=== PATIENT | female | born 1995 | race Caucasian/White ===

== ENCOUNTER 2023-10-26 14:25 | Emergency (ER) | payer BC, SELFPAY ==
[2023-10-26 14:26] VITALS: BP 163/99; PULSE 72; RESP 18; TEMP 36.7; O2SAT 100
--- NOTE | 2023-10-26 15:23 | ED.ANXIETY ---
HPI - Anxiety General Chief Complaint: Anxiety Stated Complaint: anxiety Time Seen by Provider: 10/26/23 14:28 Source: patient Mode of arrival: ambulatory Limitations: no limitations History of Present Illness HPI narrative: Patient is a 28-year-old female with anxiety today. She is having a little bit of wooziness. She is having some headache. This has been going on for 2 months. No panic. No suicide thoughts. MD complaint: anxiety Onset (ago): month(s) (2) Symptoms: other ( She feels like she is having anxiety all the time now) Severity: mild Quality: constant Place: home History of similar episodes: Yes Provoking factors: emotional stress and work/job stress Relieving factors: nothing Exacerbating factors: nothing Associated symptoms: headaches Review of Systems Review of Systems: All systems reviewed & are unremarkable except as noted in HPI and below Constitutional: Constitutional: Reports no additional constitutional complaints Eyes: Eyes: Reports no additional eye complaints ENT: Reports system reviewed and no additional complaints, except as documented Cardiovascular: Cardiovascular: Reports no additional cardiovascular complaints Respiratory: Respiratory: Reports no additional respiratory complaints Gastrointestinal: Gastrointestinal: Reports no additional gastrointestinal complaints Genitourinary: Genitourinary: Reports no additional female genitourinary complaints Musculoskeletal: Musculoskeletal: Reports no additional musculoskeletal complaints Integumentary/Breasts: Skin/Breast: Reports system reviewed and no additional complaints, except as docu Neurologic: Reports system reviewed and no additional complaints, except as documented Psychiatric: Psychiatric: Reports no additional psychiatric complaints Endocrine: Endocrine: Reports no additional endocrine complaints Hematologic/Lymphatic: Hematologic/Lymphatic: Reports no additional hematologic/lymphatic complaints Allergic/Immunologic: Allergic/Immunologic: Reports no additional allergic/immunologic complaints Exam Const: General: healthy appearing Nutritional Appearance: well nourished Orientation/consciousness: patient oriented x3 HENMT: Head: normal to inspection Ears: external ears normal Face/Nose/Sinus: Normal external nose present Eyes: Conjunctivae: conjunctivae normal Pupils: Equal, round and reactive pupils present EOM: EOMs intact bilaterally Neck: Neck: normal visual inspection Chest: Chest palpation & inspection: normal inspection of the chest Resp: Effort & Inspection: normal respiratory effort and not labored Auscultation: clear to auscultation bilaterally Cardio: Rate: regular rate Rhythm: regular rhythm Heart sounds: no murmurs GI: Inspection: non-distended GI Palp: Yes Soft to palpation and No Tenderness to palpation present (GI) Auscultation: normal bowel sounds : General: Yes bladder normal to palpation Back/Spine/Pelvis: Back: no CVA tenderness Skin: General skin exam: normal color Rashes: no rashes Wounds: no wounds Neuro: General: patient oriented x3 Cranial nerves: Yes Nystagmus not present Speech: normal speech Extrem: General: normal to inspection Psych: Mental Status: mental status grossly normal Affect: normal affect Attitude: cooperative Other: no suicide or homicide ideation; no panic attack Course Vital Signs Vital signs: Vital Signs Temperature 36.7 C 10/26/23 14:26 Pulse Rate 72 10/26/23 14:26 Respiratory Rate 18 10/26/23 14:26 Blood Pressure 163/99 H 10/26/23 14:26 Pulse Oximetry 100 10/26/23 14:26 Oxygen Delivery Room Air 10/26/23 14:26 Temperature 36.7 C 10/26/23 14:26 Pulse Rate 72 10/26/23 14:26 Respiratory Rate 18 10/26/23 14:26 Blood Pressure 163/99 H 10/26/23 14:26 Pulse Oximetry 100 10/26/23 14:26 Oxygen Delivery Room Air 10/26/23 14:26 MDM - Anxiety MDM Narrative Medical decision making narrative:
== END 2023-10-26 15:22 | disposition home or self-care (01) ==
LOC: CHSED 15:18
PROVIDERS: Emergency Provider Emergency Medicine; PCP Family Medicine
DX: F41.9 Anxiety disorder, unspecified (principal)
CPT/HCPCS: 99283

== ENCOUNTER 2024-02-16 17:12 | Emergency (ER) | payer BC, SELFPAY ==
[2024-02-16 17:12] VITALS: BP 171/98; PULSE 60; RESP 14; TEMP 36.9; O2SAT 99
[2024-02-16 17:27] LABS: Add Urine Microscopic? YES; Bilirubin Urine Negative (Negative); Blood Urine Trace-intact (Negative); Color Urine Light Yellow (Yellow); Glucose Urine UA Negative (Negative); Ketones Urine Negative (Negative); Leukocyte Esterase Ur Trace LEU/UL (Negative); Nitrate Urine Negative (Negative); Protein Urine Negative (Negative); Specific Grav Ur 1.015 (1.010-1.020); Urobilinogen Urine 0.2 mg/dL (0.2-1.0); pH Urine 6.5 (5.0-8.0)
[2024-02-16 17:31] LABS: Appearance Urine Sl Cloudy (Clear)
[2024-02-16 17:35] LABS: Amorphous Sediment Urine Moderate; Squamous Epithelial Cell Urine Few /hpf (Few)
--- NOTE | 2024-02-16 17:40 | ED.FEMALEGU ---
HPI - Female Genitourinary General Chief complaint: Urogenital-Female Stated complaint: possible UTI Time Seen by Provider: 02/16/24 17:21 Source: patient Mode of arrival: ambulatory Limitations: no limitations History of Present Illness HPI Narrative: this is a 28-year-old female with some dysuria with suprapubic tenderness with some mild flank pain with no fever chills nausea vomiting no diarrhea or constipation no hematuria. MD elicited complaint: dysuria and UTI Onset (ago): day(s) Severity: moderate Related Data Allergies Allergy/AdvReac Type Severity Reaction Status Date / Time No Known Allergies Allergy Verified 02/16/24 17:15 Review of Systems Review of Systems: All systems reviewed & are unremarkable except as noted in HPI and below PMFSH Past Medical History Medical History Depression with anxiety Family History Family History Mother Hypertension Other Diabetes mellitus Social History Social History Smoking status: Never smoker Alcohol intake: current Alcohol use details: OCCASIONALLY Substance use: never Exam Const: General: healthy appearing Nutritional Appearance: well nourished Orientation/consciousness: patient oriented x3 Limitations: no limitations Chest: Chest palpation & inspection: normal inspection of the chest Resp: Effort & Inspection: normal respiratory effort Auscultation: clear to auscultation bilaterally Cardio: Rate: regular rate Rhythm: regular rhythm GI: GI Palp: Yes Tenderness to palpation present (GI) Other: Suprapubic tenderness with palpation Urinary Catheter: Urinary Catheter: patent and draining and urine cloudy Back/Spine/Pelvis: Back: CVA tenderness Skin: General skin exam: normal color Course Course Emergency Course: urinalysis performed shows patient with acute urinary tract infection and will administer a dose of p.o. Macrobid. Vital Signs Vital signs: Vital Signs Temperature 36.9 C 02/16/24 17:12 Pulse Rate 60 02/16/24 17:12 Respiratory Rate 14 02/16/24 17:12 Blood Pressure 171/98 H 02/16/24 17:12 Pulse Oximetry 99 02/16/24 17:12 Oxygen Delivery Room Air 02/16/24 17:12 Temperature 36.9 C 02/16/24 17:12 Pulse Rate 60 02/16/24 17:12 Respiratory Rate 14 02/16/24 17:12 Blood Pressure 171/98 H 02/16/24 17:12 Pulse Oximetry 99 02/16/24 17:12 Oxygen Delivery Room Air 02/16/24 17:12 MDM - Female Genitourinary Lab Data Labs: Lab Results 02/16/24 Range/Units 17:17 Urine Color Light yellow (Yellow) Urine Appearance Sl cloudy A (Clear) Urine pH 6.5 (5.0-8.0) Ur Specific [place] 1.015 (1.010-1.020) Urine Protein Negative (Negative) Urine Glucose (UA) Negative (Negative) Urine Ketones Negative (Negative) Ur Blood (Man) Trace-intact H (Negative) Urine Nitrate Negative (Negative) Urine Bilirubin Negative (Negative) Urine Urobilinogen 0.2 (0.2-1.0) mg/dL Leukocyte Esterase Rfl Trace H (Negative) XENIA/UL Urine RBC 3-5 H (0-2) /hpf Urine WBC 4-6 H (0-3) /hpf Ur Squamous Epith Cells Few (Few) /hpf Amorphous Sediment Moderate H (None) Critical Care Time Critical Care Time Critical Care Time: No Discharge Plan Discharge Clinical Impression: Urinary tract infection Qualifiers: Urinary tract infection type: acute cystitis Hematuria presence: without hematuria Qualified Code(s): N30.00 - Acute cystitis without hematuria Patient Disposition: Home, Self-Care Condition: Stable Instructions: Antibiotic Form, Urinary Tract Infection in Women (ED) Additional Instructions: Advised to take medication as prescribed and follow up with primary if symptoms persist or worsen. Prescriptions: New nitrofurantoin monohyd/m-cryst [Macrobid] 100 mg capsule 100 mg PO Q12H 7 Days Qty: 14 0RF Rx Instructions: must administer with a meal/food Follow-up/Referrals: Felicita Romano NP [Primary Care Provider] - Time of Disposition: 17:43
[2024-02-16] MEDS: NITROFURANTOIN MONOHYD MACROCR 100 MG CAP PO (17:44)
[2024-02-16 17:48] VITALS: BP 148/90
== END 2024-02-16 17:50 | disposition home or self-care (01) ==
PROVIDERS: Emergency Provider Emergency Medicine; PCP Nurse Practitioner Family
DX: N30.00 Acute cystitis without hematuria (principal)
CPT/HCPCS: 81001; 99283; A9270

== ENCOUNTER 2024-03-07 12:25 | Outpatient (CLI) | payer BC, SELFPAY ==
--- NOTE | ~2024-03-07 | XR_ITS ---
Clinical Indication: Cough PA and lateral views of the chest: Comparison: None Findings: The lungs are clear, without evidence of focal consolidation or pleural effusion. Cardiome diastinal silhouette is within normal limits. Bones and soft tissues are unremarkable. Impression: Normal chest. Reviewed, dictated and finalized at [facility]. [employer] Impression: Normal chest.
[2024-03-07 12:40] LABS: Basophils Absolute Auto 0.03 K/mm3 (0.00-0.10); Basophils Percent Auto 0.3 % (0.0-1.0); Eosinophils Absolute Auto 0.01 K/mm3 (0.02-0.50); Eosinophils Percent Auto 0.1 % (1.0-6.0); Hematocrit 42.1 % (35.0-49.0); Immature Granulocyte Absolute 0.03 K/mm3 (0.00-0.00); Immature Granulocyte Percent A 0.3 % (0.0-0.0); Lymphocytes Absolute Auto 1.35 K/mm3 (1.10-4.50); Lymphocytes Percent Auto 13.1 % (18.0-42.0); Mean Corpuscular HGB Conc 33.3 g/dL (32-36); Mean Corpuscular Hemoglobin 27.5 pg (27.0-31.0); Mean Corpuscular Volume 82.5 fL (78.0-102.0); Mean Platelet Volume 9.5 fl (9.2-11.8); Monocytes Absolute Auto 0.97 K/mm3 (0.10-0.90); Monocytes Percent Auto 9.4 % (2.0-11.0); Neutrophils Absolute Auto 7.89 K/mm3 (1.70-7.20); Neutrophils Percent Auto 76.8 % (50.0-70.0); Platelet Count Result 228 K/mm3 (150-420); White Blood Count 10.3 K/mm3 (4.8-10.8)
[2024-03-07 13:26] LABS: Alanine Aminotransferase 36 U/L (14-59); Albumin Level 3.9 g/dL (3.4-5.0); Alkaline Phosphatase 73 U/L (46-116); Anion Gap 12 mmol/L (4-12); Aspartate Amino Transferase 22 U/L (15-37); Bilirubin,Total 0.4 mg/dL (0.00-1.00); Blood Urea Nitrogen 9 mg/dL (7-18); Calcium 9.1 mg/dL (8.5-10.1); Carbon Dioxide 27 mmol/L (21-32); Chloride 99 mmol/L (98-108); Estimated Glomerular Filt Rate > 60; Glucose 110 mg/dL (70-99); Osmolality Calculated 285 mOsm/kg (285-295); Potassium 3.7 mmol/L (3.5-5.1); Sodium 138 mmol/L (136-145); Total Protein 7.3 g/dL (6.4-8.2)
== END 2024-03-07 12:26 | disposition home or self-care (01) ==
PROVIDERS: PCP Nurse Practitioner Family; Visit Provider Nurse Practitioner Family
DX: R06.02 Shortness of breath (principal)
CPT/HCPCS: 36415; 71046; 80053; 85025

== ENCOUNTER 2024-08-23 19:21 | Emergency (ER) | payer BC, SELFPAY ==
[2024-08-23 19:29] VITALS: BP 164/90; PULSE 102; RESP 20; TEMP 36.7; O2SAT 100
--- OUTSIDE RECORDS SUMMARY | 2024-08-23 19:29 | XMS_ITS | Data Portability ---
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 Patient will come back in a year unless there are new symptoms. [email or web address] Not available 08/15/2024 17:04:44 Plan of Treatment Reminders Order Date Submit Date Provider Last Modified By Organization Details Last Modified Time Details Appointments U/S OB FIRST LOOK 2024 10:00A M ULTRASOUND Not available Not available Not available OB NEW 2024 10:30A M Britney Monzon CNM Not available Not available Not available Lab pap, IG + reflex HPV if ASC-U - if positiv e HPV run subtypi ng 16,18/4 5 ADD STD testing RONAL/CHL AMYDIA/ TRICH 2024 025 [facility] (Lab), [address], [place], [address], 08/21/2024 18:51:53 Referral None recorde d. Procedures cathete rizatio n and introdu ction of saline or contras t materia l for saline infusio n sonohys terogra phy (SIS) or hystero salping ography (PROC) 2023 024 [email or web address] [facility], [address], [place], [address], 08/15/2024 17:31:28 Surgeries None recorde d. Imaging US, obstetr ic, 1st trimest er 2024 025 [email or web address] [place], [address], [address], [place], [address], 08/14/2024 22:21:39 US, transva ginal 2023 024 [email or web address] [place], [address], [place], [address], 09/17/2023 16:24:13 US, saline infused uterus 2023 024 [email or web address] [place], [address], [address], [place], [address], 09/25/2023 15:49:41 Medication Orders None recorde d. Patient TargetsNo targets recorded. Patient InstructionsNo instructions recorded. Reason for Referral None Reported. Results Created Date Observation Date Name Description Value Unit Range Abnormal Flag Note LastModifiedBy Organization Detail LastModifiedTime 09/13/19 24 09/13/2023 HEMOG LOBIN A1C hemoglobin A1C 5.5 % 0-5.6 The Ameri can [employer] jorge luis [employer] iatio n recom mends that a prima ry goal of thera py rene d be a HBA1C of < 7% and that physi cians shoul d reeva luate the treat ment regim en in patie nts with HBA1C value s consi stent ly > 8%. <5.7% Jerica l 5.7 - 6.4% Incre ased risk for diabe jorge luis >=6.5 % Diagn ostic of diabe jorge luis <7.0% Goal of thera py >8.0% Actio n sugge sted Not Available [facility] (Lab) [address] [place], [address], 09/21/2023 18:08:46 09/13/19 24 09/13/2023 ANTIM WILLIANLER KALPANA CONNELL NE ([facility]) anti-mulleri an hormone (amh) 6.43 NG/mL Femal e Refer ence Range s 20-24 years : 1.22 - 11.70 ng/mL 25-29 years : 0.89 - 9.85 ng/mL 30-34 years : 0.58 - 8.13 ng/mL 35-39 years : 0.15 - 7.49 ng/mL 40-44 years : 0.03 - 5.47 ng/mL The follo wing resul ts were obtai cristo with the Ele[employer] y[employer] assay . Resul ts from assay s of other manuf actur es canno t be used [facility]. Not Available [facility] (Lab) [address], [place], [address], 09/21/2023 18:08:47 09/13/19 24 09/13/2023 ESTRA DIOL estradiol 45.5 pg/mL This assay was perfo rmed using [employer] ratio n reage nts and test kits. Value s obtai cristo with other assay metho ds or kits canno t be used inter [facility] . Femal e Estra diol Range s: Folli cular phasE 12.4- 233 pg/mL Ovula tion phasE 41.0- 398 pg/mL Lutea l phasE 22.3- 341 pg/mL Postm enopa usal <5-13 8 pg/mL Healt hy Pregn ant Women 1st Trime ster 154-3 243 pg/mL 2nd Trime ster 1561- 15688 pg/mL 3rd Trime ster 8525- >3000 0 pg/mL Not Available [facility] (Lab) [address], [place], [address], 09/21/2023 18:08:47 09/13/19 24 09/13/2023 PROLA CTIN prolactin, total 10.30 NG/mL 4.79-2 3.30 This assay was perfo rmed using [employer] ratio n reage nts and test kits. Value s obtai cristo with other assay metho ds or kits canno t be used inter [facility] . Not Available [facility] (Lab) [address], [place], [address], 09/21/2023 18:08:48 09/13/19 24 09/13/2023 LH (LUTE NIZIN G HORMO NE) LH 11.6 mIU/m L This assay was perfo rmed using [employer] ratio n reage nts and test kits. Value s obtai cristo with other assay metho ds or kits canno t be used inter [facility] . Femal es Mid-F ollic ular: 2.4-1 2.6 mIU/m L Mid-C ycle: 14.0- 95.6 mIU/m L Mid-L uteal : 1.0-1 1.4 mIU/m L Postm enopa use: 7.7-5 8.5 mIU/m L Not Available [facility] (Lab) [address], [place], [address], 09/21/2023 18:08:48 09/13/19 24 09/13/2023 FSH FSH 5.6 mIU/m L This assay was perfo rmed using [employer] ratio n reage nts and test kits. Value s obtai cristo with other assay metho ds or kits canno t be used inter [facility] . Femal es Folli cular : 3.5-1 2.5 mIU/m L Ovula tion: 4.7-2 1.5 mIU/m L Lutea l: 1.7-7 .7 mIU/m L Postm enopa use: 25.8- 134.8 mIU/m L Not Available [facility] (Lab) [address], [place], [address], 09/21/2023 18:08:49 09/13/19 24 09/13/2023 17-OH PROGE STERO NE 17-hydroxypr ogesterone, lc/MS/MS 60 NG/dL Adult Femal e Refer ence Range s for 17-Hy droxy proge stero ne: Pre-M enopa usal Mid Folli cular : 23-10 2 ng/dL Pre-M enopa usal Surge : 67-34 9 ng/dL Pre-M enopa usal Mid Lutea l: 139-4 31 ng/dL Postm enopa usal Phase : < or = 45 ng/dL Pregn kari: First Trime ster: 78-45 7 ng/dL Secon d Trime ster: 90-35 7 ng/dL Third Trime ster: 144-5 78 ng/dL This test was devel oped and its rosanna tical perfo rmanc e berta cteri stics have been deter mined by [employer]. It has not been clear ed or appro hua by FDA. This assay has been valid ated pursu ant to the CLIA regul ation s and is used for clini vanesa purpo ses. Perfo rming Organ izati on Infor [facility] n: Site ID: [id number] Name: [employer]/[facility] [place] , [place]re [place]: [id number] [address] [place] [address] Direc tor: Tabby reynoso MD,Ph D,SAM Not Available [facility] (Lab) [address], [place], [address], 09/21/2023 18:08:49 06/03/19 25 06/02/2024 PROGE STERO NE progesterone 0.24 NG/mL This assay was perfo rmed using [employer] ratio n reage nts and test kits. Value s obtai cristo with other assay metho ds or kits canno t be used inter [facility] . Femal e Proge stero ne Range s: Folli cular phase 0.06- 0.89 ng/mL Ovula tion phase 0.12- 12.00 ng/mL Lutea l phase 1.83- 23.90 ng/mL Postm enopa usal <0.05 -0.13 ng/mL Healt hy Pregn ant Women 1st Trime ster 11.0- 44.30 2nd Trime ster 25.40 -83.3 0 3rd Trime ster 58.70 -214. [address] [facility] (Lab) [address], [place], [address], 06/03/2024 04:58:29 07/16/19 25 07/15/2024 PROGE STERO NE progesterone 9.80 NG/mL This assay was perfo rmed using [employer] ratio n reage nts and test kits. Value s obtai cristo with other assay metho ds or kits canno t be used inter [facility] . Femal e Proge stero ne Range s: Folli cular phase 0.06- 0.89 ng/mL Ovula tion phase 0.12- 12.00 ng/mL Lutea l phase 1.83- 23.90 ng/mL Postm enopa usal <0.05 -0.13 ng/mL Healt hy Pregn ant Women 1st Trime ster 11.0- 44.30 2nd Trime ster 25.40 -83.3 0 3rd Trime ster 58.70 -214. [address] [facility] (Lab) [address], [place], [address], 07/16/2024 03:36:54 08/19/1908/18/2024 IMAGE GUIDE D PAP, REFLE X HPV IF ASCUS ONLY image guided Pap, reflex HPV ASCUS only SEE RESULT S BELOW CASE REPOR T: Cytol ogy Gynec ologi vanesa Repor t Case: [id number] Autho eddie aly Provi vaughn: Britney Puga, GEOVANNY Colle cted: 08/18 0834 Order ing Locat ion: [place] [facility] Recei hua: 08/19 1258 First Scree n: Alis Issa, CT Rescr een: Germán Howell, CT Speci men: Scree nirav Pap - Image d, Cervi x STATE MENT OF ADEQU ACY: Satis facto ry for evalu ation Trans forma tion zone compo nent absen t The absen ce of an endoc ervic al compo nent was confi rmed by an addit ional scree ner. ----- ----- ----- ----- ----- ----- ----- ----- ----- ----- ----- ----- ----- ----- ----- ----- ----- ---- FINAL DIAGN OSIS: Negat vladimir for Intra epith elial Lesio britany or Russ amador (NIL) . Elect zeus khanna d by Germán Howell, LESLIE on 2024 at 1748 CDT ----- ----- ----- ----- ----- ----- ----- ----- ----- ----- ----- ----- ----- ----- ----- ----- ----- ---- COMME NT: This speci men was revie wed by a Cytot echno logis t and/o r Patho logis t (as indic ated in this repor t) after evalu ation using the Thinp rep Imagi ng Syste m. CLINI VANESA INFOR MATIO N: Menst rual Statu s: LMP (if appli cable ): Clini vanesa Histo ry/Pr eviou s Pap: Type of Neopl katerin (if appli cable ): Signi fican t Clini vanesa Findi ngs: Other Histo ry: Hormo heather (if appli cable ): PAP EDUCA NICOLAS L NOTE: The Pap Test is a scree nirav test with an inher ent false negat vladimir rate. Liqui d-bas ed sampl ing may decre ase, but will not elimi magdi, false negat vladimir resul ts. A negat vladimir resul t does not precl ude the prese nce and/o r devel opmen t of disea se, since the prese nce of abnor mal cells in the sampl e depen ds on the locat ion of the lesio n and sampl ing techn ique. Ciaran nued regul ar scree nirav is the best metho d of cance r preve ntion . If repor terra cytol ogic findi ng do not corre late with physi vanesa and/o r histo rical findi ngs, furth er inves tigat ion is recom adri d, as clini archana biggs nted. Not Available [facility] (Lab) [address], [place], [address], 08/21/2024 18:51:53 08/19/19 25 08/18/2024 CT/GC AND TRICH OMONA S VAGIN BHUMI (RRNA ), THINP REP VIAL CT/GC and trichomonas vaginalis (rrna), thinprep SEE RESULT S BELOW negati ve CHLAM YDIA TRACH OMATI S, PCR: Negat vladimir NEISS ERIA GONOR RHOEA E, PCR: Negat vladimir TRICH OMONA S VAGIN BHUMI RIBOS OMAL RNA (RRNA ): Negat vladimir Not Available [facility] (Lab) [address], [place], [address], 08/21/2024 18:51:53 09/13/19 24 09/13/2023 US, trans vagin al No observ ation record ed. [address], [place], [address], 09/13/2023 16:30:50 09/13/19 24 09/13/2023 US, trans vagin al No observ ation record ed. [email or web address] [facility], [place], [address], 09/15/2023 01:16:25 08/15/19 25 08/14/2024 US, obste tric, 1st trime ster No observ ation record ed. [address] [facility], [place], [address], 08/18/2024 14:18:28 08/15/19 25 08/14/2024 US, obste tric, 1st trime ster No observ ation record ed. [facility] [address], [place], [address], 08/14/2024 14:29:08 Result Notes None recorded. Problems Name Problem SNOMED Code Status Onset Date Resolution Date Notes Provider Name and Address Organization Details Recorded Time Pregnanc y detectio n examinat ion Completed 201811/16/2021 Encounte r for pregnanc y test, result positive ;Practic e ID: 0001 [facility] 18:30:21 Uterine size for dates discrepa ncy Completed 201811/16/2021 Uterine size-johann e discrepa ncy, first trimeste r;Practi ce ID: 0001 [facility]a [facility] 2 18:30:21 Gestatio n period, 9 weeks [id number] Completed 201811/16/2021 9 weeks gestatio n of pregnanc y;Practi ce ID: 0001 [facility]a [facility] 2 18:30:21 [place]anc [place] [id number] Completed 201811/16/2021 Encounte r for suprvsn of normal pregnanc y, first trimeste r;Practi ce ID: 0001 [facility]a [facility] 2 18:30:21 Antenata l screenin g Completed 201811/16/2021 Encounte r for other specifie d antenata l screenin g;Practi ce ID: 0001 [facility]hya [facility] 2 18:30:21 Medical examinat ion for suspecte d conditio n Completed 201811/16/2021 Encntr for oth suspecte d maternal and cond ruled out;Prac jaxson ID: 0001 [facility]a [facility] 2 18:30:[address] Concept Completed 201811/16/2021 Maternal care for oth abnormal ity and damage, unsp;Pra ctice ID: 0001 Sandhya Key [facility], [facility] 2 18:30:21 Gestatio n period, 30 weeks [id number] Completed 201811/16/2021 30 weeks gestatio n of pregnanc y;Practi ce ID: 0001 Sandhya Key [facility] 2 18:30:21 Pregnanc y, childbir th and puerperi um finding Completed 201811/16/2021 Encntr for suprvsn of normal first preg, third trimeste r;Practi ce ID: 0001 Sandhya [facility] 2 18:30:21 Malforma tion of central nervous system of fetus [id number] 07 Completed 201811/16/2021 Maternal care for (suspect ed) cnsl malform in fetus, unsp;Pra ctice ID: 0001 Sandhya [facility] 2 18:30:21 Gestatio n period, 34 weeks [id number] Completed 201811/16/2021 34 weeks gestatio n of pregnanc y;Practi ce ID: 0001 Sandhya Key [facility] 2 18:30:21 Secondar y amenorrh ea [id number] Completed 201811/16/2021 Secondar y amenorrh ea;Recor ded Elsewher e: No Locat ion: [place] S ource: [employer] urbano: N Practi ce ID: 0001 Edmond lable Time: 03:30:00 PM Sandhya [facility] 2 18:30:21 Chlamydi al infectio n [id number] Completed 201811/16/2021 Chlamydi al infectio n, unspecif ied;Tip rded Elsewher e: No Locat ion: [place] S ource: [employer] urbano: N Practi ce ID: 0001 Edmond lable Time: 11:52:25 AM Sandhya [facility] 2 18:30:21 Finding of fertilit y Completed 201711/16/2021 Female infertil ity, unspecif ied;Tip rded Elsewher e: No Locat ion: [place] [facility] S ource: [employer] urbano: N Practi ce ID: 0001 Edmond lable Time: 10:00:00 AM Sandhya [facility] 2 18:30:21 Infectio n screenin g Completed 201811/16/2021 Encounte r for screenin g for oth infec/pa rastc diseases ;Recorde d Elsewher e: No Locat ion: [place] [facility] S ource: [employer] ur[place]ano: N Practi ce ID: 0001 Edmond lable Time: 03:30:00 PM Sandhya [facility] 2 18:30:[address] Concept Completed 201811/16/2021 Encntr for roving sizer exam (general ) (routine ) w/o abn findings ;Recorde d Elsewher e: No Locat ion: [facility] S ource: [employer] urbano: N Practi ce ID: 0001 Edmond lable Time: 03:30:00 PM Sandhya [facility] 2 18:30:21 Acute vaginiti s [id number] Completed 201911/16/2021 Vaginiti s;Record ed Elsewher e: No [facility] S ource: [employer] urbano: N Practi ce ID: 0001 Edmond lable Time: 01:00:00 PM Sandhya [facility] 2 18:30:21 Abnormal uterine bleeding [id number] 100 Completed 201711/16/2021 Other specifie d abnormal uterine and vaginal bleeding ;Recorde d Elsewher e: No Locat ion: [place] [facility] S ource: [employer] ur[place]: N Carolynnti ce ID: 0001 Edmond lable Time: 09:45:00 AM Sandhya [facility] 2 18:30:21 Bleeding [id number] Completed 201711/16/2021 Abnormal uterine and vaginal bleeding , unspecif ied;Tip rded Elsewher e: No Locat ion: [facility] S ource: [employer] urbano: N Carolynnti ce ID: 0001 Edmond lable Time: 10:00:00 AM Sandhya [facility] 2 18:30:21 Lochia finding Completed 201911/16/2021 Encounte r for routine postpart um follow-u p;Record ed Elsewher e: No Locat ion: [place] [facility] S ource: [employer] ur[place]: N Susie ce ID: 0001 Edmond lable Time: 08:45:00 AM Sandhya Kye [facility] 2 18:30:21 Syphilis test finding [id number] Completed 201811/16/2021 Encntr screen for infectio ns w sexl mode of transmis s;Record ed Elsewher e: No Locat ion: [place] [facility] S ource: [employer] ur[place]: N Carolynnti ce ID: 0001 Edmond lable Time: 03:30:00 PM Sandhya [facility] 2 18:30:21 Urinary tract infectio us disease [id number] Completed 201811/16/2021 Urinary tract infectio n, site not specifie d;Record ed Elsewher e: No [facility] ource: [employer] ur[place]: N Carolynnti ce ID: 0001 Edmond lable Time: 04:15:00 PM Sandhya [facility] 2 18:30:21 Body mass index 30+ - obesity 137965028 Completed 201811/16/2021 Body mass index (BMI) 37.0-37. 9, adult;Re corded Elsewher e: No Locat ion: [facility] S ource: [employer] ur[place]ano: N Practi ce ID: 0001 Edmond lable Time: 03:30:00 PM Sandhya [facility] 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 2 18:30:[address] Concept Completed 201811/16/2021 Matern care for abnlt fetl hrt rate or rhym, unsp tri, unsp;Pra ctice ID: 0001 Sandhya [facility] 2 18:30:21 Gestatio n period, 36 weeks [id number] Completed 201811/16/2021 36 weeks gestatio n of pregnanc y;Practi ce ID: 0001 Sandhya [facility] 2 18:30:21 Term pregnanc y delivere d [id number] Completed 201811/16/2021 Encounte r for full-ter m uncompli cated delivery ;Practic e ID: 0001 Sandhya [facility] 2 18:30:21 Single live from singleto n pregnanc y [id number] Completed 201811/16/2021 Single live ;Pr actice ID: 0001 Sandhya [facility] 2 18:30:21 Gestatio n period, 37 weeks [id number] Completed 201811/16/2021 37 weeks gestatio n of pregnanc y;Practi ce ID: 0001 Sandhya [facility], [facility] 2 18:30:21 Mixed anxiety and depressi ve disorder [id number] Active 2024 Paz Keller [facility], [facility] 5 17:09:17 Notes:previous son had hypoplastic left heart syndrome Problem Notes None recorded. Procedures Surgical History Date Name Laterality Status Provider Name and Address Organization Details Recorded Time 5 Date of Last Pap Smear completed Paz Keller [facility] 08/15/2024 17:09:24 4 SIS completed NUZHAT STEPHENSON MD [address], [place], [address], [place] [facility] 09/13/2023 14:06:22 Imaging Results Imaging Date Name Status LastModified by Organization Details LastModified Time 09/13/2023 US, transvaginal completed [email or web address] [place] [address], [place], [address], 09/13/2023 16:30:50 09/13/2023 US, transvaginal completed [email or web address], [place], [address], 09/15/2023 01:16:25 08/14/2024 US, obstetric, 1st trimester completed [email or web address] [address], [place], [address], 08/18/2024 14:18:28 08/14/2024 US, obstetric, 1st trimester completed michele Peterson [address], [place], [address], 08/14/2024 14:29:08 Procedure Notes None recorded. Medical Equipment None Reported. Allergies No known drug allergies Medications Name Sig Start Date Stop Date Status Note LastModified by Organization Details LastModified Time medroxypr ogesteron e 10 mg tablet Take 1 tablet PO x 10 days; q30d if no menses begins. Take urine pregnanc y test before each use. 08/27 completed Not Available Not Available Not Available clomiphen e citrate 50 mg tablet take 1 tablet by oral route every day 08/27 completed Prescrib ed Elsewher e: No Locat ion: [facility] By: [email or web address] z Aris ter DateTime : 03/28/20 10:00:00 AM Not Available Not Available Not Available penicilli n V potassium 500 mg tablet TAKE 1 TABLET BY MOUTH EVERY 12 HOURS FOR 10 DAYS 04/30 completed Not Available Not Available Not Available terconazo le 80 mg vaginal supposito ry insert 1 supposit ory by vaginal route every day at bedtime 11/17 completed Prescrib ed Elsewher e: No Locat ion: [facility] By: sepringl perfecto [address] ter DateTime : 02/06/20 08:45:00 AM Not Available Not Available Not Available Zofran 4 mg tablet take 1 tablet as needed for nausea 11/17 completed Prescrib ed Elsewher e: No Locat ion: [facility] By: dian [address] DateTime : 09/17/19 04:11:09 PM Not Available Not Available Not Available Metrogel Vaginal 0.75 % (37.5 mg/5 gram) insert 1 applicat orful by vaginal route every day at bedtime for 5 nights 11/17 completed Prescrib ed Elsewher e: No Locat ion: [facility] By: rahel [address] ter DateTime : 07/07/19 11:56:12 AM Not Available Not Available Not Available oseltamiv ir 75 mg capsule TAKE 1 CAPSULE BY MOUTH EVERY 12 HOURS FOR 5 DAYS 04/30 completed Not Available Not Available Not Available sertralin e 25 mg tablet TAKE 1 TABLET BY MOUTH DAILY 08/15 completed Not Available Not Available Not Available norethind lora acetate 5 mg tablet take1 tablet by oral route every day for 10 consecut vladimir days (of each month). 08/27 completed Prescrib ed Elsewher e: No Locat ion: [facility] By: [email or web address] z Aris ter DateTime : 03/28/20 18 10:00:00 AM Not Available Not Available Not Available letrozole 2.5 mg tablet TAKE 2 TABLETS BY MOUTH EVERY DAY FOR 5 DAYS 08/15 completed Not Available Not Available Not Available Zithromax 500 mg tablet take 2 tablet by oral route once 11/17 completed Prescrib ed Elsewher e: No Locat ion: [facility] By: [email or web address] r Aris jonas DateTime : 09/17/19 04:11:09 PM Not Available Not Available Not Available nitrofura ntoin monohydra te/macroc rystals 100 mg capsule TAKE 1 CAPSULE BY MOUTH EVERY 12 HOURS 08/15 completed Not Available Not Available Not Available Vitals Date Recorded Body height Body mass index (BMI) Body weight Systolic blood pressure Diastolic blood pressure Provider Name and Address Organization Details Last Updated DateTime 04/30/2024 167.64 cm 43.4 kg/m2 348395.3 5 g 149 mm[Hg] 89 mm[Hg] Juana Fenton [facility] 14:42:15 Date Recorded Body height Body mass index (BMI) Body weight Systolic blood pressure Diastolic blood pressure Provider Name and Address Organization Details Last Updated DateTime 08/15/2024 167.64 cm 44.1 kg/m2 630761.7 2 g 149 mm[Hg] 89 mm[Hg] Paz Keller [facility] 17:08:35 Social History Question Answer Notes LastModified by Organizat ion Details LastModified Time Tobacco Smoking Status Never Smoker [facility] 11/17/2021 10:26:20 Do You Have An Advance Directive? No Information n ot available 11/17/2021 If You Are , What Was Your Level Of Alcohol Consumption Prior To ? Occasional [email or web address] Information not available 08/15/2024 How Many Years Have You Consumed Alcohol? 8 Information not available 11/17/2021 Are You Blind Or Do You Have Difficulty Seeing? No Information n ot available 11/17/2021 What Is Your Level Of Caffeine Consumption? Moderate [email or web address] Information not available 08/15/2024 How Much Tobacco Do You Chew? None Information not available 11/17/2021 In The 14 Days Before Symptom Onset, Have You Had Close Contact With A Laboratory-confirm ed COVID-19 While That Case Was Ill? No Information n ot available 11/17/2021 In The 14 Days Before Symptom Onset, Have You Had Close Contact With A Person Who Is Under Investigation For COVID-19 While That Person Was Ill? No Information not available 11/17/2021 Have You Been To An Area Known To Be High Risk For COVID-19? No Information not available 11/17/2021 Are You Deaf Or Do You Have Serious Difficulty Hearing? No Information not available 11/17/2021 What Type Of Diet Are You Following? REGULAR Information n ot available 11/17/2021 What Is The Highest Grade Or Level Of School You Have Completed Or The Highest Degree You Have Received? [id number] Information not available 11/17/2021 Are There Any Guns Present In Your Home? No Information not available 11/17/2021 Do You Use Protection During Sex? No Information not available 11/17/2021 Do You Use Your Seat Belt Or Car Seat Routinely? Yes Information not available 11/17/2021 Do You Have Smoke And Carbon Monoxide Detectors In Your Home? Yes Information not available 11/17/2021 How Much Tobacco Do You Smoke? No Information not available 11/17/2021 Do You Use Sunscreen Routinely? No Information not available 11/17/2021 Have You Used IV Drugs? No Information not available 11/17/2021 Do You Have Difficulty Walking Or Climbing Stairs? No Information not available 11/17/2021 Sex: Unknown Functional Status Question Answer Note LastModified by Organizat ion Details LastModified Time Do you use any illicit or recreational drugs? No Information not available 11/17/2021 What is your level of alcohol consumption? None [email or web address] Information not available 08/15/2024 Are you able to walk? YESWOREST Information not available 11/17/2021 Are you able to care for yourself? 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 No Information not available 11/17/2021 What is your exercise level? Occasional Information not available 11/17/2021 Mental Status Question Answer Note LastModified by Organization D etails LastModified Time Do you feel stressed (tense, restless, nervous, or anxious, or unable to sleep at night)? [id number] Information not available 08/15/2024 Family History Relationship Description Onset Age of this Age Resolved Age Notes LastModified by Organization Details LastModified Time Son Hypoplastic left heart syndrome [email or web address] Not available 06/15 18:39:24 Medical History Condition Response Other Y Blood Transfusion N Dermatologic Disorders N Gestational Diabetes N Anxiety Disorder Y Autoimmune disease N Arthritis N Polyps N Infertility N Acid Reflux (GERD) N Cancer N Varicosities N Stroke N Neurologic/Epilepsy N Fibromyalgia N Headaches N Kidney Disease N Heart Problems N Kidney or Bladder Problems N Eating Disorder N Art (IVF or FET) N Hepatitis/Liver Disease N No Past Medical History N Urinary Tract Infection N Asthma N Trauma/Violence N Thrombophilias N Allergies (Food, seasonal, environmental ) N Breast Cancer N Drug/Latex Allergies/Reactions N Lung Disease N Defects or Inherited Disease N Breast Problem N Hematologic disorders N Anesthesia Complications N History of STI N Deep Vein Thrombosis N Polycystic ovary syndrome N History of abnormal pap N Endometriosis N High Cholesterol N Thyroid Problems N GI Problems N Anemia N Psychiatric Illness N Ovarian Cancer N Diabetes N Pulmonary (TB, Asthma) N Eczema N Abuse/Domestic Violence N Depression/ depression Y Heart Disease N Pre-Eclampsia N Hypertension N Osteoporosis N Gynecological History Statement/Question Response Date of Last Mammogram Flow Moderate Date of LMP 06/26/2024 On BCP's at Conception? N N Was last menstrual period normal Y STIs/STDs HPV Vaccine N Duration of Flow (days) 4 Current Control Method Age at First Child 21 Date of Last Colonoscopy Frequency of Cycle (Q days) 0 Sexually Active? Y Date of DEXA bone scan Age of first menstrual cycle 15 Date of Last Pap Smear 08/15/2024 Sexual Problems? N LMP Approximate N Obstetrics History GPAL:G 2 P 2 0 0 1 Type Value Full Term 2 Living 1 Total 2 Past Encounters Encounter ID Performer Location Encounter Start Date Encounter Closed Date Diagnosis/Indication Diagnosis SNOMED-CT Code Diagnosis ICD10 Code Diagnosis Note [id number] Eliz Wells [facility] [address],[place] [address] 11/17/2021 09:51:36 11/17/2021 16:21:37 Secondary amenorrhea 530531817 N91.1 Today we agreed to an US with updated lab work then f/u to discuss plan of care.Will consider Provera Challenge at next visit as not interested in control.Un john aly verbalized of plan of care currently & will again review possible causes/alexis atments when she f/u in office for results review. Time spent in visit is a total of 30 mins with at least 50% of visit consisting of counseling and review of plan of care. [id number] Dakotah Celeste MD [facility] [address],[place] [address] 11/22/2021 13:59:46 11/22/2021 15:12:36 Secondary amenorrhea [id number] N91.1 [id number] Eliz Wells [facility] [address],[place] [address] 12/06/2021 15:12:31 12/06/2021 15:54:58 Secondary amenorrhea 703529834 N91.1 Reviewed US & LabsWill f/u PCP labsOpts to avoid control at this time and chooses to pursue Provera q30d or q3mos. Counseled on medication R/B's, Most common side effects, & use. All questions were answered to patient satisfacti on. Time spent in visit is a total of 15 mins with at least 50% of visit consisting of counseling and review of plan of care. [id number] NUZHAT STEPHENSON MD [facility] [address],[place] [address] 08/28/2023 13:52:34 08/28/2023 14:50:55 Oligomenorrhea [id number] N91.5 Polycystic ovary syndrome [id number] E28.2 - Differenti al diagnosis of cause of infertilit y includes: anovulatio n- We discussed the potential causes of infertilit y and rationale behind testing. We also discussed her reproducti ve potential in the context of her age as well as the risk of aneuploidy .- We discussed her reproducti ve potential in the context of her BMI which is 45. We reviewed that given her BMI >25 her natural fertility could be improved by even just a 5% wt loss. Info given regarding nutritioni st.- The patient is asked to complete the following diagnostic work up to include:-- CD3: FSH, estradiol- - TSH, A1C, Vitamin D, PRL, LH, 17OHP, AMH, and labs including varicella status-- Transvagin al ultrasound with SIS and bubble study for endometria l cavity assessment , AFC and repeat for dominant follicle- The patient was asked to have her collect a semen analysis,w ill discuss further at lab follow up- Discussed the fertile time of the cycle and options for tracking ovulation, including ovulation predictor kits and basal body temperatur e.-- Discussed timed intercours e every other day starting on Day 6 of period through to the next period.-- Discussed using LH surge kits, usually accurate and would recommend intercours e that day and the next day, then can wait until next cycle.-- Discussed ovulation induction would be considered only after behavioral interventi ons were implemente d and after partner completes semen analysis.- Following the return of these test results she is asked to return to the office for further discussion of reproducti ve planning and treatment options- She will call the office on CD 1 so that her lab work can be scheduled appropriat candelario Obesity [id number] E66.9 [id number] NUZHAT STEPHENSON MD [facility] [address],[place] [address] 09/13/2023 12:02:37 09/13/2023 13:31:02 Female infertility [id number] N91.5 [id number] NUZHAT STEPHENSON MD [facility] [address],[facility] [address] 09/13/2023 12:03:03 09/13/2023 14:10:01 Polycystic ovary syndrome [id number] E28.2 - Differenti al diagnosis of cause of infertilit y includes: anovulatio n, structural - The patient is asked to complete the following diagnostic work up to include:-- CD3: FSH, estradiol- - TSH, A1C, Vitamin D, PRL, LH, 17OHP, AMH, and labs including varicella status- The patient was asked to have her collect a semen analysis,i nfo given today- Labs drawn today- SIS performed, patient tolerated well Female infertility 90656 [id number] N91.5 [id number] NUZHAT STEPHENSON MD [facility] [address],[facility] [address] 04/30/2024 14:31:15 05/01/2024 09:20:59 Anovulation [id number] N97.0 - patient reports no positive ovulation tests- seen for low sperm counts, on low dose clomid; awaiting new semen analysis results- TTC since 07/2022 without success- discussed medication s for ovulation induction including letrozole and clomid; recommend letrozole due to lower rate of multiple gestation (5%) vs clomid (10%)- discussed plan for ovulation induction with letrozole CD3-7, followed by OPKs from CD9 until positive, and progestero ne level CD21.- discussed starting dose of 2.5mg, increasing if no rise in progestero ne to suggest ovulation- once ovulating, recommend 6 months of OI prior to pursuing other treatments - recommend continuing good diet and exercise to attempt weight loss due to many IVF clinic BMI limit of 40 due to anesthesia concerns- if ovulation not induced at 7.5mg dosage of letrozole, recommend referral to [facility]- patient to call on CD1 so meds can be sent and labs can be scheduled [id number] Dakotah Celeste MD [facility] [address],[place] [address] 08/14/2024 13:29:03 08/14/2024 13:59:39 Fundal height high for dates [id number] O26.849 Z3A.01 [id number] Britney Monzon, [facility] [address],[place] [address] 08/15/2024 14:52:25 08/19/2024 09:56:32 Gynecologic examination [id number] Z01.419 Z11.3 Health Concerns Section Related Observation LastModified by Organization Detai ls LastModified Time None Recorded Concern Status LastModified by Organization Details LastModified Time None Recorded Advance Directives Directive N: Payers Encounter Date Sequence Insurance Name Policy Number Policy Mckenna Covered Member ID Mckenna Member ID Guarantor Name 09/13/2023 1 [place] [id number] Alex Louie [facility] [id number] R[address]ict Louie 09/13/2023 2 [place]: [facility] [id number] Rizwana Louie 09/13/2023 1 [place] [id number] Alex Louie [facility] [id number] Rizwanabenedict Louie 09/13/2023 2 [place] [facility] [id number] Rizwana Louie 04/30/2024 1 [place] [id number] Alex Louie [facility] [id number] Rizwana Louie 08/14/2024 1 [place] [id number] Alex Louie [id number] Rizwana Louie 08/15/2024 1 [place] [id number] Alex Louie [id number] Rizwana Louie Notes Date Note Type Note Provider Name and Address Organization Details Recorded Time 09/13/2023 text/html Patient presents for SIS indicated for infertility. NUZHAT STEPHENSON MD [address], [place], [address], [facility] 09/13/2023 14:08:46 04/30/2024 text/html Patient presents for discussion of next steps for infertility treatment. She was seen in 09/2023 and was found to have low sperm counts. He was seen by urology and started on low dose clomid since October. Stopped drinking and smoking as well. Has not had repeat semen analysis yet, ordered. She reports regular periods, however not getting positive ovulation tests. She has been doing them for the past two months. Has still been attempting conception without success since 07/2022. NUZHAT STEPHENSON MD [address], [place], [address], [facility] 04/30/2024 23:06:58 08/15/2024 text/html Annual GYNReport ed bypatient.History: no gynecologic complaints; actively trying to conceive; amenorrhea Menstrual cycle:Normal menses Urinary symptoms:No hematuria; No incontinence Vulva:No genital lesion Vagina:Normal vaginal discharge Sexual complaints:No sexual complaints; No pain during intercourse; Normal libido Menopausal Symptoms:No menopausal symptoms; Normal vaginal lubrication Psychological symptoms:No depression; No anxiety; No PMDD Preventive measures:Encourage self breast examination; Encourage regular exercise; Encourage no tobacco useNotes:+UPT Britney Monzon CNM [address], [place], [address], [facility] 08/19/2024 09:16:22 OBGyn Episode Ob Episode Information Episode Created Date Number of Fetuses Patient Bloodtype Patient rh Status Prepregnancy Weight lbs Domestic Partner Domestic Partner Phone Father Name Sterile Instrument Technician Status 06/16/19 21 1 CLOSED Fetus Data First Name Last Name Admitted to NICU Weight (g) Sex Living Outcome Pediatric Complications Fetus ID Race Codes Race Delivery Type 2863.07 2704 M Full Term 8526 Vaginal Delivery Les Calculation Initial Les Date Initial Exam Date Initial Exam Provider Initial Ultrasound Date Last Menstrual Period Date Ultra Sound Weeks Gestation 0 Eighteen To Twenty Week Les Update Ultra Sound Date Fundal Height At Umbil Quickening Date Ultra Sound Latest Weeks Gestation Final Les Confirmed By Final Les Confirmed Date Final Les Date Ultra Sound Latest Days Gestation 0 0 Menstrual History Last Menstrual Date Menses Monthly On Bcp Conception Prior Menses Frequency Hcg Plus Date Menarche Onset Age Delivery Information Delivery Date Delivery Type Labor Anesthesia Weeks Gestation Incision Type Labor Labor Length Hrs Delivered By Post Complications Tubal Sterilization Discharge Date Comments 8 Baby after dx [facility] Discharge Information Feeding Method Contraceptive Method Maternal HG B and HCT Levels Ob Episode Information Episode Created Date Number of Fetuses Patient Bloodtype Patient rh Status Prepregnancy Weight lbs Domestic Partner Domestic Partner Phone Father Name Sterile Instrument Technician Status 06/16/19 21 1 CLOSED Fetus Data First Name Last Name Admitted to NICU Weight (g) Sex Living Outcome Pediatric Complications Fetus ID Race Codes Race Delivery Type 3316.66 4704 M Full Term 8527 Vaginal Delivery Les Calculation Initial Les Date Initial Exam Date Initial Exam Provider Initial Ultrasound Date Last Menstrual Period Date Ultra Sound Weeks Gestation 0 Eighteen To Twenty Week Les Update Ultra Sound Date Fundal Height At Umbil Quickening Date Ultra Sound Latest Weeks Gestation Final Les Confirmed By Final Les Confirmed Date Final Les Date Ultra Sound Latest Days Gestation 0 0 Menstrual History Last Menstrual Date Menses Monthly On Bcp Conception Prior Menses Frequency Hcg Plus Date Menarche Onset Age Delivery Information Delivery Date Delivery Type Labor Anesthesia Weeks Gestation Incision Type Labor Labor Length Hrs Delivered By Post Complications Tubal Sterilization Discharge Date Comments 9 37.3 preeclam p teo Discharge Information Feeding Method Contraceptive Method Maternal HG B and HCT Levels
[2024-08-23 19:30] VITALS: BP 147/78
[2024-08-23 19:45] VITALS: BP 157/71
[2024-08-23 20:22] VITALS: BP 140/68
[2024-08-23 20:29] LABS: Basophils Absolute Auto 0.04 K/mm3 (0.00-0.10); Basophils Percent Auto 0.3 % (0.0-1.0); Eosinophils Absolute Auto 0.13 K/mm3 (0.02-0.50); Eosinophils Percent Auto 0.8 % (1.0-6.0); Hemoglobin 12.1 g/dL (12.0-15.0); Immature Granulocyte Absolute 0.04 K/mm3 (0.00-0.00); Immature Granulocyte Percent A 0.3 % (0.0-0.0); Immature Platelet Fraction Pct 9.1 % (1.0-7.0); Lymphocytes Absolute Auto 3.98 K/mm3 (1.10-4.50); Lymphocytes Percent Auto 25.8 % (18.0-42.0); Mean Corpuscular HGB Conc 31.8 g/dL (32-36); Mean Corpuscular Hemoglobin 26.8 pg (27.0-31.0); Mean Corpuscular Volume 84.1 fL (78.0-102.0); Monocytes Absolute Auto 0.87 K/mm3 (0.10-0.90); Monocytes Percent Auto 5.6 % (2.0-11.0); Neutrophils Absolute Auto 10.36 K/mm3 (1.70-7.20); Neutrophils Percent Auto 67.2 % (50.0-70.0); Red Blood Count 4.52 M/mm3 (4.20-5.40); Red Cell Distribution Width 13.2 % (11.6-14.4); White Blood Count 15.4 K/mm3 (4.8-10.8)
--- NOTE | 2024-08-23 20:37 | PC.NURSE ---
patient resting on stretcher, anxious and nearly tearful. update provided. patient sig other at bedside.
[2024-08-23 20:51] LABS: Platelet Count Result 176 K/mm3 (150-420)
[2024-08-23 20:55] LABS: Alanine Aminotransferase 22 U/L (6-35); Alkaline Phosphatase 65 U/L (38-126); Anion Gap 7 mmol/L (4-12); Aspartate Amino Transferase 22 U/L (14-36); Bilirubin,Total 0.2 mg/dL (0.2-1.3); Blood Urea Nitrogen 11 mg/dL (7-17); Calcium 9.1 mg/dL (8.4-10.2); Carbon Dioxide 23 mmol/L (22-30); Chloride 106 mmol/L (98-107); Estimated CRCL calculation 139 ml/min; Estimated Glomerular Filt Rate > 60; Glucose 93 mg/dL (65-110); Osmolality Calculated 281 mOsm/kg (285-295); Potassium 3.6 mmol/L (3.4-5.0); Sodium 136 mmol/L (137-145)
[2024-08-23 20:56] LABS: Add Urine Microscopic? YES; Bilirubin Urine Negative (Negative); Blood Urine 3+ (Negative); Color Urine Light Yellow (Yellow); Glucose Urine UA Negative (Negative); Ketones Urine Trace (Negative); Leukocyte Esterase Ur Negative LEU/UL (Negative); Nitrate Urine Negative (Negative); Protein Urine Trace (Negative); Urobilinogen Urine 0.2 mg/dL (0.2-1.0)
[2024-08-23 21:04] LABS: Appearance Urine Cloudy (Clear); RBC Urine >100 /hpf (0-2); Squamous Epithelial Cell Urine Few /hpf (Few)
[2024-08-23 21:12] LABS: Beta HCG Quantitative > 15000.00 mIU/ML
--- NOTE | 2024-08-23 21:36 | ED.FEMALEGU ---
HPI - Female Genitourinary General Chief complaint: Vaginal Bleeding Stated complaint: vaginal bleeding, Time Seen by Provider: 08/23/24 19:30 Source: patient and family Mode of arrival: ambulatory Limitations: no limitations History of Present Illness HPI Narrative: this is a 28-year-old female that follows her OBGYN and recently had ultrasound confirming that she is approximately 8 weeks , and she presents with some vaginal bleeding I had called her exchange with swallow this is normal in early , patient is not having any crampy abdominal pain no flank pain no nausea vomiting no fever chills no dysuria. MD elicited complaint: vaginal bleeding Severity: mild Related Data Home Medications ?Medication ?Instructions ?Recorded ?Confirmed ?Last Taken ?Type No Home Medications 04/14/24 04/14/24 Unknown History Allergies Allergy/AdvReac Type Severity Reaction Status Date / Time No Known Allergies Allergy Verified 04/14/24 15:42 Review of Systems Review of Systems: All systems reviewed & are unremarkable except as noted in HPI and below PMFSH Past Medical History Medical History Depression with anxiety Family History Family History Mother Hypertension Other Diabetes mellitus Social History Social History Smoking status: Never smoker Alcohol intake: current Alcohol use details: OCCASIONALLY Substance use: never Exam Const: General: healthy appearing Nutritional Appearance: well nourished Orientation/consciousness: patient oriented x3 Limitations: no limitations Neck: Neck: normal visual inspection and no lymphadenopathy Chest: Chest palpation & inspection: normal inspection of the chest Resp: Auscultation: clear to auscultation bilaterally Cardio: Rate: regular rate Rhythm: regular rhythm GI: Auscultation: normal bowel sounds : General: Yes bladder normal to palpation Urinary Catheter: Urinary Catheter: patent and draining and urine red Back/Spine/Pelvis: Back: no CVA tenderness Skin: General skin exam: normal color Neuro: General: patient oriented x3 and moves all extremities Course Course Emergency Course: Labs performed showed no acute abnormality beta hCG is greater than 15,000, reassured patient and significant other to follow with her Ob and that this is a normal variant but if symptoms persist would need ultrasound by her OBGYN. Vital Signs Vital signs: Vital Signs Temperature 36.7 C 08/23/24 19:29 Pulse Rate 102 H 08/23/24 19:29 Respiratory Rate 08/23/24 19:29 Blood Pressure 164/90 H 08/23/24 19:29 Pulse Oximetry 100 08/23/24 19:29 Oxygen Delivery Room Air 08/23/24 19:29 Temperature 36.7 C 08/23/24 19:29 Pulse Rate 102 H 08/23/24 19:29 Respiratory Rate 08/23/24 19:29 Blood Pressure 140/68 08/23/24 20:22 Pulse Oximetry 100 08/23/24 19:29 Oxygen Delivery Room Air 08/23/24 19:29 MDM - Female Genitourinary Lab Data 08/23/24 20:21 08/23/24 20:21 Labs: Lab Results 08/23/24 Range/Units 20:21 WBC 15.4 H (4.8-10.8) K/mm3 RBC 4.52 (4.20-5.40) M/mm3 Hgb 12.1 (12.0-15.0) g/dL Hct 38.0 (35.0-49.0) % MCV 84.1 (78.0-102.0) fL MCH 26.8 L (27.0-31.0) pg MCHC 31.8 L (32-36) g/dL RDW 13.2 (11.6-14.4) % Plt Count 176 (150-420) K/mm3 MPV 11.0 (9.2-11.8) fl Immature Gran % (Auto) 0.3 H (0.0-0.0) % Neut % (Auto) 67.2 (50.0-70.0) % Lymph % (Auto) 25.8 (18.0-42.0) % [place] % (Auto) 5.6 (2.0-11.0) % Eos % (Auto) 0.8 L (1.0-6.0) % Baso % (Auto) 0.3 (0.0-1.0) % Lymph # (Auto) 3.98 (1.10-4.50) K/mm3 [place] # (Auto) 0.87 (0.10-0.90) K/mm3 Eos # (Auto) 0.13 (0.02-0.50) K/mm3 Baso # (Auto) 0.04 (0.00-0.10) K/mm3 Abs Immat Gran (auto) 0.04 H (0.00-0.00) K/mm3 Absolute Neuts (auto) 10.36 H (1.70-7.20) K/mm3 Absolute Nucleated RBC 0.00 (0.00-0.00) K/mm3 Nucleated RBC % 0.0 (0-0.0) % % Immature Plt Fraction 9.1 H (1.0-7.0) % Sodium 136 L (137-145) mmol/L Potassium 3.6 (3.4-5.0) mmol/L Chloride 106 (98-107) mmol/L Carbon Dioxide 23 (22-30) mmol/L Anion Gap 7 (4-12) mmol/L BUN 11 (7-17) mg/dL Creatinine 0.71 (0.7-1.0) mg/dL Estim Creat Clear Calc 139 ml/min Estimated GFR > 60 (59 - ) Glucose 93 (65-110) mg/dL Calculated Osmolality 281 L (285-295) mOsm/kg Calcium 9.1 (8.4-10.2) mg/dL Total Bilirubin 0.2 (0.2-1.3) mg/dL AST 22 (14-36) U/L ALT 22 (6-35) U/L Alkaline Phosphatase 65 (38-126) U/L Total Protein 7.0 (6.3-8.2) g/dL Albumin 4.0 (3.5-5.1) g/dL Beta HCG, Quant > 13042.00 mIU/ML Urine Color Light yellow (Yellow) Urine Appearance Cloudy A (Clear) Urine pH 6.0 (5.0-8.0) Ur Specific [place] 1.020 (1.010-1.020) Urine Protein Trace H (Negative) Urine Glucose (UA) Negative (Negative) Urine Ketones Trace H (Negative) Ur Blood (Man) 3+ H (Negative) Urine Nitrate Negative (Negative) Urine Bilirubin Negative (Negative) Urine Urobilinogen 0.2 (0.2-1.0) mg/dL Leukocyte Esterase Rfl Negative (Negative) XENIA/UL Urine RBC >100 H (0-2) /hpf Ur Squamous Epith Cells Few (Few) /hpf Critical Care Time Critical Care Time Critical Care Time: No Discharge Plan Discharge Clinical Impression: Vaginal bleeding, on abdominal palpation in first trimester Patient Disposition: Home Condition: Stable Instructions: Antibiotic Form, (ED) Additional Instructions: advised patient to follow with biofuels product manager within the next 3 to 5 days further evaluation and treatment, go to the nearest emergency department if vaginal bleeding continues. Patient Language: Amharic Prescriptions: No Action No Home Medications Follow-up/Referrals: Jennifer Lawson APRN [Primary Care Provider] - Time of Disposition: 21:40
[2024-08-23 21:57] VITALS: BP 146/80; PULSE 73; RESP 18; TEMP 37.2; O2SAT 100
== END 2024-08-23 21:58 | disposition home or self-care (01) ==
PROVIDERS: Emergency Provider Emergency Medicine; PCP Nurse Practitioner Family
DX: O20.9 Hemorrhage in early pregnancy, unspecified (principal); Z3A.08 8 weeks gestation of pregnancy
CPT/HCPCS: 36415; 80053; 81001; 84702; 85025; 85055; 99283

== ENCOUNTER 2025-03-08 23:16 | Outpatient (CLI) | payer BC, SELFPAY ==
--- OUTSIDE RECORDS SUMMARY | 2025-03-08 23:24 | XMS_ITS | Continuity of Care Document ---
Author Organization [facility] Address [address] [place] [address] [place] [address] Care Team Providers Care Oceanographer Assistant Name Role Phone KARON CHACKO Primary Care Provider Assessment No assessment recorded. Plan of Treatment Reminders Order Date Submit Date Provider Last Modified By Organization Details Last Modified Time Details Appointments U/S OB BPP 2024 10:30A M ULTRASOUND Not available Not available Not available NST 2024 11:00A M NST SCHEDULE Not available Not available Not available OB ROUTINE 2024 01:00P Mague CELESTE MD Not available Not available Not available INDUCTI ON 2024 05:00A M Britney Monzon CNM Not available Not available Not available U/S OB BPP 2024 09:00A M ULTRASOUND Not available Not available Not available NST 2024 09:30A M NST SCHEDULE Not available Not available Not available OB ROUTINE 2024 10:15A M Britney Monzon CNM Not available Not available Not available Lab None recorde d. Referral None recorde d. Procedures None recorde d. Surgeries None recorde d. Imaging non-str ess test 2024 025 [facility] [address], [address], [address], [place], [address], 03/06/2025 13:35:11 Medication Orders None recorde d. Patient TargetsNo targets recorded. Patient InstructionsNo instructions recorded. Reason for Referral None Reported. Results Created Date Observation Date Name Description Value Unit Range Abnormal Flag Note LastModifiedBy Organization Detail LastModifiedTime 09/20/19 25 09/19/2024 CULTU RE: URINE result report SEE RESULT S BELOW Test: Cultu re: Urine Speci men Sourc e: Urine Voide d Speci men Type: Urine Speci men Date: 2024 1616 Resul t Date: 20240 Resul t Statu s: Final resul t Abnor mal: No Resul ting Lab: [facility] [address] [facility] [address] Tel: CULTU RE ----- ----- ----- --- No growt h in 1 day (dete ction level of 10,00 0 colon ies / ml.) Not Available [facility] (Lab) [address], [place], [address], 09/20/2024 22:24:37 09/20/19 25 09/19/2024 drug scree n, urine Amphetamines : negati ve Not Available [facility] [address], [place], [address], 09/19/2024 14:47:54 09/20/19 25 09/19/2024 drug scree n, urine Cannabinoids : negati ve Not Available [facility] [address], [place], [address], 09/19/2024 14:47:54 09/20/19 25 09/19/2024 drug scree n, urine Cocaine: negati ve Not Available [facility] [address], [place], [address], 09/19/2024 14:47:54 09/20/19 25 09/19/2024 drug scree n, urine Opiates: negati ve Not Available [facility] [address], [place], [address], 09/19/2024 14:47:54 09/20/19 25 09/19/2024 drug scree n, urine Phenocyclidi ne: negati ve Not Available [facility] [address], [place], [address], 09/19/2024 14:47:54 09/20/19 25 09/19/2024 drug scree n, urine Barbiturates : negati ve Not Available [facility] [address], [place], [address], 09/19/2024 14:47:54 09/20/19 25 09/19/2024 drug scree n, urine Benzodiazepi heather: negati ve Not Available [facility] [address], [place], [address], 09/19/2024 14:47:54 09/20/19 25 09/19/2024 drug scree n, urine Ethanol: negati ve Not Available [facility] [address], [place], [address], 09/19/2024 14:47:54 09/20/19 25 09/19/2024 drug scree n, urine Hallucinogen s: negati ve Not Available [facility] [address], [place], [address], 09/19/2024 14:47:54 09/20/19 25 09/19/2024 drug scree n, urine Inhalants: negati ve Not Available [facility] [address], [place], [address], 09/19/2024 14:47:54 09/20/19 25 09/19/2024 drug scree n, urine Anabolic Steroids: negati ve Not Available [facility] [address], [place], [address], 09/19/2024 14:47:54 09/20/19 25 09/19/2024 drug scree n, urine Other: negati ve Not Available [facility] [address], [place], [address], 09/19/2024 14:47:54 11/13/1911/12/2024 URIC ACID uric acid 4.3 mg/dL 2.3-6. 6 Not Available [facility] (Lab) [address], [place], [address], 11/13/2024 05:32:43 11/13/19 25 11/12/2024 PROTE IN/CR EATIN INE RATIO , URINE creatinine, urine 35.1 mg/dL R-No refer ence range estab lishe d for this assay Not Available [facility] (Lab) [address], [place], [address], 11/13/2024 05:32:43 11/13/19 25 11/12/2024 PROTE IN/CR EATIN INE RATIO , URINE protein, urine <4 mg/dL R-No refer ence range estab lishe d for this assay Not Available [facility] (Lab) [address], [place], [address], 11/13/2024 05:32:43 11/13/19 25 11/12/2024 PROTE IN/CR EATIN INE RATIO , URINE protein/crea tinine ratio, urine . No Refer ence Range avail able for Rando m Urine s. Unabl e to perfo rm calcu latio n due to low rosanna te nickolas ntrat ion A prote in to creat inine ratio of >=0.1 9 is a good predi ctor of signi fican t prote inuri a. A level of <0.14 can rule out signi fican t prote inuri a. Not Available [facility] (Lab) [address], [place], [address], 11/13/2024 05:32:43 11/13/19 25 11/12/2024 CBC W/DIF F WBC 16.1 10'3/ uL 3.5-10 .5 high Not Available [facility] (Lab) [address], [place], [address], 11/13/2024 05:32:44 11/13/1911/12/2024 CBC W/DIF F RBC 4.47 10'6/ uL (based on docume nted legal sex) 3.80-5 .20 Not Available [facility] (Lab) [address], [place], [address], 11/13/2024 05:32:44 11/13/19 25 11/12/2024 CBC W/DIF F HGB 12.4 g/dL (based on docume nted legal sex) 11.6-1 5.4 Not Available [facility] (Lab) [address], [place], [address], 11/13/2024 05:32:44 11/13/1911/12/2024 CBC W/DIF F HCT 38.6 % (based on docume nted legal sex) 34.0-4 5.0 Not Available [facility] (Lab) [address], [place], [address], 11/13/2024 05:32:44 11/13/1911/12/2024 CBC W/DIF F MCV 86.4 fL 80.0-9 9.0 Not Available [facility] (Lab) [address], [place], [address], 11/13/2024 05:32:44 11/13/1911/12/2024 CBC W/DIF F MCH 27.7 pg 27.0-3 4.0 Not Available [facility] (Lab) [address], [place], [address], 11/13/2024 05:32:44 11/13/1911/12/2024 CBC W/DIF F MCHC 32.1 g/dL 32.0-3 5.5 Not Available [facility] (Lab) [address], [place], [address], 11/13/2024 05:32:44 11/13/19 25 11/12/2024 CBC W/DIF F RDW 13.6 % 11.0-1 5.0 Not Available [facility] (Lab) [address], [place], [address], 11/13/2024 05:32:44 11/13/19 25 11/12/2024 CBC W/DIF F plt 295 10'3/ uL 150-40 0 Not Available [facility] (Lab) [address], [place], [address], 11/13/2024 05:32:44 11/13/1911/12/2024 CBC W/DIF F MPV 10.8 fL 8.8-12 .1 Not Available [facility] (Lab) [address], [place], [address], 11/13/2024 05:32:44 11/13/19 25 11/12/2024 CBC W/DIF F NRBC's 0.0 % 0.0 Not Available [facility] (Lab) [address], [place], [address], 11/13/2024 05:32:44 11/13/19 25 11/12/2024 CBC W/DIF F absolute NRBCs 0.0 10'3/ uL no refere nce range establ ished Not Available [facility] (Lab) [address], [place], [address], 11/13/2024 05:32:44 11/13/19 25 11/12/2024 CBC W/DIF F neutrophils 74.9 % 34.0-7 3.0 high Not Available [facility] (Lab) [address] [place], [address], 11/13/2024 05:32:44 11/13/19 25 11/12/2024 CBC W/DIF F lymphocytes 18.4 % 15.0-5 0.0 Not Available [facility] (Lab) [address], [place], [address], 11/13/2024 05:32:44 11/13/19 25 11/12/2024 CBC W/DIF F monocytes 5.4 % 1.0-15 .0 Not Available [facility] (Lab) [address], [place], [address], 11/13/2024 05:32:44 11/13/19 25 11/12/2024 CBC W/DIF F eosinophils 0.7 % 0.0-8. 0 Not Available [facility] (Lab) [address], [place], [address], 11/13/2024 05:32:44 11/13/19 25 11/12/2024 CBC W/DIF F basophils 0.2 % 0.0-2. 0 Not Available [facility] (Lab) [address], [place], [address], 11/13/2024 05:32:44 11/13/19 25 11/12/2024 CBC W/DIF F immature granulocytes 0.4 % no define d refere nce range Immat ure Granu locyt es (IG) repre sents autom ated enume ratio n of Metam yeloc ytes, Myelo cytes and Promy elocy jorge luis when IG is < 5%. Blast s are not inclu ded in IG and repor terra separ ately if prese nt. Not Available [facility] (Lab) [address], [place], [address], 11/13/2024 05:32:44 11/13/19 25 11/12/2024 CBC W/DIF F absolute neutrophils 12.0 10'3/ uL 1.5-8. 0 high Not Available [facility] (Lab) [address], [place], [address], 11/13/2024 05:32:44 11/13/19 25 11/12/2024 CBC W/DIF F absolute lymphocytes 3.0 10'3/ uL 1.0-4. 0 Not Available [facility] (Lab) [address], [place], [address], 11/13/2024 05:32:44 11/13/1911/12/2024 CBC W/DIF F absolute monocytes 0.9 10'3/ uL 0.2-1. 0 Not Available [facility] (Lab) [address], [place], [address], 11/13/2024 05:32:44 11/13/1911/12/2024 CBC W/DIF F absolute eosinophils 0.1 10'3/ uL 0.0-0. 6 Not Available [facility] (Lab) [address], [place], [address], 11/13/2024 05:32:44 11/13/1911/12/2024 CBC W/DIF F absolute basophils 0.0 10'3/ uL 0.0-0. 3 Not Available [facility] (Lab) [address], [place], [address], 11/13/2024 05:32:44 11/13/1911/12/2024 CBC W/DIF F absolute immature granulocytes 0.1 10'3/ uL 0.00-0 .10 Refer ence range s for nonbi nary/ inter sex or unspe cifie d gende r patie nts have not been estab lishe d. Pleas e refer to the ayado wing table for range s estab lishe d for cisge nder patie nts and evalu ate in the clini sofia clarice xt of the indiv idual patie nt: https ://heather lee book. nm.or g/gen derx Not Available [facility] (Lab) [address], [place], [address], 11/13/2024 05:32:44 11/13/1911/12/2024 CMP(C OMPRE HENSI VE METAB OLIC PANEL ) sodium 137 mmol/ L 133-14 6 Not Available [facility] (Lab) [address], [place], [address], 11/13/2024 05:32:44 11/13/19 25 11/12/2024 CMP(C OMPRE HENSI VE METAB OLIC PANEL ) potassium 4.0 mmol/ L 3.5-5. 1 Not Available [facility] (Lab) [address], [place], [address], 11/13/2024 05:32:44 11/13/19 25 11/12/2024 CMP(C OMPRE HENSI VE METAB OLIC PANEL ) chloride 102 mmol/ L 98-107 Not Available [facility] (Lab) [address], [place], [address], 11/13/2024 05:32:44 11/13/19 25 11/12/2024 CMP(C OMPRE HENSI VE METAB OLIC PANEL ) carbon dioxide 27 mmol/ L 21-31 Not Available [facility] (Lab) [address], [place], [address], 11/13/2024 05:32:44 11/13/19 25 11/12/2024 CMP(C OMPRE HENSI VE METAB OLIC PANEL ) anion gap 8 mmol/ L 4-13 Not Available [facility] (Lab) [address], [place], [address], 11/13/2024 05:32:44 11/13/19 25 11/12/2024 CMP(C OMPRE HENSI VE METAB OLIC PANEL ) blood urea nitrogen 7 mg/dL 7-25 Not Available [facility] (Lab) [address], [place], [address], 11/13/2024 05:32:44 11/13/19 25 11/12/2024 CMP(C OMPRE HENSI VE METAB OLIC PANEL ) creatinine 0.48 mg/dL 0.60-1 .30 low Not Available [facility] (Lab) [address], [place], [address], 11/13/2024 05:32:44 11/13/19 25 11/12/2024 CMP(C OMPRE HENSI VE METAB OLIC PANEL ) egfrcr (CKD-epi 2020) >90 mL/mi n/1.7 3_m2 >=60 Not Available [facility] (Lab) [address], [place], [address], 11/13/2024 05:32:44 11/13/19 25 11/12/2024 CMP(C OMPRE HENSI VE METAB OLIC PANEL ) calcium 9.7 mg/dL 8.3-10 .5 Not Available [facility] (Lab) [address], [place], [address], 11/13/2024 05:32:44 11/13/19 25 11/12/2024 CMP(C OMPRE HENSI VE METAB OLIC PANEL ) glucose 86 mg/dL 70-100 Not Available [facility] (Lab) [address], [place], [address], 11/13/2024 05:32:44 11/13/19 25 11/12/2024 CMP(C OMPRE HENSI VE METAB OLIC PANEL ) protein, total 6.6 g/dL 6.4-8. 3 Not Available [facility] (Lab) [address], [place], [address], 11/13/2024 05:32:44 11/13/19 25 11/12/2024 CMP(C OMPRE HENSI VE METAB OLIC PANEL ) albumin 4.0 g/dL 3.5-5. 0 Not Available [facility] (Lab) [address], [place], [address], 11/13/2024 05:32:44 11/13/1911/12/2024 CMP(C OMPRE HENSI VE METAB OLIC PANEL ) ALT 11 units /L 9-43 Not Available [facility] (Lab) [address], [place], [address], 11/13/2024 05:32:44 11/13/19 25 11/12/2024 CMP(C OMPRE HENSI VE METAB OLIC PANEL ) alkaline phosphatase 54 units /L 34-104 Not Available [facility] (Lab) [address], [place], [address], 11/13/2024 05:32:44 11/13/19 25 11/12/2024 CMP(C OMPRE HENSI VE METAB OLIC PANEL ) AST 10 units /L 13-39 low Not Available [facility] (Lab) [address], [place], [address], 11/13/2024 05:32:44 11/13/19 25 11/12/2024 CMP(C OMPRE HENSI VE METAB OLIC PANEL ) bilirubin, total 0.2 mg/dL 0.2-1. 2 Not Available [facility] (Lab) [address], [place], [address], 11/13/2024 05:32:44 01/15/20 25 01/14/2025 GTT - GESTA NICOLAS L SCREE N, ACOG OB glucose, 1 hour screen 141 mg/dL 70-135 high Not Available [facility] (Lab) [address], [place], [address], 01/15/2025 11:13:15 01/15/20 25 01/14/2025 HIV 1/2 ANTIG EN/AN TIBOD Y, REFLE X CONFI RMATI ON HIV antigen/anti body Nonrea ctive nonrea ctive HIV-1 antig en and HIV-1 /HIV- 2 antib odies were not detec terra. No labor atory evide nce of HIV infec tion. Not Available [facility] (Lab) [address], [place], [address], 01/15/2025 11:13:16 01/15/20 25 01/14/2025 HEMAT OCRIT (HCT) HCT 34.1 % (based on docume nted legal sex) 34.0-4 5.0 Not Available [facility] (Lab) [address], [place], [address], 01/15/2025 11:13:16 01/15/2001/14/2025 HEMOG LOBIN (HGB) HGB 10.6 g/dL (based on docume nted legal sex) 11.6-1 5.4 low Not Available [facility] (Lab) [address], [place], [address], 01/15/2025 11:13:17 01/15/2001/14/2025 RPR SCREE N, REFLE X TITER /CONF IRMAT ION RPR qualitative Nonrea ctive nonrea ctive Not Available [facility] (Lab) [address], [place], [address], 01/15/2025 11:13:17 01/24/20 25 01/23/2025 GTT - GESTA NICOLAS L, 3 HOUR, ACOG glucose, fasting acog 70 mg/dL 70-94 Not Available [facility] (Lab) [address], [place], [address], 01/24/2025 05:24:10 01/24/20 25 01/23/2025 GTT - GESTA NICOLAS L, 3 HOUR, ACOG glucose, 1 hour acog 150 mg/dL 70-179 Not Available [facility] (Lab) [address], [place], [address], 01/24/2025 05:24:10 01/24/20 25 01/23/2025 GTT - GESTA NICOLAS L, 3 HOUR, ACOG glucose, 2 hour acog 143 mg/dL 70-154 Not Available [facility] (Lab) [address] [place], [address], 01/24/2025 05:24:10 01/24/20 25 01/23/2025 GTT - GESTA NICOLAS L, 3 HOUR, ACOG glucose, 3 hour acog 46 mg/dL 70-139 critical low Resul ts verif ied by repea t rosanna sis. Not Available [facility] (Lab) [address], [place], [address], 01/24/2025 05:24:10 10/02/19 25 10/01/2024 US, obste tric, follo w-up No observ ation record ed. [address] [facility] [address] [place] [address], [address], 10/08/2024 09:41:15 11/18/19 25 11/17/2024 US, obste tric, follo w-up No observ ation record ed. [address] [facility] [address], [address], 11/18/2024 12:26:24 11/19/19 25 11/17/2024 US, obste tric, follo w-up No observ ation record ed. [address] [facility] [address], [address], 11/19/2024 11:57:24 11/26/19 25 11/25/2024 US, obste tric, follo w-up No observ ation record ed. [email or web address] [facility] [address] [place] [address], [address], 11/26/2024 17:27:21 11/26/19 25 11/25/2024 US, obste tric, follo w-up No observ ation record ed. [email or web address] [facility] [address] [place] [address], [address], 11/25/2024 17:38:04 12/16/19 25 12/15/2024 US, obste tric, follo w-up No observ ation record ed. [address] [facility] [address] [place] [address], [address], 12/16/2024 06:57:29 01/13/20 25 01/12/2025 US, obste tric No observ ation record ed. [email or web address] [facility] [address], [address], 01/13/2025 11:43:49 01/13/20 25 01/12/2025 US, obste tric, follo w-up No observ ation record ed. [email or web address] [facility] [address], [address], 01/13/2025 16:24:45 02/11/20 25 02/10/2025 non-s tress test No observ ation record ed. [facility] [address], [address], 02/11/2025 15:00:18 02/11/20 25 02/10/2025 US, obste tric, follo w-up No observ ation record ed. [email or web address] [facility] [address], [address], 02/11/2025 11:37:25 02/21/20 25 02/20/2025 US, obste tric, bioph ysica l profi le + non-s tress test No observ ation record ed. [facility] [address], [place], [address], 02/20/2025 16:56:43 02/21/20 25 02/20/2025 US, obste tric, bioph ysica l profi le + non-s tress test No observ ation record ed. juliano Valle [address], [place], [address], 02/23/2025 11:31:02 02/21/20 25 02/20/2025 non-s tress test No observ ation record ed. [address], [place], [address], 02/20/2025 13:47:54 02/21/20 non-s tress test No observ ation record ed. [email or web address] [facility] [address], [place], [address], 02/20/2025 12:35:53 02/26/20 25 02/25/2025 US, obste tric, bioph ysica l profi le + non-s tress test No observ ation record ed. [email or web address] [facility] [address], [place], [address], 02/25/2025 11:49:48 02/26/2002/25/2025 US, obste tric, bioph ysica l profi le + non-s tress test No observ ation record ed. [email or web address] [address] [address], [place], [address], 03/04/2025 11:50:53 02/26/20 25 02/25/2025 non-s tress test No observ ation record ed. [email or web address] [facility] [address], [place], [address], 02/25/2025 17:57:33 02/26/20 non-s tress test No observ ation record ed. [facility] [address], [place], [address], 02/25/2025 17:15:53 03/06/20 25 03/06/2025 non-s tress test No observ ation record ed. [email or web address] [facility] [address], [place], [address], 03/06/2025 13:52:03 03/06/20 non-s tress test No observ ation record ed. [email or web address] [facility] [address], [place], [address], 03/06/2025 12:00:07 03/06/20 25 03/06/2025 US, obste tric, follo w-up No observ ation record ed. [email or web address] [facility] [address], [place], [address], 03/07/2025 23:02:25 03/06/20 25 03/06/2025 US, obste tric, follo w-up No observ ation record ed. [facility] [address], [place], [address], 03/06/2025 13:52:39 03/06/20 25 03/06/2025 US, obste tric, bioph ysica l profi le + non-s tress test No observ ation record ed. [facility] [address], [place], [address], 03/06/2025 13:52:50 Result Notes None recorded. 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 2 18:30:21 Finding of fertilit y Completed 201711/16/2021 Female infertil ity, unspecif ied;Tip rded Elsewher e: No Locat ion: [facility] S ource: EHR Curing Finisher yan: N Susie ce ID: [id number] Edmond lable Time: 10:00:00 AM Sandhya [facility] 2 18:30:21 Abnormal uterine bleeding [id number] Completed 201711/16/2021 Other specifie d abnormal uterine and vaginal bleeding ;Recorde d Elsewher e: No Locat ion: [facility] S ource: EHR Curing Finisher yan: N Practi ce ID: 0001 Edmond lable Time: 09:45:00 AM Sandhya [place] [facility] 2 18:30:21 Bleeding Completed 201711/16/2021 Abnormal uterine and vaginal bleeding , unspecif ied;Tip rded Elsewher e: No Locat ion: [facility] S ource: EHR Curing Finisher yan: N Practi ce ID: [id number] Edmond lable Time: 10:00:00 AM Sandhya [place] [facility] 2 18:30:21 Urinary tract infectio us disease [id number] Completed 201811/16/2021 Urinary tract infectio n, site not specifie d;Record ed Elsewher e: No Locat ion: [facility] S ource: EHR Curing Finisher yan: N Practi ce ID: [id number] Edmond lable Time: 04:15:00 PM Sandhya sneed [facility] 2 18:30:21 Pregnanc y detectio n examinat ion Completed 201811/16/2021 Encounte r for pregnanc y test, result positive ;Practic e ID: 0001 Sandhya sneed, [facility] 2 18:30:21 Uterine size for dates discrepa ncy Completed 201811/16/2021 Uterine size-johann e discrepa ncy, first trimeste r;Practi ce ID: 0001 Sandhya sneed, [facility] 2 18:30:21 Gestatio n period, 9 weeks [id number] Completed 201811/16/2021 9 weeks gestatio n of pregnanc y;Practi ce ID: 0001 Sandhya sneed, [facility] 2 18:30:21 Secondar y amenorrh ea [id number] Completed 201811/16/2021 Secondar y amenorrh ea;Recor ded Elsewher e: No Locat ion: [place] [facility] S ource: EHR Curing Finisher yan: N Carolynnti ce ID: [id number] Edmond lable Time: 03:30:00 PM Sandhya [place] [facility] 2 18:30:21 Infectio n screenin g Completed 201811/16/2021 Encounte r for screenin g for oth infec/pa rastc diseases ;Recorde d Elsewher e: No Locat ion: [place] [facility] S ource: EHR Curing Finisher yan: N Carolynnti ce ID: [id number] Edmond lable Time: 03:30:00 PM Sandhya [place] [facility] 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 2 18:30:21 Syphilis test finding [id number] Completed 201811/16/2021 Encntr screen for infectio ns w sexl mode of transmis s;Record ed Elsewher e: No Locat ion: [facility] perfecto [facility] S ource: EHR Curing Finisher yan: N Carolynnti ce ID: [id number] Edmond lable Time: 03:30:00 PM Sandhya Key [facility] 2 18:30:21 Body mass index 30+ - obesity [id number] Completed 201811/16/2021 Body mass index (BMI) 37.0-37. 9, adult;Re corded Elsewher e: No Locat ion: [place] [facility] S ource: EHR Curing Finisher yan: N Practi ce ID: [id number] Edmond lable Time: 03:30:00 PM Sandhya sneed, [facility] 2 18:30:21 Chlamydi al infectio n [id number] Completed 201811/16/2021 Chlamydi al infectio n, unspecif ied;Tip rded Elsewher e: No Locat ion: [place] [facility] S ource: EHR Curing Finisher yan: N Practi ce ID: [id number] Edmond lable Time: 11:52:25 AM Sandhya sneed, [facility] 2 18:30:21 Normal [place]anc y [place] [id number] Completed 201811/16/2021 Encounte r for suprvsn of normal pregnanc y, first trimeste r;Practi ce ID: 0001 Sandhya sneed, [facility] [facility] 2 18:30:21 Antenata l screenin g Completed 201811/16/2021 Encounte r for other specifie d antenata l screenin g;Practi ce ID: 0001 Sandhya sneed, [facility] 2 18:30:21 Medical examinat ion for suspecte d conditio n Completed 201811/16/2021 Encntr for oth suspecte d maternal and cond ruled out;Prac ajxson ID: 0001 Sandhya sneed, [facility] 2 18:30:[address] Concept Completed 201811/16/2021 Maternal care for oth abnormal ity and damage, unsp;Pra ctice ID: 0001 Sandhya sneed, [facility] 2 18:30:21 Gestatio n period, 30 weeks [id number] Completed 201811/16/2021 30 weeks gestatio n of pregnanc y;Practi ce ID: 0001 Sandhya sneed, [facility] 2 18:30:21 Pregnanc y, childbir th and puerperi um finding Completed 201811/16/2021 Encntr for suprvsn of normal first preg, third trimeste r;Practi ce ID: 0001 Sandhya Key naren, [facility] 2 18:30:21 malforma tion of central nervous system [id number] 107 Completed 201811/16/2021 Maternal care for (suspect ed) cnsl malform in fetus, unsp;Pra ctice ID: 0001 Sandhya Key naren, [facility] 2 18:30:21 Gestatio n period, 34 weeks [id number] Completed 201811/16/2021 34 weeks gestatio n of pregnanc y;Practi ce ID: 0001 Sandhya Key [facility], [facility] 2 18:30:[address] Concept Completed 201811/16/2021 Matern care for abnlt fetl hrt rate or rhym, unsp tri, unsp;Pra ctice ID: 0001 Sandhya Key naren, [facility] 2 18:30:21 Gestatio n period, 36 weeks [id number] Completed 201811/16/2021 36 weeks gestatio n of pregnanc y;Practi ce ID: 0001 Sandhya Key [facility], [facility] 2 18:30:21 Term pregnanc y delivere d [id number] Completed 201811/16/2021 Encounte r for full-ter m uncompli cated delivery ;Practic e ID: 0001 Sandhya Key naren, [facility] 2 18:30:21 Single live from singleto n pregnanc y [id number] Completed 201811/16/2021 Single live ;Pr actice ID: 0001 Sandhya Key [facility], [facility] 2 18:30:21 Gestatio n period, 37 weeks [id number] Completed 201811/16/2021 37 weeks gestatio n of pregnanc y;Practi ce ID: 0001 Sandhya sneed, [facility] 2 18:30:21 Lochia finding Completed 201911/16/2021 Encounte r for routine postpart um follow-u p;Record ed Elsewher e: No Locat ion: [facility] S ource: EHR Curing Finisher ayn: N Practi ce ID: 0001 Edmond lable Time: 08:45:00 AM Sandhya Key [facility] 2 18:30:21 Acute vaginiti s [id number] Completed 201911/16/2021 Vaginiti s;Record ed Elsewher e: No Locat ion: [facility] S ource: EHR Curing Finisher yan: N Practi ce ID: 0001 Edmond lable Time: 01:00:00 PM Sandhya Key [facility], [facility] 2 18:30:21 Mixed anxiety and depressi ve disorder 787733552 Active 2024 Paz Keller [facility] 5 17:09:17 Complete trisomy 18 syndrome 02974769 Active 2024 Paz Keller [facility], [facility] 5 15:07:06 Pregnanc y 12660247 Active 2024 Paz Keller [facility], [facility] 5 15:07:38 chromoso mal abnormal ity affectin g obstetri sofia care 83166836 Active 2024 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, [facility] Schedule d 10/20 us only & 11/17 us only normal echo 12/31- recommen ds postnata l eval of baby Katiana sneed, [facility] 5 15:09:19 History of heart disorder 416320792 Active 2024 first baby couple hours after Britney Monzon CNM [address], [place], [address], [facility] 5 15:26:56 Past pregnanc y history of pre-ecla mpsia 1243304992 61280 Active 2024 plan bASA 162mg Britney Monzon CNM [address], [place], [address], [facility] 5 15:27:21 History of depressi on 361208972 Active 2024 no current treatmen t Britney Monzon CNM [address], [place], [address], [facility] 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 5 11:41:34 Notes:previous son had hypoplastic left heart syndrome Some problems listed in Document: #[id number] could not be added to this patient's chart. Please review this document and add these problems to the patient's chart manually as needed. Problem Notes None recorded. Procedures Surgical History Date Name Laterality Status Provider Name and Address Organization Details Recorded Time 5 Date of Last Pap Smear completed Paz Keller [facility] 08/15/2024 17:09:24 4 SIS completed NUZHAT STEPHENSON MD [address], [place], [address], [facility] 09/13/2023 14:06:22 Imaging Results None recorded. Procedure Notes None recorded. Medical Equipment None Reported. Allergies No known drug allergies Medications Name Sig Start Date Stop Date Status Note LastModified by Organization Details LastModified Time medroxypr ogesteron e 10 mg tablet Take 1 tablet PO x 10 days; q30d if no menses begins. Take urine pregnanc y test before each use. 08/27 completed Not Available Not Available Not Available labetalol 200 mg tablet TAKE 1 TABLET BY MOUTH TWICE A DAY active Not Available Not Available No t Available azithromy ivan 250 mg tablet TAKE 2 TABLETS BY MOUTH TODAY, THEN TAKE 1 TABLET DAILY FOR 4 DAYS DIRECTED 11/12 completed Not Available Not Available Not Available fluconazo le 150 mg tablet TAKE 1 TABLET BY MOUTH EVERY DAY 01/28 completed Not Available Not Available Not Available clomiphen e citrate 50 mg tablet take 1 tablet by oral route every day 08/27 completed Prescrib ed Elsewher e: No Locat ion: [facility] odify By: bill Hurst ter DateTime : 03/28/20 10:00:00 AM Not Available Not Available Not Available penicilli n V potassium 500 mg tablet TAKE 1 TABLET BY MOUTH EVERY 12 HOURS FOR 10 DAYS 04/30 completed Not Available Not Available Not Available metronida zole 500 mg tablet Take 1 tablet every 8 hours by oral route for 7 days. 01/28 completed Not Available Not Available Not Available terconazo le 80 mg vaginal supposito ry insert 1 supposit ory by vaginal route every day at bedtime 11/17 completed Prescrib ed Elsewher e: No [facility]ify By: maged Hurst ter DateTime : 02/06/20 08:45:00 AM Not Available Not Available Not Available Zofran 4 mg tablet take 1 tablet as needed for nausea 11/17 completed Prescrib ed Elsewher e: No Locat ion: [facility] odify By: bnshravan Hurst ter DateTime : 09/17/19 04:11:09 PM Not Available Not Available Not Available Metrogel Vaginal 0.75 % (37.5 mg/5 gram) insert 1 applicat orful by vaginal route every day at bedtime for 5 nights 11/17 completed Prescrib ed Elsewher e: No [facility] By: rahel jonas DateTime : 07/07/19 11:56:12 AM Not Available [...] Prescrib ed Elsewher e: No [facility] By: [email or web address] z Aris jonas DateTime : 03/28/20 10:00:00 AM Not Available Not Available Not Available letrozole 2.5 mg tablet TAKE 2 TABLETS BY MOUTH EVERY DAY FOR 5 DAYS 08/15 completed Not Available Not Available Not Available amoxicill in 875 mg-potass ium clavulana te 125 mg tablet TAKE 1 TABLET BY MOUTH TWICE A DAY FOR 10 DAYS 11/12 completed Not Available Not Available Not Available Zithromax 500 mg tablet take 2 tablet by oral route once 11/17 completed Prescrib ed Elsewher e: No Locat ion: [facility] odify By: dian jonas DateTime : 09/17/19 04:11:09 PM Not Available Not Available Not Available nitrofura ntoin monohydra te/macroc rystals 100 mg capsule TAKE 1 CAPSULE BY MOUTH EVERY 12 HOURS 08/15 completed Not Available Not Available Not Available active Not Available Not Avai lable Not Available Baby Aspirin active Not Available Not Available Not Available Vitals Date Recorded Body weight Body mass index (BMI) Body height Body height Body mass index (BMI) Body weight Systolic And Diastolic Systolic And Diastolic Provider Name and Address Organization Details Last Updated DateTime 5 306842. 52246 g 47.1 kg/m2 167.64 cm 167.64 cm 47.1 kg/m2 743749. 97 g 129/77 mm[Hg] 129/77 mm[Hg] Alicia Peng [facility] 12:30:37 Social History Question Answer Notes LastModified by Organizat ion Details LastModified Time Tobacco Smoking Status Never Smoker Sandhya Key naren, [facility] 11/17/2021 10:26:20 Do You Have An Advance Directive? No Information n ot available 11/17/2021 If You Are , What Was Your Level Of Alcohol Consumption Prior To ? Occasional Information not available 08/15/2024 How Many Years Have You Consumed Alcohol? 8 Information not available 11/17/2021 Are You Blind Or Do You Have Difficulty Seeing? No Information n ot available 11/17/2021 What Is Your Level Of Caffeine Consumption? Moderate [email or web address] Information not available 08/15/2024 How Much Tobacco [...] Or The Highest Degree You Have Received? [id number] Information not available 11/17/2021 Are There Any Guns Present In Your Home? No Information not available 11/17/2021 Do You Use Protection During Sex? No Information not available 11/17/2021 Do You Use Your Seat Belt Or Car Seat Routinely? Yes Information not available 11/17/2021 Are You Sexually Active? Yes [email or web address] Information not available 11/12/2024 Do You Have Smoke And Carbon Monoxide [...] is your level of alcohol consumption? None [email or web address] Information not available 08/15/2024 Are you able to walk independently without assistance or assistive devices? YESWOREST Information not available 11/17/2021 Are you able to care for yourself independently? 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 No Information not available 11/17/2021 What is your exercise level? Occasional Information not available 11/17/2021 Mental Status Question Answer Note LastModified by Organization D etails LastModified Time Do you feel stressed (tense, restless, nervous, or anxious, or unable to sleep at night)? [id number] [email or web address] Information not available 08/15/2024 Family History Relationship Description Onset Age of this Age Resolved Age Notes LastModified by Organization Details LastModified Time Son Hypoplastic left heart syndrome [email or web address] Not available 06/15 18:39:24 Medical History Condition Response Allergies (Food, seasonal, environmental ) N Other Y Breast Cancer N Drug/Latex Allergies/Reactions N Blood Transfusion N Dermatologic Disorders N Lung Disease N Defects or Inherited Disease N Breast Problem N Gestational Diabetes N Hematologic disorders N Anesthesia Complications N History of STI N Deep Vein Thrombosis N Polycystic ovary syndrome Y Anxiety Disorder Y Autoimmune disease N Arthritis N Infertility N Polyps N Acid Reflux (GERD) N History of abnormal pap N Cancer N Stroke N Varicosities N Neurologic/Epilepsy N Endometriosis N High Cholesterol N Headaches N Fibromyalgia N Kidney Disease N Heart Problems N Kidney or Bladder Problems N Thyroid Problems N GI Problems N Eating Disorder N Anemia N Art (IVF or FET) N Psychiatric Illness N Ovarian Cancer N Diabetes N Pulmonary (TB, Asthma) N Hepatitis/Liver Disease N No Past Medical History N Eczema N Urinary Tract Infection N Abuse/Domestic Violence N Asthma N Trauma/Violence N Depression/ depression Y Heart Disease N Pre-Eclampsia N Hypertension N Osteoporosis N Thrombophilias N Gynecological History Statement/Question Response Date of [...] N LMP Approximate N Obstetrics History GPAL:G 3 P 2 0 0 1 Type Value Full Term 2 Living 1 Total 3 Past Encounters Encounter ID Performer Location Encounter Start Date Encounter Closed Date Diagnosis/Indication Diagnosis SNOMED-CT Code Diagnosis ICD10 Code Diagnosis IMO Codes Diagnosis Note [id number] Britney Monzon [facility] [address],[facility] [place] [address] 02/11/2025 11:02:03 02/11/2025 12:28:12 Gestation period, 32 weeks 1759163 Z3A.32 [id number] Dakotah Celeste MD [facility] [address],[facility] [place] [address] 02/20/2025 10:19:25 02/20/2025 11:15:32 Chronic hypertension complicating AND/OR reason for care during 89503477 O10.913 O99.210 O28.0 Z3A.34 [id number] [facility] [address],[place] [address] 02/20/2025 10:20:12 02/20/2025 12:37:20 Abnormal chromosomal and genetic finding on screening of mother O28.5 [id number] Britney Monzon [facility] [address],[place] [address] 02/20/2025 10:20:45 02/20/2025 12:28:20 Gestation period, 34 weeks 83224056 Z3A.34 8933411 [id number] Britney Monzon [facility] [address],[place] [address] 02/25/2025 09:50:49 02/25/2025 17:36:49 Abnormal chromosomal and genetic finding on screening of mother O28.5 [id number] Dakotah Celeste MD [facility] [address],[place] [address] 02/25/2025 09:51:39 02/25/2025 10:55:41 Obesity 782348395 O99.213 O28.5 O10.013 Z3A.34 78033497 [id number] Britney Monzon [facility] [address],[place] [address] 02/25/2025 09:51:54 02/25/2025 11:24:09 Gestation period, 34 weeks 71751380 Z3A.34 [id number] Dakotah Celeste MD [facility] [address],[place] [address] 03/06/2025 10:53:07 03/06/2025 13:36:58 Maternal hypertension 328530322 O16.3 O99.210 Z3A.36 [id number] [facility] [address],[place] [address] 03/06/2025 10:54:53 03/06/2025 13:35:11 Abnormal finding on screening of mother 876870214 O28.5 [id number] Britney Monzon CNM [facility] [address] [address] 03/06/2025 10:55:21 03/06/2025 13:33:29 Gestation period, 36 weeks 48991873 Z3A.36 [id number] Health Concerns Section Related Observation LastModified by Organization Detai ls LastModified Time None Recorded Concern Status LastModified by Organization Details LastModified Time None Recorded Payers Encounter Date Sequence Insurance Name Policy Number Policy Mckenna Covered Member ID Mckenna Member ID Guarantor Name 03/06/2025 1 [facility] [id number] Alex Liban [id number] Rizwana Louie Notes Date Note Type Note Provider Name and Address Organization Details Recorded Time 03/06/2025 text/html Generic HPI TemplateReported by Patient Britney Monzon CNM [address], [place], [address], [facility] 03/06/2025 12:48:38 OBGyn Episode Ob Episode Information Episode Created Date Number of Fetuses Patient Bloodtype Patient rh Status Prepregnancy Weight lbs Domestic Partner Domestic Partner Phone Father Name Desktop Publisher Status 09/20/19 25 1 O Positive [phone] Alex Liban OPEN Fetus Data First Name Last Name Admitted to NICU Weight (g) Sex Living Outcome Pediatric Complications Fetus ID Race Codes Race Delivery Type [id number] Problems Problem Notes Problem Name Start Date End Date Resolution Snomed Code Not e History of depression 09/19/2024 [id number] no current treatment Past history of pre-eclampsia 09/19/2024 800462279609188 plan bASA 1 62mg History of heart disorder 09/19/2024 432294654 first baby pass ed away couple hours after Hypertensive disorder 12/17/2024 92779211 100mg labetalol bid 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 39920571 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, seeing MFM [facility] office Scheduled 10/20 us only & 11/17 us onlynormal echo 12/31- recommends eval of baby Les Calculation Initial Les Date Initial Exam Date Initial Exam Provider Initial Ultrasound Date Last Menstrual Period Date Ultra Sound Weeks Gestation 04/02/2025 08/26/2024 [email or web address] 08/14/2024 06/26/2024 6 Eighteen To Twenty Week Les Update Ultra Sound Date Fundal Height At Umbil Quickening Date Ultra Sound Latest Weeks Gestation Final Les Confirmed By Final Les Confirmed Date Final Les Date Ultra Sound Latest Days Gestation 0 [email or web address] 09/19/2024 04/02/19 26 0 Pre- Flowsheet Flowsheet Date 09/19/2024 Nevarez Score Blood Edema Fundus Height Fundus Units Glucose Ketones Leukocytes Nitrite Labor Signs Protein Cervic Dilation Cervic Effacement Cervic Station neg none none trace Type Weight in lbs Pre/Post Dialysis Refused Weight 274.365605693172 BP Diastolic BP Location Tested BP Systolic BP Type 81 140 Fetus Heart Rate Present Fetus Movement A Yes Comments reviewed [facility] notes with pt, undecided about amnio, is scheduled, will continue to follow as well, start bASA 162mg, hx 2 previous vaginal deliveries, begin care Flowsheet Date 2024 Nevarez Score Blood Edema Fundus Height Fundus Units Glucose Ketones Leukocytes Nitrite Labor Signs Protein Cervic Dilation Cervic Effacement Cervic Station Type Weight in lbs Pre/Post Dialysis Refused 278.022363774388 BP Diastolic BP Location Tested BP Systolic BP Type 85 L arm 141 sitting Fetus Heart Rate Present Fetus Movement A No Comments declined amnio first us good at [facility], has anatomy scheduled. mood good. _-FM yet precautions and educations f/u 4 weeks Flowsheet Date 11/12/2024 Nevarez Score Blood Edema Fundus Height Fundus Units Glucose Ketones Leukocytes Nitrite Labor Signs Protein Cervic Dilation Cervic Effacement Cervic Station Type Weight in lbs Pre/Post Dialysis Refused 278.777574655173 BP Diastolic BP Location Tested BP Systolic BP Type 94 L wrist 146 sitting 102 R wrist 157 sitting Fetus Heart Rate Present Fetus Movement A No Comments last us at [facility] wnl, has f/u next week +FM precautions and education f/u 4 [address] discussed bp with dr. stephenson start labetalol 200mg bid Flowsheet Date 11/19/2024 Nevarez Score Blood Edema Fundus Height Fundus Units Glucose Ketones Leukocytes Nitrite Labor Signs Protein Cervic Dilation Cervic Effacement Cervic Station Type Weight in lbs Pre/Post Dialysis Refused Weight 279.442233514716 BP Diastolic BP Location Tested BP Systolic BP Type 79 L arm 128 sitting Fetus Heart Rate Present A 154 Fetus Movement A Yes Comments +FM doing well, bp's normote nsive on labetalol, cont to monitor, denies any sxs. precautions and education f/u mfm as scheduled Flowsheet Date 12/17/2024 Nevarez Score Blood Edema Fundus Height Fundus Units Glucose Ketones Leukocytes Nitrite Labor Signs Protein Cervic Dilation Cervic Effacement Cervic Station Type Weight in lbs Pre/Post Dialysis Refused Weight 280.108657869681 BP Diastolic BP Location Tested BP Systolic BP Type 82 L arm 129 sitting Fetus Heart Rate Present Fetus Movement A Yes Comments +FM mfm f/u with anatomy and plans echo, precautions and education f/u 4 weeks with glucose Flowsheet Date 01/14/2025 Nevarez Score Blood Edema Fundus Height Fundus Units Glucose Ketones Leukocytes Nitrite Labor Signs Protein Cervic Dilation Cervic Effacement Cervic Station Type Weight in lbs Pre/Post Dialysis Refused Weight 282.628416144953 BP Diastolic BP Location Tested BP Systolic BP Type 83 L arm 126 sitting 66 L wrist 128 sitting Fetus Heart Rate Present Fetus Movement A Yes Comments per pt mfm said anatomyok, e cho unremarkable, plans to deliver at [place] today, discuss vaccines at next visit, small odor after intercourse, will plan flagyl. education and precautions f/u 2 weeks Flowsheet Date 01/28/2025 Nevarez Score Blood Edema Fundus Height Fundus Units Glucose Ketones Leukocytes Nitrite Labor Signs Protein Cervic Dilation Cervic Effacement Cervic Station Type Weight in lbs Pre/Post Dialysis Refused Weight 283.13120684311 BP Diastolic BP Location Tested BP Systolic BP Type 70 L arm 128 sitting Fetus Heart Rate Present A 147 Present Fetus Movement A Yes Comments doing well +fm discussed kic k counts declines vaccines, precautions and educstion f/u 2 weeks with testing Flowsheet Date 02/11/2025 Nevarez Score Blood Edema Fundus Height Fundus Units Glucose Ketones Leukocytes Nitrite Labor Signs Protein Cervic Dilation Cervic Effacement Cervic Station Type Weight in lbs Pre/Post Dialysis Refused 284.441825708423 BP Diastolic BP Location Tested BP Systolic BP Type 83 L arm 134 sitting Fetus Heart Rate Present A 145 Present Fetus Movement Comments +FM, mfm yesterday doing wel l, call for preadmit, IOL 03/16 at 0500, precautions and education f/u as scheduled Flowsheet Date 02/20/2025 Nevarez Score Blood Edema Fundus Height Fundus Units Glucose Ketones Leukocytes Nitrite Labor Signs Protein Cervic Dilation Cervic Effacement Cervic Station Type Weight in lbs Pre/Post Dialysis Refused BP Diastolic BP Location Tested BP Systolic BP Type Fetus Heart Rate Present Fetus Movement Comments Flowsheet Date 02/20/2025 Nevarez Score Blood Edema Fundus Height Fundus Units Glucose Ketones Leukocytes Nitrite Labor Signs Protein Cervic Dilation Cervic Effacement Cervic Station Type Weight in lbs Pre/Post Dialysis Refused 285.727525116562 BP Diastolic BP Location Tested BP Systolic BP Type 84 L arm 129 sitting Fetus Heart Rate Present Fetus Movement A Yes Comments Flowsheet Date 02/20/2025 Nevarez Score Blood Edema Fundus Height Fundus Units Glucose Ketones Leukocytes Nitrite Labor Signs Protein Cervic Dilation Cervic Effacement Cervic Station Type Weight in lbs Pre/Post Dialysis Refused 285.711648525098 BP Diastolic BP Location Tested BP Systolic BP Type 84 L arm 129 sitting Fetus Heart Rate Present Fetus Movement A Yes Comments bpp 10/, doing well +FM, i ol scheduled reviewed IOL date with md, precautions and education f/u one week plan gbs, preadmit scheduled Flowsheet Date 02/25/2025 Nevarez Score Blood Edema Fundus Height Fundus Units Glucose Ketones Leukocytes Nitrite Labor Signs Protein Cervic Dilation Cervic Effacement Cervic Station Type Weight in lbs Pre/Post Dialysis Refused Weight 289.345603806102 BP Diastolic BP Location Tested BP Systolic BP Type 80 L arm 124 sitting Fetus Heart Rate Present Fetus Movement A Yes Comments Flowsheet Date 02/25/2025 Nevarez Score Blood Edema Fundus Height Fundus Units Glucose Ketones Leukocytes Nitrite Labor Signs Protein Cervic Dilation Cervic Effacement Cervic Station Type Weight in lbs Pre/Post Dialysis Refused BP Diastolic BP Location Tested BP Systolic BP Type Fetus Heart Rate Present Fetus Movement Comments Flowsheet Date 02/25/2025 Nevarez Score Blood Edema Fundus Height Fundus Units Glucose Ketones Leukocytes Nitrite Labor Signs Protein Cervic Dilation Cervic Effacement Cervic Station Type Weight in lbs Pre/Post Dialysis Refused Weight 289.921645485389 BP Diastolic BP Location Tested BP Systolic BP Type 80 L arm 124 sitting Fetus Heart Rate Present Fetus Movement A Yes Comments bpp 10/10, +FM, doing well, precautions and education f/u one week Flowsheet Date 03/06/2025 Nevarez Score Blood Edema Fundus Height Fundus Units Glucose Ketones Leukocytes Nitrite Labor Signs Protein Cervic Dilation Cervic Effacement Cervic Station Type Weight in lbs Pre/Post Dialysis Refused BP Diastolic BP Location Tested BP Systolic BP Type Fetus Heart Rate Present Fetus Movement Comments Flowsheet Date 03/06/2025 Nevarez Score Blood Edema Fundus Height Fundus Units Glucose Ketones Leukocytes Nitrite Labor Signs Protein Cervic Dilation Cervic Effacement Cervic Station Type Weight in lbs Pre/Post Dialysis Refused [id number] BP Diastolic BP Location Tested BP Systolic BP Type 77 L arm 129 sitting Fetus Heart Rate Present Fetus Movement A Yes Comments Flowsheet Date 03/06/2025 Nevarez Score Blood Edema Fundus Height Fundus Units Glucose Ketones Leukocytes Nitrite Labor Signs Protein Cervic Dilation Cervic Effacement Cervic Station 3cm 50% -2 Type Weight in lbs Pre/Post Dialysis Refused Weight [id number] BP Diastolic BP Location Tested BP Systolic BP Type 77 L arm 129 sitting Fetus Heart Rate Present Fetus Movement A Yes Comments +FM, doing well, occ contrac tions, education and precautions f/u one week IOL scheduled Menstrual History Last Menstrual Date Menses Monthly On Bcp Conception Prior Menses Frequency Hcg Plus Date Menarche Onset Age 0306/26/2024 Delivery Information Delivery Date Delivery Type Labor Anesthesia Weeks Gestation Incision Type Labor Labor Length Hrs Delivered By Post Complications Tubal Sterilization Discharge Date Comments Discharge Information Feeding Method Contraceptive Method Maternal HG B and HCT Levels
--- OUTSIDE RECORDS SUMMARY | 2025-03-08 23:24 | XMS_ITS | Data Portability ---
Author Organization [facility] Address [address] [place] [address] [place] [address] Care Team Providers Care Litigation Legal Assistant Name Role Phone KARON CHACKO Primary Care Provider [phone] Assessment Encounter Date Assessment Date Assessment LastModified by Organization Details LastModified Time 03/06/2025 03/06/2025 Patient is __36_weeks . Discussed plan. Not available 03/06/2025 12:45:54 Plan of Treatment Reminders Order Date Submit [...] d. Imaging non-str ess test 2024 025 [email or web address] [address], [address], [place], [address], 03/06/2025 13:35:11 US, obstetr ic, follow- up 2024 025 CINDY [address], [address], [place], [address], 03/06/2025 18:12:43 US, obstetr ic, biophys ical profile + non-str ess test [address], [address], [place], [address], 03/06/2025 14:22:06 US, obstetr ic, biophys ical profile + non-str ess test [address], [address], [place], [address], 02/25/2025 11:38:27 non-str ess test 2024 025 [address], [address], [place], [address], 02/25/2025 17:36:49 Medication Orders None recorde d. Patient TargetsNo targets recorded. Patient InstructionsNo instructions recorded. Reason for Referral None Reported. Results Created Date Observation Date Name Description Value Unit Range Abnormal Flag Note LastModifiedBy Organization Detail LastModifiedTime 02/11/2002/10/2025 non-s tress test No observ ation record ed. [email or web address] [facility] [address] [place], [address], 02/11/2025 15:00:18 02/11/20 25 02/10/2025 US, obste tric, follo w-up No observ ation record ed. [email or web address] [facility] [address] [place], [address], 02/11/2025 11:37:25 02/21/20 25 02/20/2025 US, obste tric, bioph ysica l profi le + non-s tress test No observ ation record ed. [email or web address] [address], [place], [address], 02/20/2025 16:56:43 02/21/20 25 02/20/2025 US, obste tric, bioph ysica l profi le + non-s tress test No observ ation record ed. [email or web address] [address], [place], [address], 02/23/2025 11:31:02 02/21/2002/20/2025 non-s tress test No observ ation record ed. [email or web address] [address], [place], [address], 02/20/2025 13:47:54 02/21/20 non-s tress test No observ ation record ed. [address], [place], [address], 02/20/2025 12:35:53 02/26/20 25 02/25/2025 US, obste tric, bioph ysica l profi le + non-s tress test No observ ation record ed. [email or web address] [address], [place], [address], 02/25/2025 11:49:48 02/26/20 25 02/25/2025 US, obste tric, bioph ysica l profi le + non-s tress test No observ ation record ed. [email or web address] [address], [place], [address], 03/04/2025 11:50:53 02/26/20 25 02/25/2025 non-s tress test No observ ation record ed. [email or web address] [address], [place], [address], 02/25/2025 17:57:33 02/26/20 non-s tress test No observ ation record ed. [address], [place], [address], 02/25/2025 17:15:53 03/06/20 25 03/06/2025 non-s tress test No observ ation record ed. [facility] [address], [place], [address], 03/06/2025 13:52:03 03/06/20 non-s tress test No observ ation record ed. [address], [place], [address], 03/06/2025 12:00:07 03/06/20 25 03/06/2025 US, obste tric, follo w-up No observ ation record ed. [email or web address] [address], [place], [address], 03/07/2025 23:02:25 03/06/20 25 03/06/2025 US, obste tric, follo w-up No observ ation record ed. [facility] [address], [place], [address], 03/06/2025 13:52:39 03/06/20 25 03/06/2025 US, obste tric, bioph ysica l profi le + non-s tress test No observ ation record ed. [facility] [address], [place], [address], 03/06/2025 13:52:50 Result Notes None recorded. Problems Name Problem SNOMED Code Status Onset Date Resolution Date Notes Provider Name and Address Organization Details Recorded Time Polycyst ic ovary syndrome 585082958 Completed 201711/16/2021 Polycyst ic ovarian syndrome ;Recorde d Elsewher e: No [facility] S ource: [facility] Supervisor yan: N Practi ce ID: 0001 Edmond lable Time: 02:45:00 PM Sandhya Key [facility] 2 18:30:21 Finding of fertilit y Completed 201711/16/2021 Female infertil ity, unspecif ied;Tip rded Elsewher e: No Locat ion: [facility] N Practi ce ID: 0001 Edmond lable Time: 10:00:00 AM Sandhya Key [facility] 2 18:30:21 Abnormal uterine bleeding 1297707350 9100 Completed 201711/16/2021 Other specifie d abnormal uterine and vaginal bleeding ;Recorde d Elsewher e: No [facility]: N Carolynnti ce ID: 0001 Edmond lable Time: 09:45:00 AM Sandhya Key [facility] 2 18:30:21 Bleeding Completed 201711/16/2021 Abnormal uterine and vaginal bleeding , unspecif ied;Tip rded Elsewher e: No Locat ion: [facility] S ource: [facility] Supervisor yan: N Practi ce ID: 0001 Edmond lable Time: 10:00:00 AM Sandhya Key [facility] 2 18:30:21 Urinary tract infectio us disease 75947712 Completed 201811/16/2021 Urinary tract infectio n, site not specifie d;Record ed Elsewher e: No Locat ion: [facility] S ource: [facility] Supervisor yna: N Practi ce ID: 0001 Edmond lable Time: 04:15:00 PM Sandhya Key [facility] 2 18:30:21 Pregnanc y detectio n examinat ion Completed 201811/16/2021 Encounte r for pregnanc y test, result positive ;Practic e ID: 0001 Sandhya sneed, [facility] 2 18:30:21 Uterine size for dates discrepa ncy Completed 201811/16/2021 Uterine size-johann e discrepa ncy, first trimeste r;Practi ce ID: 0001 Sandhya sneed, [facility] 2 18:30:21 Gestatio n period, 9 weeks 750377 Completed 201811/16/2021 9 weeks gestatio n of pregnanc y;Practi ce ID: 0001 Sandhya Key [facility], [facility] 2 18:30:21 Secondar y amenorrh ea 699960392 Completed 201811/16/2021 Secondar y amenorrh ea;Recor ded Elsewher e: No Locat ion: [facility] S ource: [facility] Supervisor yan: N Practi ce ID: 0001 Edmond lable Time: 03:30:00 PM [facility] 18:30:21 Infectio n screenin g Completed 201811/16/2021 Encounte r for screenin g for oth infec/pa rastc diseases ;Recorde d Elsewher e: No Locat ion: [facility] S ource: [facility] Supervisor yan: N Practi ce ID: 0001 Edmond lable Time: 03:30:00 PM Sandhya Key [facility] 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 2 18:30:21 Syphilis test finding 037441697 Completed 201811/16/2021 Encntr screen for infectio ns w sexl mode of transmis s;Record ed Elsewher e: No Locat ion: [facility] S ource: [facility] Supervisor yan: N Practi ce ID: 0001 Edmond lable Time: 03:30:00 PM Sandhya sneed [facility] 2 18:30:21 Body mass index 30+ - obesity 833373170 Completed 201811/16/2021 Body mass index (BMI) 37.0-37. 9, adult;Re corded Elsewher e: No Locat ion: [facility] S ource: [facility] Supervisor yan: N Practi ce ID: 0001 Edmond lable Time: 03:30:00 PM Sandhya Key [facility] 2 18:30:21 Chlamydi al infectio n [id number] Completed 201811/16/2021 Chlamydi al infectio n, unspecif ied;Tip rded Elsewher e: No Locat ion: [facility] S ource: [facility] Supervisor yan: N Practi ce ID: 0001 Edmond lable Time: 11:52:25 AM Sandhya sneed [facility] 2 18:30:21 [place] [id number] 55418 Completed 201811/16/2021 Encounte r for suprvsn of normal pregnanc y, first trimeste r;Practi ce ID: 0001 Sandhya sneed [facility] 2 18:30:21 Antenata l screenin g Completed 201811/16/2021 Encounte r for other specifie d antenata l screenin g;Practi ce ID: 0001 Sandhya sneed, [facility] 2 18:30:21 Medical examinat ion for suspecte d conditio n Completed 201811/16/2021 Encntr for oth suspecte d maternal and cond ruled out;Prac jaxson ID: 0001 Sandhya sneed, [facility] 2 18:30:[address] Concept Completed 201811/16/2021 Maternal care for oth abnormal ity and damage, unsp;Pra ctice ID: 0001 Sandhya Key [facility], [facility] 2 18:30:21 Gestatio n period, 30 weeks 10290637 Completed 201811/16/2021 30 weeks gestatio n of pregnanc y;Practi ce ID: 0001 Sandhya Key [facility] 2 18:30:21 Pregnanc y, childbir th and puerperi um finding Completed 201811/16/2021 Encntr for suprvsn of normal first preg, third trimeste r;Practi ce ID: 0001 Sandhya Key [facility], [facility] 2 18:30:21 malforma tion of central nervous system 1539005463 107 Completed 201811/16/2021 Maternal care for (suspect ed) cnsl malform in fetus, unsp;Pra ctice ID: 0001 Sandhya Key [facility], [facility] 2 18:30:21 Gestatio n period, 34 weeks 82960728 Completed 201811/16/2021 34 weeks gestatio n of pregnanc y;Practi ce ID: 0001 Sandhya Key [facility], [facility] 2 18:30:[address] Concept Completed 201811/16/2021 Matern care for abnlt fetl hrt rate or rhym, unsp tri, unsp;Pra ctice ID: 0001 Sandhya sneed, [facility] 2 18:30:21 Gestatio n period, 36 weeks 34208041 Completed 201811/16/2021 36 weeks gestatio n of pregnanc y;Practi ce ID: 0001 Sandhya sneed, [facility] 2 18:30:21 Term pregnanc y delivere d 82226494 Completed 201811/16/2021 Encounte r for full-ter m uncompli cated delivery ;Practic e ID: 0001 Sandhya sneed, [facility] 2 18:30:21 Single live from singleto n pregnanc y 881716530 Completed 201811/16/2021 Single live ;Pr actice ID: 0001 Sandhya sneed, [facility] 2 18:30:21 Gestatio n period, 37 weeks 63154155 Completed 201811/16/2021 37 weeks gestatio n of pregnanc y;Practi ce ID: 0001 Sandhya sneed, [facility] 2 18:30:21 Lochia finding Completed 201911/16/2021 Encounte r for routine postpart um follow-u p;Record ed Elsewher e: No Locat ion: [facility] ource: [facility] Supervisor yan: N Practi ce ID: 0001 Edmond lable Time: 08:45:00 AM Sandhya sneed [facility] 2 18:30:21 Acute vaginiti s 38836070 Completed 201911/16/2021 Vaginiti s;Record ed Elsewher e: No Locat ion: [facility] S ource: [facility] Supervisor yan: N Practi ce ID: 0001 Edmond lable Time: 01:00:00 PM Sandhya sneed, [facility] 2 18:30:21 Mixed anxiety and depressi ve disorder 833304239 Active 2024 Paz Keller null, [facility] 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 5 15:07:06 Pregnanc y 03755646 Active 2024 Paz Keller null, [facility] 5 15:07:38 chromoso mal abnormal ity affectin g obstetri sofia care 44905005 Active 2024 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, [place] [facility] [facility] Schedule d 10/20 us only & 11/17 us only normal echo 12/31- recommen ds postnata l eval of baby Katiana Roger null, [facility] 5 15:09:19 History of heart disorder 668845673 Active 2024 first baby couple hours after Britney Monzon CNM [address], [place], [address], [facility] 5 15:26:56 Past pregnanc y history of pre-ecla mpsia 9022903008 35654 Active 2024 plan bASA 162mg Britney Monzon CNM [address], [place], [address], [facility] 5 15:27:21 History of depressi on 570364465 Active 2024 no current treatmen t Britney Monzon CNM [address], [place], [address], [facility] 5 15:37:15 Hyperten sive disorder 42483990 Active 09/17/ 2025 100mg labetalo l bid Britney Monzon CNM [address], [place], [address], [facility] 5 11:41:34 Notes:previous son had hypoplastic left heart syndrome Some problems listed in Document: #[id number] could not be added to this patient's chart. Please review this document and add these problems to the patient's chart manually as needed. Problem Notes None recorded. Procedures Surgical History Date Name Laterality Status Provider Name and Address Organization Details Recorded Time 5 Date of Last Pap Smear completed Paz Keller [facility] 08/15/2024 17:09:24 4 SIS completed NUZHAT STEPHENSON MD [address], [place], [address], [facility] 09/13/2023 14:06:22 Imaging Results None recorded. [...] Prescrib ed Elsewher e: No Locat ion: [place] [facility] M odify By: [email or web address] z Encoun ter DateTime : 03/28/20 18 10:00:00 AM [...] Prescrib ed Elsewher e: No [facility] odify By: maged Hurst ter DateTime : 02/06/20 08:45:00 AM Not Available Not Available Not Available Zofran 4 mg tablet take 1 tablet as needed for nausea 11/17 completed Prescrib ed Elsewher e: No Locat ion: [place] [facility] odify By: dian jonas DateTime : 09/17/19 04:11:09 PM Not Available Not Available Not Available Metrogel Vaginal 0.75 % (37.5 mg/5 gram) insert 1 applicat orful by vaginal route every day at bedtime for 5 nights 11/17 completed Prescrib ed Elsewher e: No Locat ion: [place] [facility] odify By: rahel jonas DateTime : 07/07/19 [...] Prescrib ed Elsewher e: No Locat ion: [facility] odify By: bill jonas DateTime : 03/28/20 10:00:00 AM Not [...] Prescrib ed Elsewher e: No Locat ion: [facility] M odify By: dian jonas DateTime : 09/17/19 [...] index (BMI) Body weight Systolic And Diastolic Provider Name and Address Organization Details Last Updated DateTime 02/25/2025 167.64 cm 46.6 kg/m2 282563.19 g 124/80 mm[Hg] Alicia [facility] 02/25/2025 17:13:19 Date Recorded Body height Body mass index (BMI) Body weight Systolic And Diastolic Provider Name and Address Organization Details Last Updated DateTime 02/25/2025 167.64 cm 46.6 kg/m2 343454.19 g 124/80 mm[Hg] DANA LEE [facility] 02/25/2025 10:55:42 Date Recorded Body weight Body mass index (BMI) Body height Body height Body mass index (BMI) Body weight Systolic And Diastolic Systolic And Diastolic Provider Name and Address Organization Details Last Updated DateTime 902546. 35234 g 47.1 kg/m2 167.64 cm 167.64 cm 47.1 kg/m2 447767. 97 g 129/77 mm[Hg] 129/77 mm[Hg] Alciia [facility] 12:30:37 Social History Question Answer Notes LastModified by Organizat ion Details LastModified Time Tobacco Smoking Status Never Smoker Sandhya sneed [facility] 11/17/2021 10:26:20 Do You Have An Advance Directive? No Information n ot available 11/17/2021 If You Are , What Was Your Level Of Alcohol Consumption Prior To ? Occasional [email or web address] Information not available 08/15/2024 How Many Years Have You Consumed Alcohol? 8 Information not available 11/17/2021 Are You Blind Or Do You Have Difficulty Seeing? No Information n ot available 11/17/2021 What Is Your Level Of Caffeine Consumption? Moderate [email or web address] Information not available 08/15/2024 How Much Tobacco [...] Or The Highest Degree You Have Received? [id number] Information not available 11/17/2021 Are There Any Guns Present In Your Home? No Information not available 11/17/2021 Do You Use Protection During Sex? No Information not available 11/17/2021 Do You Use Your Seat Belt Or Car Seat Routinely? Yes Information not available 11/17/2021 Are You Sexually Active? Yes [email or web address] Information not available 11/12/2024 Do You Have [...] is your level of alcohol consumption? None [email or web address] Information not available 08/15/2024 Are you able [...] anxious, or unable to sleep at night)? [id number] [email or web address] Information not available 08/15/2024 Family History Relationship Description Onset Age of this Age Resolved Age Notes LastModified by Organization Details LastModified Time Son Hypoplastic left heart syndrome [email or web address] Not available 06/15 18:39:24 Medical History Condition [...] ICD10 Code Diagnosis IMO Codes Diagnosis Note [id number] Eliz Wells [facility] [address],[place] [address] 11/17/2021 09:51:36 11/17/2021 16:21:37 Secondary amenorrhea 897779945 N91.1 Today we agreed to an US [...] counseling and review of plan of care. [id number] Dakotah Celeste MD [address] [place],[place] [address] 11/22/2021 13:59:46 11/22/2021 15:12:36 Secondary amenorrhea 386711726 N91.1 [id number] Eliz Wells [facility] [address],[place] [address] 12/06/2021 15:12:31 12/06/2021 15:54:58 Secondary amenorrhea 016408567 N91.1 Reviewed US & LabsWill f/u PCP [...] counseling and review of plan of care. [id number] NUZHAT STEPHENSON MD [place] [address] [address] 08/28/2023 13:52:34 08/28/2023 14:50:55 Oligomenorrhea 86982229 N91.5 Polycystic ovary syndrome 421215594 E28.2 - Differenti al diagnosis of cause [...] work can be scheduled appropriat candelario Obesity 014418857 E66.9 [id number] NUZHAT STEPHENSON MD [place] [address],[facility] [place] [address] 09/13/2023 12:02:37 09/13/2023 13:31:02 Female infertility 4393095 N91.5 [id number] NUZHAT STEPHENSON MD [place] [address],[place] [address] 09/13/2023 12:03:03 09/13/2023 14:10:01 Polycystic ovary syndrome 095773204 E28.2 - Differenti al diagnosis of cause [...] SIS performed, patient tolerated well Female infertility 64668 08 N91.5 [id number] NUZHAT STEPHENSON MD [place] [address],[place] [address] 04/30/2024 14:31:15 05/01/2024 09:20:59 Anovulation 18760474 N97.0 - patient reports no positive ovulation [...] be sent and labs can be scheduled [id number] Dakotah Celeste MD [place] [address],[place] [address] 08/14/2024 13:29:03 08/14/2024 13:59:39 Fundal height high for dates 419003800 O26.849 Z3A.01 241899 [id number] RUTH [facility] [address],[place] [address] 08/15/2024 14:52:25 08/19/2024 09:56:32 Gynecologic examination 93572419 Z01.419 Z11.3 7275177 [id number] Dakotah Celeste MD [place] [address],[place] [address] 08/26/2024 15:45:32 08/26/2024 16:45:49 Antepartum hemorrhage 66278110 O20.9 Z3A.08 146530 [id number] RUTH [facility] [address],[place] [address] 09/19/2024 11:19:33 09/19/2024 15:52:24 state of fetus 25305102 Z34.90 8182946827 Gestation period, 12 weeks 15898076 Z3A.12 0640675 129554 RUTH [facility] [address],[place] [address] 2024 14:24:54 2024 15:05:27 Gestation period, 15 weeks 3987842 Z3A.15 9367759 028029 RUTH [facility] [address],[place] [address] 11/12/2024 11:34:27 11/12/2024 13:54:13 Gestation period, 19 weeks 21498574 Z3A.19 2446655 Chronic hy pertension complicating AND/OR reason for care during 01123712 O10.919 46281275 cont asabp check one week [id number] RUTH [facility] [address],[place] [address] 11/19/2024 16:58:21 11/19/2024 17:46:54 Gestation period, 20 weeks 83004666 Z3A.20 4848870 [id number] Britney Monzon [facility] [address],[place] [address] 12/17/2024 11:11:15 12/17/2024 11:43:51 Gestation period, 24 weeks 970833692 Z3A.24 0527487 [id number] Britney Monzon [facility] [address],[place] [address] 01/14/2025 13:59:39 01/14/2025 15:51:36 Gestation period, 28 weeks 72666194 Z3A.28 4142935 [id number] Britney Monzon [facility] [address],[place] [address] 01/28/2025 10:12:44 01/28/2025 11:11:44 Gestation period, 30 weeks 11167238 Z3A.30 6024417 [id number] Britney Monzon [facility] [address],[place] [address] 02/11/2025 11:02:03 02/11/2025 12:28:12 Gestation period, 32 weeks 7770988 Z3A.32 0196537 [id number] Dakotah Celeste MD [place] [address],[place] [address] 02/20/2025 10:19:25 02/20/2025 11:15:32 Chronic hypertension complicating AND/OR reason for care during 51468258 O10.913 O99.210 O28.0 Z3A.34 18500326 [id number] Britney Monzon [facility] [address],[place] [address] 02/20/2025 10:20:12 02/20/2025 12:37:20 Abnormal chromosomal and genetic finding on screening of mother 407313242 O28.5 40499065 [id number] Britney Monzon [facility] [address],[place] [address] 02/20/2025 10:20:45 02/20/2025 12:28:20 Gestation period, 34 weeks 93415340 Z3A.34 1617053 [id number] Britney Monzon [facility] [address],[place] [address] 02/25/2025 09:50:49 02/25/2025 17:36:49 Abnormal chromosomal and genetic finding on screening of mother 580263191 O28.5 04330324 [id number] Dakotah Celeste MD [place] [address],[place] [address] 02/25/2025 09:51:39 02/25/2025 10:55:41 Obesity 512381385 O99.213 O28.5 O10.013 Z3A.34 03283392 [id number] Britney Monzon [place] [address],[place] [address] 02/25/2025 09:51:54 02/25/2025 11:24:09 Gestation period, 34 weeks 47497272 Z3A.34 1592086 [id number] Dakotah Celeste MD [place] [address],[place] [address] 03/06/2025 10:53:07 03/06/2025 13:36:58 Maternal hypertension 093234528 O16.3 O99.210 Z3A.36 4554878 [id number] Britney Monzon [facility] [address],[place] [address] 03/06/2025 10:54:53 03/06/2025 13:35:11 Abnormal finding on screening of mother 928119908 O28.5 464337 [id number] Britney Monzon [facility] [address],[place] [address] 03/06/2025 10:55:21 03/06/2025 13:33:29 Gestation period, 36 weeks 00692652 Z3A.36 5787970 Health Concerns Section Related Observation LastModified by Organization Detai ls LastModified Time None Recorded Concern Status LastModified by Organization Details LastModified Time None Recorded Advance Directives Directive N: Payers Insurance Date Sequence Insurance Name Policy Number Policy Mckenna Covered Member ID Mckenna Member ID Guarantor Name 08/11/2024 1 [place] [id number] Alex Louie [id number] 1 Riz[place]ana Louie 03/03/2025 1 [place] [id number] Alex Louie [id number] Rizwana Louie 08/14/2024 1 [facility] Alex Louie [id number] Rizwana Louie 01/10/2025 PAYMENT PLAN Rizwana Louie 08/28/2023 1 [facility] Alex Louie [id number] Rizwana Louie 2024 2 [place] Rizwana Dubose [id number] Rizwanabenedict Louie 2024 2 [place] [facility] Rizwana Maynardtiago [id number] Rizwana Louie 2024 1 [place]) Riz[place]ana Maynardtiago [id number] Rizwana Louie 07/18/2023 1 [employer] [employer] Alex Louie [id number] Rizwana Louie 08/23/2023 1 [employer] Alex Louie [id number] Rizwana Louie Notes Date Note Type Note Provider Name and Address Organization Details Recorded Time 02/25/2025 text/html Generic HPI TemplateReported by Patient Britney Monzon CNM [address], [place], [address], [facility] 02/25/2025 11:18:23 03/06/2025 text/html Generic HPI TemplateReported by Patient Britney Monzon CNM [address], [place], [address], [facility] 03/06/2025 12:48:38 OBGyn Episode Ob Episode Information Episode Created Date Number of Fetuses Patient Bloodtype Patient rh Status Prepregnancy Weight lbs Domestic Partner Domestic Partner Phone Father Name Paint Pourer Status 06/16/19 21 1 CLOSED Fetus Data [...] Domestic Partner Domestic Partner Phone Father Name Paint Pourer Status 06/16/19 21 1 CLOSED Fetus Data [...] Domestic Partner Domestic Partner Phone Father Name Paint Pourer Status 09/20/19 25 1 O Positive 273 Alex Louie OPEN Fetus Data First Name Last Name Admitted to NICU Weight (g) Sex Living Outcome Pediatric Complications Fetus ID Race Codes Race Delivery Type [id number] Problems Problem Notes Problem Name Start Date End Date Resolution Snomed Code Not e History of depression 09/19/2024 [id number] no current treatment Past history of pre-eclampsia 09/19/2024 [id number] plan bASA 1 62mg History of heart disorder 09/19/2024 [id number] first baby pass ed away couple hours after Hypertensive disorder 12/17/2024 [id number] 100mg labetalol bid 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 [id number] 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, seeing [facility] office Scheduled 10/20 us only & 11/17 us onlynormal echo 12/31- recommends eval of baby Les Calculation Initial Les Date Initial Exam Date Initial Exam Provider Initial Ultrasound Date Last Menstrual Period Date Ultra Sound Weeks Gestation 04/02/2025 08/26/2024 [id number] 08/14/2024 06/26/2024 6 Eighteen To Twenty Week Les Update Ultra Sound Date Fundal Height At Umbil Quickening Date Ultra Sound Latest Weeks Gestation Final Les Confirmed By Final Les Confirmed Date Final Les Date Ultra Sound Latest Days Gestation 0 [id number] 09/19/2024 04/02/19 26 0 Pre-cherelle Flowsheet Flowsheet Date 09/19/2024 Nevarez Score Blood Edema Fundus Height Fundus Units Glucose Ketones Leukocytes Nitrite Labor Signs Protein Cervic Dilation Cervic Effacement Cervic Station neg none none trace Type Weight in lbs Pre/Post Dialysis Refused Weight 274.177908230096 BP Diastolic BP Location Tested BP Systolic BP Type 81 140 Fetus Heart Rate Present Fetus Movement A Yes Comments reviewed [facility] notes with pt, undecided about amnio, is scheduled, will continue to follow as well, start bASA 162mg, hx 2 previous vaginal deliveries, begin care Flowsheet Date 2024 Nevarez Score Blood Edema Fundus Height Fundus Units Glucose Ketones Leukocytes Nitrite Labor Signs Protein Cervic Dilation Cervic Effacement Cervic Station Type Weight in lbs Pre/Post Dialysis Refused 278.267373118533 BP Diastolic BP Location Tested BP Systolic BP Type 85 L arm 141 sitting Fetus Heart Rate Present Fetus Movement A No Comments declined amnio first us good at [facility], has anatomy scheduled. mood good. _-FM yet precautions and educations f/u 4 weeks Flowsheet Date 11/12/2024 Nevarez Score Blood Edema Fundus Height Fundus Units Glucose Ketones Leukocytes Nitrite Labor Signs Protein Cervic Dilation Cervic Effacement Cervic Station Type Weight in lbs Pre/Post Dialysis Refused 278.586799213247 BP Diastolic BP Location Tested BP Systolic BP Type 94 L wrist 146 sitting 102 R wrist 157 sitting Fetus Heart Rate Present Fetus Movement A No Comments last us at [facility] wnl, has f/u next week +FM precautions and education f/u 4 weeks[address] discussed bp with dr. stephenson start labetalol 200mg bid Flowsheet Date 11/19/2024 Nevarez Score Blood Edema Fundus Height Fundus Units Glucose Ketones Leukocytes Nitrite Labor Signs Protein Cervic Dilation Cervic Effacement Cervic Station Type Weight in lbs Pre/Post Dialysis Refused Weight 279.718059706605 BP Diastolic BP Location Tested BP Systolic BP Type 79 L arm 128 sitting Fetus Heart Rate Present A 154 Fetus Movement A Yes Comments +FM doing well, bp's normote nsive on labetalol, cont to monitor, denies any sxs. precautions and education f/u [facility] as scheduled Flowsheet Date 12/17/2024 Nevarez Score Blood Edema Fundus Height Fundus Units Glucose Ketones Leukocytes Nitrite Labor Signs Protein Cervic Dilation Cervic Effacement Cervic Station Type Weight in lbs Pre/Post Dialysis Refused Weight 280.290408904759 BP Diastolic BP Location Tested BP Systolic BP Type 82 L arm 129 sitting Fetus Heart Rate Present Fetus Movement A Yes Comments +FM [facility] f/u with anatomy and plans echo, precautions and education f/u 4 weeks with glucose Flowsheet Date 01/14/2025 Nevarez Score Blood Edema Fundus Height Fundus Units Glucose Ketones Leukocytes Nitrite Labor Signs Protein Cervic Dilation Cervic Effacement Cervic Station Type Weight in lbs Pre/Post Dialysis Refused Weight 282.942528373998 BP Diastolic BP Location Tested BP Systolic BP Type 83 L arm 126 sitting 66 L wrist 128 sitting Fetus Heart Rate Present Fetus Movement A Yes Comments per pt [facility] said anatomyok, e cho unremarkable, plans to deliver at [place] today, discuss vaccines at next visit, small odor after intercourse, will plan flagyl. education and precautions f/u 2 weeks Flowsheet Date 01/28/2025 Nevarez Score Blood Edema Fundus Height Fundus Units Glucose Ketones Leukocytes Nitrite Labor Signs Protein Cervic Dilation Cervic Effacement Cervic Station Type Weight in lbs Pre/Post Dialysis Refused Weight 283.60503534798 BP Diastolic BP Location Tested BP Systolic [...] Type Weight in lbs Pre/Post Dialysis Refused 284.943916631350 BP Diastolic BP Location Tested BP Systolic [...] Type Weight in lbs Pre/Post Dialysis Refused 285.206236204696 BP Diastolic BP Location Tested BP Systolic BP Type 84 L arm 129 sitting Fetus Heart Rate Present Fetus Movement A Yes Comments Flowsheet Date 02/20/2025 Nevarez Score Blood Edema Fundus Height Fundus Units Glucose Ketones Leukocytes Nitrite Labor Signs Protein Cervic Dilation Cervic Effacement Cervic Station Type Weight in lbs Pre/Post Dialysis Refused 285.957114737123 BP Diastolic BP Location Tested BP Systolic BP Type 84 L arm 129 sitting Fetus Heart Rate Present Fetus Movement A Yes Comments bpp 01/09, doing well +FM, i ol scheduled reviewed IOL date with md, precautions and education f/u one week plan gbs, preadmit scheduled Flowsheet Date 02/25/2025 Nevarez Score Blood Edema Fundus Height Fundus Units Glucose Ketones Leukocytes Nitrite Labor Signs Protein Cervic Dilation Cervic Effacement Cervic Station Type Weight in lbs Pre/Post Dialysis Refused Weight 289.372375462070 BP Diastolic BP Location Tested BP Systolic [...] Weight in lbs Pre/Post Dialysis Refused Weight 289.164373106997 BP Diastolic BP Location Tested BP Systolic BP Type 80 L arm 124 sitting Fetus Heart Rate Present Fetus Movement A Yes Comments bpp 01/09, +FM, doing well, precautions and education f/u [...] Type Weight in lbs Pre/Post Dialysis Refused 292.962107614658 BP Diastolic BP Location Tested BP Systolic BP Type 77 L arm 129 sitting Fetus Heart Rate Present Fetus Movement A Yes Comments Flowsheet Date 03/06/2025 Nevarez Score Blood Edema Fundus Height Fundus Units Glucose Ketones Leukocytes Nitrite Labor Signs Protein Cervic Dilation Cervic Effacement Cervic Station 3cm 50% -2 Type Weight in lbs Pre/Post Dialysis Refused Weight 292.397700520908 BP Diastolic BP Location Tested BP Systolic [...]
--- OUTSIDE RECORDS SUMMARY | 2025-03-08 23:24 | XMS_ITS | Continuity of Care Document ---
Author Organization [facility] Address [address] [place] [address] Care Team Providers Care Crossing Tender Name Role Phone MONIQUEARGENTINA KARON Primary Care Provider Assessment Encounter Date Assessment Date Assessment LastModified by Organization Details LastModified Time 01/28/2025 01/28/2025 Patient is _30__weeks . Discussed plan. Not available 01/28/2025 10:54:31 Plan of Treatment Reminders Order Date Submit Date Provider Last Modified By Organization Details Last Modified Time Details Appointments U/S OB BPP 2024 10:30A M ULTRASOUND Not available Not available Not available NST 2024 11:00A M NST SCHEDULE Not available Not available Not available OB ROUTINE 2024 01:00P Mague TAO MD Not available Not available Not available [...] recorde d. Surgeries None recorde d. Imaging None recorde d. Medication Orders None recorde d. Patient TargetsNo [...] Resul ting Lab: [facility] [address] [facility] [address] Tel: CULTU RE ----- ----- ----- --- No growt h in 1 day (dete ction level of 10,00 0 colon ies / ml.) Not Available [facility] (Lab) [address] [facility], [place], [address], 09/20/2024 22:24:37 09/20/19 25 09/19/2024 drug scree n, urine Amphetamines : negati ve Not Available [facility] [address], [place], [address], 09/19/2024 14:47:54 09/20/19 25 09/19/2024 drug scree n, urine Cannabinoids : negati ve Not Available [facility] [address], [place], [address], 09/19/2024 14:47:54 09/20/19 25 09/19/2024 drug scree n, urine Cocaine: negati ve Not Available [facility] [address], [place], [address], 09/19/2024 14:47:54 09/20/19 25 09/19/2024 drug scree n, urine Opiates: negati ve Not Available [facility] [address], [place], [address], 09/19/2024 14:47:54 09/20/19 25 09/19/2024 drug scree n, urine Phenocyclidi ne: negati ve Not Available [facility] [address], [place], [address], 09/19/2024 14:47:54 09/20/19 25 09/19/2024 drug scree n, urine Barbiturates : negati ve Not Available [facility] [address], [place], [address], 09/19/2024 14:47:54 09/20/19 25 09/19/2024 drug scree n, urine Benzodiazepi heather: negati ve Not Available [facility] [address], [place], [address], 09/19/2024 14:47:54 09/20/19 25 09/19/2024 drug scree n, urine Ethanol: negati ve Not Available [facility] [address], [place], [address], 09/19/2024 14:47:54 09/20/19 25 09/19/2024 drug scree n, urine Hallucinogen s: negati ve Not Available [facility] [address], [place], [address], 09/19/2024 14:47:54 09/20/19 25 09/19/2024 drug scree n, urine Inhalants: negati ve Not Available [facility] [address], [place], [address], 09/19/2024 14:47:54 09/20/19 25 09/19/2024 drug scree n, urine Anabolic Steroids: negati ve Not Available [facility] [address], [place], [address], 09/19/2024 14:47:54 09/20/19 25 09/19/2024 drug scree n, urine Other: negati ve Not Available [facility] [address], [place], [address], 09/19/2024 14:47:54 11/13/1911/12/2024 URIC ACID uric acid 4.3 mg/dL 2.3-6. 6 Not Available [facility] (Lab) [address] [facility], [place], [address], 11/13/2024 05:32:43 11/13/19 25 11/12/2024 PROTE IN/CR EATIN INE RATIO , URINE creatinine, urine 35.1 mg/dL R-No refer ence range estab lishe d for this assay Not Available [facility] (Lab) [address] [facility], [place], [address], 11/13/2024 05:32:43 11/13/19 25 11/12/2024 PROTE IN/CR EATIN INE RATIO , URINE protein, urine <4 mg/dL R-No refer ence range estab lishe d for this assay Not Available [facility] (Lab) [address] [facility], [place], [address], 11/13/2024 05:32:43 11/13/19 25 11/12/2024 PROTE IN/CR [...] fican t prote inuri a. Not Available [facility] (Lab) [address] [facility], [place], [address], 11/13/2024 05:32:43 11/13/19 25 11/12/2024 CBC W/DIF F WBC 16.1 10'3/ uL 3.5-10 .5 high Not Available [facility] (Lab) [address] [place], [address], 11/13/2024 05:32:44 11/13/19 25 11/12/2024 CBC W/DIF F RBC 4.47 10'6/ uL (based on docume nted legal sex) 3.80-5 .20 Not Available [facility] (Lab) [address] [facility], [place], [address], 11/13/2024 05:32:44 11/13/19 25 11/12/2024 CBC W/DIF F HGB 12.4 g/dL (based on docume nted legal sex) 11.6-1 5.4 Not Available [facility] (Lab) [address] [facility], [place], [address], 11/13/2024 05:32:44 11/13/19 25 11/12/2024 CBC W/DIF F HCT 38.6 % (based on docume nted legal sex) 34.0-4 5.0 Not Available [facility] (Lab) [address] [facility], [place], [address], 11/13/2024 05:32:44 11/13/19 25 11/12/2024 CBC W/DIF F MCV 86.4 fL 80.0-9 9.0 Not Available [facility] (Lab) [address] [facility], [place], [address], 11/13/2024 05:32:44 11/13/1911/12/2024 CBC W/DIF F MCH 27.7 pg 27.0-3 4.0 Not Available [facility] (Lab) [address] [facility], [place], [address], 11/13/2024 05:32:44 11/13/19 25 11/12/2024 CBC W/DIF F MCHC 32.1 g/dL 32.0-3 5.5 Not Available [facility] (Lab) [address] [facility], [place], [address], 11/13/2024 05:32:44 11/13/19 25 11/12/2024 CBC W/DIF F RDW 13.6 % 11.0-1 5.0 Not Available [facility] (Lab) [address], [place], [address], 11/13/2024 05:32:44 11/13/19 25 11/12/2024 CBC W/DIF F plt 295 10'3/ uL 150-40 0 Not Available [facility] (Lab) [address], [place], [address], 11/13/2024 05:32:44 11/13/19 25 11/12/2024 CBC W/DIF F MPV 10.8 fL 8.8-12 .1 Not Available [facility] (Lab) [address], [place], [address], 11/13/2024 05:32:44 11/13/19 25 11/12/2024 CBC W/DIF F NRBC's 0.0 % 0.0 Not Available [facility] (Lab) [address], [place], [address], 11/13/2024 05:32:44 11/13/19 25 11/12/2024 CBC W/DIF F absolute NRBCs 0.0 10'3/ uL no refere nce range establ ished Not Available [facility] (Lab) [address], [place], [address], 11/13/2024 05:32:44 11/13/1911/12/2024 CBC W/DIF F neutrophils 74.9 % 34.0-7 3.0 high Not Available [facility] (Lab) [address] [facility], [place], [address], 11/13/2024 05:32:44 11/13/19 25 11/12/2024 CBC W/DIF F lymphocytes 18.4 % 15.0-5 0.0 Not Available [facility] (Lab) [address], [place], [address], 11/13/2024 05:32:44 11/13/19 25 11/12/2024 CBC W/DIF F monocytes 5.4 % 1.0-15 .0 Not Available [facility] (Lab) [address], [place], [address], 11/13/2024 05:32:44 11/13/19 25 11/12/2024 CBC W/DIF F eosinophils 0.7 % 0.0-8. 0 Not Available [facility] (Lab) [address] [facility], [place], [address], 11/13/2024 05:32:44 11/13/19 25 11/12/2024 CBC W/DIF F basophils 0.2 % 0.0-2. 0 Not Available [facility] (Lab) [address] [facility], [place], [address], 11/13/2024 05:32:44 11/13/19 25 11/12/2024 CBC W/DIF [...] separ ately if prese nt. Not Available [facility] (Lab) [address], [place], [address], 11/13/2024 05:32:44 11/13/19 25 11/12/2024 CBC W/DIF F absolute neutrophils 12.0 10'3/ uL 1.5-8. 0 high Not Available [facility] (Lab) [address] [place], [address], 11/13/2024 05:32:44 11/13/19 25 11/12/2024 CBC W/DIF F absolute lymphocytes 3.0 10'3/ uL 1.0-4. 0 Not Available [facility] (Lab[facility] [address] [facility] [place], [address], 11/13/2024 05:32:44 11/13/1911/12/2024 CBC W/DIF F absolute monocytes 0.9 10'3/ uL 0.2-1. 0 Not Available [facility] (Lab) [address], [place], [address], 11/13/2024 05:32:44 11/13/19 25 11/12/2024 CBC W/DIF F absolute eosinophils 0.1 10'3/ uL 0.0-0. 6 Not Available [facility] (Lab) [address] [facility], [place], [address], 11/13/2024 05:32:44 11/13/1911/12/2024 CBC W/DIF F absolute basophils 0.0 10'3/ uL 0.0-0. 3 Not Available [facility] (Lab) [address], [place], [address], 11/13/2024 05:32:44 11/13/1911/12/2024 CBC W/DIF F absolute immature granulocytes 0.1 10'3/ uL 0.00-0 .10 Refer ence range s for nonbi nary/ inter sex or unspe cifie d gende r patie nts have not been estab lishe d. Pleas e refer to the loyd wing table for range s estab lishe d for cisge nder patie nts and evalu ate in the clini sofia clarice xt of the indiv idual patie nt: https ://heather lee book. nm.or g/gen derx Not Available [facility] (Lab) [address], [place], [address], 11/13/2024 05:32:44 11/13/1911/12/2024 CMP(C OMPRE HENSI VE METAB OLIC PANEL ) sodium 137 mmol/ L 133-14 6 Not Available [facility] (Lab) [address], [place], [address], 11/13/2024 05:32:44 11/13/19 25 11/12/2024 CMP(C OMPRE HENSI VE METAB OLIC PANEL ) potassium 4.0 mmol/ L 3.5-5. 1 Not Available [facility] (Lab) [address] [facility], [place], [address], 11/13/2024 05:32:44 11/13/19 25 11/12/2024 CMP(C OMPRE HENSI VE METAB OLIC PANEL ) chloride 102 mmol/ L 98-107 Not Available [facility] (Lab) [address] [facility], [place], [address], 11/13/2024 05:32:44 11/13/19 25 11/12/2024 CMP(C OMPRE HENSI VE METAB OLIC PANEL ) carbon dioxide 27 mmol/ L 21-31 Not Available [facility] (Lab) [address] [facility], [place], [address], 11/13/2024 05:32:44 11/13/19 25 11/12/2024 CMP(C OMPRE HENSI VE METAB OLIC PANEL ) anion gap 8 mmol/ L 4-13 Not Available [facility] (Lab) [address] [facility], [place], [address], 11/13/2024 05:32:44 11/13/19 25 11/12/2024 CMP(C OMPRE HENSI VE METAB OLIC PANEL ) blood urea nitrogen 7 mg/dL 7-25 Not Available [facility] (Lab) [address] [address] [facility], [place], [address], 11/13/2024 05:32:44 11/13/19 25 11/12/2024 CMP(C OMPRE HENSI VE METAB OLIC PANEL ) creatinine 0.48 mg/dL 0.60-1 .30 low Not Available [facility] (Lab) [address] [facility], [place], [address], 11/13/2024 05:32:44 11/13/19 25 11/12/2024 CMP(C OMPRE HENSI VE METAB OLIC PANEL ) egfrcr (CKD-epi 2020) >90 mL/mi n/1.7 3_m2 >=60 Not Available [facility] (Lab) [address] [facility], [place], [address], 11/13/2024 05:32:44 11/13/19 25 11/12/2024 CMP(C OMPRE HENSI VE METAB OLIC PANEL ) calcium 9.7 mg/dL 8.3-10 .5 Not Available [facility] (Lab) [address] [facility], [place], [address], 11/13/2024 05:32:44 11/13/19 25 11/12/2024 CMP(C OMPRE HENSI VE METAB OLIC PANEL ) glucose 86 mg/dL 70-100 Not Available [facility] (Lab) [address] [facility], [place], [address], 11/13/2024 05:32:44 11/13/19 25 11/12/2024 CMP(C OMPRE HENSI VE METAB OLIC PANEL ) protein, total 6.6 g/dL 6.4-8. 3 Not Available [facility] (Lab) [address] [facility], [place], [address], 11/13/2024 05:32:44 11/13/19 25 11/12/2024 CMP(C OMPRE HENSI VE METAB OLIC PANEL ) albumin 4.0 g/dL 3.5-5. 0 Not Available [facility] (Lab) [address] [facility], [place], [address], 11/13/2024 05:32:44 11/13/19 25 11/12/2024 CMP(C OMPRE HENSI VE METAB OLIC PANEL ) ALT 11 units /L 9-43 Not Available [facility] (Lab) [address] [facility], [place], [address], 11/13/2024 05:32:44 11/13/19 25 11/12/2024 CMP(C OMPRE HENSI VE METAB OLIC PANEL ) alkaline phosphatase 54 units /L 34-104 Not Available [facility] (Lab) [address] [facility], [place], [address], 11/13/2024 05:32:44 11/13/19 25 11/12/2024 CMP(C OMPRE HENSI VE METAB OLIC PANEL ) AST 10 units /L 13-39 low Not Available [facility] (Lab) [address] [facility], [place], [address], 11/13/2024 05:32:44 11/13/19 25 11/12/2024 CMP(C OMPRE HENSI VE METAB OLIC PANEL ) bilirubin, total 0.2 mg/dL 0.2-1. 2 Not Available [facility] (Lab) [address] [facility], [place], [address], 11/13/2024 05:32:44 01/15/20 25 01/14/2025 GTT - GESTA NICOLAS L LESLY N, ACOG OB glucose, 1 hour screen 141 mg/dL 70-135 high Not Available [facility] (Lab) [address] [place], [address], 01/15/2025 11:13:15 01/15/2001/14/2025 HIV 1/2 ANTIG EN/AN TIBOD Y, REFLE X CONFI RMATI ON HIV antigen/anti body Nonrea ctive nonrea ctive HIV-1 antig en and HIV-1 /HIV- 2 antib odies were not detec terra. No labor atory evide nce of HIV infec tion. Not Available [facility] (Lab) [address] [facility], [place], [address], 01/15/2025 11:13:16 01/15/2001/14/2025 HEMAT OCRIT (HCT) HCT 34.1 % (based on docume nted legal sex) 34.0-4 5.0 Not Available [facility] (Lab) [address] [facility], [place], [address], 01/15/2025 11:13:16 01/15/20 25 01/14/2025 HEMOG LOBIN (HGB) HGB 10.6 g/dL (based on docume nted legal sex) 11.6-1 5.4 low Not Available [facility] (Lab) [address] [facility], [place], [address], 01/15/2025 11:13:17 01/15/2001/14/2025 RPR SCREE N, REFLE X TITER /CONF IRMAT ION RPR qualitative Nonrea ctive nonrea ctive Not Available [facility] (Lab) [address] [facility], [place], [address], 01/15/2025 11:13:17 01/24/2001/23/2025 GTT - GESTA NICOLAS L, 3 HOUR, ACOG glucose, fasting acog 70 mg/dL 70-[address] [facility] (Lab) [address] [address] [facility], [place], [address], 01/24/2025 05:24:10 01/24/20 25 01/23/2025 GTT - GESTA NICOLAS L, 3 HOUR, ACOG glucose, 1 hour acog 150 mg/dL 70-179 Not Available [facility] (Lab) [address] [facility], [place], [address], 01/24/2025 05:24:10 01/24/20 25 01/23/2025 GTT - GESTA NICOLAS L, 3 HOUR, ACOG glucose, 2 hour acog 143 mg/dL 70-154 Not Available [facility] (Lab) [address] [place], [address], 01/24/2025 05:24:10 01/24/20 25 01/23/2025 GTT - GESTA NICOLAS L, 3 HOUR, ACOG glucose, 3 hour acog 46 mg/dL 70-139 critical low Resul ts verif ied by repea t rosanna sis. Not Available [facility] (Lab) [address] [facility] [place], [address], 01/24/2025 05:24:10 10/02/19 25 10/01/2024 US, obste tric, follo w-up No observ ation record ed. [email or web address] [facility] [address], [address], 10/08/2024 09:41:15 11/18/19 25 11/17/2024 US, obste tric, follo w-up No observ ation record ed. [address] [facility] [address], [address], 11/18/2024 12:26:24 11/19/19 25 11/17/2024 US, obste tric, follo w-up No observ ation record ed. [address] [facility] [address], [address], 11/19/2024 11:57:24 11/26/19 25 11/25/2024 US, obste tric, follo w-up No observ ation record ed. [facility] [address], [address], 11/26/2024 17:27:21 11/26/19 25 11/25/2024 US, obste tric, follo w-up No observ ation record ed. [email or web address] [facility] [address], [address], 11/25/2024 17:38:04 12/16/19 25 12/15/2024 US, obste tric, follo w-up No observ ation record ed. [email or web address] [address] [facility] [address], [address], 12/16/2024 06:57:29 01/13/20 25 01/12/2025 US, obste tric No observ ation record ed. [email or web address] [facility] [place], [address], 01/13/2025 11:43:49 01/13/2001/12/2025 US, obste tric, follo w-up No observ ation record ed. [email or web address] [facility] [address], [address], 01/13/2025 16:24:45 02/11/20 25 02/10/2025 non-s tress test No observ ation record ed. [facility] [address], [address], 02/11/2025 15:00:18 02/11/20 25 02/10/2025 US, obste tric, follo w-up No observ ation record ed. [email or web address] [facility] [address], [address], 02/11/2025 11:37:25 02/21/20 25 02/20/2025 US, obste tric, bioph ysica l profi le + non-s tress test No observ ation record ed. [facility] [address], [place], [address], 02/20/2025 16:56:43 02/21/20 25 02/20/2025 US, obste tric, bioph ysica l profi le + non-s tress test No observ ation record ed. juliano Tori [address], [place], [address], 02/23/2025 11:31:02 02/21/20 25 02/20/2025 non-s tress test No observ ation record ed. [address], [place], [address], 02/20/2025 13:47:54 02/21/20 non-s tress test No observ ation record ed. [email or web address] [facility] [address], [place], [address], 02/20/2025 12:35:53 02/26/2002/25/2025 US, obste tric, bioph ysica l profi le + non-s tress test No observ ation record ed. [email or web address] [facility] [address], [place], [address], 02/25/2025 11:49:48 02/26/2002/25/2025 US, obste tric, bioph ysica l profi le + non-s tress test No observ ation record ed. [email or web address] [address] [address], [place], [address], 03/04/2025 11:50:53 02/26/2002/25/2025 non-s tress test No observ ation record ed. [email or web address] [facility] [address], [place], [address], 02/25/2025 17:57:33 02/26/20 non-s tress test No observ ation record ed. [email or web address] [facility] [address], [place], [address], 02/25/2025 17:15:53 03/06/2003/06/2025 non-s tress test No observ ation record ed. [email or web address] [facility] [address], [place], [address], 03/06/2025 13:52:03 03/06/20 non-s tress test No observ ation record ed. [email or web address] [facility] [address], [place], [address], 03/06/2025 12:00:07 03/06/20 25 03/06/2025 US, obste tric, follo w-up No observ ation record ed. [email or web address] [facility] [address], [place], [address], 03/07/2025 23:02:25 03/06/20 25 03/06/2025 US, obste tric, follo w-up No observ ation record ed. [facility] [address], [place], [address], 03/06/2025 13:52:39 03/06/20 25 03/06/2025 US, obste tric, bioph ysica l profi le + non-s tress test No observ ation record ed. [facility] [address], [place], [address], 03/06/2025 13:52:50 Result Notes None recorded. Problems Name Problem SNOMED Code Status Onset Date Resolution Date Notes Provider Name and Address Organization Details Recorded Time Polycyst ic ovary syndrome 791259377 Completed 201711/16/2021 Polycyst ic ovarian syndrome ;Recorde d Elsewher e: No Locat ion: [facility] S ource: EHR Tax Clerk yan: N Susie ce ID: [id number] Edmond lable Time: 02:45:[address] [facility] 2 18:30:21 Finding of fertilit y Completed 201711/16/2021 Female infertil ity, unspecif ied;Tip rded Elsewher e: No Locat ion: [facility] S ource: EHR Tax Clerk yan: N Practi ce ID: [id number] Edmond lable Time: 10:00:[address] [facility] 2 18:30:21 Abnormal uterine bleeding [id number] Completed 201711/16/2021 Other specifie d abnormal uterine and vaginal bleeding ;Recorde d Elsewher e: No [facility]ce: EHR Tax Clerk yan: N Practi ce ID: [id number] Edmond lable Time: 09:45:00 AM Sandhya sneed [facility] 2 18:30:21 Bleeding Completed 201711/16/2021 Abnormal uterine and vaginal bleeding , unspecif ied;Tip rded Elsewher e: No Locat ion: [facility] S ource: EHR Tax Clerk yan: N Practi ce ID: [id number] Edmond lable Time: 10:00:00 AM Sandhya sneed [facility] 2 18:30:21 Urinary tract infectio us disease [id number] Completed 201811/16/2021 Urinary tract infectio n, site not specifie d;Record ed Elsewher e: No Locat ion: [facility] S ource: EHR Tax Clerk yan: N Practi ce ID: [id number] Edmond lable Time: 04:15:00 PM Sandhya sneed [facility] 2 18:30:21 Pregnanc y detectio n examinat ion Completed 201811/16/2021 Encounte r for pregnanc y test, result positive ;Practic e ID: 0001 Sandhya sneed [facility] 2 18:30:21 Uterine size for dates discrepa ncy Completed 201811/16/2021 Uterine size-johann e discrepa ncy, first trimeste r;Practi ce ID: 0001 Sandhya sneed, [facility] 2 18:30:21 Gestatio n period, 9 weeks [id number] Completed 201811/16/2021 9 weeks gestatio n of pregnanc y;Practi ce ID: 0001 Sandhya sneed [facility] 2 18:30:21 Secondar y amenorrh ea [id number] Completed 201811/16/2021 Secondar y amenorrh ea;Recor ded Elsewher e: No [facility]at [facility] S ource: EHR Tax Clerk yan: N Practi ce ID: [id number] Edmond lable Time: 03:30:00 PM Sandhya [facility] 2 18:30:21 Infectio n screenin g Completed 201811/16/2021 Encounte r for screenin g for oth infec/pa rastc diseases ;Recorde d Elsewher e: No [facility] S ource: EHR Tax Clerk yan: N Practi ce ID: [id number] Edmond lable Time: 03:30:00 PM Sandhya [facility] 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 2 18:30:21 Syphilis test finding [id number] Completed 201811/16/2021 Encntr screen for infectio ns w sexl mode of transmis s;Record ed Elsewher e: No [facility] S ource: EHR Tax Clerk yan: N Practi ce ID: [id number] Edmond lable Time: 03:30:00 PM Sandhya [facility] 2 18:30:21 Body mass index 30+ - obesity [id number] Completed 201811/16/2021 Body mass index (BMI) 37.0-37. 9, adult;Re corded Elsewher e: No Locat ion: [facility] S ource: EHR Tax Clerk yan: N Practi ce ID: [id number] Edmond lable Time: 03:30:00 PM Sandhya sneed, [facility] 2 18:30:21 Chlamydi al infectio n [id number] Completed 201811/16/2021 Chlamydi al infectio n, unspecif ied;Tip rded Elsewher e: No Locat ion: [facility] S ource: EHR Tax Clerk yan: N Practi ce ID: [id number] Edmond lable Time: 11:52:25 AM Sandhya sneed, [facility] 2 18:30:21 [place] [id number] Completed 201811/16/2021 Encounte r for suprvsn of normal pregnanc y, first trimeste r;Practi ce ID: 0001 Sandhya sneed, [facility] 2 18:30:21 Antenata l screenin g Completed 201811/16/2021 Encounte r for other specifie d antenata l screenin g;Practi ce ID: 0001 Sandhya sneed, [facility] 2 18:30:21 Medical examinat ion for suspecte d conditio n Completed 201811/16/2021 Encntr for oth suspecte d maternal and cond ruled out;Prac jaxson ID: 0001 Sandhya nseed, [facility] 2 18:30:[address] Concept Completed 201811/16/2021 Maternal care for oth abnormal ity and damage, unsp;Pra ctice ID: 0001 Sandhya sneed, [facility] 2 18:30:21 Gestatio n period, 30 weeks [id number] Completed 201811/16/2021 30 weeks gestatio n of pregnanc y;Practi ce ID: 0001 Sandhya sneed, [facility] 2 18:30:21 Pregnanc y, childbir th and puerperi um finding Completed 201811/16/2021 Encntr for suprvsn of normal first preg, third trimeste r;Practi ce ID: 0001 Sandhya sneed, [facility] 2 18:30:21 malforma tion of central nervous system [id number] 107 Completed 201811/16/2021 Maternal care for (suspect ed) cnsl malform in fetus, unsp;Pra ctice ID: 0001 Sandhya Key [facility], [facility] 2 18:30:21 Gestatio n period, 34 weeks [id number] Completed 201811/16/2021 34 weeks gestatio n of pregnanc y;Practi ce ID: 0001 Sandhya Key [facility] 2 18:30:[address] Concept Completed 201811/16/2021 Matern care for abnlt fetl hrt rate or rhym, unsp tri, unsp;Pra ctice ID: 0001 Sandhya sneed, [facility] 2 18:30:21 Gestatio n period, 36 weeks [id number] Completed 201811/16/2021 36 weeks gestatio n of pregnanc y;Practi ce ID: 0001 Sandhya Key [facility] 2 18:30:21 Term pregnanc y delivere d 34152507 Completed 201811/16/2021 Encounte r for full-ter m uncompli cated delivery ;Practic e ID: 0001 Sandhya Key [facility] 2 18:30:21 Single live from singleto n pregnanc y [id number] Completed 201811/16/2021 Single live ;Pr actice ID: 0001 Sandhya Key [facility] 2 18:30:21 Gestatio n period, 37 weeks [id number] Completed 201811/16/2021 37 weeks gestatio n of pregnanc y;Practi ce ID: 0001 Sandhya Key [facility], [facility] 2 18:30:21 Lochia finding Completed 201911/16/2021 Encounte r for routine postpart um follow-u p;Record ed Elsewher e: No Locat ion: [facility] S ource: EHR Tax Clerk yan: N Practi ce ID: 0001 Edmond lable Time: 08:45:00 AM Sandhya Key [facility], [facility] 2 18:30:21 Acute vaginiti s [id number] Completed 201911/16/2021 Vaginiti s;Record ed Elsewher e: No Locat ion: [facility] S ource: EHR Tax Clerk yan: N Practi ce ID: 0001 Edmond lable Time: 01:00:00 PM Sandhya Key [facility], [facility] 2 18:30:21 Mixed anxiety and depressi ve disorder 142341585 Active 2024 Paz Keller [facility], [facility] 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 5 15:07:06 Pregnanc y 31281551 Active 2024 Paz Keller [facility], [facility] 5 15:07:38 chromoso mal abnormal ity affectin g obstetri sofia care 79665085 Active 2024 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, seeing [facility] [facility] Schedule d 10/20 us only & 11/17 us only normal echo 12/31- recommen ds postnata l eval of baby Katiana Roger null, [facility] 5 15:09:19 History of heart disorder 257281530 Active 2024 first baby couple hours after Britney Monzon CNM [address], [place], [address], [facility] 5 15:26:56 Past pregnanc y history of pre-ecla mpsia 0822611670 64988 Active 2024 plan bASA 162mg Britney Monzon CNM [address], [place], [address], [facility] 5 15:27:21 History of depressi on 230602567 Active 2024 no current treatmen t Britney Monzon CNM [address], [place], [address], [facility] 5 15:37:15 Hyperten sive disorder 47814238 Active 2024 100mg labetalo l bid Britney Monzon CNM [address], [place], [address], [facility] 11:41:34 Notes:previous son had hypoplastic left heart syndrome Some problems listed in Document: #[id number] could not be added to this patient's chart. Please review this document and add these problems to the patient's chart manually as needed. Problem Notes None recorded. Procedures Surgical History Date Name Laterality Status Provider Name and Address Organization Details Recorded Time 5 Date of Last Pap Smear completed Paz Keller [facility] 08/15/2024 17:09:24 4 SIS completed NUZHAT STEPHENSON MD [address], [place], [address], [facility] 09/13/2023 14:06:22 Imaging Results None recorded. [...] Prescrib ed Elsewher e: No Locat ion: [facility] odify By: bill Hurst ter DateTime : 03/28/20 18 10:00:00 AM [...] e: No Locat ion: [place] [facility] odify By: maged Hurst ter DateTime : 02/06/20 19 08:45:00 AM Not Available Not Available Not Available Zofran 4 mg tablet take 1 tablet as needed for nausea 11/17 completed Prescrib ed Elsewher e: No [facility] By: dian Hurst ter DateTime : 09/17/19 04:11:09 PM Not Available Not Available Not Available Metrogel Vaginal 0.75 % (37.5 mg/5 gram) insert 1 applicat orful by vaginal route every day at bedtime for 5 nights 11/17 completed Prescrib ed Elsewher e: No [facility] By: rahel jonas DateTime : 07/07/19 [...] Prescrib ed Elsewher e: No [facility] odify By: [email or web address] jonas DateTime : 03/28/20 10:00:00 AM Not [...] Prescrib ed Elsewher e: No Locat ion: [facility] odify By: dian jonas DateTime : 09/17/19 [...] and Address Organization Details Last Updated DateTime 01/28/2025 167.64 cm 45.7 kg/m2 114707.64 g 128/70 mm[Hg] Liss Laguna [facility] 01/28/2025 10:36:03 Social History Question Answer Notes LastModified by Organizat ion Details LastModified Time Tobacco Smoking Status Never Smoker Sandhya Key naren, [facility] 11/17/2021 10:26:20 Do You Have An Advance Directive? No Information n ot available 11/17/2021 If You Are , What Was Your Level Of Alcohol Consumption Prior To ? Occasional [email or web address] Information not available 08/15/2024 How Many Years Have You Consumed Alcohol? 8 Information not available 11/17/2021 Are You Blind Or Do You Have Difficulty Seeing? No Information n ot available 11/17/2021 What Is Your Level Of Caffeine Consumption? Moderate [email or web address] Information not available 08/15/2024 How Much Tobacco [...] Or The Highest Degree You Have Received? [id number] Information not available 11/17/2021 Are There Any Guns Present In Your Home? No Information not available 11/17/2021 Do You Use Protection During Sex? No Information not available 11/17/2021 Do You Use Your Seat Belt Or Car Seat Routinely? Yes Information not available 11/17/2021 Are You Sexually Active? Yes [email or web address] Information not available 11/12/2024 Do You Have [...] is your level of alcohol consumption? None Information not available 08/15/2024 Are you able [...] anxious, or unable to sleep at night)? [id number] [email or web address] Information not available 08/15/2024 Family History Relationship Description Onset Age of this Age Resolved Age Notes LastModified by Organization Details LastModified Time Son Hypoplastic left heart syndrome Not available 06/15 18:39:24 Medical History Condition Response Allergies (Food, seasonal, environmental ) N Other Y Blood Transfusion N Breast Cancer N Drug/Latex Allergies/Reactions N Lung Disease N Dermatologic Disorders N Defects or Inherited Disease N Breast Problem N Gestational Diabetes N Hematologic disorders N Anesthesia Complications N History of STI N Deep Vein Thrombosis N Polycystic ovary syndrome Y Anxiety Disorder Y Autoimmune disease N Arthritis N Polyps N Infertility N History of abnormal pap N Acid Reflux (GERD) N Cancer N Varicosities N Stroke N Neurologic/Epilepsy N Endometriosis N High Cholesterol N Headaches N Fibromyalgia N Kidney Disease N Heart Problems N Thyroid Problems N Kidney or Bladder Problems N GI Problems N Eating Disorder [...] ICD10 Code Diagnosis IMO Codes Diagnosis Note [id number] R[facility] [address],[facility] [address] 01/14/2025 13:59:39 01/14/2025 15:51:36 Gestation period, 28 weeks [id number] Z3A.[id number] RUTH [facility] [address],[facility] [address] 01/28/2025 10:12:44 01/28/2025 11:11:44 Gestation period, 30 weeks [id number] Z3A.30 [id number] Health Concerns Section Related Observation LastModified by Organization Detai ls LastModified Time None Recorded Concern Status LastModified by Organization Details LastModified Time None Recorded Payers Encounter Date Sequence Insurance Name Policy Number Policy Mckenna Covered Member ID Mckenna Member ID Guarantor Name 01/28/2025 1 [facility] [id number] Alex Louie [id number] Rizwana Louie Notes Date Note Type Note Provider Name and Address Organization Details Recorded Time 01/28/2025 text/html Generic HPI TemplateReported by Patient Britney GroveVeronica Monzon CNM [address], [place], [address], [place] [facility] 01/28/2025 10:54:39 OBGyn Episode Ob Episode Information Episode Created Date Number of Fetuses Patient Bloodtype Patient rh Status Prepregnancy Weight lbs Domestic Partner Domestic Partner Phone Father Name Director Of Dietary Status 09/20/19 25 1 O Positive 273 Alex Louie OPEN Fetus Data First Name Last Name Admitted to NICU Weight (g) Sex Living Outcome Pediatric Complications Fetus ID Race Codes Race Delivery Type [id number] Problems Problem Notes Problem Name Start Date End Date Resolution Snomed Code Not e History of depression 09/19/2024 [id number] no current treatment Past history of pre-eclampsia 09/19/2024 [id number] plan bASA 1 62mg History of heart disorder 09/19/2024 672200276 first baby pass ed away couple hours after Hypertensive disorder 12/17/2024 16233203 100mg labetalol bid 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 47493360 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, seeing MFM [facility] office Scheduled 10/20 us only & 11/17 us onlynormal echo 12/31- recommends eval of baby Les Calculation Initial Les Date Initial Exam Date Initial Exam Provider Initial Ultrasound Date Last Menstrual Period Date Ultra Sound Weeks Gestation 04/02/2025 08/26/2024 08/14/2024 06/26/2024 6 Eighteen To Twenty Week Les Update Ultra Sound Date Fundal Height At Umbil Quickening Date Ultra Sound Latest Weeks Gestation Final Les Confirmed By Final Les Confirmed Date Final Les Date Ultra Sound Latest Days Gestation 0 [email or web address] 09/19/2024 04/02/19 26 0 Pre- Flowsheet Flowsheet Date 09/19/2024 Nevarez Score Blood Edema Fundus Height Fundus Units Glucose Ketones Leukocytes Nitrite Labor Signs Protein Cervic Dilation Cervic Effacement Cervic Station neg none none trace Type Weight in lbs Pre/Post Dialysis Refused Weight 274.487692684497 BP Diastolic BP Location Tested BP Systolic BP Type 81 140 Fetus Heart Rate Present Fetus Movement A Yes Comments reviewed MFM notes with pt, undecided about amnio, is scheduled, will continue to follow as well, start bASA 162mg, hx 2 previous vaginal deliveries, begin care Flowsheet Date 2024 Nevarez Score Blood Edema Fundus Height Fundus Units Glucose Ketones Leukocytes Nitrite Labor Signs Protein Cervic Dilation Cervic Effacement Cervic Station Type Weight in lbs Pre/Post Dialysis Refused 278.139945347410 BP Diastolic BP Location Tested BP Systolic BP Type 85 L arm 141 sitting Fetus Heart Rate Present Fetus Movement A No Comments declined amnio first us good at [facility], has anatomy scheduled. mood good. _-FM yet precautions and educations f/u 4 weeks Flowsheet Date 11/12/2024 Nevarez Score Blood Edema Fundus Height Fundus Units Glucose Ketones Leukocytes Nitrite Labor Signs Protein Cervic Dilation Cervic Effacement Cervic Station Type Weight in lbs Pre/Post Dialysis Refused 278.014881949268 BP Diastolic BP Location Tested BP Systolic BP Type 94 L wrist 146 sitting 102 R wrist 157 sitting Fetus Heart Rate Present Fetus Movement A No Comments last us at [facility] wnl, has f/u next week +FM precautions and education f/u 4 weeks[address] discussed bp with dr. stephenson start labetalol 200mg bid Flowsheet Date 11/19/2024 Nevarez Score Blood Edema Fundus Height Fundus Units Glucose Ketones Leukocytes Nitrite Labor Signs Protein Cervic Dilation Cervic Effacement Cervic Station Type Weight in lbs Pre/Post Dialysis Refused Weight 279.318310529473 BP Diastolic BP Location Tested BP Systolic BP Type 79 L arm 128 sitting Fetus Heart Rate Present A 154 Fetus Movement A Yes Comments +FM doing well, bp's normote nsive on labetalol, cont to monitor, denies any sxs. precautions and education f/u [facility] as scheduled Flowsheet Date 12/17/2024 Nevarez Score Blood Edema Fundus Height Fundus Units Glucose Ketones Leukocytes Nitrite Labor Signs Protein Cervic Dilation Cervic Effacement Cervic Station Type Weight in lbs Pre/Post Dialysis Refused Weight 280.103434425914 BP Diastolic BP Location Tested BP Systolic BP Type 82 L arm 129 sitting Fetus Heart Rate Present Fetus Movement A Yes Comments +FM [facility] f/u with anatomy and plans echo, precautions and education f/u 4 weeks with glucose Flowsheet Date 01/14/2025 Nevarez Score Blood Edema Fundus Height Fundus Units Glucose Ketones Leukocytes Nitrite Labor Signs Protein Cervic Dilation Cervic Effacement Cervic Station Type Weight in lbs Pre/Post Dialysis Refused Weight 282.669310961243 BP Diastolic BP Location Tested BP Systolic BP Type 83 L arm 126 sitting 66 L wrist 128 sitting Fetus Heart Rate Present Fetus Movement A Yes Comments per pt mfm said anatomyok, e cho unremarkable, plans to deliver at [place], gct today, discuss vaccines at next visit, small odor after intercourse, will plan flagyl. education and precautions f/u 2 weeks Flowsheet Date 01/28/2025 Nevarez Score Blood Edema Fundus Height Fundus Units Glucose Ketones Leukocytes Nitrite Labor Signs Protein Cervic Dilation Cervic Effacement Cervic Station Type Weight in lbs Pre/Post Dialysis Refused Weight 283.89246505845 BP Diastolic BP Location Tested BP Systolic [...] Type Weight in lbs Pre/Post Dialysis Refused 284.138023700327 BP Diastolic BP Location Tested BP Systolic [...] Type Weight in lbs Pre/Post Dialysis Refused 285.033001956286 BP Diastolic BP Location Tested BP Systolic BP Type 84 L arm 129 sitting Fetus Heart Rate Present Fetus Movement A Yes Comments Flowsheet Date 02/20/2025 Nevarez Score Blood Edema Fundus Height Fundus Units Glucose Ketones Leukocytes Nitrite Labor Signs Protein Cervic Dilation Cervic Effacement Cervic Station Type Weight in lbs Pre/Post Dialysis Refused 285.872531527070 BP Diastolic BP Location Tested BP Systolic BP Type 84 L arm 129 sitting Fetus Heart Rate Present Fetus Movement A Yes Comments bpp 10/10, doing well +FM, i ol scheduled reviewed IOL date with md, precautions and education f/u one week plan gbs, preadmit scheduled Flowsheet Date 02/25/2025 Nevarez Score Blood Edema Fundus Height Fundus Units Glucose Ketones Leukocytes Nitrite Labor Signs Protein Cervic Dilation Cervic Effacement Cervic Station Type Weight in lbs Pre/Post Dialysis Refused Weight 289.260042162003 BP Diastolic BP Location Tested BP Systolic [...] Weight in lbs Pre/Post Dialysis Refused Weight 289.300798914951 BP Diastolic BP Location Tested BP Systolic [...] Type Weight in lbs Pre/Post Dialysis Refused 292.414500893064 BP Diastolic BP Location Tested BP Systolic BP Type 77 L arm 129 sitting Fetus Heart Rate Present Fetus Movement A Yes Comments Flowsheet Date 03/06/2025 Nevarez Score Blood Edema Fundus Height Fundus Units Glucose Ketones Leukocytes Nitrite Labor Signs Protein Cervic Dilation Cervic Effacement Cervic Station 3cm 50% -2 Type Weight in lbs Pre/Post Dialysis Refused Weight 292.426366660446 BP Diastolic BP Location Tested BP Systolic [...]
--- OUTSIDE RECORDS SUMMARY | 2025-03-08 23:24 | XMS_ITS | Continuity of Care Document ---
Author Organization 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 Discussed plan. Not available 01/14/2025 15:48:07 Plan of Treatment Reminders Order Date Submit [...] d. Imaging None recorde d. Medication Orders metroni dazole 500 mg tablet 2024 025 [facility]/Pharmacy #[id number], [address] [place], [address], 01/28/2025 05:01:23 Patient TargetsNo targets recorded. Patient InstructionsNo instructions [...] Resul ting Lab: [facility] [address] [facility] [address] Tel: CULTU RE ----- ----- ----- --- No growt h in 1 day (dete ction level of 10,00 0 colon ies / ml.) Not Available [facility] (Lab) [address] [place], [address], 09/20/2024 22:24:37 09/20/19 25 09/19/2024 drug scree n, urine Amphetamines : negati ve Not Available [place] [address], [place], [address], 09/19/2024 14:47:54 09/20/19 25 09/19/2024 drug scree n, urine Cannabinoids : negati ve Not Available [facility] [address], [place], [address], 09/19/2024 14:47:54 09/20/19 25 09/19/2024 drug scree n, urine Cocaine: negati ve Not Available [facility] [address], [place], [address], 09/19/2024 14:47:54 09/20/19 25 09/19/2024 drug scree n, urine Opiates: negati ve Not Available [facility] [address], [place], [address], 09/19/2024 14:47:54 09/20/19 25 09/19/2024 drug scree n, urine Phenocyclidi ne: negati ve Not Available [facility] [address], [place], [address], 09/19/2024 14:47:54 09/20/19 25 09/19/2024 drug scree n, urine Barbiturates : negati ve Not Available [facility] [address], [place], [address], 09/19/2024 14:47:54 09/20/19 25 09/19/2024 drug scree n, urine Benzodiazepi heather: negati ve Not Available [facility] [address], [place], [address], 09/19/2024 14:47:54 09/20/19 25 09/19/2024 drug scree n, urine Ethanol: negati ve Not Available [facility] [address], [place], [address], 09/19/2024 14:47:54 09/20/19 25 09/19/2024 drug scree n, urine Hallucinogen s: negati ve Not Available [facility] [address], [place], [address], 09/19/2024 14:47:54 09/20/19 25 09/19/2024 drug scree n, urine Inhalants: negati ve Not Available [facility] [address], [place], [address], 09/19/2024 14:47:54 09/20/19 25 09/19/2024 drug scree n, urine Anabolic Steroids: negati ve Not Available [facility] [address], [place], [address], 09/19/2024 14:47:54 09/20/19 25 09/19/2024 drug scree n, urine Other: negati ve Not Available [facility] [address], [place], [address], 09/19/2024 14:47:54 11/13/19 25 11/12/2024 URIC ACID uric acid 4.3 mg/dL 2.3-6. 6 Not Available [facility] (Lab) [address], [place], [address], 11/13/2024 05:32:43 11/13/19 25 11/12/2024 PROTE IN/CR EATIN INE RATIO , URINE creatinine, urine 35.1 mg/dL R-No refer ence range estab lishe d for this assay Not Available [facility] (Lab) [address], [place], [address], 11/13/2024 05:32:43 11/13/19 25 11/12/2024 PROTE IN/CR EATIN INE RATIO , URINE protein, urine <4 mg/dL R-No refer ence range estab lishe d for this assay Not Available [facility] (Lab) [address] [facility], [place], [address], 11/13/2024 05:32:43 11/13/19 25 11/12/2024 PROTE IN/CR [...] fican t prote inuri a. Not Available [facility] (Lab) [address], [place], [address], 11/13/2024 05:32:43 11/13/1911/12/2024 CBC W/DIF F WBC 16.1 10'3/ uL 3.5-10 .5 high Not Available [facility] (Lab) [address], [place], [address], 11/13/2024 05:32:44 11/13/19 25 11/12/2024 CBC W/DIF F RBC 4.47 10'6/ uL (based on docume nted legal sex) 3.80-5 .20 Not Available [facility] (Lab) [address] [facility], [place], [address], 11/13/2024 05:32:44 11/13/19 25 11/12/2024 CBC W/DIF F HGB 12.4 g/dL (based on docume nted legal sex) 11.6-1 5.4 Not Available [facility] (Lab) [address], [place], [address], 11/13/2024 05:32:44 11/13/19 25 11/12/2024 CBC W/DIF F HCT 38.6 % (based on docume nted legal sex) 34.0-4 5.0 Not Available [facility] (Lab) [address], [place], [address], 11/13/2024 05:32:44 11/13/1911/12/2024 CBC W/DIF F MCV 86.4 fL 80.0-9 9.0 Not Available [facility] (Lab) [address], [place], [address], 11/13/2024 05:32:44 11/13/1911/12/2024 CBC W/DIF F MCH 27.7 pg 27.0-3 4.0 Not Available [facility] (Lab) [address], [place], [address], 11/13/2024 05:32:44 11/13/1911/12/2024 CBC W/DIF F MCHC 32.1 g/dL 32.0-3 5.5 Not Available [facility] (Lab) [address], [place], [address], 11/13/2024 05:32:44 11/13/1911/12/2024 CBC W/DIF F RDW 13.6 % 11.0-1 5.0 Not Available [facility] (Lab) [address], [place], [address], 11/13/2024 05:32:44 11/13/19 25 11/12/2024 CBC W/DIF F plt 295 10'3/ uL 150-40 0 Not Available [facility] (Lab) [address], [place], [address], 11/13/2024 05:32:44 11/13/1911/12/2024 CBC W/DIF F MPV 10.8 fL 8.8-12 .1 Not Available [facility] (Lab) [address], [place], [address], 11/13/2024 05:32:44 11/13/1911/12/2024 CBC W/DIF F NRBC's 0.0 % 0.0 Not Available [facility] (Lab) [address], [place], [address], 11/13/2024 05:32:44 11/13/1911/12/2024 CBC W/DIF F absolute NRBCs 0.0 10'3/ uL no refere nce range establ ished Not Available [facility] (Lab) [address], [place], [address], 11/13/2024 05:32:44 11/13/1911/12/2024 CBC W/DIF F neutrophils 74.9 % 34.0-7 3.0 high Not Available [facility] (Lab) [address], [place], [address], 11/13/2024 05:32:44 11/13/19 25 11/12/2024 CBC W/DIF F lymphocytes 18.4 % 15.0-5 0.0 Not Available [facility] (Lab) [address], [place], [address], 11/13/2024 05:32:44 11/13/19 25 11/12/2024 CBC W/DIF F monocytes 5.4 % 1.0-15 .0 Not Available [facility] (Lab) [address], [place], [address], 11/13/2024 05:32:44 11/13/19 25 11/12/2024 CBC W/DIF F eosinophils 0.7 % 0.0-8. 0 Not Available [facility] (Lab) [address], [place], [address], 11/13/2024 05:32:44 11/13/19 25 11/12/2024 CBC W/DIF F basophils 0.2 % 0.0-2. 0 Not Available [facility] (Lab) [address], [place], [address], 11/13/2024 05:32:44 11/13/19 25 11/12/2024 CBC W/DIF [...] separ ately if prese nt. Not Available [facility] (Lab) [address], [place], [address], 11/13/2024 05:32:44 11/13/19 25 11/12/2024 CBC W/DIF F absolute neutrophils 12.0 10'3/ uL 1.5-8. 0 high Not Available [facility] (Lab) [address], [place], [address], 11/13/2024 05:32:44 11/13/1911/12/2024 CBC W/DIF F absolute lymphocytes 3.0 10'3/ uL 1.0-4. 0 Not Available [facility] (Lab) [address], [place], [address], 11/13/2024 05:32:44 11/13/1911/12/2024 CBC W/DIF F absolute monocytes 0.9 10'3/ uL 0.2-1. 0 Not Available [facility] (Lab) [address], [place], [address], 11/13/2024 05:32:44 11/13/1911/12/2024 CBC W/DIF F absolute eosinophils 0.1 10'3/ uL 0.0-0. 6 Not Available [facility] (Lab) [address], [place], [address], 11/13/2024 05:32:44 11/13/1911/12/2024 CBC W/DIF F absolute basophils 0.0 10'3/ uL 0.0-0. 3 Not Available [facility] (Lab) [address], [place], [address], 11/13/2024 05:32:44 11/13/1911/12/2024 CBC W/DIF F absolute immature granulocytes 0.1 10'3/ uL 0.00-0 .10 Refer ence range s for nonbi nary/ inter sex or unspe cifie d gende r patie nts have not been estab lishe d. Pleas e refer to the follo wing table for range s estab lishe d for cisge nder patie nts and evalu ate in the clini sofia clarice xt of the indiv idual patie nt: https ://heather lee book. nm.or g/gen derx Not Available [facility] (Lab) [address], [place], [address], 11/13/2024 05:32:44 11/13/19 25 11/12/2024 CMP(C OMPRE HENSI VE METAB OLIC PANEL ) sodium 137 mmol/ L 133-14 6 Not Available [facility] (Lab) [address], [place], [address], 11/13/2024 05:32:44 11/13/19 25 11/12/2024 CMP(C OMPRE HENSI VE METAB OLIC PANEL ) potassium 4.0 mmol/ L 3.5-5. 1 Not Available [facility] (Lab) [address], [place], [address], 11/13/2024 05:32:44 11/13/19 25 11/12/2024 CMP(C OMPRE HENSI VE METAB OLIC PANEL ) chloride 102 mmol/ L 98-107 Not Available [facility] (Lab) [address], [place], [address], 11/13/2024 05:32:44 11/13/19 25 11/12/2024 CMP(C OMPRE HENSI VE METAB OLIC PANEL ) carbon dioxide 27 mmol/ L 21-31 Not Available [facility] (Lab) [address], [place], [address], 11/13/2024 05:32:44 11/13/19 25 11/12/2024 CMP(C OMPRE HENSI VE METAB OLIC PANEL ) anion gap 8 mmol/ L 4-13 Not Available [facility] (Lab) [address], [place], [address], 11/13/2024 05:32:44 11/13/19 25 11/12/2024 CMP(C OMPRE HENSI VE METAB OLIC PANEL ) blood urea nitrogen 7 mg/dL 7-25 Not Available [facility] (Lab) [address], [place], [address], 11/13/2024 05:32:44 11/13/19 25 11/12/2024 CMP(C OMPRE HENSI VE METAB OLIC PANEL ) creatinine 0.48 mg/dL 0.60-1 .30 low Not Available [facility] (Lab) [address], [place], [address], 11/13/2024 05:32:44 11/13/1911/12/2024 CMP(C OMPRE HENSI VE METAB OLIC PANEL ) egfrcr (CKD-epi 2020) >90 mL/mi n/1.7 3_m2 >=60 Not Available [facility] (Lab) [address], [place], [address], 11/13/2024 05:32:44 11/13/1911/12/2024 CMP(C OMPRE HENSI VE METAB OLIC PANEL ) calcium 9.7 mg/dL 8.3-10 .5 Not Available [facility] (Lab) [address], [place], [address], 11/13/2024 05:32:44 11/13/19 25 11/12/2024 CMP(C OMPRE HENSI VE METAB OLIC PANEL ) glucose 86 mg/dL 70-100 Not Available [facility] (Lab) [address], [place], [address], 11/13/2024 05:32:44 11/13/19 25 11/12/2024 CMP(C OMPRE HENSI VE METAB OLIC PANEL ) protein, total 6.6 g/dL 6.4-8. 3 Not Available [facility] (Lab) [address], [place], [address], 11/13/2024 05:32:44 11/13/1911/12/2024 CMP(C OMPRE HENSI VE METAB OLIC PANEL ) albumin 4.0 g/dL 3.5-5. 0 Not Available [facility] (Lab) [address], [place], [address], 11/13/2024 05:32:44 11/13/19 25 11/12/2024 CMP(C OMPRE HENSI VE METAB OLIC PANEL ) ALT 11 units /L 9-43 Not Available [facility] (Lab) [address], [place], [address], 11/13/2024 05:32:44 11/13/19 25 11/12/2024 CMP(C OMPRE HENSI VE METAB OLIC PANEL ) alkaline phosphatase 54 units /L 34-104 Not Available [facility] (Lab) [address], [place], [address], 11/13/2024 05:32:44 11/13/19 25 11/12/2024 CMP(C OMPRE HENSI VE METAB OLIC PANEL ) AST 10 units /L 13-39 low Not Available [facility] (Lab) [address], [place], [address], 11/13/2024 05:32:44 11/13/19 25 11/12/2024 CMP(C OMPRE HENSI VE METAB OLIC PANEL ) bilirubin, total 0.2 mg/dL 0.2-1. 2 Not Available [facility] (Lab) [address], [place], [address], 11/13/2024 05:32:44 01/15/2001/14/2025 GTT - GESTA NICOLAS L SCREE N, ACOG OB glucose, 1 hour screen 141 mg/dL 70-135 high Not Available [facility] (Lab) [address], [place], [address], 01/15/2025 11:13:15 01/15/2001/14/2025 HIV 1/2 ANTIG EN/AN TIBOD Y, REFLE X CONFI RMATI ON HIV antigen/anti body Nonrea ctive nonrea ctive HIV-1 antig en and HIV-1 /HIV- 2 antib odies were not detec terra. No labor atory evide nce of HIV infec tion. Not Available [facility] (Lab) [address], [place], [address], 01/15/2025 11:13:16 01/15/2001/14/2025 HEMAT OCRIT (HCT) HCT 34.1 % (based on docume nted legal sex) 34.0-4 5.0 Not Available [facility] (Lab) [address], [place], [address], 01/15/2025 11:13:16 01/15/2001/14/2025 HEMOG LOBIN (HGB) HGB 10.6 g/dL (based on docume nted legal sex) 11.6-1 5.4 low Not Available [facility] (Lab) [address], [place], [address], 01/15/2025 11:13:17 01/15/2001/14/2025 RPR SCREE N, REFLE X TITER /CONF IRMAT ION RPR qualitative Nonrea ctive nonrea ctive Not Available [facility] (Lab) [address], [place], [address], 01/15/2025 11:13:17 10/02/19 25 10/01/2024 US, obste tric, follo w-up No observ ation record ed. [email or web address] [facility] [address] [place] [address], [address], 10/08/2024 09:41:15 11/18/19 25 11/17/2024 US, obste tric, follo w-up No observ ation record ed. [email or web address] [facility] [address] [place] [address], [address], 11/18/2024 12:26:24 11/19/19 25 11/17/2024 US, obste tric, follo w-up No observ ation record ed. [facility] [address] [place] [address], [address], 11/19/2024 11:57:24 11/26/19 25 11/25/2024 US, obste tric, follo w-up No observ ation record ed. [email or web address] [facility] [address], [address], 11/26/2024 17:27:21 11/26/19 25 11/25/2024 US, obste tric, follo w-up No observ ation record ed. [email or web address] [place] [address], [address], 11/25/2024 17:38:04 12/16/19 25 12/15/2024 US, obste tric, follo w-up No observ ation record ed. [email or web address] [facility] [address], [address], 12/16/2024 06:57:29 01/13/20 25 01/12/2025 US, obste tric No observ ation record ed. [email or web address] [place] [address], [address], 01/13/2025 11:43:49 01/13/20 25 01/12/2025 US, obste tric, follo w-up No observ ation record ed. [email or web address] [place] [address], [address], 01/13/2025 16:24:45 02/11/20 25 02/10/2025 non-s tress test No observ ation record ed. [facility] [address], [address], 02/11/2025 15:00:18 02/11/20 25 02/10/2025 US, obste tric, follo w-up No observ ation record ed. [email or web address] [facility] [address], [address], 02/11/2025 11:37:25 02/21/20 25 02/20/2025 US, obste tric, bioph ysica l profi le + non-s tress test No observ ation record ed. [email or web address] [place] [address], [place], [address], 02/20/2025 16:56:43 02/21/20 25 02/20/2025 US, obste tric, bioph ysica l profi le + non-s tress test No observ ation record ed. [email or web address] [address], [place], [address], 02/23/2025 11:31:02 02/21/20 25 02/20/2025 non-s tress test No observ ation record ed. [email or web address] [facility] [address], [place], [address], 02/20/2025 13:47:54 02/21/20 non-s tress test No observ ation record ed. [email or web address] [facility] [address], [place], [address], 02/20/2025 12:35:53 02/26/20 25 02/25/2025 US, obste tric, bioph ysica l profi le + non-s tress test No observ ation record ed. [email or web address] [facility] [address], [place], [address], 02/25/2025 11:49:48 02/26/20 25 02/25/2025 US, obste tric, bioph ysica l profi le + non-s tress test No observ ation record ed. [email or web address] [address], [place], [address], 03/04/2025 11:50:53 02/26/20 25 02/25/2025 non-s tress test No observ ation record ed. [email or web address] [facility] [address], [place], [address], 02/25/2025 17:57:33 02/26/20 non-s tress test No observ ation record ed. [address], [place], [address], 02/25/2025 17:15:53 03/06/20 25 03/06/2025 non-s tress test No observ ation record ed. [facility] [address], [place], [address], 03/06/2025 13:52:03 03/06/20 non-s tress test No observ ation record ed. [address], [place], [address], 03/06/2025 12:00:07 03/06/20 25 03/06/2025 US, obste tric, follo w-up No observ ation record ed. [email or web address] [address], [place], [address], 03/07/2025 23:02:25 03/06/20 25 03/06/2025 US, obste tric, follo w-up No observ ation record ed. [facility] [address], [place], [address], 03/06/2025 13:52:39 03/06/20 25 03/06/2025 US, obste tric, bioph ysica l profi le + non-s tress test No observ ation record ed. [facility] [address], [place], [address], 03/06/2025 13:52:50 Result Notes None recorded. 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 2 18:30:21 Finding of fertilit y Completed 201711/16/2021 Female infertil ity, unspecif ied;Tip rded Elsewher e: No Locat ion: [facility] S ource: [employer] Teacher yan: N Practi ce ID: 0001 Edmond lable Time: 10:00:00 AM Sandhya Key [facility] 2 18:30:21 Abnormal uterine bleeding [id number] Completed 201711/16/2021 Other specifie d abnormal uterine and vaginal bleeding ;Recorde d Elsewher e: No Locat ion: [facility] S ource: [employer] Teacher yan: N Practi ce ID: 0001 Edmond lable Time: 09:45:00 AM Sandhya Key [facility] 2 18:30:21 Bleeding Completed 201711/16/2021 Abnormal uterine and vaginal bleeding , unspecif ied;Tip rded Elsewher e: No Locat ion: [facility] S ource: [employer] Teacher yan: N Carolynnti ce ID: 0001 Edmond lable Time: 10:00:00 AM Sandhya Key [facility] 2 18:30:21 Urinary tract infectio us disease [id number] Completed 201811/16/2021 Urinary tract infectio n, site not specifie d;Record ed Elsewher e: No Locat ion: [facility] ID: 0001 Edmond lable Time: 04:15:00 PM Sandhya Key [facility] 2 18:30:21 Pregnanc y detectio n examinat ion Completed 201811/16/2021 Encounte r for pregnanc y test, result positive ;Practic e ID: 0001 Sandhya sneed, [facility] 2 18:30:21 Uterine size for dates discrepa ncy Completed 201811/16/2021 Uterine size-johann e discrepa ncy, first trimeste r;Practi ce ID: 0001 [facility] 18:30:21 Gestatio n period, 9 weeks [id number] Completed 201811/16/2021 9 weeks gestatio n of pregnanc y;Practi ce ID: 0001 Sandhya Key [facility] 2 18:30:21 Secondar y amenorrh ea [id number] Completed 201811/16/2021 Secondar y amenorrh ea;Recor ded Elsewher e: No Locat ion: [facility] S ource: [employer] Teacher yan: N Practi ce ID: 0001 Edmond lable Time: 03:30:00 PM Sandhya Key [facility] 2 18:30:21 Infectio n screenin g Completed 201811/16/2021 Encounte r for screenin g for oth infec/pa rastc diseases ;Recorde d Elsewher e: No Locat ion: [facility] S ource: [employer] Teacher yan: N Practi ce ID: 0001 Edmond lable Time: 03:30:00 PM Sandhya Key [facility] 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 2 18:30:21 Syphilis test finding [id number] Completed 201811/16/2021 Encntr screen for infectio ns w sexl mode of transmis s;Record ed Elsewher e: No Locat ion: [facility] S ource: [employer] Teacher yan: N Practi ce ID: 0001 Edmond lable Time: 03:30:00 PM Sandhya sneed [facility] 2 18:30:21 Body mass index 30+ - obesity [id number] Completed 201811/16/2021 Body mass index (BMI) 37.0-37. 9, adult;Re corded Elsewher e: No Locat ion: [facility] S ource: [employer] Teacher yan: N Practi ce ID: 0001 Edmond lable Time: 03:30:00 PM Sandhya sneed [facility] 2 18:30:21 Chlamydi al infectio n [id number] Completed 201811/16/2021 Chlamydi al infectio n, unspecif ied;Tip rded Elsewher e: No Locat ion: [facility] S ource: [employer] Teacher yan: N Practi ce ID: 0001 Edmond lable Time: 11:52:25 AM Sandhya sneed [facility] 2 18:30:21 [place] [id number] Completed 201811/16/2021 Encounte r for suprvsn of normal pregnanc y, first trimeste r;Practi ce ID: 0001 Sandhya sneed [facility] 2 18:30:21 Antenata l screenin g Completed 201811/16/2021 Encounte r for other specifie d antenata l screenin g;Practi ce ID: 0001 Sandhya sneed [facility] 2 18:30:21 Medical examinat ion for suspecte d conditio n Completed 201811/16/2021 Encntr for oth suspecte d maternal and cond ruled out;Prac jaxson ID: 0001 Sandhya sneed, [facility] 2 18:30:[address] Concept Completed 201811/16/2021 Maternal care for oth abnormal ity and damage, unsp;Pra ctice ID: 0001 Sandhya Key [facility], [facility] 2 18:30:21 Gestatio n period, 30 weeks [id number] Completed 201811/16/2021 30 weeks gestatio n of pregnanc y;Practi ce ID: 0001 Sandhya Key [facility] 2 18:30:21 Pregnanc y, childbir th and puerperi um finding Completed 201811/16/2021 Encntr for suprvsn of normal first preg, third trimeste r;Practi ce ID: 0001 Sandhya Key [facility], [facility] 2 18:30:21 malforma tion of central nervous system [id number] Completed 201811/16/2021 Maternal care for (suspect ed) cnsl malform in fetus, unsp;Pra ctice ID: 0001 Sandhya Key [facility] 2 18:30:21 Gestatio n period, 34 weeks [id number] Completed 201811/16/2021 34 weeks gestatio n of pregnanc y;Practi ce ID: 0001 Sandhya Key [facility], [facility] 2 18:30:[address] Concept Completed 201811/16/2021 Matern care for abnlt fetl hrt rate or rhym, unsp tri, unsp;Pra ctice ID: 0001 Sandhya Key [facility] 2 18:30:21 Gestatio n period, 36 weeks [id number] Completed 201811/16/2021 36 weeks gestatio n of pregnanc y;Practi ce ID: 0001 Sandhya sneed, [facility] 2 18:30:21 Term pregnanc y delivere d [id number] Completed 201811/16/2021 Encounte r for full-ter m uncompli cated delivery ;Practic e ID: 0001 Sandhya sneed, [facility] 2 18:30:21 Single live from singleto n pregnanc y [id number] Completed 201811/16/2021 Single live ;Pr actice ID: 0001 Sandhya sneed, [facility] 2 18:30:21 Gestatio n period, 37 weeks [id number] Completed 201811/16/2021 37 weeks gestatio n of pregnanc y;Practi ce ID: 0001 Sandhya sneed, [facility] 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 2 18:30:21 Mixed anxiety and depressi ve disorder 877291444 Active 2024 Paz Keller null, [facility] 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 5 15:07:06 Pregnanc y 53923803 Active 2024 Paz Keller null, [facility] 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 5 15:09:19 History of heart disorder 802949129 Active 2024 first baby couple hours after Britney Monzon CNM [address], [place], [address], [facility] 5 15:26:56 Past pregnanc y history of pre-ecla mpsia 9344562377 26017 Active 2024 plan bASA 162mg Britney Monzon CNM [address], [place], [address], [facility] 5 15:27:21 History of depressi on 322432890 Active 2024 no current treatmen t Britney Monzon CNM [address], [place], [address], [facility] 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 5 11:41:34 Notes:previous son had hypoplastic left heart syndrome Some problems listed in Document: #[id number] could not be added to this patient's chart. Please review this document and add these problems to the patient's chart manually as needed. Problem Notes None recorded. Procedures Surgical History Date Name Laterality Status Provider Name and Address Organization Details Recorded Time 5 Date of Last Pap Smear completed Paz Keller [facility] 08/15/2024 17:09:24 4 SIS completed NUZHAT STEPHENSON MD [address], [place], [address], [facility] 09/13/2023 14:06:22 Imaging [...] route every day 08/27 completed Prescrib ed Leodanher e: No Locat ion: [place] [facility] odify By: [email or web address] z Encoun ter DateTime [...] Prescrib ed Elsewher e: No [facility] By: maged Hurst ter DateTime : 02/06/20 08:45:00 AM Not Available Not Available Not Available Zofran 4 mg tablet take 1 tablet as needed for nausea 11/17 completed Prescrib ed Elsewher e: No Locat ion: [facility] odify By: dian jonas DateTime : 09/17/19 04:11:09 PM Not Available Not Available Not Available Metrogel Vaginal 0.75 % (37.5 mg/5 gram) insert 1 applicat orful by vaginal route every day at bedtime for 5 nights 11/17 completed Prescrib ed Elsewher e: No Locat ion: [place] [facility] odify By: rahel Hurst ter DateTime : [...] Prescrib ed Elsewher e: No Locat ion: [facility] perfecto [facility] odify By: bill Hurst ter DateTime [...] ed Elsewher e: No Locat ion: [place] [facility] odify By: [email or web address] jonas DateTime : 09/17/19 04:11:09 PM Not [...] and Address Organization Details Last Updated DateTime 01/14/2025 167.64 cm 45.5 kg/m2 979521.0 5 g 126/83 mm[Hg] 128/66 mm[Hg] Roberta Moss [facility] 14:44:35 Social History Question Answer Notes LastModified by Organizat ion Details LastModified Time Tobacco Smoking Status Never Smoker Sandhya sneed, [facility] 11/17/2021 10:26:20 Do You Have An Advance Directive? No Information n ot available 11/17/2021 If You Are , What Was Your Level Of Alcohol Consumption Prior To ? Occasional [email or web address] Information not available 08/15/2024 How Many Years Have You Consumed Alcohol? 8 Information not available 11/17/2021 Are You Blind Or Do You Have Difficulty Seeing? No Information n ot available 11/17/2021 What Is Your Level Of Caffeine Consumption? Moderate [email or web address] Information not available 08/15/2024 How Much Tobacco [...] Or The Highest Degree You Have Received? [id number] Information not available 11/17/2021 Are There Any Guns Present In Your Home? No Information not available 11/17/2021 Do You Use Protection During Sex? No Information not available 11/17/2021 Do You Use Your Seat Belt Or Car Seat Routinely? Yes Information not available 11/17/2021 Are You Sexually Active? Yes [email or web address] Information not available 11/12/2024 Do You Have [...] is your level of alcohol consumption? None [email or web address] Information not available 08/15/2024 Are you able [...] anxious, or unable to sleep at night)? [id number] [email or web address] Information not available 08/15/2024 Family History Relationship Description Onset Age of this Age Resolved Age Notes LastModified by Organization Details LastModified Time Son Hypoplastic left heart syndrome [email or web address] Not available 06/15 18:39:24 Medical History Condition [...] ICD10 Code Diagnosis IMO Codes Diagnosis Note [id number] CLAUDINE [place] [address] [address] 12/17/2024 11:11:15 12/17/2024 11:43:51 Gestation period, 24 weeks 096174325 Z3A.24 [id number] Britney Monzon CNM [place] [address] [address] 01/14/2025 13:59:39 01/14/2025 15:51:36 Gestation period, 28 weeks 39890540 Z3A.28 [id number] Health Concerns Section Related Observation LastModified by Organization Detai ls LastModified Time None Recorded Concern Status LastModified by Organization Details LastModified Time None Recorded Payers Encounter Date Sequence Insurance Name Policy Number Policy Mckenna Covered Member ID Mckenna Member ID Guarantor Name 01/14/2025 1 [facility] [id number] Alex Louie [id number] Rizwana Louie Notes Date Note Type Note Provider Name and Address Organization Details Recorded Time 01/14/2025 text/html Generic HPI TemplateReported by Patient Britney Monzon CNM [address], [place], [address], [facility] 01/14/2025 15:50:38 OBGyn Episode Ob Episode Information Episode Created Date Number of Fetuses Patient Bloodtype Patient rh Status Prepregnancy Weight lbs Domestic Partner Domestic Partner Phone Father Name Manager E Commerce Status 09/20/19 25 1 O Positive 273 Alex Louie OPEN Fetus Data First Name Last Name Admitted to NICU Weight (g) Sex Living Outcome Pediatric Complications Fetus ID Race Codes Race Delivery Type [id number] Problems Problem Notes Problem Name Start Date End Date Resolution Snomed Code Not e History of depression 09/19/2024 [id number] no current treatment Past history of pre-eclampsia 09/19/2024 [id number] plan bASA 1 62mg History of heart disorder 09/19/2024 836986175 first baby pass ed away couple hours after Hypertensive disorder 12/17/2024 40032933 100mg labetalol bid 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 09176787 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, seeing [facility] office Scheduled 10/20 us only & 11/17 us onlynormal echo 12/31- recommends eval of baby Les Calculation Initial Les Date Initial Exam Date Initial Exam Provider Initial Ultrasound Date Last Menstrual Period Date Ultra Sound Weeks Gestation 04/02/2025 08/26/2024 [email or web address] 08/14/2024 06/26/2024 6 Eighteen To Twenty Week Les Update Ultra Sound Date Fundal Height At Umbil Quickening Date Ultra Sound Latest Weeks Gestation Final Les Confirmed By Final Les Confirmed Date Final Les Date Ultra Sound Latest Days Gestation 0 [email or web address] 09/19/2024 04/02/19 26 0 Pre- Flowsheet Flowsheet Date 09/19/2024 Nevarez Score Blood Edema Fundus Height Fundus Units Glucose Ketones Leukocytes Nitrite Labor Signs Protein Cervic Dilation Cervic Effacement Cervic Station neg none none trace Type Weight in lbs Pre/Post Dialysis Refused Weight 274.195356711072 BP Diastolic BP Location Tested BP Systolic BP Type 81 140 Fetus Heart Rate Present Fetus Movement A Yes Comments reviewed [facility] notes with pt, undecided about amnio, is scheduled, will continue to follow as well, start bASA 162mg, hx 2 previous vaginal deliveries, begin care Flowsheet Date 2024 Nevarez Score Blood Edema Fundus Height Fundus Units Glucose Ketones Leukocytes Nitrite Labor Signs Protein Cervic Dilation Cervic Effacement Cervic Station Type Weight in lbs Pre/Post Dialysis Refused 278.957240333201 BP Diastolic BP Location Tested BP Systolic BP Type 85 L arm 141 sitting Fetus Heart Rate Present Fetus Movement A No Comments declined amnio first us good at [facility], has anatomy scheduled. mood good. _-FM yet precautions and educations f/u 4 weeks Flowsheet Date 11/12/2024 Nevarez Score Blood Edema Fundus Height Fundus Units Glucose Ketones Leukocytes Nitrite Labor Signs Protein Cervic Dilation Cervic Effacement Cervic Station Type Weight in lbs Pre/Post Dialysis Refused 278.544026711226 BP Diastolic BP Location Tested BP Systolic BP Type 94 L wrist 146 sitting 102 R wrist 157 sitting Fetus Heart Rate Present Fetus Movement A No Comments last us at [facility] wnl, has f/u next week +FM precautions and education f/u [address] discussed bp with dr. stephenson start labetalol 200mg bid Flowsheet Date 11/19/2024 Nevarez Score Blood Edema Fundus Height Fundus Units Glucose Ketones Leukocytes Nitrite Labor Signs Protein Cervic Dilation Cervic Effacement Cervic Station Type Weight in lbs Pre/Post Dialysis Refused Weight 279.696902805806 BP Diastolic BP Location Tested BP Systolic [...] Weight in lbs Pre/Post Dialysis Refused Weight 280.814056532406 BP Diastolic BP Location Tested BP Systolic [...] Weight in lbs Pre/Post Dialysis Refused Weight 282.795222967428 BP Diastolic BP Location Tested BP Systolic BP Type 83 L arm 126 sitting 66 L wrist 128 sitting Fetus Heart Rate Present Fetus Movement A Yes Comments per pt mfm said anatomyok, e cho unremarkable, plans to deliver at [place], [facility] today, discuss vaccines at next visit, small odor after intercourse, will plan flagyl. education and precautions f/u 2 weeks Flowsheet Date 01/28/2025 Nevarez Score Blood Edema Fundus Height Fundus Units Glucose Ketones Leukocytes Nitrite Labor Signs Protein Cervic Dilation Cervic Effacement Cervic Station Type Weight in lbs Pre/Post Dialysis Refused Weight 283.83387073910 BP Diastolic BP Location Tested BP Systolic [...] Type Weight in lbs Pre/Post Dialysis Refused 284.961767118097 BP Diastolic BP Location Tested BP Systolic [...] Type Weight in lbs Pre/Post Dialysis Refused 285.198289676988 BP Diastolic BP Location Tested BP Systolic BP Type 84 L arm 129 sitting Fetus Heart Rate Present Fetus Movement A Yes Comments Flowsheet Date 02/20/2025 Nevarez Score Blood Edema Fundus Height Fundus Units Glucose Ketones Leukocytes Nitrite Labor Signs Protein Cervic Dilation Cervic Effacement Cervic Station Type Weight in lbs Pre/Post Dialysis Refused 285.425063192943 BP Diastolic BP Location Tested BP Systolic [...] Weight in lbs Pre/Post Dialysis Refused Weight 289.387129174130 BP Diastolic BP Location Tested BP Systolic [...] Weight in lbs Pre/Post Dialysis Refused Weight 289.042315285105 BP Diastolic BP Location Tested BP Systolic [...] Type Weight in lbs Pre/Post Dialysis Refused 292.967743359885 BP Diastolic BP Location Tested BP Systolic BP Type 77 L arm 129 sitting Fetus Heart Rate Present Fetus Movement A Yes Comments Flowsheet Date 03/06/2025 Nevarez Score Blood Edema Fundus Height Fundus Units Glucose Ketones Leukocytes Nitrite Labor Signs Protein Cervic Dilation Cervic Effacement Cervic Station 3cm 50% -2 Type Weight in lbs Pre/Post Dialysis Refused Weight 292.064307116680 BP Diastolic BP Location Tested BP Systolic [...]
--- OUTSIDE RECORDS SUMMARY | 2025-03-08 23:24 | XMS_ITS | Continuity of Care Document ---
Author Organization [facility] Address [address] [place] [address] [place] [address] Care Team Providers Care Keno Writer Name Role Phone KARON CHACKO Primary Care Provider [phone] Assessment No assessment recorded. Plan of Treatment [...] d. Imaging non-str ess test [facility]24 [facility] [address], [address], [place], [address], 02/20/2025 12:37:20 Medication Orders None recorde d. Patient TargetsNo [...] Resul ting Lab: [facility] [address] [facility] [address] Tel: CULTU RE ----- ----- ----- --- No growt h in 1 day (dete ction level of 10,00 0 colon ies / ml.) Not Available [facility] (Lab) [address], [place], [address], 09/20/2024 22:24:37 09/20/19 25 09/19/2024 drug scree n, urine Amphetamines : negati ve Not Available [place] [address], [place], [address], 09/19/2024 14:47:54 09/20/19 25 09/19/2024 drug scree n, urine Cannabinoids : negati ve Not Available [place] [address], [place], [address], 09/19/2024 14:47:54 09/20/19 25 09/19/2024 drug scree n, urine Cocaine: negati ve Not Available [place] [address], [place], [address], 09/19/2024 14:47:54 09/20/19 25 09/19/2024 drug scree n, urine Opiates: negati ve Not Available [place] [address], [place], [address], 09/19/2024 14:47:54 09/20/19 25 09/19/2024 drug scree n, urine Phenocyclidi ne: negati ve Not Available [place] [address], [place], [address], 09/19/2024 14:47:54 09/20/19 25 09/19/2024 drug scree n, urine Barbiturates : negati ve Not Available [place], [place], [address], 09/19/2024 14:47:54 09/20/19 25 09/19/2024 drug scree n, urine Benzodiazepi heather: negati ve Not Available [place] [address], [place], [address], 09/19/2024 14:47:54 09/20/19 25 09/19/2024 drug scree n, urine Ethanol: negati ve Not Available [place] [address], [place], [address], 09/19/2024 14:47:54 09/20/19 25 09/19/2024 drug scree n, urine Hallucinogen s: negati ve Not Available [place] [address], [place], [address], 09/19/2024 14:47:54 09/20/19 25 09/19/2024 drug scree n, urine Inhalants: negati ve Not Available [place] [address], [place], [address], 09/19/2024 14:47:54 09/20/19 25 09/19/2024 drug scree n, urine Anabolic Steroids: negati ve Not Available [place] [address], [place], [address], 09/19/2024 14:47:54 09/20/19 25 09/19/2024 drug scree n, urine Other: negati ve Not Available [place] [address], [place], [address], 09/19/2024 14:47:54 11/13/1911/12/2024 URIC ACID uric acid 4.3 mg/dL 2.3-6. 6 Not Available [facility] (Lab) [address], [place], [address], 11/13/2024 05:32:43 11/13/19 25 11/12/2024 PROTE IN/CR EATIN INE RATIO , URINE creatinine, urine 35.1 mg/dL R-No refer ence range estab lishe d for this assay Not Available [facility] (Lab) [address], [place], [address], 11/13/2024 05:32:43 11/13/19 25 11/12/2024 PROTE IN/CR EATIN INE RATIO , URINE protein, urine <4 mg/dL R-No refer ence range estab lishe d for this assay Not Available [facility] (Lab) [address], [place], [address], 11/13/2024 05:32:43 11/13/19 25 11/12/2024 PROTE IN/CR [...] fican t prote inuri a. Not Available [facility] (Lab) [address], [place], [address], 11/13/2024 05:32:43 11/13/19 25 11/12/2024 CBC W/DIF F WBC 16.1 10'3/ uL 3.5-10 .5 high Not Available [facility] (Lab) [address], [place], [address], 11/13/2024 05:32:44 11/13/1911/12/2024 CBC W/DIF F RBC 4.47 10'6/ uL (based on docume nted legal sex) 3.80-5 .20 Not Available [facility] (Lab) [address], [place], [address], 11/13/2024 05:32:44 11/13/19 25 11/12/2024 CBC W/DIF F HGB 12.4 g/dL (based on docume nted legal sex) 11.6-1 5.4 Not Available [facility] (Lab) [address], [place], [address], 11/13/2024 05:32:44 11/13/1911/12/2024 CBC W/DIF F HCT 38.6 % (based on docume nted legal sex) 34.0-4 5.0 Not Available [facility] (Lab) [address], [place], [address], 11/13/2024 05:32:44 11/13/1911/12/2024 CBC W/DIF F MCV 86.4 fL 80.0-9 9.0 Not Available [facility] (Lab) [address], [place], [address], 11/13/2024 05:32:44 11/13/1911/12/2024 CBC W/DIF F MCH 27.7 pg 27.0-3 4.0 Not Available [facility] (Lab) [address], [place], [address], 11/13/2024 05:32:44 11/13/1911/12/2024 CBC W/DIF F MCHC 32.1 g/dL 32.0-3 5.5 Not Available [facility] (Lab) [address], [place], [address], 11/13/2024 05:32:44 11/13/19 25 11/12/2024 CBC W/DIF F RDW 13.6 % 11.0-1 5.0 Not Available [facility] (Lab) [address], [place], [address], 11/13/2024 05:32:44 11/13/19 25 11/12/2024 CBC W/DIF F plt 295 10'3/ uL 150-40 0 Not Available [facility] (Lab) [address], [place], [address], 11/13/2024 05:32:44 11/13/1911/12/2024 CBC W/DIF F MPV 10.8 fL 8.8-12 .1 Not Available [facility] (Lab) [address], [place], [address], 11/13/2024 05:32:44 11/13/19 25 11/12/2024 CBC W/DIF F NRBC's 0.0 % 0.0 Not Available [facility] (Lab) [address], [place], [address], 11/13/2024 05:32:44 11/13/19 25 11/12/2024 CBC W/DIF F absolute NRBCs 0.0 10'3/ uL no refere nce range establ ished Not Available [facility] (Lab) [address], [place], [address], 11/13/2024 05:32:44 11/13/19 25 11/12/2024 CBC W/DIF F neutrophils 74.9 % 34.0-7 3.0 high Not Available [facility] (Lab) [address] [place], [address], 11/13/2024 05:32:44 11/13/19 25 11/12/2024 CBC W/DIF F lymphocytes 18.4 % 15.0-5 0.0 Not Available [facility] (Lab) [address], [place], [address], 11/13/2024 05:32:44 11/13/19 25 11/12/2024 CBC W/DIF F monocytes 5.4 % 1.0-15 .0 Not Available [facility] (Lab) [address], [place], [address], 11/13/2024 05:32:44 11/13/19 25 11/12/2024 CBC W/DIF F eosinophils 0.7 % 0.0-8. 0 Not Available [facility] (Lab) [address], [place], [address], 11/13/2024 05:32:44 11/13/19 25 11/12/2024 CBC W/DIF F basophils 0.2 % 0.0-2. 0 Not Available [facility] (Lab) [address], [place], [address], 11/13/2024 05:32:44 11/13/19 25 11/12/2024 CBC W/DIF [...] separ ately if prese nt. Not Available [facility] (Lab) [address], [place], [address], 11/13/2024 05:32:44 11/13/19 25 11/12/2024 CBC W/DIF F absolute neutrophils 12.0 10'3/ uL 1.5-8. 0 high Not Available [facility] (Lab) [address], [place], [address], 11/13/2024 05:32:44 11/13/19 25 11/12/2024 CBC W/DIF F absolute lymphocytes 3.0 10'3/ uL 1.0-4. 0 Not Available [facility] (Lab) [address], [place], [address], 11/13/2024 05:32:44 11/13/1911/12/2024 CBC W/DIF F absolute monocytes 0.9 10'3/ uL 0.2-1. 0 Not Available [facility] (Lab) [address], [place], [address], 11/13/2024 05:32:44 11/13/1911/12/2024 CBC W/DIF F absolute eosinophils 0.1 10'3/ uL 0.0-0. 6 Not Available [facility] (Lab) [address], [place], [address], 11/13/2024 05:32:44 11/13/1911/12/2024 CBC W/DIF F absolute basophils 0.0 10'3/ uL 0.0-0. 3 Not Available [facility] (Lab) [address], [place], [address], 11/13/2024 05:32:44 11/13/1911/12/2024 CBC W/DIF F absolute [...] lee book. nm.or g/gen derx Not Available [facility] (Lab) [address], [place], [address], 11/13/2024 05:32:44 11/13/1911/12/2024 CMP(C OMPRE HENSI VE METAB OLIC PANEL ) sodium 137 mmol/ L 133-14 6 Not Available [facility] (Lab) [address], [place], [address], 11/13/2024 05:32:44 11/13/19 25 11/12/2024 CMP(C OMPRE HENSI VE METAB OLIC PANEL ) potassium 4.0 mmol/ L 3.5-5. 1 Not Available [facility] (Lab) [address], [place], [address], 11/13/2024 05:32:44 11/13/19 25 11/12/2024 CMP(C OMPRE HENSI VE METAB OLIC PANEL ) chloride 102 mmol/ L 98-107 Not Available [facility] (Lab) [address], [place], [address], 11/13/2024 05:32:44 11/13/19 25 11/12/2024 CMP(C OMPRE HENSI VE METAB OLIC PANEL ) carbon dioxide 27 mmol/ L 21-31 Not Available [facility] (Lab) [address], [place], [address], 11/13/2024 05:32:44 11/13/19 25 11/12/2024 CMP(C OMPRE HENSI VE METAB OLIC PANEL ) anion gap 8 mmol/ L 4-13 Not Available [facility] (Lab) [address], [place], [address], 11/13/2024 05:32:44 11/13/19 25 11/12/2024 CMP(C OMPRE HENSI VE METAB OLIC PANEL ) blood urea nitrogen 7 mg/dL 7-25 Not Available [facility] (Lab) [address], [place], [address], 11/13/2024 05:32:44 11/13/19 25 11/12/2024 CMP(C OMPRE HENSI VE METAB OLIC PANEL ) creatinine 0.48 mg/dL 0.60-1 .30 low Not Available [facility] (Lab) [address], [place], [address], 11/13/2024 05:32:44 11/13/19 25 11/12/2024 CMP(C OMPRE HENSI VE METAB OLIC PANEL ) egfrcr (CKD-epi 2020) >90 mL/mi n/1.7 3_m2 >=60 Not Available [facility] (Lab) [address], [place], [address], 11/13/2024 05:32:44 11/13/19 25 11/12/2024 CMP(C OMPRE HENSI VE METAB OLIC PANEL ) calcium 9.7 mg/dL 8.3-10 .5 Not Available [facility] (Lab) [address], [place], [address], 11/13/2024 05:32:44 11/13/19 25 11/12/2024 CMP(C OMPRE HENSI VE METAB OLIC PANEL ) glucose 86 mg/dL 70-100 Not Available [facility] (Lab) [address], [place], [address], 11/13/2024 05:32:44 11/13/19 25 11/12/2024 CMP(C OMPRE HENSI VE METAB OLIC PANEL ) protein, total 6.6 g/dL 6.4-8. 3 Not Available [facility] (Lab) [address], [place], [address], 11/13/2024 05:32:44 11/13/19 25 11/12/2024 CMP(C OMPRE HENSI VE METAB OLIC PANEL ) albumin 4.0 g/dL 3.5-5. 0 Not Available [facility] (Lab) [address], [place], [address], 11/13/2024 05:32:44 11/13/1911/12/2024 CMP(C OMPRE HENSI VE METAB OLIC PANEL ) ALT 11 units /L 9-43 Not Available [facility] (Lab) [address], [place], [address], 11/13/2024 05:32:44 11/13/19 25 11/12/2024 CMP(C OMPRE HENSI VE METAB OLIC PANEL ) alkaline phosphatase 54 units /L 34-104 Not Available [facility] (Lab) [address], [place], [address], 11/13/2024 05:32:44 11/13/19 25 11/12/2024 CMP(C OMPRE HENSI VE METAB OLIC PANEL ) AST 10 units /L 13-39 low Not Available [facility] (Lab) [address], [place], [address], 11/13/2024 05:32:44 11/13/19 25 11/12/2024 CMP(C OMPRE HENSI VE METAB OLIC PANEL ) bilirubin, total 0.2 mg/dL 0.2-1. 2 Not Available [facility] (Lab) [address], [place], [address], 11/13/2024 05:32:44 01/15/20 25 01/14/2025 GTT - GESTA NICOLAS L SCREE N, ACOG OB glucose, 1 hour screen 141 mg/dL 70-135 high Not Available [facility] (Lab) [address], [place], [address], 01/15/2025 11:13:15 01/15/20 25 01/14/2025 HIV 1/2 ANTIG EN/AN TIBOD Y, REFLE X CONFI RMATI ON HIV antigen/anti body Nonrea ctive nonrea ctive HIV-1 antig en and HIV-1 /HIV- 2 antib odies were not detec terra. No labor atory evide nce of HIV infec tion. Not Available [facility] (Lab) [address], [place], [address], 01/15/2025 11:13:16 01/15/20 25 01/14/2025 HEMAT OCRIT (HCT) HCT 34.1 % (based on docume nted legal sex) 34.0-4 5.0 Not Available [facility] (Lab) [address], [place], [address], 01/15/2025 11:13:16 01/15/2001/14/2025 HEMOG LOBIN (HGB) HGB 10.6 g/dL (based on docume nted legal sex) 11.6-1 5.4 low Not Available [facility] (Lab) [address], [place], [address], 01/15/2025 11:13:17 01/15/2001/14/2025 RPR SCREE N, REFLE X TITER /CONF IRMAT ION RPR qualitative Nonrea ctive nonrea ctive Not Available [facility] (Lab) [address], [place], [address], 01/15/2025 11:13:17 01/24/20 25 01/23/2025 GTT - GESTA NICOLAS L, 3 HOUR, ACOG glucose, fasting acog 70 mg/dL 70-94 Not Available [facility] (Lab) [address], [place], [address], 01/24/2025 05:24:10 01/24/20 25 01/23/2025 GTT - GESTA NICOLAS L, 3 HOUR, ACOG glucose, 1 hour acog 150 mg/dL 70-179 Not Available [facility] (Lab) [address], [place], [address], 01/24/2025 05:24:10 01/24/20 25 01/23/2025 GTT - GESTA NICOLAS L, 3 HOUR, ACOG glucose, 2 hour acog 143 mg/dL 70-154 Not Available [facility] (Lab) [address] [place], [address], 01/24/2025 05:24:10 01/24/20 25 01/23/2025 GTT - GESTA NICOLAS L, 3 HOUR, ACOG glucose, 3 hour acog 46 mg/dL 70-139 critical low Resul ts verif ied by repea t rosanna sis. Not Available [facility] (Lab) [address], [place], [address], 01/24/2025 05:24:10 10/02/19 25 10/01/2024 US, obste tric, follo w-up No observ ation record ed. [address] [facility] [address] [place] [address], [address], 10/08/2024 09:41:15 11/18/19 25 11/17/2024 US, obste tric, follo w-up No observ ation record ed. [address] [facility] [address], [address], 11/18/2024 12:26:24 11/19/19 25 11/17/2024 US, obste tric, follo w-up No observ ation record ed. [address] [facility] [address], [address], 11/19/2024 11:57:24 11/26/19 25 11/25/2024 US, obste tric, follo w-up No observ ation record ed. [email or web address] [facility] [address] [place] [address], [address], 11/26/2024 17:27:21 11/26/19 25 11/25/2024 US, obste tric, follo w-up No observ ation record ed. [email or web address] [facility] [address] [place] [address], [address], 11/25/2024 17:38:04 12/16/19 25 12/15/2024 US, obste tric, follo w-up No observ ation record ed. [address] [facility] [address] [place] [address], [address], 12/16/2024 06:57:29 01/13/20 25 01/12/2025 US, obste tric No observ ation record ed. [email or web address] [facility] [address], [address], 01/13/2025 11:43:49 01/13/20 25 01/12/2025 US, obste tric, follo w-up No observ ation record ed. [email or web address] [facility] [address], [address], 01/13/2025 16:24:45 02/11/20 25 02/10/2025 non-s tress test No observ ation record ed. [facility] [address], [address], 02/11/2025 15:00:18 02/11/20 25 02/10/2025 US, obste tric, follo w-up No observ ation record ed. [email or web address] [facility] [address], [address], 02/11/2025 11:37:25 02/21/20 25 02/20/2025 US, obste tric, bioph ysica l profi le + non-s tress test No observ ation record ed. [facility] [address], [place], [address], 02/20/2025 16:56:43 02/21/20 25 02/20/2025 US, obste tric, bioph ysica l profi le + non-s tress test No observ ation record ed. juliano Valle [address], [place], [address], 02/23/2025 11:31:02 02/21/20 25 02/20/2025 non-s tress test No observ ation record ed. [address], [place], [address], 02/20/2025 13:47:54 02/21/20 non-s tress test No observ ation record ed. [email or web address] [facility] [address], [place], [address], 02/20/2025 12:35:53 02/26/20 25 02/25/2025 US, obste tric, bioph ysica l profi le + non-s tress test No observ ation record ed. [email or web address] [address], [place], [address], 02/25/2025 11:49:48 02/26/2002/25/2025 US, obste tric, bioph ysica l profi le + non-s tress test No observ ation record ed. [email or web address] Tori [address], [place], [address], 03/04/2025 11:50:53 02/26/20 25 02/25/2025 non-s tress test No observ ation record ed. [email or web address] [facility] [address], [place], [address], 02/25/2025 17:57:33 02/26/20 non-s tress test No observ ation record ed. [address], [place], [address], 02/25/2025 17:15:53 03/06/20 25 03/06/2025 non-s tress test No observ ation record ed. michele [address], [place], [address], 03/06/2025 13:52:03 03/06/20 non-s tress test No observ ation record ed. [email or web address] [facility] [address], [place], [address], 03/06/2025 12:00:07 03/06/20 25 03/06/2025 US, obste tric, follo w-up No observ ation record ed. [email or web address] Tori [address], [place], [address], 03/07/2025 23:02:25 03/06/20 25 03/06/2025 US, obste tric, follo w-up No observ ation record ed. [facility] [address], [place], [address], 03/06/2025 13:52:39 03/06/20 25 03/06/2025 US, obste tric, bioph ysica l profi le + non-s tress test No observ ation record ed. [facility] [address], [place], [address], 03/06/2025 13:52:50 Result Notes None recorded. Problems Name Problem SNOMED Code Status Onset Date Resolution Date Notes Provider Name and Address Organization Details Recorded Time Polycyst ic ovary syndrome 102978954 Completed 201711/16/2021 Polycyst ic ovarian syndrome ;Recorde d Elsewher e: No Locat ion: [facility] S ource: EHR Monitoring And Evaluation Advisor yan: N Susie ce ID: 0001 Edmond lable Time: 02:45:00 PM Sandhya [facility] 2 18:30:21 Finding of fertilit y Completed 201711/16/2021 Female infertil ity, unspecif ied;Tip rded Elsewher e: No Locat ion: [facility] S ource: EHR Monitoring And Evaluation Advisor yan: N Susie ce ID: 0001 Edmond lable Time: 10:00:00 AM Sandhya [facility] 2 18:30:21 Abnormal uterine bleeding [id number] Completed 201711/16/2021 Other specifie d abnormal uterine and vaginal bleeding ;Recorde d Elsewher e: No Locat ion: [facility] S ource: EHR Monitoring And Evaluation Advisor yan: N Practi ce ID: 0001 Edmond lable Time: 09:45:00 AM Sandhya [place] [facility] 2 18:30:21 Bleeding Completed 201711/16/2021 Abnormal uterine and vaginal bleeding , unspecif ied;Tip rded Elsewher e: No Locat ion: [facility] S ource: EHR Monitoring And Evaluation Advisor yan: N Practi ce ID: 0001 Edmond lable Time: 10:00:00 AM Sandhya [place] [facility] 2 18:30:21 Urinary tract infectio us disease [id number] Completed 201811/16/2021 Urinary tract infectio n, site not specifie d;Record ed Elsewher e: No Locat ion: [facility] S ource: EHR Monitoring And Evaluation Advisor yan: N Practi ce ID: 0001 Edmond lable Time: 04:15:00 PM Sandhya sneed [facility] 2 18:30:21 Pregnanc y detectio n examinat ion Completed 201811/16/2021 Encounte r for pregnanc y test, result positive ;Practic e ID: 0001 Sandhya sneed, [facility] 2 18:30:21 Uterine size for dates discrepa ncy Completed 201811/16/2021 Uterine size-johann e discrepa ncy, first trimeste r;Practi ce ID: 0001 Sandhya sneed, [facility] 2 18:30:21 Gestatio n period, 9 weeks [id number] Completed 201811/16/2021 9 weeks gestatio n of pregnanc y;Practi ce ID: 0001 Sandhya sneed, [facility] 2 18:30:21 Secondar y amenorrh ea [id number] Completed 201811/16/2021 Secondar y amenorrh ea;Recor ded Elsewher e: No Locat ion: [place] [facility] S ource: EHR Monitoring And Evaluation Advisor yan: N Carolynnti ce ID: 0001 Edmond lable Time: 03:30:00 PM Sadnhya [place] [facility] 2 18:30:21 Infectio n screenin g Completed 201811/16/2021 Encounte r for screenin g for oth infec/pa rastc diseases ;Recorde d Elsewher e: No Locat ion: [place] [facility] S ource: EHR Monitoring And Evaluation Advisor ayn: N Carolynnti ce ID: 0001 Edmond lable Time: 03:30:00 PM Sandhya [place] [facility] 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 2 18:30:21 Syphilis test finding [id number] Completed 201811/16/2021 Encntr screen for infectio ns w sexl mode of transmis s;Record ed Elsewher e: No Locat ion: [facility] perfect[facility] S ource: EHR Monitoring And Evaluation Advisor yan: N Carolynnti ce ID: [id number] Edmond lable Time: 03:30:00 PM Sandhya [place] [facility] 2 18:30:21 Body mass index 30+ - obesity [id number] Completed 201811/16/2021 Body mass index (BMI) 37.0-37. 9, adult;Re corded Elsewher e: No Locat ion: [place] [facility] S ource: EHR Monitoring And Evaluation Advisor yan: N Practi ce ID: [id number] Edmond lable Time: 03:30:00 PM Sandhya sneed, [facility] 2 18:30:21 Chlamydi al infectio n [id number] Completed 201811/16/2021 Chlamydi al infectio n, unspecif ied;Tip rded Elsewher e: No Locat ion: [place] [facility] S ource: EHR Monitoring And Evaluation Advisor yan: N Practi ce ID: [id number] Edmond lable Time: 11:52:25 AM Sandhya sneed, [facility] 2 18:30:21 [place] [id number] Completed 201811/16/2021 Encounte r for suprvsn of normal pregnanc y, first trimeste r;Practi ce ID: 0001 Sandhya sneed, [facility] 2 18:30:21 Antenata l screenin g Completed 201811/16/2021 Encounte r for other specifie d antenata l screenin g;Practi ce ID: 0001 Sandhya sneed, [facility] 2 18:30:21 Medical examinat ion for suspecte d conditio n Completed 201811/16/2021 Encntr for oth suspecte d maternal and cond ruled out;Prac jaxson ID: 0001 Sandhya sneed, [facility] 2 18:30:[address] Concept Completed 201811/16/2021 Maternal care for oth abnormal ity and damage, unsp;Pra ctice ID: 0001 Sandhya sneed, [facility] 2 18:30:21 Gestatio n period, 30 weeks [id number] Completed 201811/16/2021 30 weeks gestatio n of pregnanc y;Practi ce ID: 0001 Sandhya sneed, [facility] 2 18:30:21 Pregnanc y, childbir th and puerperi um finding Completed 201811/16/2021 Encntr for suprvsn of normal first preg, third trimeste r;Practi ce ID: [id number] Sandhya Key naren, [facility] 2 18:30:21 malforma tion of central nervous system [id number] Completed 201811/16/2021 Maternal care for (suspect ed) cnsl malform in fetus, unsp;Pra ctice ID: [id number] Sandhya Key naren, [facility] 2 18:30:21 Gestatio n period, 34 weeks [id number] Completed 201811/16/2021 34 weeks gestatio n of pregnanc y;Practi ce ID: 0001 Sandhya Key [facility], [facility] 2 18:30:[address] Concept Completed 201811/16/2021 Matern care for abnlt fetl hrt rate or rhym, unsp tri, unsp;Pra ctice ID: [id number] Sandhya Key naren, [facility] 2 18:30:21 Gestatio n period, 36 weeks [id number] Completed 201811/16/2021 36 weeks gestatio n of pregnanc y;Practi ce ID: 0001 Sandhya Key [facility], [facility] 2 18:30:21 Term pregnanc y delivere d [id number] Completed 201811/16/2021 Encounte r for full-ter m uncompli cated delivery ;Practic e ID: [id number] Sandhya Key naren, [facility] 2 18:30:21 Single live from singleto n pregnanc y [id number] Completed 201811/16/2021 Single live ;Pr actice ID: [id number] Sandhya Key [facility], [facility] 2 18:30:21 Gestatio n period, 37 weeks [id number] Completed 201811/16/2021 37 weeks gestatio n of pregnanc y;Practi ce ID: [id number] Sandhya sneed, [facility] 2 18:30:21 Lochia finding Completed 201911/16/2021 Encounte r for routine postpart um follow-u p;Record ed Elsewher e: No Locat ion: [facility] S ource: EHR Monitoring And Evaluation Advisor yan: N Practi ce ID: 0001 Edmond lable Time: 08:45:00 AM Sandhya Key [facility] 2 18:30:21 Acute vaginiti s [id number] Completed 201911/16/2021 Vaginiti s;Record ed Elsewher e: No Locat ion: [facility] S ource: EHR Monitoring And Evaluation Advisor yan: N Practi ce ID: 0001 Edmond lable Time: 01:00:00 PM Sandhya Key [facility], [facility] 2 18:30:21 Mixed anxiety and depressi ve disorder 125858564 Active 2024 Paz Keller [facility] 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 5 15:07:06 Pregnanc y 96854521 Active 2024 Paz Keller [facility], [facility] 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 5 15:09:19 History of heart disorder 834277873 Active 2024 first baby couple hours after Britney Monzon CNM [address], [place], [address], [facility] 5 15:26:56 Past pregnanc y history of pre-ecla mpsia 1349973432 80689 Active 2024 plan bASA 162mg Britney Monzon CNM [address], [place], [address], [facility] 5 15:27:21 History of depressi on 885872184 Active 2024 no current treatmen t Britney Monzon CNM [address], [place], [address], [facility] 5 15:37:15 Hyperten sive disorder 39907505 Active 2024 100mg labetalo l bid Britney Monzon CNM [address], [place], [address], [facility] 5 11:41:34 Notes:previous son had hypoplastic left heart syndrome Some problems listed in Document: #[id number] could not be added to this patient's chart. Please review this document and add these problems to the patient's chart manually as needed. Problem Notes None recorded. Procedures Surgical History Date Name Laterality Status Provider Name and Address Organization Details Recorded Time 5 Date of Last Pap Smear completed Paz Keller [facility] 08/15/2024 17:09:24 4 SIS completed NUZHAT STEPHENSON MD [address], [place], [address], [facility] 09/13/2023 14:06:22 Imaging Results None [...] Prescrib ed Elsewher e: No Locat ion: [facility] odify By: bill Hurst ter DateTime : [...] Prescrib ed Elsewher e: No Locat ion: [facility] odify By: maged Hurst ter DateTime : 02/06/20 08:45:00 AM Not Available Not Available Not Available Zofran 4 mg tablet take 1 tablet as needed for nausea 11/17 completed Prescrib ed Elsewher e: No Locat ion: [facility] odify By: bnshravan Hurst ter DateTime : 09/17/19 04:11:09 PM Not Available Not Available Not Available Metrogel Vaginal 0.75 % (37.5 mg/5 gram) insert 1 applicat orful by vaginal route every day at bedtime for 5 nights 11/17 completed Prescrib ed Elsewher e: No Locat ion: [facility] odify By: rahel jonas DateTime : 07/07/19 [...] Prescrib ed Elsewher e: No [facility] By: [email or web address] z Aris jonas DateTime [...] Prescrib ed Elsewher e: No Locat ion: [facility] odify By: dian jonas DateTime : 09/17/19 [...] weight Body mass index (BMI) Body height Systolic And Diastolic Provider Name and Address Organization Details Last Updated DateTime 02/20/2025 938519.82 545 g 46 kg/m2 167.64 cm 129/84 mm[Hg] Lashonda Bhagat [facility] 02/20/2025 12:04:17 Date Recorded Body weight Systolic And Diastolic Provider Name and Address Organization Details Last Updated DateTime 02/20/2025 937887.89297 g 129/84 mm[Hg] Alicia Peng [facility] 02/20/2025 12:33:40 Social History Question Answer Notes LastModified by Organizat ion Details LastModified Time Tobacco Smoking Status Never Smoker Sandhya Key naren, [facility] 11/17/2021 10:26:20 Do You Have An Advance Directive? No Information n ot available 11/17/2021 If You Are , What Was Your Level Of Alcohol Consumption Prior To ? Occasional [email or web address] Information not available 08/15/2024 How Many Years Have You Consumed Alcohol? 8 Information not available 11/17/2021 Are You Blind Or Do You Have Difficulty Seeing? No Information n ot available 11/17/2021 What Is Your Level Of Caffeine Consumption? Moderate [email or web address] Information not available 08/15/2024 How Much Tobacco [...] Or The Highest Degree You Have Received? [id number] Information not available 11/17/2021 Are There Any Guns Present In Your Home? No Information not available 11/17/2021 Do You Use Protection During Sex? No Information not available 11/17/2021 Do You Use Your Seat Belt Or Car Seat Routinely? Yes Information not available 11/17/2021 Are You Sexually Active? Yes [email or web address] Information not available 11/12/2024 Do You Have [...] is your level of alcohol consumption? None [email or web address] Information not available 08/15/2024 Are you able [...] anxious, or unable to sleep at night)? [id number] [email or web address] Information not available 08/15/2024 Family History Relationship Description Onset Age of this Age Resolved Age Notes LastModified by Organization Details LastModified Time Son Hypoplastic left heart syndrome [email or web address] Not available 06/15 18:39:24 Medical History Condition Response Allergies (Food, seasonal, environmental ) N Other Y Blood Transfusion N Drug/Latex Allergies/Reactions N Breast Cancer N Dermatologic Disorders N Lung Disease N [...] ICD10 Code Diagnosis IMO Codes Diagnosis Note [id number] Britney Monzon CNM [facility] [address],[place] [address] 01/28/2025 10:12:44 01/28/2025 11:11:44 Gestation period, 30 weeks 45874570 Z3A.30 9941894 [id number] Britney Monzon CNM [facility] [address] [address] 02/11/2025 11:02:03 02/11/2025 12:28:12 Gestation period, 32 weeks 3580678 Z3A.32 3781585 [id number] Dakotah Celeste MD [facility] [address],[place] [address] 02/20/2025 10:19:25 02/20/2025 11:15:32 Chronic hypertension complicating AND/OR reason for care during 05724069 O10.913 O99.210 O28.0 Z3A.34 09487925 [id number] Britney Monzon CNM [facility] [address],[place] [address] 02/20/2025 10:20:12 02/20/2025 12:37:20 Abnormal chromosomal and genetic finding on screening of mother 104580479 O28.5 [id number] [id number] Britney Monzon CNM [facility] [address],[place] [address] 02/20/2025 10:20:45 02/20/2025 12:28:20 Gestation period, 34 weeks 66565112 Z3A.34 [id number] Health Concerns Section Related Observation LastModified by Organization Detai ls LastModified Time None Recorded Concern Status LastModified by Organization Details LastModified Time None Recorded Payers Encounter Date Sequence Insurance Name Policy Number Policy Mckenna Covered Member ID Mckenna Member ID Guarantor Name 02/20/2025 1 [facility] [id number] Alex Louie [id number] Rizwana Louie Notes Date Note Type Note Provider Name and Address Organization Details Recorded Time 02/20/2025 text/html Generic HPI TemplateReported by Patient Britney Monzon CNM [address], [place], [address], [facility] 02/20/2025 12:27:34 OBGyn Episode Ob Episode Information Episode Created Date Number of Fetuses Patient Bloodtype Patient rh Status Prepregnancy Weight lbs Domestic Partner Domestic Partner Phone Father Name Regional Planner Status 09/20/19 25 1 O Positive [phone] Alex Louie OPEN Fetus Data First Name Last Name Admitted to NICU Weight (g) Sex Living Outcome Pediatric Complications Fetus ID Race Codes Race Delivery Type [id number] Problems Problem Notes Problem Name Start Date End Date Resolution Snomed Code Not e History of depression 09/19/2024 042256369 no current treatment Past history of pre-eclampsia 09/19/2024 808498522026186 plan bASA 1 62mg History of heart disorder 09/19/2024 209111106 first baby pass ed away couple hours after Hypertensive disorder 12/17/2024 21300375 100mg labetalol bid 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 92660232 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, seeing [facility] office Scheduled 10/20 us only & 11/17 us onlynormal echo 12/31- recommends eval of baby Les Calculation Initial Les Date Initial Exam Date Initial Exam Provider Initial Ultrasound Date Last Menstrual Period Date Ultra Sound Weeks Gestation 04/02/2025 08/26/2024 [email or web address] 08/14/2024 06/26/2024 6 Eighteen To Twenty Week Les Update Ultra Sound Date Fundal Height At Umbil Quickening Date Ultra Sound Latest Weeks Gestation Final Les Confirmed By Final Les Confirmed Date Final Les Date Ultra Sound Latest Days Gestation 0 [email or web address] 09/19/2024 04/02/19 26 0 Pre- Flowsheet Flowsheet Date 09/19/2024 Nevarez Score Blood Edema Fundus Height Fundus Units Glucose Ketones Leukocytes Nitrite Labor Signs Protein Cervic Dilation Cervic Effacement Cervic Station neg none none trace Type Weight in lbs Pre/Post Dialysis Refused Weight 274.091695609258 BP Diastolic BP Location Tested BP Systolic BP Type 81 140 Fetus Heart Rate Present Fetus Movement A Yes Comments reviewed [facility] notes with pt, undecided about amnio, is scheduled, will continue to follow as well, start bASA 162mg, hx 2 previous vaginal deliveries, begin care Flowsheet Date 2024 Nevarez Score Blood Edema Fundus Height Fundus Units Glucose Ketones Leukocytes Nitrite Labor Signs Protein Cervic Dilation Cervic Effacement Cervic Station Type Weight in lbs Pre/Post Dialysis Refused 278.191049420158 BP Diastolic BP Location Tested BP Systolic BP Type 85 L arm 141 sitting Fetus Heart Rate Present Fetus Movement A No Comments declined amnio first us good at [facility], has anatomy scheduled. mood good. _-FM yet precautions and educations f/u 4 weeks Flowsheet Date 11/12/2024 Nevarez Score Blood Edema Fundus Height Fundus Units Glucose Ketones Leukocytes Nitrite Labor Signs Protein Cervic Dilation Cervic Effacement Cervic Station Type Weight in lbs Pre/Post Dialysis Refused 278.680245686682 BP Diastolic BP Location Tested BP Systolic BP Type 94 L wrist 146 sitting 102 R wrist 157 sitting Fetus Heart Rate Present Fetus Movement A No Comments last us at [facility] wnl, has f/u next week +FM precautions and education f/u [address] discussed bp with dr. stephenson start labetalol 200mg bid Flowsheet Date 11/19/2024 Nevarez Score Blood Edema Fundus Height Fundus Units Glucose Ketones Leukocytes Nitrite Labor Signs Protein Cervic Dilation Cervic Effacement Cervic Station Type Weight in lbs Pre/Post Dialysis Refused Weight 279.057622199690 BP Diastolic BP Location Tested BP Systolic BP Type 79 L arm 128 sitting Fetus Heart Rate Present A 154 Fetus Movement A Yes Comments +FM doing well, bp's normote nsive on labetalol, cont to monitor, denies any sxs. precautions and education f/u [facility] as scheduled Flowsheet Date 12/17/2024 Nevarez Score Blood Edema Fundus Height Fundus Units Glucose Ketones Leukocytes Nitrite Labor Signs Protein Cervic Dilation Cervic Effacement Cervic Station Type Weight in lbs Pre/Post Dialysis Refused Weight 280.611615116517 BP Diastolic BP Location Tested BP Systolic BP Type 82 L arm 129 sitting Fetus Heart Rate Present Fetus Movement A Yes Comments +[facility] f/u with anatomy and plans echo, precautions and education f/u 4 weeks with glucose Flowsheet Date 01/14/2025 Nevarez Score Blood Edema Fundus Height Fundus Units Glucose Ketones Leukocytes Nitrite Labor Signs Protein Cervic Dilation Cervic Effacement Cervic Station Type Weight in lbs Pre/Post Dialysis Refused Weight 282.298967773641 BP Diastolic BP Location Tested BP Systolic BP Type 83 L arm 126 sitting 66 L wrist 128 sitting Fetus Heart Rate Present Fetus Movement A Yes Comments per pt [facility] said anatomyok, e cho unremarkable, plans to deliver at [facility] today, discuss vaccines at next visit, small odor after intercourse, will plan flagyl. education and precautions f/u 2 weeks Flowsheet Date 01/28/2025 Nevarez Score Blood Edema Fundus Height Fundus Units Glucose Ketones Leukocytes Nitrite Labor Signs Protein Cervic Dilation Cervic Effacement Cervic Station Type Weight in lbs Pre/Post Dialysis Refused Weight 283.44832219322 BP Diastolic BP Location Tested BP Systolic [...] Type Weight in lbs Pre/Post Dialysis Refused 284.219120118007 BP Diastolic BP Location Tested BP Systolic [...] Type Weight in lbs Pre/Post Dialysis Refused 285.747544001242 BP Diastolic BP Location Tested BP Systolic BP Type 84 L arm 129 sitting Fetus Heart Rate Present Fetus Movement A Yes Comments Flowsheet Date 02/20/2025 Nevarez Score Blood Edema Fundus Height Fundus Units Glucose Ketones Leukocytes Nitrite Labor Signs Protein Cervic Dilation Cervic Effacement Cervic Station Type Weight in lbs Pre/Post Dialysis Refused 285.811648642756 BP Diastolic BP Location Tested BP Systolic [...] Weight in lbs Pre/Post Dialysis Refused Weight 289.983793733172 BP Diastolic BP Location Tested BP Systolic [...] Weight in lbs Pre/Post Dialysis Refused Weight 289.656069864135 BP Diastolic BP Location Tested BP Systolic [...] Type Weight in lbs Pre/Post Dialysis Refused 292.521105320215 BP Diastolic BP Location Tested BP Systolic BP Type 77 L arm 129 sitting Fetus Heart Rate Present Fetus Movement A Yes Comments Flowsheet Date 03/06/2025 Nevarez Score Blood Edema Fundus Height Fundus Units Glucose Ketones Leukocytes Nitrite Labor Signs Protein Cervic Dilation Cervic Effacement Cervic Station 3cm 50% -2 Type Weight in lbs Pre/Post Dialysis Refused Weight 292.876347787603 BP Diastolic BP Location Tested BP Systolic [...]
--- OUTSIDE RECORDS SUMMARY | 2025-03-08 23:24 | XMS_ITS | Continuity of Care Document ---
Author Organization [facility] Address [address] [place] [address] Care Team Providers Care Customer Service Associate Name Role Phone MONIQUEARGENTINA KARON Primary Care [...] Resul ting Lab: [facility] [address] [facility] [address] Tel: CULTU RE ----- ----- ----- --- No growt h in 1 day (dete ction level of 10,00 0 colon ies / ml.) Not Available [facility] (Lab) [address], [place], [address], 09/20/2024 22:24:37 09/20/19 25 09/19/2024 drug scree n, urine Amphetamines : negati ve Not Available [facility] [address], [place], [address], 09/19/2024 14:47:54 09/20/19 25 09/19/2024 drug scree n, urine Cannabinoids : negati ve Not Available [facility] [address], [place], [address], 09/19/2024 14:47:54 09/20/19 25 09/19/2024 drug scree n, urine Cocaine: negati ve Not Available [facility] [address], [place], [address], 09/19/2024 14:47:54 09/20/19 25 09/19/2024 drug scree n, urine Opiates: negati ve Not Available [facility] [address], [place], [address], 09/19/2024 14:47:54 09/20/19 25 09/19/2024 drug scree n, urine Phenocyclidi ne: negati ve Not Available [facility] [address], [place], [address], 09/19/2024 14:47:54 09/20/19 25 09/19/2024 drug scree n, urine Barbiturates : negati ve Not Available [facility] [address], [place], [address], 09/19/2024 14:47:54 09/20/19 25 09/19/2024 drug scree n, urine Benzodiazepi heather: negati ve Not Available [facility] [address], [place], [address], 09/19/2024 14:47:54 09/20/19 25 09/19/2024 drug scree n, urine Ethanol: negati ve Not Available [facility] [address], [place], [address], 09/19/2024 14:47:54 09/20/19 25 09/19/2024 drug scree n, urine Hallucinogen s: negati ve Not Available [facility] [address], [place], [address], 09/19/2024 14:47:54 09/20/19 25 09/19/2024 drug scree n, urine Inhalants: negati ve Not Available [facility] [address], [place], [address], 09/19/2024 14:47:54 09/20/19 25 09/19/2024 drug scree n, urine Anabolic Steroids: negati ve Not Available [facility] [address], [place], [address], 09/19/2024 14:47:54 09/20/19 25 09/19/2024 drug scree n, urine Other: negati ve Not Available [facility] [address], [place], [address], 09/19/2024 14:47:54 11/13/1911/12/2024 URIC ACID uric acid 4.3 mg/dL 2.3-6. 6 Not Available [facility] (Lab) [address], [place], [address], 11/13/2024 05:32:43 11/13/19 25 11/12/2024 PROTE IN/CR EATIN INE RATIO , URINE creatinine, urine 35.1 mg/dL R-No refer ence range estab lishe d for this assay Not Available [facility] (Lab) [address], [place], [address], 11/13/2024 05:32:43 11/13/19 25 11/12/2024 PROTE IN/CR EATIN INE RATIO , URINE protein, urine <4 mg/dL R-No refer ence range estab lishe d for this assay Not Available [facility] (Lab) [address], [place], [address], 11/13/2024 05:32:43 11/13/19 25 11/12/2024 PROTE IN/CR [...] fican t prote inuri a. Not Available [facility] (Lab) [address], [place], [address], 11/13/2024 05:32:43 11/13/19 25 11/12/2024 CBC W/DIF F WBC 16.1 10'3/ uL 3.5-10 .5 high Not Available [facility] (Lab) [address] [place], [address], 11/13/2024 05:32:44 11/13/19 25 11/12/2024 CBC W/DIF F RBC 4.47 10'6/ uL (based on docume nted legal sex) 3.80-5 .20 Not Available [facility] (Lab) [address], [place], [address], 11/13/2024 05:32:44 11/13/19 25 11/12/2024 CBC W/DIF F HGB 12.4 g/dL (based on docume nted legal sex) 11.6-1 5.4 Not Available [facility] (Lab) [address], [place], [address], 11/13/2024 05:32:44 11/13/19 25 11/12/2024 CBC W/DIF F HCT 38.6 % (based on docume nted legal sex) 34.0-4 5.0 Not Available [facility] (Lab) [address], [place], [address], 11/13/2024 05:32:44 11/13/19 25 11/12/2024 CBC W/DIF F MCV 86.4 fL 80.0-9 9.0 Not Available [facility] (Lab) [address], [place], [address], 11/13/2024 05:32:44 11/13/1911/12/2024 CBC W/DIF F MCH 27.7 pg 27.0-3 4.0 Not Available [facility] (Lab) [address], [place], [address], 11/13/2024 05:32:44 11/13/19 25 11/12/2024 CBC W/DIF F MCHC 32.1 g/dL 32.0-3 5.5 Not Available [facility] (Lab) [address], [place], [address], 11/13/2024 05:32:44 11/13/19 25 11/12/2024 CBC W/DIF F RDW 13.6 % 11.0-1 5.0 Not Available [facility] (Lab) [address], [place], [address], 11/13/2024 05:32:44 11/13/19 25 11/12/2024 CBC W/DIF F plt 295 10'3/ uL 150-40 0 Not Available [facility] (Lab) [address], [place], [address], 11/13/2024 05:32:44 11/13/19 25 11/12/2024 CBC W/DIF F MPV 10.8 fL 8.8-12 .1 Not Available [facility] (Lab) [address], [place], [address], 11/13/2024 05:32:44 11/13/19 25 11/12/2024 CBC W/DIF F NRBC's 0.0 % 0.0 Not Available [facility] (Lab) [address], [place], [address], 11/13/2024 05:32:44 11/13/19 25 11/12/2024 CBC W/DIF F absolute NRBCs 0.0 10'3/ uL no refere nce range establ ished Not Available [facility] (Lab) [address], [place], [address], 11/13/2024 05:32:44 11/13/1911/12/2024 CBC W/DIF F neutrophils 74.9 % 34.0-7 3.0 high Not Available [facility] (Lab) [address], [place], [address], 11/13/2024 05:32:44 11/13/19 25 11/12/2024 CBC W/DIF F lymphocytes 18.4 % 15.0-5 0.0 Not Available [facility] (Lab) [address], [place], [address], 11/13/2024 05:32:44 11/13/19 25 11/12/2024 CBC W/DIF F monocytes 5.4 % 1.0-15 .0 Not Available [facility] (Lab) [address], [place], [address], 11/13/2024 05:32:44 11/13/19 25 11/12/2024 CBC W/DIF F eosinophils 0.7 % 0.0-8. 0 Not Available [facility] (Lab) [address], [place], [address], 11/13/2024 05:32:44 11/13/19 25 11/12/2024 CBC W/DIF F basophils 0.2 % 0.0-2. 0 Not Available [facility] (Lab) [address], [place], [address], 11/13/2024 05:32:44 11/13/19 25 11/12/2024 CBC W/DIF [...] separ ately if prese nt. Not Available [facility] (Lab) [address], [place], [address], 11/13/2024 05:32:44 11/13/19 25 11/12/2024 CBC W/DIF F absolute neutrophils 12.0 10'3/ uL 1.5-8. 0 high Not Available [facility] (Lab) [address] [place], [address], 11/13/2024 05:32:44 11/13/19 25 11/12/2024 CBC W/DIF F absolute lymphocytes 3.0 10'3/ uL 1.0-4. 0 Not Available [facility] ([facility] [address] [place], [address], 11/13/2024 05:32:44 11/13/1911/12/2024 CBC W/DIF F absolute monocytes 0.9 10'3/ uL 0.2-1. 0 Not Available [facility] (Lab) [address], [place], [address], 11/13/2024 05:32:44 11/13/19 25 11/12/2024 CBC W/DIF F absolute eosinophils 0.1 10'3/ uL 0.0-0. 6 Not Available [facility] (Lab) [address], [place], [address], 11/13/2024 05:32:44 11/13/1911/12/2024 CBC W/DIF F absolute basophils 0.0 10'3/ uL 0.0-0. 3 Not Available [facility] (Lab) [address], [place], [address], 11/13/2024 05:32:44 11/13/1911/12/2024 CBC W/DIF F absolute [...] lee book. nm.or g/gen derx Not Available [facility] (Lab) [address], [place], [address], 11/13/2024 05:32:44 11/13/1911/12/2024 CMP(C OMPRE HENSI VE METAB OLIC PANEL ) sodium 137 mmol/ L 133-14 6 Not Available [facility] (Lab) [address], [place], [address], 11/13/2024 05:32:44 11/13/19 25 11/12/2024 CMP(C OMPRE HENSI VE METAB OLIC PANEL ) potassium 4.0 mmol/ L 3.5-5. 1 Not Available [facility] (Lab) [address], [place], [address], 11/13/2024 05:32:44 11/13/19 25 11/12/2024 CMP(C OMPRE HENSI VE METAB OLIC PANEL ) chloride 102 mmol/ L 98-107 Not Available [facility] (Lab) [address], [place], [address], 11/13/2024 05:32:44 11/13/19 25 11/12/2024 CMP(C OMPRE HENSI VE METAB OLIC PANEL ) carbon dioxide 27 mmol/ L 21-31 Not Available [facility] (Lab) [address], [place], [address], 11/13/2024 05:32:44 11/13/19 25 11/12/2024 CMP(C OMPRE HENSI VE METAB OLIC PANEL ) anion gap 8 mmol/ L 4-13 Not Available [facility] (Lab) [address], [place], [address], 11/13/2024 05:32:44 11/13/19 25 11/12/2024 CMP(C OMPRE HENSI VE METAB OLIC PANEL ) blood urea nitrogen 7 mg/dL 7-25 Not Available [facility] (Lab) [address], [place], [address], 11/13/2024 05:32:44 11/13/19 25 11/12/2024 CMP(C OMPRE HENSI VE METAB OLIC PANEL ) creatinine 0.48 mg/dL 0.60-1 .30 low Not Available [facility] (Lab) [address], [place], [address], 11/13/2024 05:32:44 11/13/19 25 11/12/2024 CMP(C OMPRE HENSI VE METAB OLIC PANEL ) egfrcr (CKD-epi 2020) >90 mL/mi n/1.7 3_m2 >=60 Not Available [facility] (Lab) [address], [place], [address], 11/13/2024 05:32:44 11/13/19 25 11/12/2024 CMP(C OMPRE HENSI VE METAB OLIC PANEL ) calcium 9.7 mg/dL 8.3-10 .5 Not Available [facility] (Lab) [address], [place], [address], 11/13/2024 05:32:44 11/13/19 25 11/12/2024 CMP(C OMPRE HENSI VE METAB OLIC PANEL ) glucose 86 mg/dL 70-100 Not Available [facility] (Lab) [address], [place], [address], 11/13/2024 05:32:44 11/13/19 25 11/12/2024 CMP(C OMPRE HENSI VE METAB OLIC PANEL ) protein, total 6.6 g/dL 6.4-8. 3 Not Available [facility] (Lab) [address], [place], [address], 11/13/2024 05:32:44 11/13/19 25 11/12/2024 CMP(C OMPRE HENSI VE METAB OLIC PANEL ) albumin 4.0 g/dL 3.5-5. 0 Not Available [facility] (Lab) [address], [place], [address], 11/13/2024 05:32:44 11/13/19 25 11/12/2024 CMP(C OMPRE HENSI VE METAB OLIC PANEL ) ALT 11 units /L 9-43 Not Available [facility] (Lab) [address], [place], [address], 11/13/2024 05:32:44 11/13/19 25 11/12/2024 CMP(C OMPRE HENSI VE METAB OLIC PANEL ) alkaline phosphatase 54 units /L 34-104 Not Available [facility] (Lab) [address], [place], [address], 11/13/2024 05:32:44 11/13/19 25 11/12/2024 CMP(C OMPRE HENSI VE METAB OLIC PANEL ) AST 10 units /L 13-39 low Not Available [facility] (Lab) [address], [place], [address], 11/13/2024 05:32:44 11/13/19 25 11/12/2024 CMP(C OMPRE HENSI VE METAB OLIC PANEL ) bilirubin, total 0.2 mg/dL 0.2-1. 2 Not Available [facility] (Lab) [address], [place], [address], 11/13/2024 05:32:44 01/15/20 25 01/14/2025 GTT - GESTA NICOLAS L LESLY N, ACOG OB glucose, 1 hour screen 141 mg/dL 70-135 high Not Available [facility] (Lab) [address] [place], [address], 01/15/2025 11:13:15 01/15/2001/14/2025 HIV 1/2 ANTIG EN/AN TIBOD Y, REFLE X CONFI RMATI ON HIV antigen/anti body Nonrea ctive nonrea ctive HIV-1 antig en and HIV-1 /HIV- 2 antib odies were not detec terra. No labor atory evide nce of HIV infec tion. Not Available [facility] (Lab) [address], [place], [address], 01/15/2025 11:13:16 01/15/2001/14/2025 HEMAT OCRIT (HCT) HCT 34.1 % (based on docume nted legal sex) 34.0-4 5.0 Not Available [facility] (Lab) [address], [place], [address], 01/15/2025 11:13:16 01/15/20 25 01/14/2025 HEMOG LOBIN (HGB) HGB 10.6 g/dL (based on docume nted legal sex) 11.6-1 5.4 low Not Available [facility] (Lab) [address], [place], [address], 01/15/2025 11:13:17 01/15/2001/14/2025 RPR SCREE N, REFLE X TITER /CONF IRMAT ION RPR qualitative Nonrea ctive nonrea ctive Not Available [facility] (Lab) [address], [place], [address], 01/15/2025 11:13:17 01/24/2001/23/2025 GTT - GESTA NICOLAS L, 3 HOUR, ACOG glucose, fasting acog 70 mg/dL 70-94 Not Available [facility] (Lab) [address], [place], [address], 01/24/2025 05:24:10 01/24/20 25 01/23/2025 GTT - GESTA NICOLAS L, 3 HOUR, ACOG glucose, 1 hour acog 150 mg/dL 70-179 Not Available [facility] (Lab) [address], [place], [address], 01/24/2025 05:24:10 01/24/20 25 01/23/2025 GTT - GESTA NICOLAS L, 3 HOUR, ACOG glucose, 2 hour acog 143 mg/dL 70-154 Not Available [facility] (Lab) [address] [place], [address], 01/24/2025 05:24:10 01/24/20 25 01/23/2025 GTT - GESTA NICOLAS L, 3 HOUR, ACOG glucose, 3 hour acog 46 mg/dL 70-139 critical low Resul ts verif ied by repea t rosanna sis. Not Available [facility] (Lab) [address] [place], [address], 01/24/2025 05:24:10 10/02/19 25 10/01/2024 US, obste tric, follo w-up No observ ation record ed. [email or web address] [facility] [address], [address], 10/08/2024 09:41:15 11/18/19 25 11/17/2024 US, obste tric, follo w-up No observ ation record ed. [address] [facility] [address], [address], 11/18/2024 12:26:24 11/19/19 25 11/17/2024 US, obste tric, follo w-up No observ ation record ed. [address] [facility] [address], [address], 11/19/2024 11:57:24 11/26/19 25 11/25/2024 US, obste tric, follo w-up No observ ation record ed. [email or web address] [facility] [address], [address], 11/26/2024 17:27:21 11/26/19 25 11/25/2024 US, obste tric, follo w-up No observ ation record ed. [email or web address] [facility] [address], [address], 11/25/2024 17:38:04 12/16/19 25 12/15/2024 US, obste tric, follo w-up No observ ation record ed. [email or web address] [address] [facility] [address], [address], 12/16/2024 06:57:29 01/13/20 25 01/12/2025 US, obste tric No observ ation record ed. [facility] [place], [address], 01/13/2025 11:43:49 01/13/2001/12/2025 US, obste tric, follo w-up No observ ation record ed. [email or web address] [facility] [address], [address], 01/13/2025 16:24:45 02/11/20 25 02/10/2025 non-s tress test No observ ation record ed. [facility] [address], [address], 02/11/2025 15:00:18 02/11/20 25 02/10/2025 US, obste tric, follo w-up No observ ation record ed. [email or web address] [facility] [address], [address], 02/11/2025 11:37:25 02/21/20 25 02/20/2025 US, obste tric, bioph ysica l profi le + non-s tress test No observ ation record ed. [facility] [address], [place], [address], 02/20/2025 16:56:43 02/21/20 25 02/20/2025 US, obste tric, bioph ysica l profi le + non-s tress test No observ ation record ed. juliano Tori [address], [place], [address], 02/23/2025 11:31:02 02/21/20 25 02/20/2025 non-s tress test No observ ation record ed. [address], [place], [address], 02/20/2025 13:47:54 02/21/20 non-s tress test No observ ation record ed. [email or web address] [facility] [address], [place], [address], 02/20/2025 12:35:53 02/26/2002/25/2025 US, obste tric, bioph ysica l profi le + non-s tress test No observ ation record ed. [email or web address] [facility] [address], [place], [address], 02/25/2025 11:49:48 02/26/2002/25/2025 US, obste tric, bioph ysica l profi le + non-s tress test No observ ation record ed. [email or web address] Tori [address], [place], [address], 03/04/2025 11:50:53 02/26/2002/25/2025 non-s tress test No observ ation record ed. [email or web address] [facility] [address], [place], [address], 02/25/2025 17:57:33 02/26/20 non-s tress test No observ ation record ed. [facility] [address], [place], [address], 02/25/2025 17:15:53 03/06/2003/06/2025 non-s tress test No observ ation record ed. [email or web address] [facility] [address], [place], [address], 03/06/2025 13:52:03 03/06/20 non-s tress test No observ ation record ed. [email or web address] [facility] [address], [place], [address], 03/06/2025 12:00:07 03/06/20 25 03/06/2025 US, obste tric, follo w-up No observ ation record ed. [email or web address] Tori [address], [place], [address], 03/07/2025 23:02:25 03/06/20 25 03/06/2025 US, obste tric, follo w-up No observ ation record ed. [facility] [address], [place], [address], 03/06/2025 13:52:39 03/06/20 25 03/06/2025 US, obste tric, bioph ysica l profi le + non-s tress test No observ ation record ed. [facility] [address], [place], [address], 03/06/2025 13:52:50 Result Notes None recorded. Problems Name Problem SNOMED Code Status Onset Date Resolution Date Notes Provider Name and Address Organization Details Recorded Time Polycyst ic ovary syndrome 670993988 Completed 201711/16/2021 Polycyst ic ovarian syndrome ;Recorde d Elsewher e: No Locat ion: [facility] S ource: EHR Coffee Farmer yan: N Susie ce ID: 0001 Edmond lable Time: 02:45:00 PM Sandhya [facility] 2 18:30:21 Finding of fertilit y Completed 201711/16/2021 Female infertil ity, unspecif ied;Tip rded Elsewher e: No Locat ion: [facility] S ource: EHR Coffee Farmer yan: N Practi ce ID: 0001 Edmond lable Time: 10:00:00 AM Sandhya [facility] 2 18:30:21 Abnormal uterine bleeding [id number] Completed 201711/16/2021 Other specifie d abnormal uterine and vaginal bleeding ;Recorde d Elsewher e: No [facility]: EHR Coffee Farmer yan: N Practi ce ID: 0001 Edmond lable Time: 09:45:00 AM Sandhya sneed [facility] 2 18:30:21 Bleeding Completed 201711/16/2021 Abnormal uterine and vaginal bleeding , unspecif ied;Tip rded Elsewher e: No Locat ion: [facility] S ource: EHR Coffee Farmer yan: N Practi ce ID: 0001 Edmond lable Time: 10:00:00 AM Sandhya sneed [facility] 2 18:30:21 Urinary tract infectio us disease [id number] Completed 201811/16/2021 Urinary tract infectio n, site not specifie d;Record ed Elsewher e: No Locat ion: [facility] S ource: EHR Coffee Farmer yan: N Practi ce ID: 0001 Edmond [...] 2 18:30:21 Gestatio n period, 9 weeks [id number] Completed 201811/16/2021 9 weeks gestatio n of pregnanc y;Practi ce ID: 0001 Sandhya sneed [facility] 2 18:30:21 Secondar y amenorrh ea [id number] Completed 201811/16/2021 Secondar y amenorrh ea;Recor ded Elsewher e: No [facility] S ource: EHR Coffee Farmer yan: N Practi ce ID: 0001 Edmond lable Time: 03:30:00 PM Sandhya [facility] 2 18:30:21 Infectio n screenin g Completed 201811/16/2021 Encounte r for screenin g for oth infec/pa rastc diseases ;Recorde d Elsewher e: No [facility] S ource: EHR Coffee Farmer yan: N Practi ce ID: 0001 Edmond lable Time: 03:30:00 PM Sandhya Key [facility] 2 18:30:[address] Concept Completed 201811/16/2021 Encntr for nurse gynecology exam (general ) (routine ) w/o abn findings ;Recorde d Elsewher e: No Locat ion: [place] [facility] S ource: EHR Coffee Farmer yan: N Practi ce ID: 0001 Edmond lable Time: 03:30:00 PM Sandhya Key [facility] 2 18:30:21 Syphilis test finding [id number] Completed 201811/16/2021 Encntr screen for infectio ns w sexl mode of transmis s;Record ed Elsewher e: No [facility] S ource: EHR Coffee Farmer yan: N Practi ce ID: 0001 Edmond lable Time: 03:30:00 PM Sandhya Key [facility] 2 18:30:21 Body mass index 30+ - obesity [id number] Completed 201811/16/2021 Body mass index (BMI) 37.0-37. 9, adult;Re corded Elsewher e: No Locat ion: [facility] S ource: EHR Coffee Farmer yan: N Practi ce ID: 0001 Edmond lable Time: 03:30:00 PM Sandhya sneed, [facility] 2 18:30:21 Chlamydi al infectio n [id number] Completed 201811/16/2021 Chlamydi al infectio n, unspecif ied;Tip rded Elsewher e: No Locat ion: [facility] S ource: EHR Coffee Farmer yan: N Practi ce ID: 0001 Edmond lable Time: 11:52:25 AM Sandhya sneed, [facility] 2 18:30:21 Normal [place] [id number] Completed 201811/16/2021 Encounte r for suprvsn of [...] ruled out;Prac jaxson ID: 0001 Sandhya sneed, [facility] 2 18:30:[address] Concept Completed 201811/16/2021 Maternal care for oth abnormal ity and damage, unsp;Pra ctice ID: 0001 Sandhya sneed, [facility] 2 18:30:21 Gestatio n period, 30 weeks [id number] Completed 201811/16/2021 30 weeks gestatio n of pregnanc y;Practi ce ID: 0001 Sandhya sneed, [facility] 2 18:30:21 Pregnanc y, childbir th and puerperi um finding Completed 201811/16/2021 Encntr for suprvsn of normal first preg, third trimeste r;Practi ce ID: 0001 Sandhya sneed, [facility] 2 18:30:21 malforma tion of central nervous system [id number] Completed 201811/16/2021 Maternal care for (suspect ed) cnsl malform in fetus, unsp;Pra ctice ID: 0001 Sandhya Key [facility], [facility] 2 18:30:21 Gestatio n period, 34 weeks [id number] Completed 201811/16/2021 34 weeks gestatio n of pregnanc y;Practi ce ID: 0001 Sandhya Key [facility] 2 18:30:[address] Concept Completed 201811/16/2021 Matern care for abnlt fetl hrt rate or rhym, unsp tri, unsp;Pra ctice ID: 0001 Sandhya sneed, [facility] 2 18:30:21 Gestatio n period, 36 weeks [id number] Completed 201811/16/2021 36 weeks gestatio n of pregnanc y;Practi ce ID: 0001 Sandhya Key [facility] 2 18:30:21 Term pregnanc y delivere d [id number] Completed 201811/16/2021 Encounte r for full-ter m uncompli cated delivery ;Practic e ID: 0001 Sandhya Key [facility] 2 18:30:21 Single live from singleto n pregnanc y [id number] Completed 201811/16/2021 Single live ;Pr actice ID: [id number] Sandhya Key [facility] 2 18:30:21 Gestatio n period, 37 weeks [id number] Completed 201811/16/2021 37 weeks gestatio n of pregnanc y;Practi ce ID: 0001 Sandhya Key [facility], [facility] 2 18:30:21 Lochia finding Completed 201911/16/2021 Encounte r for routine postpart um follow-u p;Record ed Elsewher e: No Locat ion: [facility] S ource: EHR [employer] yan: N Practi ce ID: 0001 Edmond lable Time: 08:45:00 AM Sandhya Key [facility], [facility] 2 18:30:21 Acute vaginiti s [id number] Completed 201911/16/2021 Vaginiti s;Record ed Elsewher e: No Locat ion: [facility] S ource: EHR Coffee Farmer yan: N Practi ce ID: [id number] Edmond lable Time: 01:00:00 PM Sandhya Key [facility], [facility] 2 18:30:21 Mixed anxiety and depressi ve disorder [id number] Active 2024 Paz Keller [facility], [facility] 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 5 15:07:06 Pregnanc y [id number] Active 2024 Paz Keller [facility], [facility] 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 5 15:09:19 History of heart disorder 922787867 Active 2024 first baby couple hours after Britney Monzon CNM [address], [place], [address], [facility] 5 15:26:56 Past pregnanc y history of pre-ecla mpsia 5249094266 39967 Active 2024 plan bASA 162mg Britney Monzon CNM [address], [place], [address], [facility] 5 15:27:21 History of depressi on 484955160 Active 2024 no current treatmen t Britney Monzon CNM [address], [place], [address], [facility] 5 15:37:15 Hyperten sive disorder 66697705 Active 2024 100mg labetalo l bid Britney Monzon CNM [address], [place], [address], [facility] 11:41:34 Notes:previous son had hypoplastic left heart syndrome Some problems listed in Document: #[id number] could not be added to this patient's [...] completed NUZHAT STEPHENSON MD [address], [place], [address], [facility] 09/13/2023 14:06:22 Imaging Results None recorded. [...] Prescrib ed Elsewher e: No Locat ion: [facility] odify By: bill Hurst ter DateTime : [...] Elsewher e: No Locat ion: [place] [facility] odify By: maged Hurst ter DateTime : 02/06/20 19 08:45:00 AM Not Available Not Available Not Available Zofran 4 mg tablet take 1 tablet as needed for nausea 11/17 completed Prescrib ed Elsewher e: No [facility] By: dian Hurst ter DateTime : 09/17/19 04:11:09 PM Not Available Not Available Not Available Metrogel Vaginal 0.75 % (37.5 mg/5 gram) insert 1 applicat orful by vaginal route every day at bedtime for 5 nights 11/17 completed Prescrib ed Elsewher e: No [facility] By: rahel jonas DateTime : [...] Elsewher e: No Locat ion: [place] [facility] odify By: [email or web address] jonas DateTime : 03/28/20 [...] Prescrib ed Elsewher e: No Locat ion: [facility] odify By: dian jonas DateTime : 09/17/19 [...] Address Organization Details Last Updated DateTime 5 005844. 36179 g 47.1 kg/m2 167.64 cm 167.64 cm 47.1 kg/m2 175999. 97 g 129/77 mm[Hg] 129/77 mm[Hg] Alicia Arevaloduane [facility] 12:30:37 Social History Question Answer Notes LastModified by Organizat ion Details LastModified Time Tobacco Smoking Status Never Smoker Sandhya Key [facility], [facility] 11/17/2021 10:26:20 Do You Have An Advance Directive? No Information n ot available 11/17/2021 If You Are , What Was Your Level Of Alcohol Consumption Prior To ? Occasional [email or web address] Information not available 08/15/2024 How Many Years Have You Consumed Alcohol? 8 Information not available 11/17/2021 Are You Blind Or Do You Have Difficulty Seeing? No Information n ot available 11/17/2021 What Is Your Level Of Caffeine Consumption? Moderate [email or web address] Information not available 08/15/2024 How Much Tobacco [...] Or The Highest Degree You Have Received? [id number] Information not available 11/17/2021 Are There Any Guns Present In Your Home? No Information not available 11/17/2021 Do You Use Protection During Sex? No Information not available 11/17/2021 Do You Use Your Seat Belt Or Car Seat Routinely? Yes Information not available 11/17/2021 Are You Sexually Active? Yes Information not available 11/12/2024 Do You Have [...] is your level of alcohol consumption? None [email or web address] Information not available 08/15/2024 Are you able [...] anxious, or unable to sleep at night)? [id number] [email or web address] Information not available 08/15/2024 Family History Relationship Description Onset Age of this Age Resolved Age Notes LastModified by Organization Details LastModified Time Son Hypoplastic left heart syndrome [email or web address] Not available 06/15 18:39:24 Medical History Condition Response Allergies (Food, seasonal, environmental ) N Other Y Drug/Latex Allergies/Reactions N Breast Cancer N Blood Transfusion N Lung Disease N Dermatologic Disorders N Defects or Inherited Disease N Breast Problem N Gestational Diabetes N Hematologic disorders N Anesthesia Complications N History of STI N Deep Vein Thrombosis N Polycystic ovary syndrome Y Anxiety Disorder Y Autoimmune disease N Arthritis N Polyps N Infertility N Acid Reflux (GERD) N History of abnormal pap N Cancer N Varicosities N Stroke N Neurologic/Epilepsy N Endometriosis N High Cholesterol N Fibromyalgia N Headaches N Kidney Disease [...] ICD10 Code Diagnosis IMO Codes Diagnosis Note [id number] Britney Monzon CNM [place] [address],[facility] [place] [address] 02/11/2025 11:02:03 02/11/2025 12:28:12 Gestation period, 32 weeks 8540003 Z3A.32 [id number] Dakotah Celeste MD [place] [address],[place] [address] 02/20/2025 10:19:25 02/20/2025 11:15:32 Chronic hypertension complicating AND/OR reason for care during 23290371 O10.913 O99.210 O28.0 Z3A.34 92167380 [id number] Britney Monzon CNM [place] [address],[place] [address] 02/20/2025 10:20:12 02/20/2025 12:37:20 Abnormal chromosomal and genetic finding on screening of mother 454443367 O28.5 35496679 [id number] Britney Monzon [facility] [address],[place] [address] 02/20/2025 10:20:45 02/20/2025 12:28:20 Gestation period, 34 weeks 56792769 Z3A.34 5008345 [id number] Britney Monzon [facility] [address],[place] [address] 02/25/2025 09:50:49 02/25/2025 17:36:49 Abnormal chromosomal and genetic finding on screening of mother 122574561 O28.5 78902301 [id number] Dakotah Celeste MD [place] [address],[place] [address] 02/25/2025 09:51:39 02/25/2025 10:55:41 Obesity 263778818 O99.213 O28.5 O10.013 Z3A.34 78055081 [id number] Britney Monzon [facility] [address],[place] [address] 02/25/2025 09:51:54 02/25/2025 11:24:09 Gestation period, 34 weeks 06641436 Z3A.34 6141572 [id number] Dakotah Celeste MD [place] [address] [place] [address] 03/06/2025 10:53:07 03/06/2025 13:36:58 Maternal hypertension 236304081 O16.3 O99.210 Z3A.36 3734020 [id number] Britney Monzon [facility] [address] [place] [address] 03/06/2025 10:54:53 03/06/2025 13:35:11 Abnormal finding on screening of mother 224581214 O28.5 [id number] [id number] Britney Monzon [facility] [address] [address] 03/06/2025 10:55:21 03/06/2025 13:33:29 Gestation period, 36 weeks 00739499 Z3A.36 4018923 Health Concerns Section Related Observation LastModified by Organization Detai ls LastModified Time None Recorded Concern Status LastModified by Organization Details LastModified Time None Recorded Payers Encounter Date Sequence Insurance Name Policy Number Policy Mckenna Covered Member ID Mckenna Member ID Guarantor Name 03/06/2025 1 [facility] [id number] Alex Liban [id number] Rizwana Louie Notes Date Note Type Note Provider Name and Address Organization Details Recorded Time 03/06/2025 text/html Generic HPI TemplateReported by Patient Britney Janina Monzon CNM [address], [place], [address], [facility] 03/06/2025 12:48:38 OBGyn Episode Ob Episode Information Episode Created Date Number of Fetuses Patient Bloodtype Patient rh Status Prepregnancy Weight lbs Domestic Partner Domestic Partner Phone Father Name Leak Inspector Status 09/20/19 25 1 O Positive 273 Alex Liban OPEN Fetus Data First Name Last Name Admitted to NICU Weight (g) Sex Living Outcome Pediatric Complications Fetus ID Race Codes Race Delivery Type [id number] Problems Problem Notes Problem Name Start Date End Date Resolution Snomed Code Not e History of depression 09/19/2024 [id number] no current treatment Past history of pre-eclampsia 09/19/2024 468878099002429 plan bASA 1 62mg History of heart disorder 09/19/2024 [id number] first baby pass ed away couple hours after Hypertensive disorder 12/17/2024 17122969 100mg labetalol bid 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 98270340 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 only & 11/17 us onlynormal echo 12/31- recommends eval of baby Les Calculation Initial Les Date Initial Exam Date Initial Exam Provider Initial Ultrasound Date Last Menstrual Period Date Ultra Sound Weeks Gestation 04/02/2025 08/26/2024 [email or web address] 08/14/2024 06/26/2024 6 Eighteen To Twenty Week Les Update Ultra Sound Date Fundal Height At Umbil Quickening Date Ultra Sound Latest Weeks Gestation Final Les Confirmed By Final Les Confirmed Date Final Les Date Ultra Sound Latest Days Gestation 0 [email or web address] 09/19/2024 04/02/19 26 0 Pre- Flowsheet Flowsheet Date 09/19/2024 Nevarez Score Blood Edema Fundus Height Fundus Units Glucose Ketones Leukocytes Nitrite Labor Signs Protein Cervic Dilation Cervic Effacement Cervic Station neg none none trace Type Weight in lbs Pre/Post Dialysis Refused Weight 274.392231071906 BP Diastolic BP Location Tested BP Systolic BP Type 81 140 Fetus Heart Rate Present Fetus Movement A Yes Comments reviewed [facility] notes with pt, undecided about amnio, is scheduled, will continue to follow as well, start bASA 162mg, hx 2 previous vaginal deliveries, begin care Flowsheet Date 2024 Nevarez Score Blood Edema Fundus Height Fundus Units Glucose Ketones Leukocytes Nitrite Labor Signs Protein Cervic Dilation Cervic Effacement Cervic Station Type Weight in lbs Pre/Post Dialysis Refused 278.572445482718 BP Diastolic BP Location Tested BP Systolic BP Type 85 L arm 141 sitting Fetus Heart Rate Present Fetus Movement A No Comments declined amnio first us good at [facility], has anatomy scheduled. mood good. _-FM yet precautions and educations f/u 4 weeks Flowsheet Date 11/12/2024 Nevarez Score Blood Edema Fundus Height Fundus Units Glucose Ketones Leukocytes Nitrite Labor Signs Protein Cervic Dilation Cervic Effacement Cervic Station Type Weight in lbs Pre/Post Dialysis Refused 278.347297718676 BP Diastolic BP Location Tested BP Systolic BP Type 94 L wrist 146 sitting 102 R wrist 157 sitting Fetus Heart Rate Present Fetus Movement A No Comments last us at [facility] wnl, has f/u next week +FM precautions and education f/u [address] discussed bp with dr. stephenson start labetalol 200mg bid Flowsheet Date 11/19/2024 Nevarez Score Blood Edema Fundus Height Fundus Units Glucose Ketones Leukocytes Nitrite Labor Signs Protein Cervic Dilation Cervic Effacement Cervic Station Type Weight in lbs Pre/Post Dialysis Refused Weight 279.360704797855 BP Diastolic BP Location Tested BP Systolic [...] Weight in lbs Pre/Post Dialysis Refused Weight 280.457502735080 BP Diastolic BP Location Tested BP Systolic [...] Weight in lbs Pre/Post Dialysis Refused Weight 282.058609858828 BP Diastolic BP Location Tested BP Systolic BP Type 83 L arm 126 sitting 66 L wrist 128 sitting Fetus Heart Rate Present Fetus Movement A Yes Comments per pt mfm said anatomyok, e cho unremarkable, plans to deliver at [facility] today, discuss vaccines at next visit, small odor after intercourse, will plan flagyl. education and precautions f/u 2 weeks Flowsheet Date 01/28/2025 Nevarez Score Blood Edema Fundus Height Fundus Units Glucose Ketones Leukocytes Nitrite Labor Signs Protein Cervic Dilation Cervic Effacement Cervic Station Type Weight in lbs Pre/Post Dialysis Refused Weight 283.40728741805 BP Diastolic BP Location Tested BP Systolic [...] Type Weight in lbs Pre/Post Dialysis Refused 284.848072056863 BP Diastolic BP Location Tested BP Systolic [...] Type Weight in lbs Pre/Post Dialysis Refused 285.471356008390 BP Diastolic BP Location Tested BP Systolic BP Type 84 L arm 129 sitting Fetus Heart Rate Present Fetus Movement A Yes Comments Flowsheet Date 02/20/2025 Nevarez Score Blood Edema Fundus Height Fundus Units Glucose Ketones Leukocytes Nitrite Labor Signs Protein Cervic Dilation Cervic Effacement Cervic Station Type Weight in lbs Pre/Post Dialysis Refused 285.743884097991 BP Diastolic BP Location Tested BP Systolic [...] Weight in lbs Pre/Post Dialysis Refused Weight 289.618421939968 BP Diastolic BP Location Tested BP Systolic [...] Weight in lbs Pre/Post Dialysis Refused Weight 289.251578572372 BP Diastolic BP Location Tested BP Systolic BP Type 80 L arm 124 sitting Fetus Heart Rate Present Fetus Movement A Yes Comments bpp 10/, +FM, doing well, precautions and education f/u [...] Type Weight in lbs Pre/Post Dialysis Refused 292.116097369645 BP Diastolic BP Location Tested BP Systolic BP Type 77 L arm 129 sitting Fetus Heart Rate Present Fetus Movement A Yes Comments Flowsheet Date 03/06/2025 Nevarez Score Blood Edema Fundus Height Fundus Units Glucose Ketones Leukocytes Nitrite Labor Signs Protein Cervic Dilation Cervic Effacement Cervic Station 3cm 50% -2 Type Weight in lbs Pre/Post Dialysis Refused Weight 292.538626622119 BP Diastolic BP Location Tested BP Systolic [...]
--- OUTSIDE RECORDS SUMMARY | 2025-03-08 23:25 | XMS_ITS | Continuity of Care Document ---
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 Surgeries None recorde d. Imaging US, obstetr ic, biophys ical profile + non-str ess test 2024 025 [email or web address] [place], [address], [place], [address], 02/21/2025 21:51:12 Medication Orders None recorde d. Patient TargetsNo [...] Resul ting Lab: [facility] [address] [facility] [address] Tel: CULTU RE ----- ----- ----- --- No growt h in 1 day (dete ction level of 10,00 0 colon ies / ml.) Not Available [facility] (Lab) [address], [place], [address], 09/20/2024 22:24:37 09/20/19 25 09/19/2024 drug scree n, urine Amphetamines : negati ve Not Available [place] [address], [place], [address], 09/19/2024 14:47:54 09/20/19 25 09/19/2024 drug scree n, urine Cannabinoids : negati ve Not Available [place] [address], [place], [address], 09/19/2024 14:47:54 09/20/19 25 09/19/2024 drug scree n, urine Cocaine: negati ve Not Available [place] [address], [place], [address], 09/19/2024 14:47:54 09/20/19 25 09/19/2024 drug scree n, urine Opiates: negati ve Not Available [place] [address], [place], [address], 09/19/2024 14:47:54 09/20/19 25 09/19/2024 drug scree n, urine Phenocyclidi ne: negati ve Not Available [place] [address], [place], [address], 09/19/2024 14:47:54 09/20/19 25 09/19/2024 drug scree n, urine Barbiturates : negati ve Not Available [place] [address], [place], [address], 09/19/2024 14:47:54 09/20/19 25 09/19/2024 drug scree n, urine Benzodiazepi heather: negati ve Not Available [place] [address], [place], [address], 09/19/2024 14:47:54 09/20/19 25 09/19/2024 drug scree n, urine Ethanol: negati ve Not Available [place] [address], [place], [address], 09/19/2024 14:47:54 09/20/19 25 09/19/2024 drug scree n, urine Hallucinogen s: negati ve Not Available [place] [address], [place], [address], 09/19/2024 14:47:54 09/20/19 25 09/19/2024 drug scree n, urine Inhalants: negati ve Not Available [place] [address], [place], [address], 09/19/2024 14:47:54 09/20/19 25 09/19/2024 drug scree n, urine Anabolic Steroids: negati ve Not Available [place] [address], [place], [address], 09/19/2024 14:47:54 09/20/19 25 09/19/2024 drug scree n, urine Other: negati ve Not Available [place] [address], [place], [address], 09/19/2024 14:47:54 11/13/1911/12/2024 URIC ACID uric acid 4.3 mg/dL 2.3-6. 6 Not Available [facility] (Lab) [address] [facility], [place], [address], 11/13/2024 05:32:43 11/13/19 25 11/12/2024 PROTE IN/CR EATIN INE RATIO , URINE creatinine, urine 35.1 mg/dL R-No refer ence range estab lishe d for this assay Not Available [facility] (Lab) [address] [facility], [place], [address], 11/13/2024 05:32:43 11/13/19 25 11/12/2024 PROTE IN/CR EATIN INE RATIO , URINE protein, urine <4 mg/dL R-No refer ence range estab lishe d for this assay Not Available [facility] (Lab) [address], [place], [address], 11/13/2024 05:32:43 11/13/19 25 11/12/2024 PROTE IN/CR [...] fican t prote inuri a. Not Available [facility] (Lab) [address] [facility], [place], [address], 11/13/2024 05:32:43 11/13/19 25 11/12/2024 CBC W/DIF F WBC 16.1 10'3/ uL 3.5-10 .5 high Not Available [facility] (Lab) [address], [place], [address], 11/13/2024 05:32:44 11/13/1911/12/2024 CBC W/DIF F RBC 4.47 10'6/ uL (based on docume nted legal sex) 3.80-5 .20 Not Available [facility] (Lab) [address], [place], [address], 11/13/2024 05:32:44 11/13/19 25 11/12/2024 CBC W/DIF F HGB 12.4 g/dL (based on docume nted legal sex) 11.6-1 5.4 Not Available [facility] (Lab) [address], [place], [address], 11/13/2024 05:32:44 11/13/19 25 11/12/2024 CBC W/DIF F HCT 38.6 % (based on docume nted legal sex) 34.0-4 5.0 Not Available [facility] (Lab) [address], [place], [address], 11/13/2024 05:32:44 11/13/1911/12/2024 CBC W/DIF F MCV 86.4 fL 80.0-9 9.0 Not Available [facility] (Lab) [address], [place], [address], 11/13/2024 05:32:44 11/13/1911/12/2024 CBC W/DIF F MCH 27.7 pg 27.0-3 4.0 Not Available [facility] (Lab) [address], [place], [address], 11/13/2024 05:32:44 11/13/1911/12/2024 CBC W/DIF F MCHC 32.1 g/dL 32.0-3 5.5 Not Available [facility] (Lab) [address] [place], [address], 11/13/2024 05:32:44 11/13/19 25 11/12/2024 CBC W/DIF F RDW 13.6 % 11.0-1 5.0 Not Available [facility] (Lab) [address], [place], [address], 11/13/2024 05:32:44 11/13/1911/12/2024 CBC W/DIF F plt 295 10'3/ uL 150-40 0 Not Available [facility] (Lab) [address] [facility], [place], [address], 11/13/2024 05:32:44 11/13/1911/12/2024 CBC W/DIF F MPV 10.8 fL 8.8-12 .1 Not Available [facility] (Lab) [address], [place], [address], 11/13/2024 05:32:44 11/13/19 25 11/12/2024 CBC W/DIF F NRBC's 0.0 % 0.0 Not Available [facility] (Lab) [address] [facility], [place], [address], 11/13/2024 05:32:44 11/13/19 25 11/12/2024 CBC W/DIF F absolute NRBCs 0.0 10'3/ uL no refere nce range establ ished Not Available [facility] (Lab) [address] [facility] [address], [place], [address], 11/13/2024 05:32:44 11/13/19 25 11/12/2024 CBC W/DIF F neutrophils 74.9 % 34.0-7 3.0 high Not Available [facility] (Lab) [address] [facility], [place], [address], 11/13/2024 05:32:44 11/13/19 25 11/12/2024 CBC W/DIF F lymphocytes 18.4 % 15.0-5 0.0 Not Available [facility] (Lab) [address] [facility], [place], [address], 11/13/2024 05:32:44 11/13/19 25 11/12/2024 CBC W/DIF F monocytes 5.4 % 1.0-15 .0 Not Available [facility] (Lab) [address], [place], [address], 11/13/2024 05:32:44 11/13/19 25 11/12/2024 CBC W/DIF F eosinophils 0.7 % 0.0-8. 0 Not Available [facility] (Lab) [address] [facility], [place], [address], 11/13/2024 05:32:44 11/13/19 25 11/12/2024 CBC W/DIF F basophils 0.2 % 0.0-2. 0 Not Available [facility] (Lab) [address] [facility], [place], [address], 11/13/2024 05:32:44 11/13/19 25 11/12/2024 CBC W/DIF [...] separ ately if prese nt. Not Available [facility] (Lab) [address] [facility], [place], [address], 11/13/2024 05:32:44 11/13/19 25 11/12/2024 CBC W/DIF F absolute neutrophils 12.0 10'3/ uL 1.5-8. 0 high Not Available [facility] (Lab) [address] [facility], [place], [address], 11/13/2024 05:32:44 11/13/19 25 11/12/2024 CBC W/DIF F absolute lymphocytes 3.0 10'3/ uL 1.0-4. 0 Not Available [facility] (Lab) [address] [facility], [place], [address], 11/13/2024 05:32:44 11/13/19 25 11/12/2024 CBC W/DIF F absolute monocytes 0.9 10'3/ uL 0.2-1. 0 Not Available [facility] (Lab) [address] [facility], [place], [address], 11/13/2024 05:32:44 11/13/19 25 11/12/2024 CBC W/DIF F absolute eosinophils 0.1 10'3/ uL 0.0-0. 6 Not Available [facility] (Lab) [address] [facility], [place], [address], 11/13/2024 05:32:44 11/13/19 25 11/12/2024 CBC W/DIF F absolute basophils 0.0 10'3/ uL 0.0-0. 3 Not Available [facility] (Lab) [address] [facility], [place], [address], 11/13/2024 05:32:44 11/13/1911/12/2024 CBC W/DIF F absolute immature granulocytes 0.1 10'3/ uL 0.00-0 .10 Refer ence range s for nonbi nary/ inter sex or unspe cifie d gende r patie nts have not been estab lishe d. [facility]as e [facility] for range s estab lishe d for cisge nder patie nts and evalu ate in the clini sofia clarice xt of the indiv idual patie nt: https ://la rosa book. nm.or g/gen derx Not Available [facility] (Lab) [address] [facility], [place], [address], 11/13/2024 05:32:44 11/13/19 25 11/12/2024 CMP(C OMPRE HENSI VE METAB OLIC PANEL ) sodium 137 mmol/ L 133-14 6 Not Available [facility] (Lab) [address] [facility] [address], [place], [address], 11/13/2024 05:32:44 11/13/19 25 11/12/2024 CMP(C OMPRE HENSI VE METAB OLIC PANEL ) potassium 4.0 mmol/ L 3.5-5. 1 Not Available [facility] (Lab) [address] [facility], [place], [address], 11/13/2024 05:32:44 11/13/19 25 11/12/2024 CMP(C OMPRE HENSI VE METAB OLIC PANEL ) chloride 102 mmol/ L 98-107 Not Available [facility] (Lab) [address] [facility], [place], [address], 11/13/2024 05:32:44 11/13/19 25 11/12/2024 CMP(C OMPRE HENSI VE METAB OLIC PANEL ) carbon dioxide 27 mmol/ L 21-31 Not Available [facility] (Lab) [address] [facility], [place], [address], 11/13/2024 05:32:44 11/13/19 25 11/12/2024 CMP(C OMPRE HENSI VE METAB OLIC PANEL ) anion gap 8 mmol/ L 4-13 Not Available [facility] (Lab) [address] [facility], [place], [address], 11/13/2024 05:32:44 11/13/19 25 11/12/2024 CMP(C OMPRE HENSI VE METAB OLIC PANEL ) blood urea nitrogen 7 mg/dL 7-25 Not Available [facility] (Lab) [address], [place], [address], 11/13/2024 05:32:44 11/13/19 25 11/12/2024 CMP(C OMPRE HENSI VE METAB OLIC PANEL ) creatinine 0.48 mg/dL 0.60-1 .30 low Not Available [facility] (Lab) [address] [facility], [place], [address], 11/13/2024 05:32:44 11/13/19 25 11/12/2024 CMP(C OMPRE HENSI VE METAB OLIC PANEL ) egfrcr (CKD-epi 2020) >90 mL/mi n/1.7 3_m2 >=60 Not Available [facility] (Lab) [address] [facility], [place], [address], 11/13/2024 05:32:44 11/13/19 25 11/12/2024 CMP(C OMPRE HENSI VE METAB OLIC PANEL ) calcium 9.7 mg/dL 8.3-10 .5 Not Available [facility] (Lab) [address] [facility], [place], [address], 11/13/2024 05:32:44 11/13/19 25 11/12/2024 CMP(C OMPRE HENSI VE METAB OLIC PANEL ) glucose 86 mg/dL 70-100 Not Available [facility] (Lab) [address] [facility], [place], [address], 11/13/2024 05:32:44 11/13/19 25 11/12/2024 CMP(C OMPRE HENSI VE METAB OLIC PANEL ) protein, total 6.6 g/dL 6.4-8. 3 Not Available [facility] (Lab) [address] [facility], [place], [address], 11/13/2024 05:32:44 11/13/19 25 11/12/2024 CMP(C OMPRE HENSI VE METAB OLIC PANEL ) albumin 4.0 g/dL 3.5-5. 0 Not Available [facility] (Lab) [address] [place], [address], 11/13/2024 05:32:44 11/13/19 25 11/12/2024 CMP(C OMPRE HENSI VE METAB OLIC PANEL ) ALT 11 units /L 9-43 Not Available [facility] (Lab) [address] [place], [address], 11/13/2024 05:32:44 11/13/19 25 11/12/2024 CMP(C OMPRE HENSI VE METAB OLIC PANEL ) alkaline phosphatase 54 units /L 34-104 Not Available [facility] (Lab) [address] [place], [address], 11/13/2024 05:32:44 11/13/19 25 11/12/2024 CMP(C OMPRE HENSI VE METAB OLIC PANEL ) AST 10 units /L 13-39 low Not Available [facility] (Lab) [address] [facility], [place], [address], 11/13/2024 05:32:44 11/13/19 25 11/12/2024 CMP(C OMPRE HENSI VE METAB OLIC PANEL ) bilirubin, total 0.2 mg/dL 0.2-1. 2 Not Available [facility] (Lab) [address] [place], [address], 11/13/2024 05:32:44 01/15/20 25 01/14/2025 GTT - GESTA NICOLAS L SCREE N, ACOG OB glucose, 1 hour screen 141 mg/dL 70-135 high Not Available [facility] (Lab) [address] [place], [address], 01/15/2025 11:13:15 01/15/20 25 01/14/2025 HIV 1/2 ANTIG EN/AN TIBOD Y, REFLE X CONFI RMATI ON HIV antigen/anti body Nonrea ctive nonrea ctive HIV-1 antig en and HIV-1 /HIV- 2 antib odies were not detec terra. No labor atory evide nce of HIV infec tion. Not Available [facility] (Lab) [address] [place], [address], 01/15/2025 11:13:16 01/15/20 25 01/14/2025 HEMAT OCRIT (HCT) HCT 34.1 % (based on docume nted legal sex) 34.0-4 5.0 Not Available [facility] (Lab) [address] [place], [address], 01/15/2025 11:13:16 01/15/2001/14/2025 HEMOG LOBIN (HGB) HGB 10.6 g/dL (based on docume nted legal sex) 11.6-1 5.4 low Not Available [facility] (Lab) [address] [facility], [place], [address], 01/15/2025 11:13:17 01/15/2001/14/2025 RPR SCREE N, REFLE X TITER /CONF IRMAT ION RPR qualitative Nonrea ctive nonrea ctive Not Available [facility] (Lab) [address] [facility], [place], [address], 01/15/2025 11:13:17 01/24/20 25 01/23/2025 GTT - GESTA NICOLAS L, 3 HOUR, ACOG glucose, fasting acog 70 mg/dL 70-94 Not Available [facility] (Lab) [address] [place], [address], 01/24/2025 05:24:10 01/24/20 25 01/23/2025 GTT - GESTA NICOLAS L, 3 HOUR, ACOG glucose, 1 hour acog 150 mg/dL 70-179 Not Available [facility] (Lab) [address] [place], [address], 01/24/2025 05:24:10 01/24/20 25 01/23/2025 GTT - GESTA NICOLAS L, 3 HOUR, ACOG glucose, 2 hour acog 143 mg/dL 70-154 Not Available [facility] (Lab) [address] [place], [address], 01/24/2025 05:24:10 01/24/20 25 01/23/2025 GTT - GESTA NICOLAS L, 3 HOUR, ACOG glucose, 3 hour acog 46 mg/dL 70-139 critical low Resul ts verif ied by repea t rosanna sis. Not Available [facility] (Lab) [address], [place], [address], 01/24/2025 05:24:10 10/02/19 25 10/01/2024 US, obste tric, follo w-up No observ ation record ed. [address] [facility] [address], [address], 10/08/2024 09:41:15 11/18/19 25 11/17/2024 US, obste tric, follo w-up No observ ation record ed. [address] [facility] [address], [address], 11/18/2024 12:26:24 11/19/19 25 11/17/2024 US, obste tric, follo w-up No observ ation record ed. [address] [facility] [address], [address], 11/19/2024 11:57:24 11/26/19 25 11/25/2024 US, obste tric, follo w-up No observ ation record ed. [email or web address] [facility] [address], [address], 11/26/2024 17:27:21 11/26/19 25 11/25/2024 US, obste tric, follo w-up No observ ation record ed. [email or web address] [facility] [address] [place] [address], [address], 11/25/2024 17:38:04 12/16/19 25 12/15/2024 US, obste tric, follo w-up No observ ation record ed. [address] [facility] [address] [place] [address], [address], 12/16/2024 06:57:29 01/13/20 25 01/12/2025 US, obste tric No observ ation record ed. [email or web address] [facility] [address] [place] [address], [address], 01/13/2025 11:43:49 01/13/20 25 01/12/2025 US, obste tric, follo w-up No observ ation record ed. [email or web address] [facility] [address], [address], 01/13/2025 16:24:45 02/11/20 25 02/10/2025 non-s tress test No observ ation record ed. [facility] [address], [address], 02/11/2025 15:00:18 02/11/20 25 02/10/2025 US, obste tric, follo w-up No observ ation record ed. [email or web address] [facility] [address], [address], 02/11/2025 11:37:25 02/21/20 25 02/20/2025 US, obste tric, bioph ysica l profi le + non-s tress test No observ ation record ed. [email or web address] [address], [place], [address], 02/20/2025 16:56:43 02/21/20 25 02/20/2025 US, obste tric, bioph ysica l profi le + non-s tress test No observ ation record ed. juliano Valle [address], [place], [address], 02/23/2025 11:31:02 02/21/20 25 02/20/2025 non-s tress test No observ ation record ed. [address], [place], [address], 02/20/2025 13:47:54 02/21/20 non-s tress test No observ ation record ed. [email or web address] [place] [address], [place], [address], 02/20/2025 12:35:53 02/26/20 25 02/25/2025 US, obste tric, bioph ysica l profi le + non-s tress test No observ ation record ed. [email or web address] [place] [address], [place], [address], 02/25/2025 11:49:48 02/26/2002/25/2025 US, obste tric, bioph ysica l profi le + non-s tress test No observ ation record ed. [email or web address] Tori [address], [place], [address], 03/04/2025 11:50:53 02/26/20 25 02/25/2025 non-s tress test No observ ation record ed. [email or web address] [place] [address], [place], [address], 02/25/2025 17:57:33 02/26/20 non-s tress test No observ ation record ed. [email or web address] [place] [address], [place], [address], 02/25/2025 17:15:53 03/06/2003/06/2025 non-s tress test No observ ation record ed. michele [place] [address], [place], [address], 03/06/2025 13:52:03 03/06/20 non-s tress test No observ ation record ed. [email or web address] [place] [address], [place], [address], 03/06/2025 12:00:07 03/06/20 25 03/06/2025 US, obste tric, follo w-up No observ ation record ed. [email or web address] Tori [address], [place], [address], 03/07/2025 23:02:25 03/06/20 25 03/06/2025 US, obste tric, follo w-up No observ ation record ed. [facility] [address], [place], [address], 03/06/2025 13:52:39 03/06/2003/06/2025 US, obste tric, bioph ysica l profi le + non-s tress test No observ ation record ed. [facility] [address], [place], [address], 03/06/2025 13:52:50 Result Notes None recorded. 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 2 18:30:21 Finding of fertilit y Completed 201711/16/2021 Female infertil ity, unspecif ied;Tip rded Elsewher e: No Locat ion: [facility] S ource: [employer]ist yan: N Susie ce ID: 0001 Edmond lable Time: 10:00:00 AM Sandhya [facility] 2 18:30:21 Abnormal uterine bleeding [id number] Completed 201711/16/2021 Other specifie d abnormal uterine and vaginal bleeding ;Recorde d Elsewher e: No Locat ion: [facility] S ource: [employer]ist yan: N Practi ce ID: 0001 Edmond lable Time: 09:45:00 AM [facility] 18:30:21 Bleeding Completed 201711/16/2021 Abnormal uterine and vaginal bleeding , unspecif ied;Tip rded Elsewher e: No Locat ion: [facility] S ource: [employer]ist yan: N Practi ce ID: 0001 Edmond lable Time: 10:00:00 AM Sandhya [facility] 2 18:30:21 Urinary tract infectio us disease [id number] Completed 201811/16/2021 Urinary tract infectio n, site not specifie d;Record ed Elsewher e: No Locat ion: [facility] S ource: [employer]ist yan: N Practi ce ID: [id number] Edmond [...] 2 18:30:21 Gestatio n period, 9 weeks [id number] Completed 201811/16/2021 9 weeks gestatio n of pregnanc y;Practi ce ID: 0001 Sandhya sneed, [facility] 2 18:30:21 Secondar y amenorrh ea [id number] Completed 201811/16/2021 Secondar y amenorrh ea;Recor ded Elsewher e: No Locat ion: [place] [facility] S ource: [employer] Specialist yan: N Carolynnti ce ID: 0001 Edmond lable Time: 03:30:00 PM Sandhya [facility] 2 18:30:21 Infectio n screenin g Completed 201811/16/2021 Encounte r for screenin g for oth infec/pa rastc diseases ;Recorde d Elsewher e: No [facility] S ource: [employer]ist yan: N Carolynnti ce ID: 0001 Edmond lable Time: 03:30:00 PM Sandhya [facility] 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 2 18:30:21 Syphilis test finding [id number] Completed 201811/16/2021 Encntr screen for infectio ns w sexl mode of transmis s;Record ed Elsewher e: No [facility] S ource: [employer]ist yan: N Practi ce ID: [id number] Edmond lable Time: 03:30:00 PM Sandhya [facility] 2 18:30:21 Body mass index 30+ - obesity [id number] Completed 201811/16/2021 Body mass index (BMI) 37.0-37. 9, adult;Re corded Elsewher e: No Locat ion: [place] [facility] S ource: [employer] Specialist yan: N Practi ce ID: [email or web address] Edmond lable Time: 03:30:00 PM Sandhya sneed, [facility] 2 18:30:21 Chlamydi al infectio n [id number] Completed 201811/16/2021 Chlamydi al infectio n, unspecif ied;Tip rded Elsewher e: No Locat ion: [facility] S ource: [employer] Specialist yan: N Practi ce ID: 0001 Edmond lable Time: 11:52:25 AM Sandhya sneed, [facility] 2 18:30:21 [place] [id number] Completed 201811/16/2021 Encounte r for suprvsn of normal pregnanc y, first trimeste r;Practi ce ID: 0001 [facility]ed [facility] and damage, unsp;Pra ctice ID: 0001 Sandhya sneed [facility] 2 18:30:21 Gestatio n period, 30 weeks [id number] Completed 201811/16/2021 30 weeks gestatio n of pregnanc y;Practi ce ID: 0001 Sandhya sneed, [facility] 2 18:30:21 Pregnanc y, childbir th and puerperi um finding Completed 201811/16/2021 Encntr for suprvsn of normal first preg, third trimeste r;Practi ce ID: 0001 Sandhya sneed, [facility] 2 18:30:21 malforma tion of central nervous system [id number] Completed 201811/16/2021 Maternal care for (suspect ed) cnsl malform in fetus, unsp;Pra ctice ID: 0001 Sandhya sneed, [facility] 2 18:30:21 Gestatio n period, 34 weeks [id number] Completed 201811/16/2021 34 weeks gestatio n of pregnanc y;Practi ce ID: [address] [facility], [facility] 2 18:30:[address] Concept Completed 201811/16/2021 Matern care for abnlt fetl hrt rate or rhym, unsp tri, unsp;Pra ctice ID: 0001 Sandhya sneed, [facility] 2 18:30:21 Gestatio n period, 36 weeks [id number] Completed 201811/16/2021 36 weeks gestatio n of pregnanc y;Practi ce ID: [address] [facility], [facility] 2 18:30:21 Term pregnanc y delivere d [id number] Completed 201811/16/2021 Encounte r for full-ter m uncompli cated delivery ;Practic e ID: 0001 Sandhya sneed, [facility] 2 18:30:21 Single live from singleto n pregnanc y [id number] Completed 201811/16/2021 Single live ;Pr actice ID: 0001 Sandhya sneed, [facility] 2 18:30:21 Gestatio n period, 37 weeks [id number] Completed 201811/16/2021 37 weeks gestatio n of pregnanc y;Practi ce ID: 0001 Sandhya sneed, [facility] 2 18:30:21 Lochia finding Completed 201911/16/2021 Encounte r for routine postpart um follow-u p;Record ed Elsewher e: No Locat ion: [facility] S ource: [employer]ist yan: N Practi ce ID: [id number] Edmond lable Time: 08:45:00 AM Sandhya sneed, [facility] [facility] 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 2 18:30:21 Mixed anxiety and depressi ve disorder 410810001 Active [address] [facility], [facility] 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, [facility] 5 15:07:06 Pregnanc y 73939562 Active [address] [facility], [facility] 5 15:07:38 chromoso mal abnormal ity affectin g obstetri sofia care 11898475 Active 2024 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, seeing [facility]FM [facility] office Schedule d 10/20 us only & 11/17 us only normal echo 12/31- recommen ds postnata l eval of baby Katiana Roger null, [facility] 5 15:09:19 History of heart disorder 012345856 Active 2024 first baby couple hours after Britney Monzon CNM [address], [place], [address], [facility] 5 15:26:56 Past pregnanc y history of pre-ecla mpsia 6241694595 24082 Active 2024 plan bASA 162mg Britney Monzon CNM [address], [place], [address], [facility] 5 15:27:21 History of depressi on 473771961 Active 2024 no current treatmen t Britney Monzon CNM [address], [place], [address], [facility] 5 15:37:15 Hyperten sive disorder 08107721 Active 2024 100mg labetalo l bid Britney Monzon CNM [address], [place], [address], [facility] 5 11:41:34 Notes:previous son had hypoplastic left heart syndrome Some problems listed in Document: #[id number] could not be added to this patient's [...] completed NUZHAT STEPHENSON MD [address], [place], [address], [facility] 09/13/2023 14:06:22 Imaging Results None [...] Prescrib ed Elsewher e: No Locat ion: [facility] odify By: bill Hurst ter DateTime : [...] Prescrib ed Elsewher e: No Locat ion: [facility] odify By: [email or web address] Hurst ter DateTime : 02/06/20 19 08:45:00 AM Not Available Not Available Not Available Zofran 4 mg tablet take 1 tablet as needed for nausea 11/17 completed Prescrib ed Elsewher e: No Locat ion: [facility] odify By: [email or web address] Hurst ter DateTime : 09/17/19 19 04:11:09 PM Not Available Not Available Not Available Metrogel Vaginal 0.75 % (37.5 mg/5 gram) insert 1 applicat orful by vaginal route every day at bedtime for 5 nights 11/17 completed Prescrib ed Elsewher e: No [facility] By: rahel jonas DateTime : 07/07/19 [...] Prescrib ed Elsewher e: No [facility] By: [email or web address] Hurst ter DateTime : 03/28/20 10:00:00 AM [...] Prescrib ed Elsewher e: No [facility] By: dian jonas DateTime : 09/17/19 [...] Address Organization Details Last Updated DateTime 02/20/2025 899093.82 545 g 46 kg/m2 167.64 cm 129/84 mm[Hg] Lashonda Bhagat [facility] 02/20/2025 12:04:17 Date Recorded Body weight Systolic And Diastolic Provider Name and Address Organization Details Last Updated DateTime 02/20/2025 185040.95710 g 129/84 mm[Hg] Alicia Peng [facility] 02/20/2025 12:33:40 Social History Question Answer Notes LastModified by Organizat ion Details LastModified Time Tobacco Smoking Status Never Smoker Sandhya [facility], [facility] 11/17/2021 10:26:20 Do You Have An Advance Directive? No Information n ot available 11/17/2021 If You Are , What Was Your Level Of Alcohol Consumption Prior To ? Occasional [email or web address] Information not available 08/15/2024 How Many Years Have You Consumed Alcohol? 8 Information not available 11/17/2021 Are You Blind Or Do You Have Difficulty Seeing? No Information n ot available 11/17/2021 What Is Your Level Of Caffeine Consumption? Moderate [email or web address] Information not available 08/15/2024 How Much Tobacco [...] Or The Highest Degree You Have Received? [id number] Information not available 11/17/2021 Are There Any Guns Present In Your Home? No Information not available 11/17/2021 Do You Use Protection During Sex? No Information not available 11/17/2021 Do You Use Your Seat Belt Or Car Seat Routinely? Yes Information not available 11/17/2021 Are You Sexually Active? Yes [email or web address] Information not available 11/12/2024 Do You Have [...] is your level of alcohol consumption? None [email or web address] Information not available 08/15/2024 Are you able [...] anxious, or unable to sleep at night)? [id number] [email or web address] Information not available 08/15/2024 Family History Relationship Description Onset Age of this Age Resolved Age Notes LastModified by Organization Details LastModified Time Son Hypoplastic left heart syndrome [email or web address] Not available 06/15 18:39:24 Medical History Condition [...] ICD10 Code Diagnosis IMO Codes Diagnosis Note [id number] Britney Monzon CNM [place] [address],[facility] [place] [address] 01/28/2025 10:12:44 01/28/2025 11:11:44 Gestation period, 30 weeks 40499730 Z3A.30 1796836 [id number] Britney Monzon CNM [place] [address],[facility] [place] [address] 02/11/2025 11:02:03 02/11/2025 12:28:12 Gestation period, 32 weeks 6357220 Z3A.32 9642905 [id number] Dakotah Celeste MD [place] [address],[place] [address] 02/20/2025 10:19:25 02/20/2025 11:15:32 Chronic hypertension complicating AND/OR reason for care during 76480258 O10.913 O99.210 O28.0 Z3A.34 65581590 [id number] Britney Monzon CNM [place] [address],[place] [address] 02/20/2025 10:20:12 02/20/2025 12:37:20 Abnormal chromosomal and genetic finding on screening of mother 180208310 O28.5 89251698 [id number] Britney Monzon CNM [place] [address],[place] [address] 02/20/2025 10:20:45 02/20/2025 12:28:20 Gestation period, 34 weeks 59431264 Z3A.34 [id number] Health Concerns Section Related Observation LastModified by Organization Detai ls LastModified Time None Recorded Concern Status LastModified by Organization Details LastModified Time None Recorded Payers Encounter Date Sequence Insurance Name Policy Number Policy Mckenna Covered Member ID Mckenna Member ID Guarantor Name 02/20/2025 1 [facility] [id number] Alex Louie [id number] Rizwana Louie Notes Date Note Type Note Provider Name and Address Organization Details Recorded Time 02/20/2025 text/html Generic HPI TemplateReported by Patient Britney Monzon CNM [address], [place], [address], [facility] 02/20/2025 12:27:34 OBGyn Episode Ob Episode Information Episode Created Date Number of Fetuses Patient Bloodtype Patient rh Status Prepregnancy Weight lbs Domestic Partner Domestic Partner Phone Father Name Electric Blanket Packer Status 09/20/19 25 1 O Positive 273 Alex Louie OPEN Fetus Data First Name Last Name Admitted to NICU Weight (g) Sex Living Outcome Pediatric Complications Fetus ID Race Codes Race Delivery Type [id number] Problems Problem Notes Problem Name Start Date End Date Resolution Snomed Code Not e History of depression 09/19/2024 845117059 no current treatment Past history of pre-eclampsia 09/19/2024 299363667824982 plan bASA 1 62mg History of heart disorder 09/19/2024 943529758 first baby pass ed away couple hours after Hypertensive disorder 12/17/2024 60505277 100mg labetalol bid 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 59413718 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, seeing [facility] office Scheduled 10/20 us only & 11/17 us onlynormal echo 12/31- recommends eval of baby Les Calculation Initial Les Date Initial Exam Date Initial Exam Provider Initial Ultrasound Date Last Menstrual Period Date Ultra Sound Weeks Gestation 04/02/2025 08/26/2024 [email or web address] 08/14/2024 06/26/2024 6 Eighteen To Twenty Week Les Update Ultra Sound Date Fundal Height At Umbil Quickening Date Ultra Sound Latest Weeks Gestation Final Les Confirmed By Final Les Confirmed Date Final Les Date Ultra Sound Latest Days Gestation 0 [email or web address] 09/19/2024 04/02/19 26 0 Pre- Flowsheet Flowsheet Date 09/19/2024 Nevarez Score Blood Edema Fundus Height Fundus Units Glucose Ketones Leukocytes Nitrite Labor Signs Protein Cervic Dilation Cervic Effacement Cervic Station neg none none trace Type Weight in lbs Pre/Post Dialysis Refused Weight 274.096653541638 BP Diastolic BP Location Tested BP Systolic BP Type 81 140 Fetus Heart Rate Present Fetus Movement A Yes Comments reviewed [facility] notes with pt, undecided about amnio, is scheduled, will continue to follow as well, start bASA 162mg, hx 2 previous vaginal deliveries, begin care Flowsheet Date 2024 Nevarez Score Blood Edema Fundus Height Fundus Units Glucose Ketones Leukocytes Nitrite Labor Signs Protein Cervic Dilation Cervic Effacement Cervic Station Type Weight in lbs Pre/Post Dialysis Refused 278.098440401324 BP Diastolic BP Location Tested BP Systolic BP Type 85 L arm 141 sitting Fetus Heart Rate Present Fetus Movement A No Comments declined amnio first us good at [facility], has anatomy scheduled. mood good. _-FM yet precautions and educations f/u 4 weeks Flowsheet Date 11/12/2024 Nevarez Score Blood Edema Fundus Height Fundus Units Glucose Ketones Leukocytes Nitrite Labor Signs Protein Cervic Dilation Cervic Effacement Cervic Station Type Weight in lbs Pre/Post Dialysis Refused 278.067694660748 BP Diastolic BP Location Tested BP Systolic BP Type 94 L wrist 146 sitting 102 R wrist 157 sitting Fetus Heart Rate Present Fetus Movement A No Comments last us at [facility] wnl, has f/u next week +FM precautions and education f/u 4 weeks[address] discussed bp with dr. stephenson start labetalol 200mg bid Flowsheet Date 11/19/2024 Nevarez Score Blood Edema Fundus Height Fundus Units Glucose Ketones Leukocytes Nitrite Labor Signs Protein Cervic Dilation Cervic Effacement Cervic Station Type Weight in lbs Pre/Post Dialysis Refused Weight 279.135265996882 BP Diastolic BP Location Tested BP Systolic BP Type 79 L arm 128 sitting Fetus Heart Rate Present A 154 Fetus Movement A Yes Comments +FM doing well, bp's normote nsive on labetalol, cont to monitor, denies any sxs. precautions and education f/u [facility] as scheduled Flowsheet Date 12/17/2024 Nevarez Score Blood Edema Fundus Height Fundus Units Glucose Ketones Leukocytes Nitrite Labor Signs Protein Cervic Dilation Cervic Effacement Cervic Station Type Weight in lbs Pre/Post Dialysis Refused Weight 280.754608121641 BP Diastolic BP Location Tested BP Systolic BP Type 82 L arm 129 sitting Fetus Heart Rate Present Fetus Movement A Yes Comments +FM [facility] f/u with anatomy and plans echo, precautions and education f/u 4 weeks with glucose Flowsheet Date 01/14/2025 Nevarez Score Blood Edema Fundus Height Fundus Units Glucose Ketones Leukocytes Nitrite Labor Signs Protein Cervic Dilation Cervic Effacement Cervic Station Type Weight in lbs Pre/Post Dialysis Refused Weight 282.717537579636 BP Diastolic BP Location Tested BP Systolic BP Type 83 L arm 126 sitting 66 L wrist 128 sitting Fetus Heart Rate Present Fetus Movement A Yes Comments per pt [facility] said anatomyok, e cho unremarkable, plans to deliver [facility] today, discuss vaccines at next visit, small odor after intercourse, will plan flagyl. education and precautions f/u 2 weeks Flowsheet Date 01/28/2025 Nevarez Score Blood Edema Fundus Height Fundus Units Glucose Ketones Leukocytes Nitrite Labor Signs Protein Cervic Dilation Cervic Effacement Cervic Station Type Weight in lbs Pre/Post Dialysis Refused Weight 283.03657876772 BP Diastolic BP Location Tested BP Systolic [...] Type Weight in lbs Pre/Post Dialysis Refused 284.256950007988 BP Diastolic BP Location Tested BP Systolic [...] Type Weight in lbs Pre/Post Dialysis Refused 285.721010122480 BP Diastolic BP Location Tested BP Systolic BP Type 84 L arm 129 sitting Fetus Heart Rate Present Fetus Movement A Yes Comments Flowsheet Date 02/20/2025 Nevarez Score Blood Edema Fundus Height Fundus Units Glucose Ketones Leukocytes Nitrite Labor Signs Protein Cervic Dilation Cervic Effacement Cervic Station Type Weight in lbs Pre/Post Dialysis Refused 285.283845935371 BP Diastolic BP Location Tested BP Systolic [...] Weight in lbs Pre/Post Dialysis Refused Weight 289.451151628473 BP Diastolic BP Location Tested BP Systolic [...] Weight in lbs Pre/Post Dialysis Refused Weight 289.996258422270 BP Diastolic BP Location Tested BP Systolic [...] Type Weight in lbs Pre/Post Dialysis Refused 292.559061653392 BP Diastolic BP Location Tested BP Systolic BP Type 77 L arm 129 sitting Fetus Heart Rate Present Fetus Movement A Yes Comments Flowsheet Date 03/06/2025 Nevarez Score Blood Edema Fundus Height Fundus Units Glucose Ketones Leukocytes Nitrite Labor Signs Protein Cervic Dilation Cervic Effacement Cervic Station 3cm 50% -2 Type Weight in lbs Pre/Post Dialysis Refused Weight 292.596269132739 BP Diastolic BP Location Tested BP Systolic [...]
--- OUTSIDE RECORDS SUMMARY | 2025-03-08 23:25 | XMS_ITS | Continuity of Care Document ---
Author Organization [facility] Address [address] [place] [address] Care Team Providers Care Smasher Hand Name Role Phone MONIQUEARGENTINA KARON Primary Care Provider [phone] Assessment Encounter Date Assessment Date Assessment LastModified by Organization Details LastModified Time 02/25/2025 02/25/2025 Patient is _34__weeks . Discussed plan. Not available 02/25/2025 11:17:59 Plan of Treatment Reminders Order Date Submit [...] Resul ting Lab: [facility] [address] [facility] [address] Tel: CULTU RE ----- ----- ----- --- No growt h in 1 day (dete ction level of 10,00 0 colon ies / ml.) Not Available [facility] (Lab) [address], [place], [address], 09/20/2024 22:24:37 09/20/19 25 09/19/2024 drug scree n, urine Amphetamines : negati ve Not Available [facility] [address], [place], [address], 09/19/2024 14:47:54 09/20/19 25 09/19/2024 drug scree n, urine Cannabinoids : negati ve Not Available [place] [address], [place], [address], 09/19/2024 14:47:54 09/20/19 25 09/19/2024 drug scree n, urine Cocaine: negati ve Not Available [place] [address], [place], [address], 09/19/2024 14:47:54 09/20/19 25 09/19/2024 drug scree n, urine Opiates: negati ve Not Available [place] [address], [place], [address], 09/19/2024 14:47:54 09/20/19 25 09/19/2024 drug scree n, urine Phenocyclidi ne: negati ve Not Available [place] [address], [place], [address], 09/19/2024 14:47:54 09/20/19 25 09/19/2024 drug scree n, urine Barbiturates : negati ve Not Available [place] [address], [place], [address], 09/19/2024 14:47:54 09/20/19 25 09/19/2024 drug scree n, urine Benzodiazepi heather: negati ve Not Available [place] [address], [place], [address], 09/19/2024 14:47:54 09/20/19 25 09/19/2024 drug scree n, urine Ethanol: negati ve Not Available [place] [address], [place], [address], 09/19/2024 14:47:54 09/20/19 25 09/19/2024 drug scree n, urine Hallucinogen s: negati ve Not Available [place] [address], [place], [address], 09/19/2024 14:47:54 09/20/19 25 09/19/2024 drug scree n, urine Inhalants: negati ve Not Available [place] [place] [address], [place], [address], 09/19/2024 14:47:54 09/20/19 25 09/19/2024 drug scree n, urine Anabolic Steroids: negati ve Not Available [place] [place] [address], [place], [address], 09/19/2024 14:47:54 09/20/19 25 09/19/2024 drug scree n, urine Other: negati ve Not Available [place] [place] [address], [place], [address], 09/19/2024 14:47:54 11/13/1911/12/2024 URIC ACID uric acid 4.3 mg/dL 2.3-6. 6 Not Available [facility] (Lab) [address], [place], [address], 11/13/2024 05:32:43 11/13/19 25 11/12/2024 PROTE IN/CR EATIN INE RATIO , URINE creatinine, urine 35.1 mg/dL R-No refer ence range estab lishe d for this assay Not Available [facility] (Lab) [address], [place], [address], 11/13/2024 05:32:43 11/13/19 25 11/12/2024 PROTE IN/CR EATIN INE RATIO , URINE protein, urine <4 mg/dL R-No refer ence range estab lishe d for this assay Not Available [facility] (Lab) [address], [place], [address], 11/13/2024 05:32:43 11/13/19 25 11/12/2024 PROTE IN/CR [...] fican t prote inuri a. Not Available [facility] (Lab) [address], [place], [address], 11/13/2024 05:32:43 11/13/19 25 11/12/2024 CBC W/DIF F WBC 16.1 10'3/ uL 3.5-10 .5 high Not Available [facility] (Lab) [address] [place], [address], 11/13/2024 05:32:44 11/13/19 25 11/12/2024 CBC W/DIF F RBC 4.47 10'6/ uL (based on docume nted legal sex) 3.80-5 .20 Not Available [facility] (Lab) [address], [place], [address], 11/13/2024 05:32:44 11/13/19 25 11/12/2024 CBC W/DIF F HGB 12.4 g/dL (based on docume nted legal sex) 11.6-1 5.4 Not Available [facility] (Lab) [address], [place], [address], 11/13/2024 05:32:44 11/13/19 25 11/12/2024 CBC W/DIF F HCT 38.6 % (based on docume nted legal sex) 34.0-4 5.0 Not Available [facility] (Lab) [address], [place], [address], 11/13/2024 05:32:44 11/13/19 25 11/12/2024 CBC W/DIF F MCV 86.4 fL 80.0-9 9.0 Not Available [facility] (Lab) [address], [place], [address], 11/13/2024 05:32:44 11/13/1911/12/2024 CBC W/DIF F MCH 27.7 pg 27.0-3 4.0 Not Available [facility] (Lab) [address], [place], [address], 11/13/2024 05:32:44 11/13/19 25 11/12/2024 CBC W/DIF F MCHC 32.1 g/dL 32.0-3 5.5 Not Available [facility] (Lab) [address], [place], [address], 11/13/2024 05:32:44 11/13/19 25 11/12/2024 CBC W/DIF F RDW 13.6 % 11.0-1 5.0 Not Available [facility] (Lab) [address], [place], [address], 11/13/2024 05:32:44 11/13/19 25 11/12/2024 CBC W/DIF F plt 295 10'3/ uL 150-40 0 Not Available [facility] (Lab) [address], [place], [address], 11/13/2024 05:32:44 11/13/19 25 11/12/2024 CBC W/DIF F MPV 10.8 fL 8.8-12 .1 Not Available [facility] (Lab) [address], [place], [address], 11/13/2024 05:32:44 11/13/19 25 11/12/2024 CBC W/DIF F NRBC's 0.0 % 0.0 Not Available [facility] (Lab) [address], [place], [address], 11/13/2024 05:32:44 11/13/19 25 11/12/2024 CBC W/DIF F absolute NRBCs 0.0 10'3/ uL no refere nce range establ ished Not Available [facility] (Lab) [address], [place], [address], 11/13/2024 05:32:44 11/13/1911/12/2024 CBC W/DIF F neutrophils 74.9 % 34.0-7 3.0 high Not Available [facility] (Lab) [address], [place], [address], 11/13/2024 05:32:44 11/13/19 25 11/12/2024 CBC W/DIF F lymphocytes 18.4 % 15.0-5 0.0 Not Available [facility] (Lab) [address], [place], [address], 11/13/2024 05:32:44 11/13/19 25 11/12/2024 CBC W/DIF F monocytes 5.4 % 1.0-15 .0 Not Available [facility] (Lab) [address], [place], [address], 11/13/2024 05:32:44 11/13/19 25 11/12/2024 CBC W/DIF F eosinophils 0.7 % 0.0-8. 0 Not Available [facility] (Lab) [address], [place], [address], 11/13/2024 05:32:44 11/13/19 25 11/12/2024 CBC W/DIF F basophils 0.2 % 0.0-2. 0 Not Available [facility] (Lab) [address], [place], [address], 11/13/2024 05:32:44 11/13/19 25 11/12/2024 CBC W/DIF [...] separ ately if prese nt. Not Available [facility] (Lab) [address], [place], [address], 11/13/2024 05:32:44 11/13/19 25 11/12/2024 CBC W/DIF F absolute neutrophils 12.0 10'3/ uL 1.5-8. 0 high Not Available [facility] (Lab) [address] [place], [address], 11/13/2024 05:32:44 11/13/19 25 11/12/2024 CBC W/DIF F absolute lymphocytes 3.0 10'3/ uL 1.0-4. 0 Not Available [facility] (Lab) [address] [facility] [place], [address], 11/13/2024 05:32:44 11/13/1911/12/2024 CBC W/DIF F absolute monocytes 0.9 10'3/ uL 0.2-1. 0 Not Available [facility] (Lab) [address], [place], [address], 11/13/2024 05:32:44 11/13/19 25 11/12/2024 CBC W/DIF F absolute eosinophils 0.1 10'3/ uL 0.0-0. 6 Not Available [facility] (Lab) [address], [place], [address], 11/13/2024 05:32:44 11/13/1911/12/2024 CBC W/DIF F absolute basophils 0.0 10'3/ uL 0.0-0. 3 Not Available [facility] (Lab) [address], [place], [address], 11/13/2024 05:32:44 11/13/1911/12/2024 CBC W/DIF F absolute [...] lee book. nm.or g/gen derx Not Available [facility] (Lab) [address], [place], [address], 11/13/2024 05:32:44 11/13/1911/12/2024 CMP(C OMPRE HENSI VE METAB OLIC PANEL ) sodium 137 mmol/ L 133-14 6 Not Available [facility] (Lab) [address], [place], [address], 11/13/2024 05:32:44 11/13/19 25 11/12/2024 CMP(C OMPRE HENSI VE METAB OLIC PANEL ) potassium 4.0 mmol/ L 3.5-5. 1 Not Available [facility] (Lab) [address], [place], [address], 11/13/2024 05:32:44 11/13/19 25 11/12/2024 CMP(C OMPRE HENSI VE METAB OLIC PANEL ) chloride 102 mmol/ L 98-107 Not Available [facility] (Lab) [address], [place], [address], 11/13/2024 05:32:44 11/13/19 25 11/12/2024 CMP(C OMPRE HENSI VE METAB OLIC PANEL ) carbon dioxide 27 mmol/ L 21-31 Not Available [facility] (Lab) [address], [place], [address], 11/13/2024 05:32:44 11/13/19 25 11/12/2024 CMP(C OMPRE HENSI VE METAB OLIC PANEL ) anion gap 8 mmol/ L 4-13 Not Available [facility] (Lab) [address], [place], [address], 11/13/2024 05:32:44 11/13/19 25 11/12/2024 CMP(C OMPRE HENSI VE METAB OLIC PANEL ) blood urea nitrogen 7 mg/dL 7-25 Not Available [facility] (Lab) [address], [place], [address], 11/13/2024 05:32:44 11/13/19 25 11/12/2024 CMP(C OMPRE HENSI VE METAB OLIC PANEL ) creatinine 0.48 mg/dL 0.60-1 .30 low Not Available [facility] (Lab) [address], [place], [address], 11/13/2024 05:32:44 11/13/19 25 11/12/2024 CMP(C OMPRE HENSI VE METAB OLIC PANEL ) egfrcr (CKD-epi 2020) >90 mL/mi n/1.7 3_m2 >=60 Not Available [facility] (Lab) [address], [place], [address], 11/13/2024 05:32:44 11/13/19 25 11/12/2024 CMP(C OMPRE HENSI VE METAB OLIC PANEL ) calcium 9.7 mg/dL 8.3-10 .5 Not Available [facility] (Lab) [address], [place], [address], 11/13/2024 05:32:44 11/13/19 25 11/12/2024 CMP(C OMPRE HENSI VE METAB OLIC PANEL ) glucose 86 mg/dL 70-100 Not Available [facility] (Lab) [address], [place], [address], 11/13/2024 05:32:44 11/13/19 25 11/12/2024 CMP(C OMPRE HENSI VE METAB OLIC PANEL ) protein, total 6.6 g/dL 6.4-8. 3 Not Available [facility] (Lab) [address], [place], [address], 11/13/2024 05:32:44 11/13/19 25 11/12/2024 CMP(C OMPRE HENSI VE METAB OLIC PANEL ) albumin 4.0 g/dL 3.5-5. 0 Not Available [facility] (Lab) [address], [place], [address], 11/13/2024 05:32:44 11/13/19 25 11/12/2024 CMP(C OMPRE HENSI VE METAB OLIC PANEL ) ALT 11 units /L 9-43 Not Available [facility] (Lab) [address], [place], [address], 11/13/2024 05:32:44 11/13/19 25 11/12/2024 CMP(C OMPRE HENSI VE METAB OLIC PANEL ) alkaline phosphatase 54 units /L 34-104 Not Available [facility] (Lab) [address], [place], [address], 11/13/2024 05:32:44 11/13/19 25 11/12/2024 CMP(C OMPRE HENSI VE METAB OLIC PANEL ) AST 10 units /L 13-39 low Not Available [facility] (Lab) [address], [place], [address], 11/13/2024 05:32:44 11/13/19 25 11/12/2024 CMP(C OMPRE HENSI VE METAB OLIC PANEL ) bilirubin, total 0.2 mg/dL 0.2-1. 2 Not Available [facility] (Lab) [address], [place], [address], 11/13/2024 05:32:44 01/15/20 25 01/14/2025 GTT - GESTA NICOLAS L LESLY N, ACOG OB glucose, 1 hour screen 141 mg/dL 70-135 high Not Available [facility] (Lab) [address] [place], [address], 01/15/2025 11:13:15 01/15/2001/14/2025 HIV 1/2 ANTIG EN/AN TIBOD Y, REFLE X CONFI RMATI ON HIV antigen/anti body Nonrea ctive nonrea ctive HIV-1 antig en and HIV-1 /HIV- 2 antib odies were not detec terra. No labor atory evide nce of HIV infec tion. Not Available [facility] (Lab) [address], [place], [address], 01/15/2025 11:13:16 01/15/2001/14/2025 HEMAT OCRIT (HCT) HCT 34.1 % (based on docume nted legal sex) 34.0-4 5.0 Not Available [facility] (Lab) [address], [place], [address], 01/15/2025 11:13:16 01/15/20 25 01/14/2025 HEMOG LOBIN (HGB) HGB 10.6 g/dL (based on docume nted legal sex) 11.6-1 5.4 low Not Available [facility] (Lab) [address], [place], [address], 01/15/2025 11:13:17 01/15/2001/14/2025 RPR SCREE N, REFLE X TITER /CONF IRMAT ION RPR qualitative Nonrea ctive nonrea ctive Not Available [facility] (Lab) [address], [place], [address], 01/15/2025 11:13:17 01/24/2001/23/2025 GTT - GESTA NICOLAS L, 3 HOUR, ACOG glucose, fasting acog 70 mg/dL 70-94 Not Available [facility] (Lab) [address], [place], [address], 01/24/2025 05:24:10 01/24/20 25 01/23/2025 GTT - GESTA NICOLAS L, 3 HOUR, ACOG glucose, 1 hour acog 150 mg/dL 70-179 Not Available [facility] (Lab) [address], [place], [address], 01/24/2025 05:24:10 01/24/20 25 01/23/2025 GTT - GESTA NICOLAS L, 3 HOUR, ACOG glucose, 2 hour acog 143 mg/dL 70-154 Not Available [facility] (Lab) [address] [place], [address], 01/24/2025 05:24:10 01/24/20 25 01/23/2025 GTT - GESTA NICOLAS L, 3 HOUR, ACOG glucose, 3 hour acog 46 mg/dL 70-139 critical low Resul ts verif ied by repea t rosanna sis. Not Available [facility] (Lab) [address] [facility] [place], [address], 01/24/2025 05:24:10 10/02/19 25 10/01/2024 US, obste tric, follo w-up No observ ation record ed. [email or web address] [facility] [address], [address], 10/08/2024 09:41:15 11/18/19 25 11/17/2024 US, obste tric, follo w-up No observ ation record ed. [address] [facility] [address], [address], 11/18/2024 12:26:24 11/19/19 25 11/17/2024 US, obste tric, follo w-up No observ ation record ed. [address] [facility] [address], [address], 11/19/2024 11:57:24 11/26/19 25 11/25/2024 US, obste tric, follo w-up No observ ation record ed. [facility] [address], [address], 11/26/2024 17:27:21 11/26/19 25 11/25/2024 US, obste tric, follo w-up No observ ation record ed. [email or web address] [facility] [address], [address], 11/25/2024 17:38:04 12/16/19 25 12/15/2024 US, obste tric, follo w-up No observ ation record ed. [email or web address] [address] [facility] [address], [address], 12/16/2024 06:57:29 01/13/20 25 01/12/2025 US, obste tric No observ ation record ed. [email or web address] [facility] [place], [address], 01/13/2025 11:43:49 01/13/2001/12/2025 US, obste tric, follo w-up No observ ation record ed. [email or web address] [facility] [address], [address], 01/13/2025 16:24:45 02/11/20 25 02/10/2025 non-s tress test No observ ation record ed. [email or web address] [facility] [address], [address], 02/11/2025 15:00:18 02/11/20 25 02/10/2025 US, obste tric, follo w-up No observ ation record ed. [email or web address] [facility] [address], [address], 02/11/2025 11:37:25 02/21/20 25 02/20/2025 US, obste tric, bioph ysica l profi le + non-s tress test No observ ation record ed. [facility] [address], [place], [address], 02/20/2025 16:56:43 02/21/20 25 02/20/2025 US, obste tric, bioph ysica l profi le + non-s tress test No observ ation record ed. juliano Tori [address], [place], [address], 02/23/2025 11:31:02 02/21/20 25 02/20/2025 non-s tress test No observ ation record ed. [address], [place], [address], 02/20/2025 13:47:54 02/21/20 non-s tress test No observ ation record ed. [place] [place] [address], [place], [address], 02/20/2025 12:35:53 02/26/2002/25/2025 US, obste tric, bioph ysica l profi le + non-s tress test No observ ation record ed. [email or web address] [place] [address], [place], [address], 02/25/2025 11:49:48 02/26/2002/25/2025 US, obste tric, bioph ysica l profi le + non-s tress test No observ ation record ed. [email or web address] Tori [address], [place], [address], 03/04/2025 11:50:53 02/26/2002/25/2025 non-s tress test No observ ation record ed. [email or web address] [place] [place] [address], [place], [address], 02/25/2025 17:57:33 02/26/20 non-s tress test No observ ation record ed. [email or web address] [place] [place] [address], [place], [address], 02/25/2025 17:15:53 03/06/2003/06/2025 non-s tress test No observ ation record ed. [email or web address] [place] [address], [place], [address], 03/06/2025 13:52:03 03/06/20 non-s tress test No observ ation record ed. [email or web address] [place] [address], [place], [address], 03/06/2025 12:00:07 03/06/20 25 03/06/2025 US, obste tric, follo w-up No observ ation record ed. [email or web address] Tori [address], [place], [address], 03/07/2025 23:02:25 03/06/20 25 03/06/2025 US, obste tric, follo w-up No observ ation record ed. [facility] [address], [place], [address], 03/06/2025 13:52:39 03/06/20 25 03/06/2025 US, obste tric, bioph ysica l profi le + non-s tress test No observ ation record ed. [facility] [address], [place], [address], 03/06/2025 13:52:50 Result Notes None recorded. Problems Name Problem SNOMED Code Status Onset Date Resolution Date Notes Provider Name and Address Organization Details Recorded Time Polycyst ic ovary syndrome 749251862 Completed 201711/16/2021 Polycyst ic ovarian syndrome ;Recorde d Elsewher e: No Locat ion: [facility] S ource: EHR Breadman yan: N Susie ce ID: 0001 Edmond lable Time: 02:45:00 PM Sandhya [facility] 2 18:30:21 Finding of fertilit y Completed 201711/16/2021 Female infertil ity, unspecif ied;Tip rded Elsewher e: No Locat ion: [facility] S ource: EHR Breadman yan: N Practi ce ID: [id number] Edmond lable Time: 10:00:00 AM Sandhya [facility] 2 18:30:21 Abnormal uterine bleeding [id number] Completed 201711/16/2021 Other specifie d abnormal uterine and vaginal bleeding ;Recorde d Elsewher e: No [facility]: EHR Breadman yan: N Practi ce ID: [id number] Edmond lable Time: 09:45:00 AM Sandhya sneed [facility] 2 18:30:21 Bleeding Completed 201711/16/2021 Abnormal uterine and vaginal bleeding , unspecif ied;Tip rded Elsewher e: No Locat ion: [facility] S ource: EHR Breadman yan: N Practi ce ID: [id number] Edmond lable Time: 10:00:00 AM Sandhya sneed [facility] 2 18:30:21 Urinary tract infectio us disease [id number] Completed 201811/16/2021 Urinary tract infectio n, site not specifie d;Record ed Elsewher e: No Locat ion: [facility] S ource: EHR Breadman yan: N Practi ce ID: [id number] Edmond lable Time: 04:15:00 PM Sandhya sneed [facility] 2 18:30:21 Pregnanc y detectio n examinat ion Completed 201811/16/2021 Encounte r for pregnanc y test, result positive ;Practic e ID: 0001 Sandhya sneed [facility] 2 18:30:21 Uterine size for dates discrepa ncy Completed 201811/16/2021 Uterine size-johann e discrepa ncy, first trimeste r;Practi ce ID: 0001 Sandhya sneed, [facility] 2 18:30:21 Gestatio n period, 9 weeks [id number] Completed 201811/16/2021 9 weeks gestatio n of pregnanc y;Practi ce ID: 0001 Sandhya sneed [facility] 2 18:30:21 Secondar y amenorrh ea [id number] Completed 201811/16/2021 Secondar y amenorrh ea;Recor ded Elsewher e: No [facility] S ource: EHR Breadman yan: N Practi ce ID: 0001 Edmond lable Time: 03:30:00 PM Sandhya [facility] 2 18:30:21 Infectio n screenin g Completed 201811/16/2021 Encounte r for screenin g for oth infec/pa rastc diseases ;Recorde d Elsewher e: No [facility] S ource: EHR Breadman yan: N Practi ce ID: [id number] Edmond lable Time: 03:30:00 PM Sandhya [facility] 2 18:30:[address] Concept Completed 201811/16/2021 Encntr for director of enrollment exam (general ) (routine ) w/o abn findings ;Recorde d Elsewher e: No Locat ion: [place] perfect[facility] S ource: EHR Breadman yan: N Practi ce ID: 0001 Edmond lable Time: 03:30:00 PM Sandhya [facility] 2 18:30:21 Syphilis test finding [id number] Completed 201811/16/2021 Encntr screen for infectio ns w sexl mode of transmis s;Record ed Elsewher e: No [facility] S ource: EHR Breadman yan: N Practi ce ID: [id number] Edmond lable Time: 03:30:00 PM Sandhya [facility] 2 18:30:21 Body mass index 30+ - obesity [id number] Completed 201811/16/2021 Body mass index (BMI) 37.0-37. 9, adult;Re corded Elsewher e: No Locat ion: [facility] S ource: EHR Breadman yan: N Practi ce ID: [id number] Edmond lable Time: 03:30:00 PM Sandhya sneed, [facility] 2 18:30:21 Chlamydi al infectio n [id number] Completed 201811/16/2021 Chlamydi al infectio n, unspecif ied;Tip rded Elsewher e: No Locat ion: [facility] S ource: EHR Breadman yan: N Practi ce ID: [id number] Edmond lable Time: 11:52:25 AM Sandhya sneed, [facility] 2 18:30:21 [place] [id number] Completed 201811/16/2021 Encounte r for suprvsn of normal pregnanc y, first trimeste r;Practi ce ID: 0001 Sandhya sneed, [facility] 2 18:30:21 Antenata l screenin g Completed 201811/16/2021 Encounte r for other specifie d antenata l screenin g;Practi ce ID: 0001 Sandhya sneed, [facility] 2 18:30:21 Medical examinat ion for suspecte d conditio n Completed 201811/16/2021 Encntr for oth suspecte d maternal and cond ruled out;Prac jaxson ID: 0001 Sandhya sneed, [facility] 2 18:30:[address] Concept Completed 201811/16/2021 Maternal care for oth abnormal ity and damage, unsp;Pra ctice ID: 0001 Sandhya sneed, [facility] 2 18:30:21 Gestatio n period, 30 weeks [id number] Completed 201811/16/2021 30 weeks gestatio n of pregnanc y;Practi ce ID: 0001 Sandhya sneed, [facility] 2 18:30:21 Pregnanc y, childbir th and puerperi um finding Completed 201811/16/2021 Encntr for suprvsn of normal first preg, third trimeste r;Practi ce ID: 0001 Sandhya sneed, [facility] 2 18:30:21 malforma tion of central nervous system [id number] Completed 201811/16/2021 Maternal care for (suspect ed) cnsl malform in fetus, unsp;Pra ctice ID: 0001 Sandhya Key [facility], [facility] 2 18:30:21 Gestatio n period, 34 weeks [id number] Completed 201811/16/2021 34 weeks gestatio n of pregnanc y;Practi ce ID: 0001 Sandhya Key [facility] 2 18:30:[address] Concept Completed 201811/16/2021 Matern care for abnlt fetl hrt rate or rhym, unsp tri, unsp;Pra ctice ID: 0001 Sandhya sneed, [facility] 2 18:30:21 Gestatio n period, 36 weeks [id number] Completed 201811/16/2021 36 weeks gestatio n of pregnanc y;Practi ce ID: 0001 Sandhya Key [facility] 2 18:30:21 Term pregnanc y delivere d [id number] Completed 201811/16/2021 Encounte r for full-ter m uncompli cated delivery ;Practic e ID: 0001 Sandhya Key [facility] 2 18:30:21 Single live from singleto n pregnanc y [id number] Completed 201811/16/2021 Single live ;Pr actice ID: 0001 Sandhya Key [facility] 2 18:30:21 Gestatio n period, 37 weeks [id number] Completed 201811/16/2021 37 weeks gestatio n of pregnanc y;Practi ce ID: [id number] Sandhya Key [facility], [facility] 2 18:30:21 Lochia finding Completed 201911/16/2021 Encounte r for routine postpart um follow-u p;Record ed Elsewher e: No Locat ion: [facility] S ource: EHR Breadman yan: N Practi ce ID: [id number] Edmond lable Time: 08:45:00 AM Sandhya Key [facility], [facility] 2 18:30:21 Acute vaginiti s [id number] Completed 201911/16/2021 Vaginiti s;Record ed Elsewher e: No Locat ion: [facility] S ource: EHR Breadman yan: N Practi ce ID: [id number] Edmond lable Time: 01:00:00 PM Sandhya Key [facility], [facility] 2 18:30:21 Mixed anxiety and depressi ve disorder 634843710 Active 2024 Paz Keller [facility], [facility] 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 5 15:07:06 Pregnanc y 94429309 Active 2024 Paz Keller [facility], [facility] 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 5 15:09:19 History of heart disorder 631558374 Active 2024 first baby couple hours after Britney Monzon CNM [address], [place], [address], [facility] 5 15:26:56 Past pregnanc y history of pre-ecla mpsia 3703734597 16274 Active 2024 plan bASA 162mg Britney Monzon CNM [address], [place], [address], [facility] 5 15:27:21 History of depressi on 448896923 Active 2024 no current treatmen t Birtney Monzon CNM [address], [place], [address], [facility] 5 15:37:15 Hyperten sive disorder 50310561 Active 2024 100mg labetalo l bid Britney Monzon CNM [address], [place], [address], [facility] 11:41:34 Notes:previous son had hypoplastic left heart syndrome Some problems listed in Document: #[id number] could not be added to this patient's chart. Please review this document and add these problems to the patient's chart manually as needed. Problem Notes None recorded. Procedures Surgical History Date Name Laterality Status Provider Name and Address Organization Details Recorded Time 5 Date of Last Pap Smear completed Paz Keller [facility] 08/15/2024 17:09:24 4 SIS completed NUZHAT STEPHENSON MD [address], [place], [address], [facility] 09/13/2023 14:06:22 Imaging Results None recorded. [...] Elsewher e: No Locat ion: [facility] odify By: maged Hurst ter DateTime : 02/06/20 19 08:45:00 AM Not Available Not Available Not Available Zofran 4 mg tablet take 1 tablet as needed for nausea 11/17 completed Prescrib ed Elsewher e: No [facility] By: dian Hurst ter DateTime : 09/17/19 04:11:09 PM Not Available Not Available Not Available Metrogel Vaginal 0.75 % (37.5 mg/5 gram) insert 1 applicat orful by vaginal route every day at bedtime for 5 nights 11/17 completed Prescrib ed Elsewher e: No [facility] By: rahel jonas DateTime : [...] ed Elsewher e: No Locat ion: [facility] odify By: [email or web address] jonas DateTime : 03/28/20 [...] [facility] odify By: dian jonas DateTime [...] Updated DateTime 02/25/2025 167.64 cm 46.6 kg/m2 556203.19 g 124/80 mm[Hg] Alicia Peng [facility] 02/25/2025 17:13:19 Date Recorded Body height Body mass index (BMI) Body weight Systolic And Diastolic Provider Name and Address Organization Details Last Updated DateTime 02/25/2025 167.64 cm 46.6 kg/m2 259597.19 g 124/80 mm[Hg] DANA LEE [facility] 02/25/2025 10:55:42 Social History Question Answer Notes LastModified by Organizat ion Details LastModified Time Tobacco Smoking Status Never Smoker Sandhya Key naren [facility] 11/17/2021 10:26:20 Do You Have An Advance Directive? No Information n ot available 11/17/2021 If You Are , What Was Your Level Of Alcohol Consumption Prior To ? Occasional [email or web address] Information not available 08/15/2024 How Many Years Have You Consumed Alcohol? 8 Information not available 11/17/2021 Are You Blind Or Do You Have Difficulty Seeing? No Information n ot available 11/17/2021 What Is Your Level Of Caffeine Consumption? Moderate [email or web address] Information not available 08/15/2024 How Much Tobacco [...] Or The Highest Degree You Have Received? [id number] Information not available 11/17/2021 Are There Any Guns Present In Your Home? No Information not available 11/17/2021 Do You Use Protection During Sex? No Information not available 11/17/2021 Do You Use Your Seat Belt Or Car Seat Routinely? Yes Information not available 11/17/2021 Are You Sexually Active? Yes [email or web address] Information not available 11/12/2024 Do You Have [...] is your level of alcohol consumption? None [email or web address] Information not available 08/15/2024 Are you able [...] anxious, or unable to sleep at night)? [id number] [email or web address] Information not available 08/15/2024 Family History Relationship Description Onset Age of this Age Resolved Age Notes LastModified by Organization Details LastModified Time Son Hypoplastic left heart syndrome [email or web address] Not available 06/15 18:39:24 Medical History Condition [...] ICD10 Code Diagnosis IMO Codes Diagnosis Note [id number] Britney Monzon CNM [place] [address],[facility] [place] [address] 01/28/2025 10:12:44 01/28/2025 11:11:44 Gestation period, 30 weeks 98340122 Z3A.30 5549240 [id number] Britney Monzon CNM [place] [address],[facility] [place] [address] 02/11/2025 11:02:03 02/11/2025 12:28:12 Gestation period, 32 weeks 5600580 Z3A.32 9857853 [id number] Dakotah Celeste MD [place] [address],[place] [address] 02/20/2025 10:19:25 02/20/2025 11:15:32 Chronic hypertension complicating AND/OR reason for care during 08204150 O10.913 O99.210 O28.0 Z3A.34 05864901 [id number] Britney Monzon [facility] [address],[place] [address] 02/20/2025 10:20:12 02/20/2025 12:37:20 Abnormal chromosomal and genetic finding on screening of mother O28.5 46138010 [id number] Britney Monzon [facility] [address],[place] [address] 02/20/2025 10:20:45 02/20/2025 12:28:20 Gestation period, 34 weeks 53825076 Z3A.34 3571882 [id number] Britney Monzon [place] [address],[place] [address] 02/25/2025 09:50:49 02/25/2025 17:36:49 Abnormal chromosomal and genetic finding on screening of mother 116642571 O28.5 64844960 [id number] Dakotah Celeste MD [place] [address],[place] [address] 02/25/2025 09:51:39 02/25/2025 10:55:41 Obesity 949919361 O99.213 O28.5 O10.013 Z3A.34 45211818 138143 Britney Monzon [facility] [address],[place] [address] 02/25/2025 09:51:54 02/25/2025 11:24:09 Gestation period, 34 weeks 34661915 Z3A.34 9505127 Health Concerns Section Related Observation LastModified by Organization Detai ls LastModified Time None Recorded Concern Status LastModified by Organization Details LastModified Time None Recorded Payers Encounter Date Sequence Insurance Name Policy Number Policy Mckenna Covered Member ID Mckenna Member ID Guarantor Name 02/25/2025 1 [facility] [id number] Alex Louie [id number] Rizwana Liban Notes Date Note Type Note Provider Name and Address Organization Details Recorded Time 02/25/2025 text/html Generic HPI TemplateReported by Patient Britney Janina Monzon CNM [address], [place], [address], [place] [facility] 02/25/2025 11:18:23 OBGyn Episode Ob Episode Information Episode Created Date Number of Fetuses Patient Bloodtype Patient rh Status Prepregnancy Weight lbs Domestic Partner Domestic Partner Phone Father Name Campaign Specialist Status 09/20/19 25 1 O Positive [phone] Alex Louie OPEN Fetus Data First Name Last Name Admitted to NICU Weight (g) Sex Living Outcome Pediatric Complications Fetus ID Race Codes Race Delivery Type [id number] Problems Problem Notes Problem Name Start Date End Date Resolution Snomed Code Not e History of depression 09/19/2024 [id number] no current treatment Past history of pre-eclampsia 09/19/2024 [id number] plan bASA 1 62mg History of heart disorder 09/19/2024 305209453 first baby pass ed away couple hours after Hypertensive disorder 12/17/2024 31094243 100mg labetalol bid 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 office Scheduled 10/20 us only & 11/17 us onlynormal echo 12/31- recommends eval of baby Les Calculation Initial Les Date Initial Exam Date Initial Exam Provider Initial Ultrasound Date Last Menstrual Period Date Ultra Sound Weeks Gestation 04/02/2025 08/26/2024 [email or web address] 08/14/2024 06/26/2024 6 Eighteen To Twenty Week Les Update Ultra Sound Date Fundal Height At Umbil Quickening Date Ultra Sound Latest Weeks Gestation Final Les Confirmed By Final Les Confirmed Date Final Les Date Ultra Sound Latest Days Gestation 0 [email or web address] 09/19/2024 04/02/19 26 0 Pre- Flowsheet Flowsheet Date 09/19/2024 Nevarez Score Blood Edema Fundus Height Fundus Units Glucose Ketones Leukocytes Nitrite Labor Signs Protein Cervic Dilation Cervic Effacement Cervic Station neg none none trace Type Weight in lbs Pre/Post Dialysis Refused Weight 274.784884178625 BP Diastolic BP Location Tested BP Systolic BP Type 81 140 Fetus Heart Rate Present Fetus Movement A Yes Comments reviewed [facility] notes with pt, undecided about amnio, is scheduled, will continue to follow as well, start bASA 162mg, hx 2 previous vaginal deliveries, begin care Flowsheet Date 2024 Nevarez Score Blood Edema Fundus Height Fundus Units Glucose Ketones Leukocytes Nitrite Labor Signs Protein Cervic Dilation Cervic Effacement Cervic Station Type Weight in lbs Pre/Post Dialysis Refused 278.311665385277 BP Diastolic BP Location Tested BP Systolic [...] Type Weight in lbs Pre/Post Dialysis Refused 278.720456675507 BP Diastolic BP Location Tested BP Systolic [...] Weight in lbs Pre/Post Dialysis Refused Weight 279.288346909774 BP Diastolic BP Location Tested BP Systolic [...] Weight in lbs Pre/Post Dialysis Refused Weight 280.782523311242 BP Diastolic BP Location Tested BP Systolic [...] Weight in lbs Pre/Post Dialysis Refused Weight 282.480932173432 BP Diastolic BP Location Tested BP Systolic BP Type 83 L arm 126 sitting 66 L wrist 128 sitting Fetus Heart Rate Present Fetus Movement A Yes Comments per pt mfm said anatomyok, e cho unremarkable, plans to deliver at [facility], gct today, discuss vaccines at next visit, small odor after intercourse, will plan flagyl. education and precautions f/u 2 weeks Flowsheet Date 01/28/2025 Nevarez Score Blood Edema Fundus Height Fundus Units Glucose Ketones Leukocytes Nitrite Labor Signs Protein Cervic Dilation Cervic Effacement Cervic Station Type Weight in lbs Pre/Post Dialysis Refused Weight 283.52268628398 BP Diastolic BP Location Tested BP Systolic [...] Type Weight in lbs Pre/Post Dialysis Refused 284.843034640569 BP Diastolic BP Location Tested BP Systolic [...] Type Weight in lbs Pre/Post Dialysis Refused 285.611092816845 BP Diastolic BP Location Tested BP Systolic BP Type 84 L arm 129 sitting Fetus Heart Rate Present Fetus Movement A Yes Comments Flowsheet Date 02/20/2025 Nevarez Score Blood Edema Fundus Height Fundus Units Glucose Ketones Leukocytes Nitrite Labor Signs Protein Cervic Dilation Cervic Effacement Cervic Station Type Weight in lbs Pre/Post Dialysis Refused 285.412885039286 BP Diastolic BP Location Tested BP Systolic BP Type 84 L arm 129 sitting Fetus Heart Rate Present Fetus Movement A Yes Comments bpp 10, doing well +FM, i ol scheduled reviewed IOL date with md, precautions and education f/u one week plan gbs, preadmit scheduled Flowsheet Date 02/25/2025 Nevarez Score Blood Edema Fundus Height Fundus Units Glucose Ketones Leukocytes Nitrite Labor Signs Protein Cervic Dilation Cervic Effacement Cervic Station Type Weight in lbs Pre/Post Dialysis Refused Weight 289.461899342615 BP Diastolic BP Location Tested BP Systolic [...] Weight in lbs Pre/Post Dialysis Refused Weight 289.926599859222 BP Diastolic BP Location Tested BP Systolic BP Type 80 L arm 124 sitting Fetus Heart Rate Present Fetus Movement A Yes Comments bpp 10, +FM, doing well, precautions and education f/u [...] Type Weight in lbs Pre/Post Dialysis Refused 292.339969861490 BP Diastolic BP Location Tested BP Systolic BP Type 77 L arm 129 sitting Fetus Heart Rate Present Fetus Movement A Yes Comments Flowsheet Date 03/06/2025 Nevarez Score Blood Edema Fundus Height Fundus Units Glucose Ketones Leukocytes Nitrite Labor Signs Protein Cervic Dilation Cervic Effacement Cervic Station 3cm 50% -2 Type Weight in lbs Pre/Post Dialysis Refused Weight 292.746605068987 BP Diastolic BP Location Tested BP Systolic [...]
--- OUTSIDE RECORDS SUMMARY | 2025-03-08 23:25 | XMS_ITS | Continuity of Care Document ---
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 Discussed plan. Not available 12/17/2024 11:42:00 Plan of Treatment Reminders Order Date Submit [...] Resul ting Lab: [facility] [address] [facility] [address] Tel: CULTU RE ----- ----- ----- --- No growt h in 1 day (dete ction level of 10,00 0 colon ies / ml.) Not Available [facility] (Lab) [address] [facility], [place], [address], 09/20/2024 22:24:37 09/20/19 25 09/19/2024 drug scree n, urine Amphetamines : negati ve Not Available [facility] [address], [place], [address], 09/19/2024 14:47:54 09/20/19 25 09/19/2024 drug scree n, urine Cannabinoids : negati ve Not Available [facility] [address], [place], [address], 09/19/2024 14:47:54 09/20/19 25 09/19/2024 drug scree n, urine Cocaine: negati ve Not Available [facility] [address], [place], [address], 09/19/2024 14:47:54 09/20/19 25 09/19/2024 drug scree n, urine Opiates: negati ve Not Available [facility] [address], [place], [address], 09/19/2024 14:47:54 09/20/19 25 09/19/2024 drug scree n, urine Phenocyclidi ne: negati ve Not Available [facility] [address], [place], [address], 09/19/2024 14:47:54 09/20/19 25 09/19/2024 drug scree n, urine Barbiturates : negati ve Not Available [facility] [address], [place], [address], 09/19/2024 14:47:54 09/20/19 25 09/19/2024 drug scree n, urine Benzodiazepi heather: negati ve Not Available [facility] [address], [place], [address], 09/19/2024 14:47:54 09/20/19 25 09/19/2024 drug scree n, urine Ethanol: negati ve Not Available [facility] [address], [place], [address], 09/19/2024 14:47:54 09/20/19 25 09/19/2024 drug scree n, urine Hallucinogen s: negati ve Not Available [facility] [address], [place], [address], 09/19/2024 14:47:54 09/20/19 25 09/19/2024 drug scree n, urine Inhalants: negati ve Not Available [facility] [address], [place], [address], 09/19/2024 14:47:54 09/20/19 25 09/19/2024 drug scree n, urine Anabolic Steroids: negati ve Not Available [facility] [address], [place], [address], 09/19/2024 14:47:54 09/20/19 25 09/19/2024 drug scree n, urine Other: negati ve Not Available [facility] [address], [place], [address], 09/19/2024 14:47:54 11/13/1911/12/2024 URIC ACID uric acid 4.3 mg/dL 2.3-6. [address] [facility] (Lab) [address] [facility], [place], [address], 11/13/2024 05:32:43 11/13/19 25 11/12/2024 PROTE IN/CR EATIN INE RATIO , URINE creatinine, urine 35.1 mg/dL R-No refer ence range estab lishe d for this assay Not Available [facility] (Lab) [address] [facility], [place], [address], 11/13/2024 05:32:43 11/13/19 25 11/12/2024 PROTE IN/CR EATIN INE RATIO , URINE protein, urine <4 mg/dL R-No refer ence range estab lishe d for this assay Not Available [facility] (Lab) [address] [facility], [place], [address], 11/13/2024 05:32:43 11/13/19 25 11/12/2024 PROTE IN/CR [...] fican t prote inuri a. Not Available [facility] (Lab) [address] [facility], [place], [address], 11/13/2024 05:32:43 11/13/19 25 11/12/2024 CBC W/DIF F WBC 16.1 10'3/ uL 3.5-10 .[address] [facility] (Lab) [address] [place], [address], 11/13/2024 05:32:44 11/13/19 25 11/12/2024 CBC W/DIF F RBC 4.47 10'6/ uL (based on docume nted legal sex) 3.80-[address] [facility] (Lab) [address] [facility], [place], [address], 11/13/2024 05:32:44 11/13/19 25 11/12/2024 CBC W/DIF F HGB 12.4 g/dL (based on docume nted legal sex) 11.6-[address] [facility] (Lab) [address] [facility], [place], [address], 11/13/2024 05:32:44 11/13/19 25 11/12/2024 CBC W/DIF F HCT 38.6 % (based on docume nted legal sex) 34.0-[address] [facility] (Lab) [address] [facility], [place], [address], 11/13/2024 05:32:44 11/13/19 25 11/12/2024 CBC W/DIF F MCV 86.4 fL 80.0-[address] [facility] (Lab) [address] [facility], [place], [address], 11/13/2024 05:32:44 11/13/1911/12/2024 CBC W/DIF F MCH 27.7 pg 27.0-[address] [facility] (Lab) [address] [facility], [place], [address], 11/13/2024 05:32:44 11/13/19 25 11/12/2024 CBC W/DIF F MCHC 32.1 g/dL 32.0-[address] [facility] (Lab) [address] [facility], [place], [address], 11/13/2024 05:32:44 11/13/19 25 11/12/2024 CBC W/DIF F RDW 13.6 % 11.0-[address] [facility] (Lab) [address], [place], [address], 11/13/2024 05:32:44 11/13/19 25 11/12/2024 CBC W/DIF F plt 295 10'3/ uL 150-[address] [facility] (Lab) [address], [place], [address], 11/13/2024 05:32:44 11/13/19 25 11/12/2024 CBC W/DIF F MPV 10.8 fL 8.8-[address] [facility] (Lab) [address], [place], [address], 11/13/2024 05:32:44 11/13/19 25 11/12/2024 CBC W/DIF F NRBC's 0.0 % 0.[address] [facility] (Lab) [address], [place], [address], 11/13/2024 05:32:44 11/13/19 25 11/12/2024 CBC W/DIF F absolute NRBCs 0.0 10'3/ uL no refere nce range establ ished Not Available [facility] (Lab) [address], [place], [address], 11/13/2024 05:32:44 11/13/1911/12/2024 CBC W/DIF F neutrophils 74.9 % 34.0-7 3[address] [facility] (Lab) [address] [facility], [place], [address], 11/13/2024 05:32:44 11/13/19 25 11/12/2024 CBC W/DIF F lymphocytes 18.4 % 15.0-[address] [facility] (Lab) [address], [place], [address], 11/13/2024 05:32:44 11/13/19 25 11/12/2024 CBC W/DIF F monocytes 5.4 % 1.0-[address] [facility] (Lab) [address], [place], [address], 11/13/2024 05:32:44 11/13/19 25 11/12/2024 CBC W/DIF F eosinophils 0.7 % 0.0-8. [address] [facility] (Lab) [address] [facility], [place], [address], 11/13/2024 05:32:44 11/13/19 25 11/12/2024 CBC W/DIF F basophils 0.2 % 0.0-2. [address] [facility] (Lab) [address] [facility], [place], [address], 11/13/2024 05:32:44 11/13/19 25 11/12/2024 CBC W/DIF [...] separ ately if prese nt. Not Available [facility] (Lab) [address], [place], [address], 11/13/2024 05:32:44 11/13/19 25 11/12/2024 CBC W/DIF F absolute neutrophils 12.0 10'3/ uL 1.5-8. [address] [facility] (Lab) [address] [place], [address], 11/13/2024 05:32:44 11/13/19 25 11/12/2024 CBC W/DIF F absolute lymphocytes 3.0 10'3/ uL 1.0-4. [address] [facility] [address] [facility] [place], [address], 11/13/2024 05:32:44 11/13/1911/12/2024 CBC W/DIF F absolute monocytes 0.9 10'3/ uL 0.2-1. [address] [facility] (Lab) [address], [place], [address], 11/13/2024 05:32:44 11/13/19 25 11/12/2024 CBC W/DIF F absolute eosinophils 0.1 10'3/ uL 0.0-0. [address] [facility] (Lab) [address], [place], [address], 11/13/2024 05:32:44 11/13/1911/12/2024 CBC W/DIF F absolute basophils 0.0 10'3/ uL 0.0-0. [address] [facility] (Lab) [address], [place], [address], 11/13/2024 05:32:44 11/13/1911/12/2024 CBC W/DIF F absolute [...] lee book. nm.or g/gen derx Not Available [facility] (Lab) [address], [place], [address], 11/13/2024 05:32:44 11/13/1911/12/2024 CMP(C OMPRE HENSI VE METAB OLIC PANEL ) sodium 137 mmol/ L 133-[address] [facility] (Lab) [address], [place], [address], 11/13/2024 05:32:44 11/13/19 25 11/12/2024 CMP(C OMPRE HENSI VE METAB OLIC PANEL ) potassium 4.0 mmol/ L 3.5-5. [address] [facility] (Lab) [address] [facility], [place], [address], 11/13/2024 05:32:44 11/13/19 25 11/12/2024 CMP(C OMPRE HENSI VE METAB OLIC PANEL ) chloride 102 mmol/ L 98-[address] [facility] (Lab) [address] [facility], [place], [address], 11/13/2024 05:32:44 11/13/19 25 11/12/2024 CMP(C OMPRE HENSI VE METAB OLIC PANEL ) carbon dioxide 27 mmol/ L 21-[address] [facility] (Lab) [address] [facility], [place], [address], 11/13/2024 05:32:44 11/13/19 25 11/12/2024 CMP(C OMPRE HENSI VE METAB OLIC PANEL ) anion gap 8 mmol/ L 4-[address] [facility] (Lab) [address] [facility], [place], [address], 11/13/2024 05:32:44 11/13/19 25 11/12/2024 CMP(C OMPRE HENSI VE METAB OLIC PANEL ) blood urea nitrogen 7 mg/dL 7-25 Not Available [facility] (Lab) [address], [place], [address], 11/13/2024 05:32:44 11/13/19 25 11/12/2024 CMP(C OMPRE HENSI VE METAB OLIC PANEL ) creatinine 0.48 mg/dL 0.60-1 [address] [facility] (Lab) [address] [facility], [place], [address], 11/13/2024 05:32:44 11/13/19 25 11/12/2024 CMP(C OMPRE HENSI VE METAB OLIC PANEL ) egfrcr (CKD-epi 2020) >90 mL/mi n/1.7 3_m2 >=[address] [facility] (Lab) [address] [facility], [place], [address], 11/13/2024 05:32:44 11/13/19 25 11/12/2024 CMP(C OMPRE HENSI VE METAB OLIC PANEL ) calcium 9.7 mg/dL 8.3-[address] [facility] (Lab) [address] [facility], [place], [address], 11/13/2024 05:32:44 11/13/19 25 11/12/2024 CMP(C OMPRE HENSI VE METAB OLIC PANEL ) glucose 86 mg/dL 70-[address] [facility] (Lab) [address] [facility], [place], [address], 11/13/2024 05:32:44 11/13/19 25 11/12/2024 CMP(C OMPRE HENSI VE METAB OLIC PANEL ) protein, total 6.6 g/dL 6.4-8. [address] [facility] (Lab) [address] [facility], [place], [address], 11/13/2024 05:32:44 11/13/19 25 11/12/2024 CMP(C OMPRE HENSI VE METAB OLIC PANEL ) albumin 4.0 g/dL 3.5-5. [address] [facility] (Lab) [address] [facility], [place], [address], 11/13/2024 05:32:44 11/13/19 25 11/12/2024 CMP(C OMPRE HENSI VE METAB OLIC PANEL ) ALT 11 units /L 9-[address] [facility] (Lab) [address] [facility], [place], [address], 11/13/2024 05:32:44 11/13/19 25 11/12/2024 CMP(C OMPRE HENSI VE METAB OLIC PANEL ) alkaline phosphatase 54 units /L 34-[address] [facility] (Lab) [address] [facility], [place], [address], 11/13/2024 05:32:44 11/13/19 25 11/12/2024 CMP(C OMPRE HENSI VE METAB OLIC PANEL ) AST 10 units /L 13-[address] [facility] (Lab) [address], [place], [address], 11/13/2024 05:32:44 11/13/19 25 11/12/2024 CMP(C OMPRE HENSI VE METAB OLIC PANEL ) bilirubin, total 0.2 mg/dL 0.2-1. [address] [facility] (Lab) [address], [place], [address], 11/13/2024 05:32:44 10/02/19 25 10/01/2024 US, obste tric, follo w-up No observ ation record ed. [address] [facility] [address] [place] [address], [address], 10/08/2024 09:41:15 11/18/19 25 11/17/2024 US, obste tric, follo w-up No observ ation record ed. [address] [facility] [address] [place] [address], [address], 11/18/2024 12:26:24 11/19/19 25 11/17/2024 US, obste tric, follo w-up No observ ation record ed. [address] [facility] [address] [place] [address], [address], 11/19/2024 11:57:24 11/26/19 25 11/25/2024 US, obste tric, follo w-up No observ ation record ed. [address] [facility] [address] [place] [address], [address], 11/26/2024 17:27:21 11/26/19 25 11/25/2024 US, obste tric, follo w-up No observ ation record ed. [email or web address] [facility] [address], [address], 11/25/2024 17:38:04 12/16/19 25 12/15/2024 US, obste tric, follo w-up No observ ation record ed. [email or web address] [facility] [address], [address], 12/16/2024 06:57:29 01/13/2001/12/2025 US, obste tric No observ ation record ed. [email or web address] [facility] [address], [address], 01/13/2025 11:43:49 01/13/20 25 01/12/2025 US, obste tric, follo w-up No observ ation record ed. juliano [facility] [address], [address], 01/13/2025 16:24:45 02/11/20 25 02/10/2025 non-s tress test No observ ation record ed. [email or web address] [facility] [address], [address], 02/11/2025 15:00:18 02/11/20 25 02/10/2025 US, obste tric, follo w-up No observ ation record ed. juliano [facility] [address], [address], 02/11/2025 11:37:25 02/21/20 25 02/20/2025 US, obste tric, bioph ysica l profi le + non-s tress test No observ ation record ed. michele [facility] [address], [place], [address], 02/20/2025 16:56:43 02/21/2002/20/2025 US, obste tric, bioph ysica l profi le + non-s tress test No observ ation record ed. [email or web address] [address], [place], [address], 02/23/2025 11:31:02 02/21/2002/20/2025 non-s tress test No observ ation record ed. [email or web address] [facility] [address], [place], [address], 02/20/2025 13:47:54 02/21/20 non-s tress test No observ ation record ed. [facility] [address], [place], [address], 02/20/2025 12:35:53 02/26/2002/25/2025 US, obste tric, bioph ysica l profi le + non-s tress test No observ ation record ed. [email or web address] [facility] [address], [place], [address], 02/25/2025 11:49:48 02/26/20 25 02/25/2025 US, obste tric, bioph ysica l profi le + non-s tress test No observ ation record ed. [email or web address] [facility] [address], [place], [address], 03/04/2025 11:50:53 02/26/20 25 02/25/2025 non-s tress test No observ ation record ed. [email or web address] [facility] [address], [place], [address], 02/25/2025 17:57:33 02/26/20 non-s tress test No observ ation record ed. [facility] [address], [place], [address], 02/25/2025 17:15:53 03/06/20 25 03/06/2025 non-s tress test No observ ation record ed. [facility] [address], [place], [address], 03/06/2025 13:52:03 03/06/20 non-s tress test No observ ation record ed. [address], [place], [address], 03/06/2025 12:00:07 03/06/20 25 03/06/2025 US, obste tric, follo w-up No observ ation record ed. [email or web address] Tor[address] [place] [address], [place], [address], 03/07/2025 23:02:25 03/06/20 25 03/06/2025 US, obste tric, follo w-up No observ ation record ed. [facility] [address], [place], [address], 03/06/2025 13:52:39 03/06/20 25 03/06/2025 US, obste tric, bioph ysica l profi le + non-s tress test No observ ation record ed. [facility] [address], [place], [address], 03/06/2025 13:52:50 Result Notes None recorded. Problems Name Problem SNOMED Code Status Onset Date Resolution Date Notes Provider Name and Address Organization Details Recorded Time Polycyst ic ovary syndrome 069134766 Completed 201711/16/2021 Polycyst ic ovarian syndrome ;Recorde d Elsewher e: No [facility] N Carolynnti ce ID: 0001 Edmond lable Time: 02:45:00 PM Sandhya Key [facility] 2 18:30:21 Finding of fertilit y Completed 201711/16/2021 Female infertil ity, unspecif ied;Tip rded Elsewher e: No Locat ion: [facility] N Practi ce ID: 0001 Edmond lable Time: 10:00:00 AM Sandhya Key [facility] 2 18:30:21 Abnormal uterine bleeding [id number] Completed 201711/16/2021 Other specifie d abnormal uterine and vaginal bleeding ;Recorde d Elsewher e: No Locat ion: [facility] S ource: [employer] Partnership Manager yan: N Carolynnti ce ID: 0001 Edmond lable Time: 09:45:00 AM Sandhya Key [facility] 2 18:30:21 Bleeding Completed 201711/16/2021 Abnormal uterine and vaginal bleeding , unspecif ied;Tip rded Elsewher e: No Locat ion: [facility] S ource: [facility] yan: N Carolynnti ce ID: 0001 Edmond lable Time: 10:00:00 AM Sandhya Key [facility] 2 18:30:21 Urinary tract infectio us disease [id number] Completed 201811/16/2021 Urinary tract infectio n, site not specifie d;Record ed Elsewher e: No Locat ion: [facility] N Carolynnti ce ID: 0001 Edmond lable Time: 04:15:00 PM Sandhya Key [facility] 2 18:30:21 Pregnanc y detectio n examinat ion Completed 201811/16/2021 Encounte r for pregnanc y test, result positive ;Practic e ID: 0001 Sandhya sneed, [facility] 2 18:30:21 Uterine size for dates discrepa ncy Completed 201811/16/2021 Uterine size-johann e discrepa ncy, first trimeste r;Practi ce ID: 0001 Sandhya sneed, [facility] 2 18:30:21 Gestatio n period, 9 weeks [id number] Completed 201811/16/2021 9 weeks gestatio n of pregnanc y;Practi ce ID: 0001 Sandhya sneed, [facility] 2 18:30:21 Secondar y amenorrh ea [id number] Completed 201811/16/2021 Secondar y amenorrh ea;Recor ded Elsewher e: No Locat ion: [facility] S ource: [facility] Partnership Manager yan: N Practi ce ID: 0001 Edmond lable Time: 03:30:00 PM Sandhya Key [facility] 2 18:30:21 Infectio n screenin g Completed 201811/16/2021 Encounte r for screenin g for oth infec/pa rastc diseases ;Recorde d Elsewher e: No Locat ion: [facility] S ource: EHR Partnership Manager yan: N Practi ce ID: 0001 Edmond lable Time: 03:30:00 PM Sandhya Key [facility] 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 2 18:30:21 Syphilis test finding [id number] Completed 201811/16/2021 Encntr screen for infectio ns w sexl mode of transmis s;Record ed Elsewher e: No Locat ion: [facility] S ource: EHR Partnership Manager yan: N Practi ce ID: 0001 Edmond lable Time: 03:30:00 PM [facility] 2 18:30:21 Body mass index 30+ - obesity [id number] Completed 201811/16/2021 Body mass index (BMI) 37.0-37. 9, adult;Re corded Elsewher e: No Locat ion: [facility] S ource: EHR Partnership Manager yan: N Practi ce ID: 0001 Edmond lable Time: 03:30:00 PM [facility] 2 18:30:21 Chlamydi al infectio n [id number] Completed 201811/16/2021 Chlamydi al infectio n, unspecif ied;Tip rded Elsewher e: No Locat ion: [facility] S ource: EHR Partnership Manager yan: N Practi ce ID: 0001 Edmond lable Time: 11:52:25 AM [facility] 2 18:30:21 [place]anc [place] [id number] Completed 201811/16/2021 Encounte r for suprvsn of normal pregnanc y, first trimeste r;Practi ce ID: 0001 [facility] 2 18:30:21 Antenata l screenin g Completed 201811/16/2021 Encounte r for other specifie d antenata l screenin g;Practi ce ID: 0001 Sandhya sneed, [facility] 2 18:30:21 Medical examinat ion for suspecte d conditio n Completed 201811/16/2021 Encntr for oth suspecte d maternal and cond ruled out;Prac jaxson ID: 0001 Sandhya sneed, [facility] 2 18:30:[address] Concept Completed 201811/16/2021 Maternal care for oth abnormal ity and damage, unsp;Pra ctice ID: 0001 Sandhya sneed, [facility] 2 18:30:21 Gestatio n period, 30 weeks [id number] Completed 201811/16/2021 30 weeks gestatio n of pregnanc y;Practi ce ID: 0001 Sandhya Key [facility] 2 18:30:21 Pregnanc y, childbir th and puerperi um finding Completed 201811/16/2021 Encntr for suprvsn of normal first preg, third trimeste r;Practi ce ID: 0001 Sandhya Key [facility], [facility] 2 18:30:21 malforma tion of central nervous system [id number] Completed 201811/16/2021 Maternal care for (suspect ed) cnsl malform in fetus, unsp;Pra ctice ID: 0001 Sandhya sneed, [facility] 2 18:30:21 Gestatio n period, 34 weeks [id number] Completed 201811/16/2021 34 weeks gestatio n of pregnanc y;Practi ce ID: 0001 Sandhya sneed, [facility] 2 18:30:[address] Concept Completed 201811/16/2021 Matern care for abnlt fetl hrt rate or rhym, unsp tri, unsp;Pra ctice ID: 0001 Sandhya sneed, [facility] 2 18:30:21 Gestatio n period, 36 weeks [id number] Completed 201811/16/2021 36 weeks gestatio n of pregnanc y;Practi ce ID: 0001 Sandhya sneed, [facility] 2 18:30:21 Term pregnanc y delivere d [id number] Completed 201811/16/2021 Encounte r for full-ter m uncompli cated delivery ;Practic e ID: 0001 Sandhya sneed, [facility] 2 18:30:21 Single live from singleto n pregnanc y [id number] Completed 201811/16/2021 Single live ;Pr actice ID: 0001 Sandhya sneed, [facility] 2 18:30:21 Gestatio n period, 37 weeks [id number] Completed 201811/16/2021 37 weeks gestatio n of pregnanc y;Practi ce ID: 0001 Sandhya sneed, [facility] 2 18:30:21 Lochia finding Completed 201911/16/2021 Encounte r for routine postpart um follow-u p;Record ed Elsewher e: No Locat ion: [facility] S ource: EHR Partnership Manager yan: N Practi ce ID: [id number] Edmond lable Time: 08:45:00 AM Sandhya Key [facility] 2 18:30:21 Acute vaginiti s [id number] Completed 201911/16/2021 Vaginiti s;Record ed Elsewher e: No Locat ion: [facility] S ource: EHR Partnership Manager yan: N Practi ce ID: [id number] Edmond lable Time: 01:00:00 PM Sandhya sneed [facility] 2 18:30:21 Mixed anxiety and depressi ve disorder [id number] Active 2024 Paz Keller [facility], [facility] 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 5 15:07:06 Pregnanc y 75945388 Active 2024 Paz Krishna null, [facility] 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 5 15:09:19 History of heart disorder [id number] Active 2024 first baby couple hours after Britney Monzon CNM [address], [place], [address], [facility] 5 15:26:56 Past pregnanc y history of pre-ecla mpsia [id number] 73457 Active 2024 plan bASA 162mg Britney Monzon CNM [address], [place], [address], [facility] 5 15:27:21 History of depressi on 208386234 Active 2024 no current treatmen t Britney Monzon CNM [address], [place], [address], [facility] 5 15:37:15 Hyperten sive disorder 76685561 Active 2024 100mg labetalo l bid Britney Monzon CNM [address], [place], [address], [facility] 5 11:41:34 Notes:previous son had hypoplastic left heart syndrome Some problems listed in Document: #[id number] could not be added to this patient's chart. Please review this document and add these problems to the patient's chart manually as needed. Problem Notes None recorded. Procedures Surgical History Date Name Laterality Status Provider Name and Address Organization Details Recorded Time 5 Date of Last Pap Smear completed Paz Keller [facility] 08/15/2024 17:09:24 4 SIS completed NUZHAT STEPHENSON MD [address], [place], [address], [facility] 09/13/2023 14:06:22 Imaging Results [...] Prescrib ed Elsewher e: No Locat ion: [facility] M odify By: [email or web address] z Encoun ter [...] Prescrib ed Elsewher e: No [facility] By: maged Hurst ter DateTime : 02/06/20 08:45:00 AM Not Available Not Available Not Available Zofran 4 mg tablet take 1 tablet as needed for nausea 11/17 completed Prescrib ed Elsewher e: No Locat ion: [facility] perfecto [facility] odify By: dian Hurst ter DateTime : 09/17/19 04:11:09 PM Not Available Not Available Not Available Metrogel Vaginal 0.75 % (37.5 mg/5 gram) insert 1 applicat orful by vaginal route every day at bedtime for 5 nights 11/17 completed Prescrib ed Elsewher e: No [facility] od[facility] By: rahel Hurst ter DateTime : [...] Prescrib ed Elsewher e: No Locat ion: [facility] odify By: [email or web address] z Aris ter DateTime [...] Prescrib ed Elsewher e: No [facility] Mague [place] By: dian jonas DateTime : 09/17/19 04:11:09 [...] and Address Organization Details Last Updated DateTime 12/17/2024 167.64 cm 45.2 kg/m2 108441.86 g 129/82 mm[Hg] Roberta Moss [facility] 12/17/2024 11:24:42 Social History Question Answer Notes LastModified by Organizat ion Details LastModified Time Tobacco Smoking Status Never Smoker Sandhya Key null, [facility] 11/17/2021 10:26:20 Do You Have An Advance Directive? No Information n ot available 11/17/2021 If You Are , What Was Your Level Of Alcohol Consumption Prior To ? Occasional [email or web address] Information not available 08/15/2024 How Many Years Have You Consumed Alcohol? 8 Information not available 11/17/2021 Are You Blind Or Do You Have Difficulty Seeing? No Information n ot available 11/17/2021 What Is Your Level Of Caffeine Consumption? Moderate [email or web address] Information not available 08/15/2024 How Much Tobacco [...] Or The Highest Degree You Have Received? [id number] Information not available 11/17/2021 Are There Any Guns Present In Your Home? No Information not available 11/17/2021 Do You Use Protection During Sex? No Information not available 11/17/2021 Do You Use Your Seat Belt Or Car Seat Routinely? Yes Information not available 11/17/2021 Are You Sexually Active? Yes [email or web address] Information not available 11/12/2024 Do You Have [...] is your level of alcohol consumption? None [email or web address] Information not available 08/15/2024 Are you able [...] anxious, or unable to sleep at night)? [id number] [email or web address] Information not available 08/15/2024 Family History Relationship Description Onset Age of this Age Resolved Age Notes LastModified by Organization Details LastModified Time Son Hypoplastic left heart syndrome [email or web address] Not available 06/15 18:39:24 Medical History Condition [...] ICD10 Code Diagnosis IMO Codes Diagnosis Note [id number] Britney Monzon CNM [place] [address] [address] 11/19/2024 16:58:21 11/19/2024 17:46:54 Gestation period, 20 weeks 07992479 Z3A.20 [id number] Britney Monzon CNM [place] [address] [address] 12/17/2024 11:11:15 12/17/2024 11:43:51 Gestation period, 24 weeks [id number] Z3A.24 [id number] Health Concerns Section Related Observation LastModified by Organization Detai ls LastModified Time None Recorded Concern Status LastModified by Organization Details LastModified Time None Recorded Payers Encounter Date Sequence Insurance Name Policy Number Policy Mckenna Covered Member ID Mckenna Member ID Guarantor Name 12/17/2024 1 [facility] [id number] Alex Louie [id number] Rizwana Louie Notes Date Note Type Note Provider Name and Address Organization Details Recorded Time 12/17/2024 text/html Generic HPI TemplateReported by Patient Britney Monzon CNM [address], [place], [address], [facility] 12/17/2024 11:42:21 OBGyn Episode Ob Episode Information Episode Created Date Number of Fetuses Patient Bloodtype Patient rh Status Prepregnancy Weight lbs Domestic Partner Domestic Partner Phone Father Name Derrick Follower Status 09/20/19 25 1 O Positive 273 Alex Louie OPEN Fetus Data First Name Last Name Admitted to NICU Weight (g) Sex Living Outcome Pediatric Complications Fetus ID Race Codes Race Delivery Type [id number] Problems Problem Notes Problem Name Start Date End Date Resolution Snomed Code Not e History of depression 09/19/2024 [id number] no current treatment Past history of pre-eclampsia 09/19/2024 [id number] plan bASA 1 62mg History of heart disorder 09/19/2024 [id number] first baby pass ed away couple hours after Hypertensive disorder 12/17/2024 [id number] 100mg labetalol bid 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, seeing [facility] office Scheduled 10/20 us only & 11/17 us onlynormal echo 12/31- recommends eval of baby Les Calculation Initial Les Date Initial Exam Date Initial Exam Provider Initial Ultrasound Date Last Menstrual Period Date Ultra Sound Weeks Gestation 04/02/2025 08/26/2024 [email or web address] 08/14/2024 06/26/2024 6 Eighteen To Twenty Week Les Update Ultra Sound Date Fundal Height At Umbil Quickening Date Ultra Sound Latest Weeks Gestation Final Les Confirmed By Final Les Confirmed Date Final Les Date Ultra Sound Latest Days Gestation 0 [email or web address] 09/19/2024 04/02/19 26 0 Pre- Flowsheet Flowsheet Date 09/19/2024 Nevarez Score Blood Edema Fundus Height Fundus Units Glucose Ketones Leukocytes Nitrite Labor Signs Protein Cervic Dilation Cervic Effacement Cervic Station neg none none trace Type Weight in lbs Pre/Post Dialysis Refused Weight 274.293807120893 BP Diastolic BP Location Tested BP Systolic BP Type 81 140 Fetus Heart Rate Present Fetus Movement A Yes Comments reviewed [facility] notes with pt, undecided about amnio, is scheduled, will continue to follow as well, start bASA 162mg, hx 2 previous vaginal deliveries, begin care Flowsheet Date 2024 Nevarez Score Blood Edema Fundus Height Fundus Units Glucose Ketones Leukocytes Nitrite Labor Signs Protein Cervic Dilation Cervic Effacement Cervic Station Type Weight in lbs Pre/Post Dialysis Refused 278.496959314515 BP Diastolic BP Location Tested BP Systolic BP Type 85 L arm 141 sitting Fetus Heart Rate Present Fetus Movement A No Comments declined amnio first us good at [facility], has anatomy scheduled. mood good. _-FM yet precautions and educations f/u 4 weeks Flowsheet Date 11/12/2024 Nevarez Score Blood Edema Fundus Height Fundus Units Glucose Ketones Leukocytes Nitrite Labor Signs Protein Cervic Dilation Cervic Effacement Cervic Station Type Weight in lbs Pre/Post Dialysis Refused 278.562950365447 BP Diastolic BP Location Tested BP Systolic BP Type 94 L wrist 146 sitting 102 R wrist 157 sitting Fetus Heart Rate Present Fetus Movement A No Comments last us at [facility] wnl, has f/u next week +FM precautions and education f/u [address] weeks[address] discussed bp with dr. stephenson start labetalol 200mg bid Flowsheet Date 11/19/2024 Nevarez Score Blood Edema Fundus Height Fundus Units Glucose Ketones Leukocytes Nitrite Labor Signs Protein Cervic Dilation Cervic Effacement Cervic Station Type Weight in lbs Pre/Post Dialysis Refused Weight 279.138928967503 BP Diastolic BP Location Tested BP Systolic [...] Weight in lbs Pre/Post Dialysis Refused Weight 280.161387667245 BP Diastolic BP Location Tested BP Systolic [...] Weight in lbs Pre/Post Dialysis Refused Weight 282.608229956445 BP Diastolic BP Location Tested BP Systolic BP Type 83 L arm 126 sitting 66 L wrist 128 sitting Fetus Heart Rate Present Fetus Movement A Yes Comments per pt mfm said anatomyok, e cho unremarkable, plans to deliver at [facility] today, discuss vaccines at next visit, small odor after intercourse, will plan flagyl. education and precautions f/u 2 weeks Flowsheet Date 01/28/2025 Nevarez Score Blood Edema Fundus Height Fundus Units Glucose Ketones Leukocytes Nitrite Labor Signs Protein Cervic Dilation Cervic Effacement Cervic Station Type Weight in lbs Pre/Post Dialysis Refused Weight 283.41246874424 BP Diastolic BP Location Tested BP Systolic [...] Type Weight in lbs Pre/Post Dialysis Refused 284.254197401572 BP Diastolic BP Location Tested BP Systolic [...] Type Weight in lbs Pre/Post Dialysis Refused 285.325906332636 BP Diastolic BP Location Tested BP Systolic BP Type 84 L arm 129 sitting Fetus Heart Rate Present Fetus Movement A Yes Comments Flowsheet Date 02/20/2025 Nevarez Score Blood Edema Fundus Height Fundus Units Glucose Ketones Leukocytes Nitrite Labor Signs Protein Cervic Dilation Cervic Effacement Cervic Station Type Weight in lbs Pre/Post Dialysis Refused 285.355823991706 BP Diastolic BP Location Tested BP Systolic [...] Weight in lbs Pre/Post Dialysis Refused Weight 289.311191911492 BP Diastolic BP Location Tested BP Systolic [...] Weight in lbs Pre/Post Dialysis Refused Weight 289.389813911277 BP Diastolic BP Location Tested BP Systolic [...] Type Weight in lbs Pre/Post Dialysis Refused 292.194924720449 BP Diastolic BP Location Tested BP Systolic BP Type 77 L arm 129 sitting Fetus Heart Rate Present Fetus Movement A Yes Comments Flowsheet Date 03/06/2025 Nevarez Score Blood Edema Fundus Height Fundus Units Glucose Ketones Leukocytes Nitrite Labor Signs Protein Cervic Dilation Cervic Effacement Cervic Station 3cm 50% -2 Type Weight in lbs Pre/Post Dialysis Refused Weight 292.758425564627 BP Diastolic BP Location Tested BP Systolic [...]
--- OUTSIDE RECORDS SUMMARY | 2025-03-08 23:25 | XMS_ITS | Continuity of Care Document ---
Author Organization [facility] Address [address] [place] [address] Care Team Providers Care Market Risk Manager Name Role Phone MILANALUIS DANIEL KARON Primary Care Provider Assessment Encounter Date Assessment Date Assessment LastModified by Organization Details LastModified Time 02/20/2025 02/20/2025 Patient is _34__weeks . Discussed plan. Not available 02/20/2025 12:27:12 Plan of Treatment Reminders Order Date Submit [...] Resul ting Lab: [facility] [address] [facility] [address] Tel: CULTU RE ----- ----- ----- --- No growt h in 1 day (dete ction level of 10,00 0 colon ies / ml.) Not Available [facility] (Lab) [address], [place], [address], 09/20/2024 22:24:37 09/20/19 25 09/19/2024 drug scree n, urine Amphetamines : negati ve Not Available [place] [address], [place], [address], 09/19/2024 14:47:54 09/20/19 25 09/19/2024 drug scree n, urine Cannabinoids : negati ve Not Available [place] [address], [place], [address], 09/19/2024 14:47:54 09/20/19 25 09/19/2024 drug scree n, urine Cocaine: negati ve Not Available [place] [address], [place], [address], 09/19/2024 14:47:54 09/20/19 25 09/19/2024 drug scree n, urine Opiates: negati ve Not Available [place] [address], [place], [address], 09/19/2024 14:47:54 09/20/19 25 09/19/2024 drug scree n, urine Phenocyclidi ne: negati ve Not Available [place] [address], [place], [address], 09/19/2024 14:47:54 09/20/19 25 09/19/2024 drug scree n, urine Barbiturates : negati ve Not Available [place] [address], [place], [address], 09/19/2024 14:47:54 09/20/19 25 09/19/2024 drug scree n, urine Benzodiazepi heather: negati ve Not Available [place] [address], [place], [address], 09/19/2024 14:47:54 09/20/19 25 09/19/2024 drug scree n, urine Ethanol: negati ve Not Available [place] [address], [place], [address], 09/19/2024 14:47:54 09/20/19 25 09/19/2024 drug scree n, urine Hallucinogen s: negati ve Not Available [place] [address], [place], [address], 09/19/2024 14:47:54 09/20/19 25 09/19/2024 drug scree n, urine Inhalants: negati ve Not Available [place] [address], [place], [address], 09/19/2024 14:47:54 09/20/19 25 09/19/2024 drug scree n, urine Anabolic Steroids: negati ve Not Available [place] [address], [place], [address], 09/19/2024 14:47:54 09/20/19 25 09/19/2024 drug scree n, urine Other: negati ve Not Available [place] [address], [place], [address], 09/19/2024 14:47:54 11/13/1911/12/2024 URIC ACID uric acid 4.3 mg/dL 2.3-6. 6 Not Available [facility] (Lab) [address], [place], [address], 11/13/2024 05:32:43 11/13/19 25 11/12/2024 PROTE IN/CR EATIN INE RATIO , URINE creatinine, urine 35.1 mg/dL R-No refer ence range estab lishe d for this assay Not Available [facility] (Lab) [address], [place], [address], 11/13/2024 05:32:43 11/13/19 25 11/12/2024 PROTE IN/CR EATIN INE RATIO , URINE protein, urine <4 mg/dL R-No refer ence range estab lishe d for this assay Not Available [facility] (Lab) [address], [place], [address], 11/13/2024 05:32:43 11/13/19 25 11/12/2024 PROTE IN/CR [...] fican t prote inuri a. Not Available [facility] (Lab) [address], [place], [address], 11/13/2024 05:32:43 11/13/19 25 11/12/2024 CBC W/DIF F WBC 16.1 10'3/ uL 3.5-10 .5 high Not Available [facility] (Lab) [address] [place], [address], 11/13/2024 05:32:44 11/13/19 25 11/12/2024 CBC W/DIF F RBC 4.47 10'6/ uL (based on docume nted legal sex) 3.80-5 .20 Not Available [facility] (Lab) [address], [place], [address], 11/13/2024 05:32:44 11/13/19 25 11/12/2024 CBC W/DIF F HGB 12.4 g/dL (based on docume nted legal sex) 11.6-1 5.4 Not Available [facility] (Lab) [address], [place], [address], 11/13/2024 05:32:44 11/13/19 25 11/12/2024 CBC W/DIF F HCT 38.6 % (based on docume nted legal sex) 34.0-4 5.0 Not Available [facility] (Lab) [address], [place], [address], 11/13/2024 05:32:44 11/13/19 25 11/12/2024 CBC W/DIF F MCV 86.4 fL 80.0-9 9.0 Not Available [facility] (Lab) [address], [place], [address], 11/13/2024 05:32:44 11/13/1911/12/2024 CBC W/DIF F MCH 27.7 pg 27.0-3 4.0 Not Available [facility] (Lab) [address], [place], [address], 11/13/2024 05:32:44 11/13/19 25 11/12/2024 CBC W/DIF F MCHC 32.1 g/dL 32.0-3 5.5 Not Available [facility] (Lab) [address], [place], [address], 11/13/2024 05:32:44 11/13/19 25 11/12/2024 CBC W/DIF F RDW 13.6 % 11.0-1 5.0 Not Available [facility] (Lab) [address], [place], [address], 11/13/2024 05:32:44 11/13/19 25 11/12/2024 CBC W/DIF F plt 295 10'3/ uL 150-40 0 Not Available [facility] (Lab) [address], [place], [address], 11/13/2024 05:32:44 11/13/19 25 11/12/2024 CBC W/DIF F MPV 10.8 fL 8.8-12 .1 Not Available [facility] (Lab) [address], [place], [address], 11/13/2024 05:32:44 11/13/19 25 11/12/2024 CBC W/DIF F NRBC's 0.0 % 0.0 Not Available [facility] (Lab) [address], [place], [address], 11/13/2024 05:32:44 11/13/19 25 11/12/2024 CBC W/DIF F absolute NRBCs 0.0 10'3/ uL no refere nce range establ ished Not Available [facility] (Lab) [address], [place], [address], 11/13/2024 05:32:44 11/13/1911/12/2024 CBC W/DIF F neutrophils 74.9 % 34.0-7 3.0 high Not Available [facility] (Lab) [address], [place], [address], 11/13/2024 05:32:44 11/13/19 25 11/12/2024 CBC W/DIF F lymphocytes 18.4 % 15.0-5 0.0 Not Available [facility] (Lab) [address], [place], [address], 11/13/2024 05:32:44 11/13/19 25 11/12/2024 CBC W/DIF F monocytes 5.4 % 1.0-15 .0 Not Available [facility] (Lab) [address], [place], [address], 11/13/2024 05:32:44 11/13/19 25 11/12/2024 CBC W/DIF F eosinophils 0.7 % 0.0-8. 0 Not Available [facility] (Lab) [address], [place], [address], 11/13/2024 05:32:44 11/13/19 25 11/12/2024 CBC W/DIF F basophils 0.2 % 0.0-2. 0 Not Available [facility] (Lab) [address], [place], [address], 11/13/2024 05:32:44 11/13/19 25 11/12/2024 CBC W/DIF [...] separ ately if prese nt. Not Available [facility] (Lab) [address], [place], [address], 11/13/2024 05:32:44 11/13/19 25 11/12/2024 CBC W/DIF F absolute neutrophils 12.0 10'3/ uL 1.5-8. 0 high Not Available [facility] (Lab) [address] [place], [address], 11/13/2024 05:32:44 11/13/19 25 11/12/2024 CBC W/DIF F absolute lymphocytes 3.0 10'3/ uL 1.0-4. 0 Not Available [facility] (Lab[facility] [address] [facility] [place], [address], 11/13/2024 05:32:44 11/13/1911/12/2024 CBC W/DIF F absolute monocytes 0.9 10'3/ uL 0.2-1. 0 Not Available [facility] (Lab) [address], [place], [address], 11/13/2024 05:32:44 11/13/19 25 11/12/2024 CBC W/DIF F absolute eosinophils 0.1 10'3/ uL 0.0-0. 6 Not Available [facility] (Lab) [address], [place], [address], 11/13/2024 05:32:44 11/13/1911/12/2024 CBC W/DIF F absolute basophils 0.0 10'3/ uL 0.0-0. 3 Not Available [facility] (Lab) [address], [place], [address], 11/13/2024 05:32:44 11/13/1911/12/2024 CBC W/DIF F absolute [...] lee book. nm.or g/gen derx Not Available [facility] (Lab) [address], [place], [address], 11/13/2024 05:32:44 11/13/1911/12/2024 CMP(C OMPRE HENSI VE METAB OLIC PANEL ) sodium 137 mmol/ L 133-14 6 Not Available [facility] (Lab) [address], [place], [address], 11/13/2024 05:32:44 11/13/19 25 11/12/2024 CMP(C OMPRE HENSI VE METAB OLIC PANEL ) potassium 4.0 mmol/ L 3.5-5. 1 Not Available [facility] (Lab) [address], [place], [address], 11/13/2024 05:32:44 11/13/19 25 11/12/2024 CMP(C OMPRE HENSI VE METAB OLIC PANEL ) chloride 102 mmol/ L 98-107 Not Available [facility] (Lab) [address], [place], [address], 11/13/2024 05:32:44 11/13/19 25 11/12/2024 CMP(C OMPRE HENSI VE METAB OLIC PANEL ) carbon dioxide 27 mmol/ L 21-31 Not Available [facility] (Lab) [address], [place], [address], 11/13/2024 05:32:44 11/13/19 25 11/12/2024 CMP(C OMPRE HENSI VE METAB OLIC PANEL ) anion gap 8 mmol/ L 4-13 Not Available [facility] (Lab) [address], [place], [address], 11/13/2024 05:32:44 11/13/19 25 11/12/2024 CMP(C OMPRE HENSI VE METAB OLIC PANEL ) blood urea nitrogen 7 mg/dL 7-25 Not Available [facility] (Lab) [address], [place], [address], 11/13/2024 05:32:44 11/13/19 25 11/12/2024 CMP(C OMPRE HENSI VE METAB OLIC PANEL ) creatinine 0.48 mg/dL 0.60-1 .30 low Not Available [facility] (Lab) [address], [place], [address], 11/13/2024 05:32:44 11/13/19 25 11/12/2024 CMP(C OMPRE HENSI VE METAB OLIC PANEL ) egfrcr (CKD-epi 2020) >90 mL/mi n/1.7 3_m2 >=60 Not Available [facility] (Lab) [address], [place], [address], 11/13/2024 05:32:44 11/13/19 25 11/12/2024 CMP(C OMPRE HENSI VE METAB OLIC PANEL ) calcium 9.7 mg/dL 8.3-10 .5 Not Available [facility] (Lab) [address], [place], [address], 11/13/2024 05:32:44 11/13/19 25 11/12/2024 CMP(C OMPRE HENSI VE METAB OLIC PANEL ) glucose 86 mg/dL 70-100 Not Available [facility] (Lab) [address], [place], [address], 11/13/2024 05:32:44 11/13/19 25 11/12/2024 CMP(C OMPRE HENSI VE METAB OLIC PANEL ) protein, total 6.6 g/dL 6.4-8. 3 Not Available [facility] (Lab) [address], [place], [address], 11/13/2024 05:32:44 11/13/19 25 11/12/2024 CMP(C OMPRE HENSI VE METAB OLIC PANEL ) albumin 4.0 g/dL 3.5-5. 0 Not Available [facility] (Lab) [address], [place], [address], 11/13/2024 05:32:44 11/13/19 25 11/12/2024 CMP(C OMPRE HENSI VE METAB OLIC PANEL ) ALT 11 units /L 9-43 Not Available [facility] (Lab) [address], [place], [address], 11/13/2024 05:32:44 11/13/19 25 11/12/2024 CMP(C OMPRE HENSI VE METAB OLIC PANEL ) alkaline phosphatase 54 units /L 34-104 Not Available [facility] (Lab) [address], [place], [address], 11/13/2024 05:32:44 11/13/19 25 11/12/2024 CMP(C OMPRE HENSI VE METAB OLIC PANEL ) AST 10 units /L 13-39 low Not Available [facility] (Lab) [address], [place], [address], 11/13/2024 05:32:44 11/13/19 25 11/12/2024 CMP(C OMPRE HENSI VE METAB OLIC PANEL ) bilirubin, total 0.2 mg/dL 0.2-1. 2 Not Available [facility] (Lab) [address], [place], [address], 11/13/2024 05:32:44 01/15/20 25 01/14/2025 GTT - GESTA NICOLAS L LESLY N, ACOG OB glucose, 1 hour screen 141 mg/dL 70-135 high Not Available [facility] (Lab) [address] [place], [address], 01/15/2025 11:13:15 01/15/2001/14/2025 HIV 1/2 ANTIG EN/AN TIBOD Y, REFLE X CONFI RMATI ON HIV antigen/anti body Nonrea ctive nonrea ctive HIV-1 antig en and HIV-1 /HIV- 2 antib odies were not detec terra. No labor atory evide nce of HIV infec tion. Not Available [facility] (Lab) [address], [place], [address], 01/15/2025 11:13:16 01/15/2001/14/2025 HEMAT OCRIT (HCT) HCT 34.1 % (based on docume nted legal sex) 34.0-4 5.0 Not Available [facility] (Lab) [address], [place], [address], 01/15/2025 11:13:16 01/15/20 25 01/14/2025 HEMOG LOBIN (HGB) HGB 10.6 g/dL (based on docume nted legal sex) 11.6-1 5.4 low Not Available [facility] (Lab) [address], [place], [address], 01/15/2025 11:13:17 01/15/2001/14/2025 RPR SCREE N, REFLE X TITER /CONF IRMAT ION RPR qualitative Nonrea ctive nonrea ctive Not Available [facility] (Lab) [address], [place], [address], 01/15/2025 11:13:17 01/24/2001/23/2025 GTT - GESTA NICOLAS L, 3 HOUR, ACOG glucose, fasting acog 70 mg/dL 70-94 Not Available [facility] (Lab) [address], [place], [address], 01/24/2025 05:24:10 01/24/20 25 01/23/2025 GTT - GESTA NICOLAS L, 3 HOUR, ACOG glucose, 1 hour acog 150 mg/dL 70-179 Not Available [facility] (Lab) [address], [place], [address], 01/24/2025 05:24:10 01/24/20 25 01/23/2025 GTT - GESTA NICOLAS L, 3 HOUR, ACOG glucose, 2 hour acog 143 mg/dL 70-154 Not Available [facility] (Lab) [address] [place], [address], 01/24/2025 05:24:10 01/24/20 25 01/23/2025 GTT - GESTA NICOLAS L, 3 HOUR, ACOG glucose, 3 hour acog 46 mg/dL 70-139 critical low Resul ts verif ied by repea t rosanna sis. Not Available [facility] (Lab) [address] [place] [facility], [address], 01/24/2025 05:24:10 10/02/19 25 10/01/2024 US, obste tric, follo w-up No observ ation record ed. [email or web address] [facility] [address], [address], 10/08/2024 09:41:15 11/18/19 25 11/17/2024 US, obste tric, follo w-up No observ ation record ed. [address] [facility] [address], [address], 11/18/2024 12:26:24 11/19/19 25 11/17/2024 US, obste tric, follo w-up No observ ation record ed. [address] [facility] [address], [address], 11/19/2024 11:57:24 11/26/19 25 11/25/2024 US, obste tric, follo w-up No observ ation record ed. [email or web address] [facility] [address], [address], 11/26/2024 17:27:21 11/26/19 25 11/25/2024 US, obste tric, follo w-up No observ ation record ed. [email or web address] [facility] [address], [address], 11/25/2024 17:38:04 12/16/19 25 12/15/2024 US, obste tric, follo w-up No observ ation record ed. [email or web address] [facility] [address] [facility] [address], [address], 12/16/2024 06:57:29 01/13/20 25 01/12/2025 US, obste tric No observ ation record ed. [email or web address] [facility] [place], [address], 01/13/2025 11:43:49 01/13/2001/12/2025 US, obste tric, follo w-up No observ ation record ed. [email or web address] [facility] [address], [address], 01/13/2025 16:24:45 02/11/20 25 02/10/2025 non-s tress test No observ ation record ed. [email or web address] [facility] [address], [address], 02/11/2025 15:00:18 02/11/20 25 02/10/2025 US, obste tric, follo w-up No observ ation record ed. [email or web address] [facility] [address], [address], 02/11/2025 11:37:25 02/21/20 25 02/20/2025 US, obste tric, bioph ysica l profi le + non-s tress test No observ ation record ed. [facility] [address], [place], [address], 02/20/2025 16:56:43 02/21/20 25 02/20/2025 US, obste tric, bioph ysica l profi le + non-s tress test No observ ation record ed. juliano Tori [address], [place], [address], 02/23/2025 11:31:02 02/21/20 25 02/20/2025 non-s tress test No observ ation record ed. [address], [place], [address], 02/20/2025 13:47:54 02/21/20 non-s tress test No observ ation record ed. [email or web address] [place] [address], [place], [address], 02/20/2025 12:35:53 02/26/2002/25/2025 US, obste tric, bioph ysica l profi le + non-s tress test No observ ation record ed. [email or web address] [place] [address], [place], [address], 02/25/2025 11:49:48 02/26/2002/25/2025 US, obste tric, bioph ysica l profi le + non-s tress test No observ ation record ed. [email or web address] Tori [address], [place], [address], 03/04/2025 11:50:53 02/26/2002/25/2025 non-s tress test No observ ation record ed. [email or web address] [place] [address], [place], [address], 02/25/2025 17:57:33 02/26/20 non-s tress test No observ ation record ed. [email or web address] [place] [address], [place], [address], 02/25/2025 17:15:53 03/06/2003/06/2025 non-s tress test No observ ation record ed. [email or web address] [place] [address], [place], [address], 03/06/2025 13:52:03 03/06/20 non-s tress test No observ ation record ed. [email or web address] [place] [address], [place], [address], 03/06/2025 12:00:07 03/06/20 25 03/06/2025 US, obste tric, follo w-up No observ ation record ed. [email or web address] Tori [address], [place], [address], 03/07/2025 23:02:25 03/06/20 25 03/06/2025 US, obste tric, follo w-up No observ ation record ed. [facility] [address], [place], [address], 03/06/2025 13:52:39 03/06/20 25 03/06/2025 US, obste tric, bioph ysica l profi le + non-s tress test No observ ation record ed. [facility] [address], [place], [address], 03/06/2025 13:52:50 Result Notes None recorded. Problems Name Problem SNOMED Code Status Onset Date Resolution Date Notes Provider Name and Address Organization Details Recorded Time Polycyst ic ovary syndrome 186146428 Completed 201711/16/2021 Polycyst ic ovarian syndrome ;Recorde d Elsewher e: No Locat ion: [facility] S ource: EHR Inventory Associate And Driver yan: N Susie ce ID: [id number] Edmond lable Time: 02:45:00 PM Sandhya [facility] 2 18:30:21 Finding of fertilit y Completed 201711/16/2021 Female infertil ity, unspecif ied;Tip rded Elsewher e: No Locat ion: [facility] S ource: EHR Inventory Associate And Driver yan: N Practi ce ID: [id number] Edmond lable Time: 10:00:00 AM Sandhya [facility] 2 18:30:21 Abnormal uterine bleeding [id number] Completed 201711/16/2021 Other specifie d abnormal uterine and vaginal bleeding ;Recorde d Elsewher e: No Locat ion: [facility] S ource: EHR Inventory Associate And Driver yan: N Practi ce ID: [id number] Edmond lable Time: 09:45:00 AM Sandhya sneed [facility] 2 18:30:21 Bleeding Completed 201711/16/2021 Abnormal uterine and vaginal bleeding , unspecif ied;Tip rded Elsewher e: No Locat ion: [facility] S ource: EHR Inventory Associate And Driver yan: N Practi ce ID: [id number] Edmond lable Time: 10:00:00 AM Sandhya sneed [facility] 2 18:30:21 Urinary tract infectio us disease [id number] Completed 201811/16/2021 Urinary tract infectio n, site not specifie d;Record ed Elsewher e: No Locat ion: [facility] S ource: EHR Inventory Associate And Driver yan: N Practi ce ID: [id number] Edmond lable Time: 04:15:00 PM Sandhya sneed [facility] 2 18:30:21 Pregnanc y detectio n examinat ion Completed 201811/16/2021 Encounte r for pregnanc y test, result positive ;Practic e ID: 0001 Sandhya sneed [facility] 2 18:30:21 Uterine size for dates discrepa ncy Completed 201811/16/2021 Uterine size-johann e discrepa ncy, first trimeste r;Practi ce ID: 0001 Sandhya sneed, [facility] 2 18:30:21 Gestatio n period, 9 weeks [id number] Completed 201811/16/2021 9 weeks gestatio n of pregnanc y;Practi ce ID: 0001 Sandhya sneed [facility] 2 18:30:21 Secondar y amenorrh ea [id number] Completed 201811/16/2021 Secondar y amenorrh ea;Recor ded Elsewher e: No [facility]at [facility] S ource: EHR Inventory Associate And Driver yan: N Practi ce ID: [id number] Edmond lable Time: 03:30:00 PM Sandhya Key [facility] 2 18:30:21 Infectio n screenin g Completed 201811/16/2021 Encounte r for screenin g for oth infec/pa rastc diseases ;Recorde d Elsewher e: No [facility] S ource: EHR Inventory Associate And Driver yan: N Practi ce ID: 0001 Edmond lable Time: 03:30:00 PM Sandhya Key [facility] 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 2 18:30:21 Syphilis test finding [id number] Completed 201811/16/2021 Encntr screen for infectio ns w sexl mode of transmis s;Record ed Elsewher e: No [facility] S ource: EHR Inventory Associate And Driver yan: N Practi ce ID: [id number] Edmond lable Time: 03:30:00 PM Sandhya Key [facility] 2 18:30:21 Body mass index 30+ - obesity [id number] Completed 201811/16/2021 Body mass index (BMI) 37.0-37. 9, adult;Re corded Elsewher e: No Locat ion: [facility] S ource: EHR Inventory Associate And Driver yan: N Practi ce ID: [id number] Edmond lable Time: 03:30:00 PM Sandhya sneed, [facility] 2 18:30:21 Chlamydi al infectio n [id number] Completed 201811/16/2021 Chlamydi al infectio n, unspecif ied;Tip rded Elsewher e: No Locat ion: [facility] S ource: EHR Inventory Associate And Driver yan: N Practi ce ID: [id number] Edmond lable Time: 11:52:25 AM Sandhya nseed, [facility] 2 18:30:21 Normal [place] [id number] Completed 201811/16/2021 Encounte r for suprvsn of normal pregnanc y, first trimeste r;Practi ce ID: 0001 Sandhya sneed, [facility] 2 18:30:21 Antenata l screenin g Completed 201811/16/2021 Encounte r for other specifie d antenata l screenin g;Practi ce ID: 0001 Sandhya sneed, [facility] 2 18:30:21 Medical examinat ion for suspecte d conditio n Completed 201811/16/2021 Encntr for oth suspecte d maternal and cond ruled out;Prac jaxson ID: 0001 Sandhya sneed, [facility] 2 18:30:[address] Concept Completed 201811/16/2021 Maternal care for oth abnormal ity and damage, unsp;Pra ctice ID: 0001 Sandhya sneed, [facility] 2 18:30:21 Gestatio n period, 30 weeks [id number] Completed 201811/16/2021 30 weeks gestatio n of pregnanc y;Practi ce ID: 0001 Sandhya sneed, [facility] 2 18:30:21 Pregnanc y, childbir th and puerperi um finding Completed 201811/16/2021 Encntr for suprvsn of normal first preg, third trimeste r;Practi ce ID: 0001 Sandhya sneed, [facility] 2 18:30:21 malforma tion of central nervous system [id number] Completed 201811/16/2021 Maternal care for (suspect ed) cnsl malform in fetus, unsp;Pra ctice ID: 0001 Sandhya [facility], [facility] 2 18:30:21 Gestatio n period, 34 weeks [id number] Completed 201811/16/2021 34 weeks gestatio n of pregnanc y;Practi ce ID: 0001 Sandhya Key [facility] 2 18:30:[address] Concept Completed 201811/16/2021 Matern care for abnlt fetl hrt rate or rhym, unsp tri, unsp;Pra ctice ID: 0001 Sandhya sneed, [facility] 2 18:30:21 Gestatio n period, 36 weeks [id number] Completed 201811/16/2021 36 weeks gestatio n of pregnanc y;Practi ce ID: 0001 Sandhya [facility] 2 18:30:21 Term pregnanc y delivere d [id number] Completed 201811/16/2021 Encounte r for full-ter m uncompli cated delivery ;Practic e ID: 0001 Sandhya [facility] 2 18:30:21 Single live from singleto n pregnanc y [id number] Completed 201811/16/2021 Single live ;Pr actice ID: 0001 Sandhya [facility] 2 18:30:21 Gestatio n period, 37 weeks [id number] Completed 201811/16/2021 37 weeks gestatio n of pregnanc y;Practi ce ID: 0001 Sandhya [facility], [facility] 2 18:30:21 Lochia finding Completed 201911/16/2021 Encounte r for routine postpart um follow-u p;Record ed Elsewher e: No Locat ion: [facility] S ource: EHR Inventory Associate And Driver yan: N Practi ce ID: 0001 Edmond lable Time: 08:45:00 AM Sandhya [facility], [facility] 2 18:30:21 Acute vaginiti s [id number] Completed 201911/16/2021 Vaginiti s;Record ed Elsewher e: No Locat ion: [facility] S ource: EHR Inventory Associate [employer] Driver yan: N Practi ce ID: 0001 Edmond lable Time: 01:00:00 PM Sandhya [facility], [facility] 2 18:30:21 Mixed anxiety and depressi ve disorder 279976081 Active 2024 [facility]az [facility], [facility] 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 5 15:07:06 Pregnanc y 62408815 Active 2024 [facility]az [facility], [facility] 5 15:07:38 chromoso mal abnormal ity affectin g obstetri sofia care 67166634 Active 2024 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, seeing [facility] Schedule d 10/20 us only & 11/17 us only normal echo 12/31- recommen ds postnata l eval of baby Katiana Roger null, [facility] 5 15:09:19 History of heart disorder 979825451 Active 2024 first baby couple hours after Britney Monzon CNM [address], [place], [address], [facility] 5 15:26:56 Past pregnanc y history of pre-ecla mpsia 2690124177 40321 Active 2024 plan bASA 162mg Britney Monzon CNM [address], [place], [address], [facility] 5 15:27:21 History of depressi on 957063345 Active 2024 no current treatmen t Britney Monzon CNM [address], [place], [address], [facility] 5 15:37:15 Hyperten sive disorder 22537815 Active 2024 100mg labetalo l bid Britney Monzon CNM [address], [place], [address], [facility] 11:41:34 Notes:previous son had hypoplastic left heart syndrome Some problems listed in Document: #[id number] could not be added to this patient's chart. Please review this document and add these problems to the patient's chart manually as needed. Problem Notes None recorded. Procedures Surgical History Date Name Laterality Status Provider Name and Address Organization Details Recorded Time 5 Date of Last Pap Smear completed Paz Keller [facility] 08/15/2024 17:09:24 4 SIS completed NUZHAT STEPHENSON MD [address], [place], [address], [facility] 09/13/2023 14:06:22 Imaging Results None [...] Prescrib ed Elsewher e: No Locat ion: [facility] odify By: bill Hurst ter DateTime [...] e: No Locat ion: [facility] [facility] odify By: maged Hurst ter DateTime : 02/06/20 19 08:45:00 AM Not Available Not Available Not Available Zofran 4 mg tablet take 1 tablet as needed for nausea 11/17 completed Prescrib ed Elsewher e: No [facility] By: dian Hurst ter DateTime : 09/17/19 04:11:09 PM Not Available Not Available Not Available Metrogel Vaginal 0.75 % (37.5 mg/5 gram) insert 1 applicat orful by vaginal route every day at bedtime for 5 nights 11/17 completed Prescrib ed Elsewher e: No Locat ion: [facility] odify By: rahel jonas DateTime : [...] Elsewher e: No [facility] By: [email or web address] jonas DateTime : [...] Prescrib ed Elsewher e: No Locat ion: [facility] odify By: dian jonas DateTime : [...] Address Organization Details Last Updated DateTime 02/20/2025 808645.82 545 g 46 kg/m2 167.64 cm 129/84 mm[Hg] Lashonda Bhagat [facility] 02/20/2025 12:04:17 Date Recorded Body weight Systolic And Diastolic Provider Name and Address Organization Details Last Updated DateTime 02/20/2025 892784.92201 g 129/84 mm[Hg] Alicia Peng [facility] 02/20/2025 12:33:40 Social History Question Answer Notes LastModified by Organizat ion Details LastModified Time Tobacco Smoking Status Never Smoker Sandhya Key naren, [facility] 11/17/2021 10:26:20 Do You Have An Advance Directive? No Information n ot available 11/17/2021 If You Are , What Was Your Level Of Alcohol Consumption Prior To ? Occasional [email or web address] Information not available 08/15/2024 How Many Years Have You Consumed Alcohol? 8 Information not available 11/17/2021 Are You Blind Or Do You Have Difficulty Seeing? No Information n ot available 11/17/2021 What Is Your Level Of Caffeine Consumption? Moderate [email or web address] Information not available 08/15/2024 How Much Tobacco [...] Or The Highest Degree You Have Received? [id number] Information not available 11/17/2021 Are There Any Guns Present In Your Home? No Information not available 11/17/2021 Do You Use Protection During Sex? No Information not available 11/17/2021 Do You Use Your Seat Belt Or Car Seat Routinely? Yes Information not available 11/17/2021 Are You Sexually Active? Yes [email or web address] Information not available 11/12/2024 Do You Have [...] is your level of alcohol consumption? None [email or web address] Information not available 08/15/2024 Are you able [...] anxious, or unable to sleep at night)? [id number] [email or web address] Information not available 08/15/2024 Family History Relationship Description Onset Age of this Age Resolved Age Notes LastModified by Organization Details LastModified Time Son Hypoplastic left heart syndrome [email or web address] Not available 06/15 18:39:24 Medical History Condition Response Allergies (Food, seasonal, environmental ) N Other Y Breast Cancer N Drug/Latex Allergies/Reactions N Blood Transfusion N Lung Disease N [...] ICD10 Code Diagnosis IMO Codes Diagnosis Note [id number] Britney Monzon CNM [place] [address],[facility] [place] [address] 01/28/2025 10:12:44 01/28/2025 11:11:44 Gestation period, 30 weeks 87632072 Z3A.30 1299903 [id number] Britney Monzon CNM [place] [address],[place] [address] 02/11/2025 11:02:03 02/11/2025 12:28:12 Gestation period, 32 weeks 8290306 Z3A.32 3493262 [id number] Dakotah Celeste MD [place] [address],[place] [address] 02/20/2025 10:19:25 02/20/2025 11:15:32 Chronic hypertension complicating AND/OR reason for care during 30899709 O10.913 O99.210 O28.0 Z3A.34 [id number] Britney Monzon CNM [place] [address],[place] [address] 02/20/2025 10:20:12 02/20/2025 12:37:20 Abnormal chromosomal and genetic finding on screening of mother 252076007 O28.5 [id number] [id number] Britney Monzon CNM [place] [address],[place] [address] 02/20/2025 10:20:45 02/20/2025 12:28:20 Gestation period, 34 weeks 81228995 Z3A.34 [id number] Health Concerns Section Related Observation LastModified by Organization Detai ls LastModified Time None Recorded Concern Status LastModified by Organization Details LastModified Time None Recorded Payers Encounter Date Sequence Insurance Name Policy Number Policy Mckenna Covered Member ID Mckenna Member ID Guarantor Name 02/20/2025 1 [facility] [id number] Alex Louie [id number] Rizwana Louie Notes Date Note Type Note Provider Name and Address Organization Details Recorded Time 02/20/2025 text/html Generic HPI TemplateReported by Patient Britney Monzon CNM [address], [place], [address], [facility] 02/20/2025 12:27:34 OBGyn Episode Ob Episode Information Episode Created Date Number of Fetuses Patient Bloodtype Patient rh Status Prepregnancy Weight lbs Domestic Partner Domestic Partner Phone Father Name Manager Presentation Status 09/20/19 25 1 O Positive 273 Alex Louie OPEN Fetus Data First Name Last Name Admitted to NICU Weight (g) Sex Living Outcome Pediatric Complications Fetus ID Race Codes Race Delivery Type [id number] Problems Problem Notes Problem Name Start Date End Date Resolution Snomed Code Not e History of depression 09/19/2024 [id number] no current treatment Past history of pre-eclampsia 09/19/2024 [id number] plan bASA 1 62mg History of heart disorder 09/19/2024 718578797 first baby pass ed away couple hours after Hypertensive disorder 12/17/2024 58071489 100mg labetalol bid 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 34385400 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, seeing [facility] office Scheduled 10/20 us only & 11/17 us onlynormal echo 12/31- recommends eval of baby Les Calculation Initial Les Date Initial Exam Date Initial Exam Provider Initial Ultrasound Date Last Menstrual Period Date Ultra Sound Weeks Gestation 04/02/2025 08/26/2024 [email or web address] 08/14/2024 06/26/2024 6 Eighteen To Twenty Week Les Update Ultra Sound Date Fundal Height At Umbil Quickening Date Ultra Sound Latest Weeks Gestation Final Les Confirmed By Final Les Confirmed Date Final Les Date Ultra Sound Latest Days Gestation 0 [email or web address] 09/19/2024 04/02/19 26 0 Pre-cherelle Flowsheet Flowsheet Date 09/19/2024 Nevarez Score Blood Edema Fundus Height Fundus Units Glucose Ketones Leukocytes Nitrite Labor Signs Protein Cervic Dilation Cervic Effacement Cervic Station neg none none trace Type Weight in lbs Pre/Post Dialysis Refused Weight 274.392664571685 BP Diastolic BP Location Tested BP Systolic BP Type 81 140 Fetus Heart Rate Present Fetus Movement A Yes Comments reviewed [facility] notes with pt, undecided about amnio, is scheduled, will continue to follow as well, start bASA 162mg, hx 2 previous vaginal deliveries, begin care Flowsheet Date 2024 Nevarez Score Blood Edema Fundus Height Fundus Units Glucose Ketones Leukocytes Nitrite Labor Signs Protein Cervic Dilation Cervic Effacement Cervic Station Type Weight in lbs Pre/Post Dialysis Refused 278.112082282040 BP Diastolic BP Location Tested BP Systolic BP Type 85 L arm 141 sitting Fetus Heart Rate Present Fetus Movement A No Comments declined amnio first us good at [facility], has anatomy scheduled. mood good. _-FM yet precautions and educations f/u 4 weeks Flowsheet Date 11/12/2024 Nevarez Score Blood Edema Fundus Height Fundus Units Glucose Ketones Leukocytes Nitrite Labor Signs Protein Cervic Dilation Cervic Effacement Cervic Station Type Weight in lbs Pre/Post Dialysis Refused 278.328404148997 BP Diastolic BP Location Tested BP Systolic BP Type 94 L wrist 146 sitting 102 R wrist 157 sitting Fetus Heart Rate Present Fetus Movement A No Comments last us at [facility] wnl, has f/u next week +FM precautions and education f/u [address] discussed bp with dr. stephenson start labetalol 200mg bid Flowsheet Date 11/19/2024 Nevarez Score Blood Edema Fundus Height Fundus Units Glucose Ketones Leukocytes Nitrite Labor Signs Protein Cervic Dilation Cervic Effacement Cervic Station Type Weight in lbs Pre/Post Dialysis Refused Weight 279.313619641769 BP Diastolic BP Location Tested BP Systolic BP Type 79 L arm 128 sitting Fetus Heart Rate Present A 154 Fetus Movement A Yes Comments +FM doing well, bp's normote nsive on labetalol, cont to monitor, denies any sxs. precautions and education f/u [facility] as scheduled Flowsheet Date 12/17/2024 Nevarez Score Blood Edema Fundus Height Fundus Units Glucose Ketones Leukocytes Nitrite Labor Signs Protein Cervic Dilation Cervic Effacement Cervic Station Type Weight in lbs Pre/Post Dialysis Refused Weight 280.797324210886 BP Diastolic BP Location Tested BP Systolic BP Type 82 L arm 129 sitting Fetus Heart Rate Present Fetus Movement A Yes Comments +[facility] f/u with anatomy and plans echo, precautions and education f/u 4 weeks with glucose Flowsheet Date 01/14/2025 Nevarez Score Blood Edema Fundus Height Fundus Units Glucose Ketones Leukocytes Nitrite Labor Signs Protein Cervic Dilation Cervic Effacement Cervic Station Type Weight in lbs Pre/Post Dialysis Refused Weight 282.829100267222 BP Diastolic BP Location Tested BP Systolic BP Type 83 L arm 126 sitting 66 L wrist 128 sitting Fetus Heart Rate Present Fetus Movement A Yes Comments per pt [facility] said anatomyok, e cho unremarkable, plans to deliver [facility] today, discuss vaccines at next visit, small odor after intercourse, will plan flagyl. education and precautions f/u 2 weeks Flowsheet Date 01/28/2025 Nevarez Score Blood Edema Fundus Height Fundus Units Glucose Ketones Leukocytes Nitrite Labor Signs Protein Cervic Dilation Cervic Effacement Cervic Station Type Weight in lbs Pre/Post Dialysis Refused Weight 283.19183703460 BP Diastolic BP Location Tested BP Systolic [...] Type Weight in lbs Pre/Post Dialysis Refused 284.244572621642 BP Diastolic BP Location Tested BP Systolic [...] Type Weight in lbs Pre/Post Dialysis Refused 285.113131206403 BP Diastolic BP Location Tested BP Systolic BP Type 84 L arm 129 sitting Fetus Heart Rate Present Fetus Movement A Yes Comments Flowsheet Date 02/20/2025 Nevarez Score Blood Edema Fundus Height Fundus Units Glucose Ketones Leukocytes Nitrite Labor Signs Protein Cervic Dilation Cervic Effacement Cervic Station Type Weight in lbs Pre/Post Dialysis Refused 285.580575487572 BP Diastolic BP Location Tested BP Systolic [...] Weight in lbs Pre/Post Dialysis Refused Weight 289.886199605739 BP Diastolic BP Location Tested BP Systolic [...] Weight in lbs Pre/Post Dialysis Refused Weight 289.540172636546 BP Diastolic BP Location Tested BP Systolic [...] Type Weight in lbs Pre/Post Dialysis Refused 292.792251327048 BP Diastolic BP Location Tested BP Systolic BP Type 77 L arm 129 sitting Fetus Heart Rate Present Fetus Movement A Yes Comments Flowsheet Date 03/06/2025 Nevarez Score Blood Edema Fundus Height Fundus Units Glucose Ketones Leukocytes Nitrite Labor Signs Protein Cervic Dilation Cervic Effacement Cervic Station 3cm 50% -2 Type Weight in lbs Pre/Post Dialysis Refused Weight 292.250209063826 BP Diastolic BP Location Tested BP Systolic [...]
--- OUTSIDE RECORDS SUMMARY | 2025-03-08 23:25 | XMS_ITS | Continuity of Care Document ---
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 Discussed plan. Not available 02/11/2025 12:14:14 Plan of Treatment Reminders Order Date Submit [...] ting Lab: [facility] [address] [facility] [address] Tel: CULTU RE ----- ----- ----- --- No growt h in 1 day (dete ction level of 10,00 0 colon ies / ml.) Not Available [facility] (Lab) [address] [facility], [place], [address], 09/20/2024 22:24:37 09/20/19 25 09/19/2024 drug scree n, urine Amphetamines : negati ve Not Available [facility] [address], [place], [address], 09/19/2024 14:47:54 09/20/19 25 09/19/2024 drug scree n, urine Cannabinoids : negati ve Not Available [facility] [address], [place], [address], 09/19/2024 14:47:54 09/20/19 25 09/19/2024 drug scree n, urine Cocaine: negati ve Not Available [facility] [address], [place], [address], 09/19/2024 14:47:54 09/20/19 25 09/19/2024 drug scree n, urine Opiates: negati ve Not Available [facility] [address], [place], [address], 09/19/2024 14:47:54 09/20/19 25 09/19/2024 drug scree n, urine Phenocyclidi ne: negati ve Not Available [facility] [address], [place], [address], 09/19/2024 14:47:54 09/20/19 25 09/19/2024 drug scree n, urine Barbiturates : negati ve Not Available [facility] [address], [place], [address], 09/19/2024 14:47:54 09/20/19 25 09/19/2024 drug scree n, urine Benzodiazepi heather: negati ve Not Available [facility] [address], [place], [address], 09/19/2024 14:47:54 09/20/19 25 09/19/2024 drug scree n, urine Ethanol: negati ve Not Available [facility] [address], [place], [address], 09/19/2024 14:47:54 09/20/19 25 09/19/2024 drug scree n, urine Hallucinogen s: negati ve Not Available [facility] [address], [place], [address], 09/19/2024 14:47:54 09/20/19 25 09/19/2024 drug scree n, urine Inhalants: negati ve Not Available [facility] [address], [place], [address], 09/19/2024 14:47:54 09/20/19 25 09/19/2024 drug scree n, urine Anabolic Steroids: negati ve Not Available [facility] [address], [place], [address], 09/19/2024 14:47:54 09/20/19 25 09/19/2024 drug scree n, urine Other: negati ve Not Available [facility] [address], [place], [address], 09/19/2024 14:47:54 11/13/1911/12/2024 URIC ACID uric acid 4.3 mg/dL 2.3-6. 6 Not Available [facility] (Lab) [address] [facility], [place], [address], 11/13/2024 05:32:43 11/13/19 25 11/12/2024 PROTE IN/CR EATIN INE RATIO , URINE creatinine, urine 35.1 mg/dL R-No refer ence range estab lishe d for this assay Not Available [facility] (Lab) [address] [facility], [place], [address], 11/13/2024 05:32:43 11/13/19 25 11/12/2024 PROTE IN/CR EATIN INE RATIO , URINE protein, urine <4 mg/dL R-No refer ence range estab lishe d for this assay Not Available [facility] (Lab) [address] [facility], [place], [address], 11/13/2024 05:32:43 11/13/19 25 11/12/2024 PROTE IN/CR [...] prote inuri a. Not Available [facility] (Lab) [address] [facility], [place], [address], 11/13/2024 05:32:43 11/13/19 25 11/12/2024 CBC W/DIF F WBC 16.1 10'3/ uL 3.5-10 .5 high Not Available [facility] (Lab) [address] [place], [address], 11/13/2024 05:32:44 11/13/19 25 11/12/2024 CBC W/DIF F RBC 4.47 10'6/ uL (based on docume nted legal sex) 3.80-5 .20 Not Available [facility] (Lab) [address] [facility], [place], [address], 11/13/2024 05:32:44 11/13/19 25 11/12/2024 CBC W/DIF F HGB 12.4 g/dL (based on docume nted legal sex) 11.6-1 5.4 Not Available [facility] (Lab) [address] [facility], [place], [address], 11/13/2024 05:32:44 11/13/19 25 11/12/2024 CBC W/DIF F HCT 38.6 % (based on docume nted legal sex) 34.0-4 5.0 Not Available [facility] (Lab) [address] [facility], [place], [address], 11/13/2024 05:32:44 11/13/19 25 11/12/2024 CBC W/DIF F MCV 86.4 fL 80.0-9 9.0 Not Available [facility] (Lab) [address] [facility], [place], [address], 11/13/2024 05:32:44 11/13/1911/12/2024 CBC W/DIF F MCH 27.7 pg 27.0-3 4.0 Not Available [facility] (Lab) [address], [place], [address], 11/13/2024 05:32:44 11/13/19 25 11/12/2024 CBC W/DIF F MCHC 32.1 g/dL 32.0-3 5.5 Not Available [facility] (Lab) [address] [facility], [place], [address], 11/13/2024 05:32:44 11/13/19 25 11/12/2024 CBC W/DIF F RDW 13.6 % 11.0-1 5.0 Not Available [facility] (Lab) [address], [place], [address], 11/13/2024 05:32:44 11/13/19 25 11/12/2024 CBC W/DIF F plt 295 10'3/ uL 150-40 0 Not Available [facility] (Lab) [address], [place], [address], 11/13/2024 05:32:44 11/13/19 25 11/12/2024 CBC W/DIF F MPV 10.8 fL 8.8-12 .1 Not Available [facility] (Lab) [address], [place], [address], 11/13/2024 05:32:44 11/13/19 25 11/12/2024 CBC W/DIF F NRBC's 0.0 % 0.0 Not Available [facility] (Lab) [address], [place], [address], 11/13/2024 05:32:44 11/13/19 25 11/12/2024 CBC W/DIF F absolute NRBCs 0.0 10'3/ uL no refere nce range establ ished Not Available [facility] (Lab) [address], [place], [address], 11/13/2024 05:32:44 11/13/1911/12/2024 CBC W/DIF F neutrophils 74.9 % 34.0-7 3.0 high Not Available [facility] (Lab) [address] [facility], [place], [address], 11/13/2024 05:32:44 11/13/19 25 11/12/2024 CBC W/DIF F lymphocytes 18.4 % 15.0-5 0.0 Not Available [facility] (Lab) [address], [place], [address], 11/13/2024 05:32:44 11/13/19 25 11/12/2024 CBC W/DIF F monocytes 5.4 % 1.0-15 .0 Not Available [facility] (Lab) [address], [place], [address], 11/13/2024 05:32:44 11/13/19 25 11/12/2024 CBC W/DIF F eosinophils 0.7 % 0.0-8. 0 Not Available [facility] (Lab) [address] [facility], [place], [address], 11/13/2024 05:32:44 11/13/19 25 11/12/2024 CBC W/DIF F basophils 0.2 % 0.0-2. 0 Not Available [facility] (Lab) [address], [place], [address], 11/13/2024 05:32:44 11/13/19 25 11/12/2024 CBC W/DIF [...] if prese nt. Not Available [facility] (Lab) [address], [place], [address], 11/13/2024 05:32:44 11/13/19 25 11/12/2024 CBC W/DIF F absolute neutrophils 12.0 10'3/ uL 1.5-8. 0 high Not Available [facility] (Lab) [address] [place], [address], 11/13/2024 05:32:44 11/13/19 25 11/12/2024 CBC W/DIF F absolute lymphocytes 3.0 10'3/ uL 1.0-4. 0 Not Available [facility] (Lab) [address] [facility] [place], [address], 11/13/2024 05:32:44 11/13/1911/12/2024 CBC W/DIF F absolute monocytes 0.9 10'3/ uL 0.2-1. 0 Not Available [facility] (Lab) [address], [place], [address], 11/13/2024 05:32:44 11/13/19 25 11/12/2024 CBC W/DIF F absolute eosinophils 0.1 10'3/ uL 0.0-0. 6 Not Available [facility] (Lab) [address], [place], [address], 11/13/2024 05:32:44 11/13/1911/12/2024 CBC W/DIF F absolute basophils 0.0 10'3/ uL 0.0-0. 3 Not Available [facility] (Lab) [address], [place], [address], 11/13/2024 05:32:44 11/13/1911/12/2024 CBC W/DIF F absolute [...] nm.or g/gen derx Not Available [facility] (Lab) [address], [place], [address], 11/13/2024 05:32:44 11/13/1911/12/2024 CMP(C OMPRE HENSI VE METAB OLIC PANEL ) sodium 137 mmol/ L 133-14 6 Not Available [facility] (Lab) [address], [place], [address], 11/13/2024 05:32:44 11/13/19 25 11/12/2024 CMP(C OMPRE HENSI VE METAB OLIC PANEL ) potassium 4.0 mmol/ L 3.5-5. 1 Not Available [facility] (Lab) [address] [facility], [place], [address], 11/13/2024 05:32:44 11/13/19 25 11/12/2024 CMP(C OMPRE HENSI VE METAB OLIC PANEL ) chloride 102 mmol/ L 98-107 Not Available [facility] (Lab) [address], [place], [address], 11/13/2024 05:32:44 11/13/19 25 11/12/2024 CMP(C OMPRE HENSI VE METAB OLIC PANEL ) carbon dioxide 27 mmol/ L 21-31 Not Available [facility] (Lab) [address], [place], [address], 11/13/2024 05:32:44 11/13/19 25 11/12/2024 CMP(C OMPRE HENSI VE METAB OLIC PANEL ) anion gap 8 mmol/ L 4-13 Not Available [facility] (Lab) [address], [place], [address], 11/13/2024 05:32:44 11/13/19 25 11/12/2024 CMP(C OMPRE HENSI VE METAB OLIC PANEL ) blood urea nitrogen 7 mg/dL 7-25 Not Available [facility] (Lab) [address], [place], [address], 11/13/2024 05:32:44 11/13/19 25 11/12/2024 CMP(C OMPRE HENSI VE METAB OLIC PANEL ) creatinine 0.48 mg/dL 0.60-1 .30 low Not Available [facility] (Lab) [address], [place], [address], 11/13/2024 05:32:44 11/13/19 25 11/12/2024 CMP(C OMPRE HENSI VE METAB OLIC PANEL ) egfrcr (CKD-epi 2020) >90 mL/mi n/1.7 3_m2 >=60 Not Available [facility] (Lab) [address], [place], [address], 11/13/2024 05:32:44 11/13/19 25 11/12/2024 CMP(C OMPRE HENSI VE METAB OLIC PANEL ) calcium 9.7 mg/dL 8.3-10 .5 Not Available [facility] (Lab) [address], [place], [address], 11/13/2024 05:32:44 11/13/19 25 11/12/2024 CMP(C OMPRE HENSI VE METAB OLIC PANEL ) glucose 86 mg/dL 70-100 Not Available [facility] (Lab) [address], [place], [address], 11/13/2024 05:32:44 11/13/19 25 11/12/2024 CMP(C OMPRE HENSI VE METAB OLIC PANEL ) protein, total 6.6 g/dL 6.4-8. 3 Not Available [facility] (Lab) [address], [place], [address], 11/13/2024 05:32:44 11/13/19 25 11/12/2024 CMP(C OMPRE HENSI VE METAB OLIC PANEL ) albumin 4.0 g/dL 3.5-5. 0 Not Available [facility] (Lab) [address], [place], [address], 11/13/2024 05:32:44 11/13/19 25 11/12/2024 CMP(C OMPRE HENSI VE METAB OLIC PANEL ) ALT 11 units /L 9-43 Not Available [facility] (Lab) [address], [place], [address], 11/13/2024 05:32:44 11/13/19 25 11/12/2024 CMP(C OMPRE HENSI VE METAB OLIC PANEL ) alkaline phosphatase 54 units /L 34-104 Not Available [facility] (Lab) [address], [place], [address], 11/13/2024 05:32:44 11/13/19 25 11/12/2024 CMP(C OMPRE HENSI VE METAB OLIC PANEL ) AST 10 units /L 13-39 low Not Available [facility] (Lab) [address], [place], [address], 11/13/2024 05:32:44 11/13/19 25 11/12/2024 CMP(C OMPRE HENSI VE METAB OLIC PANEL ) bilirubin, total 0.2 mg/dL 0.2-1. 2 Not Available [facility] (Lab) [address], [place], [address], 11/13/2024 05:32:44 01/15/20 25 01/14/2025 GTT - GESTA NICOLAS L LESLY N, ACOG OB glucose, 1 hour screen 141 mg/dL 70-135 high Not Available [facility] (Lab) [address] [place], [address], 01/15/2025 11:13:15 01/15/2001/14/2025 HIV 1/2 ANTIG EN/AN TIBOD Y, REFLE X CONFI RMATI ON HIV antigen/anti body Nonrea ctive nonrea ctive HIV-1 antig en and HIV-1 /HIV- 2 antib odies were not detec terra. No labor atory evide nce of HIV infec tion. Not Available [facility] (Lab) [address], [place], [address], 01/15/2025 11:13:16 01/15/2001/14/2025 HEMAT OCRIT (HCT) HCT 34.1 % (based on docume nted legal sex) 34.0-4 5.0 Not Available [facility] (Lab) [address], [place], [address], 01/15/2025 11:13:16 01/15/20 25 01/14/2025 HEMOG LOBIN (HGB) HGB 10.6 g/dL (based on docume nted legal sex) 11.6-1 5.4 low Not Available [facility] (Lab) [address], [place], [address], 01/15/2025 11:13:17 01/15/2001/14/2025 RPR SCREE N, REFLE X TITER /CONF IRMAT ION RPR qualitative Nonrea ctive nonrea ctive Not Available [facility] (Lab) [address], [place], [address], 01/15/2025 11:13:17 01/24/2001/23/2025 GTT - GESTA NICOLAS L, 3 HOUR, ACOG glucose, fasting acog 70 mg/dL 70-94 Not Available [facility] (Lab) [address], [place], [address], 01/24/2025 05:24:10 01/24/20 25 01/23/2025 GTT - GESTA NICOLAS L, 3 HOUR, ACOG glucose, 1 hour acog 150 mg/dL 70-179 Not Available [facility] (Lab) [address], [place], [address], 01/24/2025 05:24:10 01/24/20 25 01/23/2025 GTT - GESTA NICOLAS L, 3 HOUR, ACOG glucose, 2 hour acog 143 mg/dL 70-154 Not Available [facility] (Lab) [address] [place], [address], 01/24/2025 05:24:10 01/24/20 25 01/23/2025 GTT - GESTA NICOLAS L, 3 HOUR, ACOG glucose, 3 hour acog 46 mg/dL 70-139 critical low Resul ts verif ied by repea t rosanna sis. Not Available [facility] (Lab) [address] [place] [facility] [place], [address], 01/24/2025 05:24:10 10/02/19 25 10/01/2024 US, obste tric, follo w-up No observ ation record ed. [email or web address] [facility] [address], [address], 10/08/2024 09:41:15 11/18/19 25 11/17/2024 US, obste tric, follo w-up No observ ation record ed. [address] [facility] [address], [address], 11/18/2024 12:26:24 11/19/19 25 11/17/2024 US, obste tric, follo w-up No observ ation record ed. [address] [facility] [address], [address], 11/19/2024 11:57:24 11/26/19 25 11/25/2024 US, obste tric, follo w-up No observ ation record ed. [email or web address] [facility] [address], [address], 11/26/2024 17:27:21 11/26/19 25 11/25/2024 US, obste tric, follo w-up No observ ation record ed. [email or web address] [facility] [address], [address], 11/25/2024 17:38:04 12/16/19 25 12/15/2024 US, obste tric, follo w-up No observ ation record ed. [email or web address] [facility] [address], [address], 12/16/2024 06:57:29 01/13/20 25 01/12/2025 US, obste tric No observ ation record ed. [email or web address] [facility] [place], [address], 01/13/2025 11:43:49 01/13/2001/12/2025 US, obste tric, follo w-up No observ ation record ed. [email or web address] [facility] [address], [address], 01/13/2025 16:24:45 02/11/20 25 02/10/2025 non-s tress test No observ ation record ed. [email or web address] [facility] [address], [address], 02/11/2025 15:00:18 02/11/20 25 02/10/2025 US, obste tric, follo w-up No observ ation record ed. [email or web address] [facility] [address], [address], 02/11/2025 11:37:25 02/21/20 25 02/20/2025 US, obste tric, bioph ysica l profi le + non-s tress test No observ ation record ed. [facility] [address], [place], [address], 02/20/2025 16:56:43 02/21/20 25 02/20/2025 US, obste tric, bioph ysica l profi le + non-s tress test No observ ation record ed. juliano Tori [address], [place], [address], 02/23/2025 11:31:02 02/21/20 25 02/20/2025 non-s tress test No observ ation record ed. [address], [place], [address], 02/20/2025 13:47:54 02/21/20 non-s tress test No observ ation record ed. [email or web address] [facility] [address], [place], [address], 02/20/2025 12:35:53 02/26/2002/25/2025 US, obste tric, bioph ysica l profi le + non-s tress test No observ ation record ed. [email or web address] [facility] [address], [place], [address], 02/25/2025 11:49:48 02/26/2002/25/2025 US, obste tric, bioph ysica l profi le + non-s tress test No observ ation record ed. [email or web address] Tori [address], [place], [address], 03/04/2025 11:50:53 02/26/2002/25/2025 non-s tress test No observ ation record ed. [email or web address] [facility] [address], [place], [address], 02/25/2025 17:57:33 02/26/20 non-s tress test No observ ation record ed. [email or web address] [facility] [address], [place], [address], 02/25/2025 17:15:53 03/06/2003/06/2025 non-s tress test No observ ation record ed. [email or web address] [facility] [address], [place], [address], 03/06/2025 13:52:03 03/06/20 non-s tress test No observ ation record ed. [email or web address] [facility] [address], [place], [address], 03/06/2025 12:00:07 03/06/20 25 03/06/2025 US, obste tric, follo w-up No observ ation record ed. [email or web address] Tori [address], [place], [address], 03/07/2025 23:02:25 03/06/20 25 03/06/2025 US, obste tric, follo w-up No observ ation record ed. [facility] [address], [place], [address], 03/06/2025 13:52:39 03/06/20 25 03/06/2025 US, obste tric, bioph ysica l profi le + non-s tress test No observ ation record ed. [facility] [address], [place], [address], 03/06/2025 13:52:50 Result Notes None recorded. Problems Name Problem SNOMED Code Status Onset Date Resolution Date Notes Provider Name and Address Organization Details Recorded Time Polycyst ic ovary syndrome 372771843 Completed 201711/16/2021 Polycyst ic ovarian syndrome ;Recorde d Elsewher e: No Locat ion: [facility] S ource: EHR Sheet Metal Welder yan: N Susie ce ID: 0001 Edmond lable Time: 02:45:00 PM Sandhya [facility] 2 18:30:21 Finding of fertilit y Completed 201711/16/2021 Female infertil ity, unspecif ied;Tip rded Elsewher e: No Locat ion: [facility] S ource: EHR Sheet Metal Welder yan: N Practi ce ID: [id number] Edmond lable Time: 10:00:00 AM Sandhya [facility] 2 18:30:21 Abnormal uterine bleeding [id number] Completed 201711/16/2021 Other specifie d abnormal uterine and vaginal bleeding ;Recorde d Elsewher e: No Locat ion: [facility] S ource: EHR Sheet Metal Welder yan: N Practi ce ID: [id number] Edmond lable Time: 09:45:00 AM Sandhya sneed [facility] 2 18:30:21 Bleeding Completed 201711/16/2021 Abnormal uterine and vaginal bleeding , unspecif ied;Tip rded Elsewher e: No Locat ion: [facility] S ource: EHR Sheet Metal Welder yan: N Practi ce ID: [id number] Edmond lable Time: 10:00:00 AM Sandhya sneed [facility] 2 18:30:21 Urinary tract infectio us disease [id number] Completed 201811/16/2021 Urinary tract infectio n, site not specifie d;Record ed Elsewher e: No Locat ion: [facility] S ource: EHR Sheet Metal Welder yan: N Practi ce ID: [id number] Edmond lable Time: 04:15:00 PM Sandhya sneed [facility] 2 18:30:21 Pregnanc y detectio n examinat ion Completed 201811/16/2021 Encounte r for pregnanc y test, result positive ;Practic e ID: 0001 Sandhya sneed [facility] 2 18:30:21 Uterine size for dates discrepa ncy Completed 201811/16/2021 Uterine size-johann e discrepa ncy, first trimeste r;Practi ce ID: 0001 Sandhya sneed, [facility] 2 18:30:21 Gestatio n period, 9 weeks [id number] Completed 201811/16/2021 9 weeks gestatio n of pregnanc y;Practi ce ID: 0001 Sandhya sneed [facility] 2 18:30:21 Secondar y amenorrh ea [id number] Completed 201811/16/2021 Secondar y amenorrh ea;Recor ded Elsewher e: No [facility] S ource: EHR Sheet Metal Welder yan: N Practi ce ID: [id number] Edmond lable Time: 03:30:00 PM Sandhya [facility] 2 18:30:21 Infectio n screenin g Completed 201811/16/2021 Encounte r for screenin g for oth infec/pa rastc diseases ;Recorde d Elsewher e: No Locat ion: [facility] S ource: EHR Sheet Metal Welder yan: N Practi ce ID: [id number] Edmond lable Time: 03:30:00 PM Sandhya [facility] 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 2 18:30:21 Syphilis test finding [id number] Completed 201811/16/2021 Encntr screen for infectio ns w sexl mode of transmis s;Record ed Elsewher e: No Locat ion[facility] S ource: EHR Sheet Metal Welder yan: N Practi ce ID: [id number] Edmond lable Time: 03:30:00 PM Sandhya [facility] 2 18:30:21 Body mass index 30+ - obesity [id number] Completed 201811/16/2021 Body mass index (BMI) 37.0-37. 9, adult;Re corded Elsewher e: No Locat ion: [facility] S ource: EHR Sheet Metal Welder yan: N Practi ce ID: [id number] Edmond lable Time: 03:30:00 PM Sandhya sneed, [facility] 2 18:30:21 Chlamydi al infectio n [id number] Completed 201811/16/2021 Chlamydi al infectio n, unspecif ied;Tip rded Elsewher e: No Locat ion: [facility] S ource: EHR Sheet Metal Welder yan: N Practi ce ID: [id number] Edmond lable Time: 11:52:25 AM Sandhya sneed, [facility] 2 18:30:21 [place] [id number] Completed 201811/16/2021 Encounte r for suprvsn of normal pregnanc y, first trimeste r;Practi ce ID: 0001 Sandhya sneed, [facility] 2 18:30:21 Antenata l screenin g Completed 201811/16/2021 Encounte r for other specifie d antenata l screenin g;Practi ce ID: 0001 Sandhya sneed, [facility] 2 18:30:21 Medical examinat ion for suspecte d conditio n Completed 201811/16/2021 Encntr for oth suspecte d maternal and cond ruled out;Prac jaxson ID: 0001 Sandhya sneed, [facility] 2 18:30:[address] Concept Completed 201811/16/2021 Maternal care for oth abnormal ity and damage, unsp;Pra ctice ID: 0001 Sandhya sneed, [facility] 2 18:30:21 Gestatio n period, 30 weeks [id number] Completed 201811/16/2021 30 weeks gestatio n of pregnanc y;Practi ce ID: 0001 Sandhya sneed, [facility] 2 18:30:21 Pregnanc y, childbir th and puerperi um finding Completed 201811/16/2021 Encntr for suprvsn of normal first preg, third trimeste r;Practi ce ID: 0001 Sandhya sneed, [facility] 2 18:30:21 malforma tion of central nervous system [id number] Completed 201811/16/2021 Maternal care for (suspect ed) cnsl malform in fetus, unsp;Pra ctice ID: 0001 Sandhya Key [facility], [facility] 2 18:30:21 Gestatio n period, 34 weeks [id number] Completed 201811/16/2021 34 weeks gestatio n of pregnanc y;Practi ce ID: 0001 Sandhya Key [facility] 2 18:30:[address] Concept Completed 201811/16/2021 Matern care for abnlt fetl hrt rate or rhym, unsp tri, unsp;Pra ctice ID: 0001 Sandhya sneed, [facility] 2 18:30:21 Gestatio n period, 36 weeks [id number] Completed 201811/16/2021 36 weeks gestatio n of pregnanc y;Practi ce ID: 0001 Sandhya Key [facility] 2 18:30:21 Term pregnanc y delivere d [id number] Completed 201811/16/2021 Encounte r for full-ter m uncompli cated delivery ;Practic e ID: 0001 Sandhya Key [facility] 2 18:30:21 Single live from singleto n pregnanc y [id number] Completed 201811/16/2021 Single live ;Pr actice ID: 0001 Sandhya [facility] [facility] 2 18:30:21 Gestatio n period, 37 weeks [id number] Completed 201811/16/2021 37 weeks gestatio n of pregnanc y;Practi ce ID: [id number] Sandhya Key [facility], [facility] 2 18:30:21 Lochia finding Completed 201911/16/2021 Encounte r for routine postpart um follow-u p;Record ed Elsewher e: No Locat ion: [facility] S ource: EHR Sheet Metal Welder yan: N Practi ce ID: [id number] Edmond lable Time: 08:45:00 AM Sandhya Key [facility], [facility] 2 18:30:21 Acute vaginiti s [id number] Completed 201911/16/2021 Vaginiti s;Record ed Elsewher e: No Locat ion: [facility] S ource: EHR Sheet Metal Welder yan: N Practi ce ID: [id number] Edmond lable Time: 01:00:00 PM Sandhya Key [facility], [facility] 2 18:30:21 Mixed anxiety and depressi ve disorder 807980371 Active 2024 Paz Keller [facility], [facility] 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 5 15:07:06 Pregnanc y 12259434 Active 2024 Paz Keller [facility], [facility] 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 5 15:09:19 History of heart disorder 229284734 Active 2024 first baby couple hours after Britney Monzon CNM [address], [place], [address], [facility] 5 15:26:56 Past pregnanc y history of pre-ecla mpsia 6863899970 63342 Active 2024 plan bASA 162mg Britney Monzon CNM [address], [place], [address], [facility] 5 15:27:21 History of depressi on 771821370 Active 2024 no current treatmen t Britney Monzon CNM [address], [place], [address], [facility] 5 15:37:15 Hyperten sive disorder 62125252 Active 2024 100mg labetalo l bid Britney Monzon CNM [address], [place], [address], [facility] 11:41:34 Notes:previous son had hypoplastic left heart syndrome Some problems listed in Document: #[id number] could not be added to this patient's chart. Please review this document and add these problems to the patient's chart manually as needed. Problem Notes None recorded. Procedures Surgical History Date Name Laterality Status Provider Name and Address Organization Details Recorded Time 5 Date of Last Pap Smear completed aPz Keller [facility] 08/15/2024 17:09:24 4 SIS completed NUZHAT STEPHENSON MD [address], [place], [address], [facility] 09/13/2023 14:06:22 Imaging Results [...] Prescrib ed Elsewher e: No Locat ion: [facility] odify By: bill Hurst ter DateTime [...] Elsewher e: No Locat ion: [place] [facility] odify By: maged Hurst ter DateTime : 02/06/20 19 08:45:00 AM Not Available Not Available Not Available Zofran 4 mg tablet take 1 tablet as needed for nausea 11/17 completed Prescrib ed Elsewher e: No [facility] By: dian Hurst ter DateTime : 09/17/19 04:11:09 PM Not Available Not Available Not Available Metrogel Vaginal 0.75 % (37.5 mg/5 gram) insert 1 applicat orful by vaginal route every day at bedtime for 5 nights 11/17 completed Prescrib ed Elsewher e: No Locat ion: [facility] odify By: rahel jonas DateTime : [...] Prescrib ed Elsewher e: No Locat ion: [facility] odify By: [email or web address] jonas DateTime : [...] Prescrib ed Elsewher e: No Locat ion: [facility] odify By: dian jonas DateTime : 09/17/19 04:11:09 PM Not Available Not Available Not Available nitrofura ntoin monohydra te/macroc rystals 100 mg capsule TAKE 1 CAPSULE BY MOUTH EVERY 12 HOURS 08/15 completed Not Available Not Available Not Available active Not Available Not Avai lable Not Available Baby Aspirin active Not Available Not Available Not Available Vitals Date Recorded Body weight Systolic And Diastolic Provider Name and Address Organization Details Last Updated DateTime 02/11/2025 307694.46679 g 134/83 mm[Hg] Liss [facility] - [facility] 02/11/2025 11:34:41 Social History Question Answer Notes LastModified by Organizat ion Details LastModified Time Tobacco Smoking Status Never Smoker Sandhya Key [facility] 11/17/2021 10:26:20 Do You Have An Advance Directive? No Information n ot available 11/17/2021 If You Are , What Was Your Level Of Alcohol Consumption Prior To ? Occasional [email or web address] Information not available 08/15/2024 How Many Years Have You Consumed Alcohol? 8 Information not available 11/17/2021 Are You Blind Or Do You Have Difficulty Seeing? No Information n ot available 11/17/2021 What Is Your Level Of Caffeine Consumption? Moderate [email or web address] Information not available 08/15/2024 How Much Tobacco [...] Or The Highest Degree You Have Received? [id number] Information not available 11/17/2021 Are There Any [...] is your level of alcohol consumption? None [email or web address] Information not available 08/15/2024 Are you able [...] anxious, or unable to sleep at night)? [id number] Information not available 08/15/2024 Family History Relationship Description Onset Age of this Age Resolved Age Notes LastModified by Organization Details LastModified Time Son Hypoplastic left heart syndrome [email or web address] Not available 06/15 18:39:24 Medical History Condition [...] ICD10 Code Diagnosis IMO Codes Diagnosis Note [id number] [facility] [address] [place] [address] 01/14/2025 13:59:39 01/14/2025 15:51:36 Gestation period, 28 weeks [id number] Z3A.28 [id number] [facility] [address] [place] [address] 01/28/2025 10:12:44 01/28/2025 11:11:44 Gestation period, 30 weeks 37138031 Z3A.30 2949548 [id number] [facility] [address] [place] [address] 02/11/2025 11:02:03 02/11/2025 12:28:12 Gestation period, 32 weeks 0971665 Z3A.32 [id number] Health Concerns Section Related Observation LastModified by Organization Detai ls LastModified Time None Recorded Concern Status LastModified by Organization Details LastModified Time None Recorded Payers Encounter Date Sequence Insurance Name Policy Number Policy Mckenna Covered Member ID Mckenna Member ID Guarantor Name 02/11/2025 1 [facility] [id number] Alex Louie [id number] Rizwana Louie Notes Date Note Type Note Provider Name and Address Organization Details Recorded Time 02/11/2025 text/html Generic HPI TemplateReported by Patient Britney EVeronica Monzon, CLAUDINE [address], [place], [address], [place] [facility] 02/11/2025 12:19:43 OBGyn Episode Ob Episode Information Episode Created Date Number of Fetuses Patient Bloodtype Patient rh Status Prepregnancy Weight lbs Domestic Partner Domestic Partner Phone Father Name Corporate Law Assistant Status 09/20/19 25 1 O Positive 273 Alex Louie OPEN Fetus Data First Name Last Name Admitted to NICU Weight (g) Sex Living Outcome Pediatric Complications Fetus ID Race Codes Race Delivery Type [id number] Problems Problem Notes Problem Name Start Date End Date Resolution Snomed Code Not e History of depression 09/19/2024 [id number] no current treatment Past history of pre-eclampsia 09/19/2024 [id number] plan bASA 1 62mg History of heart disorder 09/19/2024 [id number] first baby pass ed away couple hours after Hypertensive disorder 12/17/2024 58492996 100mg labetalol bid 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 07346264 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, seeing MFM [facility] office Scheduled 10/20 us only & 11/17 us onlynormal echo 12/31- recommends eval of baby Les Calculation Initial Les Date Initial Exam Date Initial Exam Provider Initial Ultrasound Date Last Menstrual Period Date Ultra Sound Weeks Gestation 04/02/2025 08/26/2024 [email or web address] 08/14/2024 06/26/2024 6 Eighteen To Twenty Week Les Update Ultra Sound Date Fundal Height At Umbil Quickening Date Ultra Sound Latest Weeks Gestation Final Les Confirmed By Final Les Confirmed Date Final Les Date Ultra Sound Latest Days Gestation 0 [email or web address] 09/19/2024 04/02/19 26 0 Pre-cherelle Flowsheet Flowsheet Date 09/19/2024 Nevarez Score Blood Edema Fundus Height Fundus Units Glucose Ketones Leukocytes Nitrite Labor Signs Protein Cervic Dilation Cervic Effacement Cervic Station neg none none trace Type Weight in lbs Pre/Post Dialysis Refused Weight 274.195073529024 BP Diastolic BP Location Tested BP Systolic BP Type 81 140 Fetus Heart Rate Present Fetus Movement A Yes Comments reviewed [facility] notes with pt, undecided about amnio, is scheduled, will continue to follow as well, start bASA 162mg, hx 2 previous vaginal deliveries, begin care Flowsheet Date 2024 Nevarez Score Blood Edema Fundus Height Fundus Units Glucose Ketones Leukocytes Nitrite Labor Signs Protein Cervic Dilation Cervic Effacement Cervic Station Type Weight in lbs Pre/Post Dialysis Refused 278.027480428461 BP Diastolic BP Location Tested BP Systolic BP Type 85 L arm 141 sitting Fetus Heart Rate Present Fetus Movement A No Comments declined amnio first us good at [facility], has anatomy scheduled. mood good. _-FM yet precautions and educations f/u 4 weeks Flowsheet Date 11/12/2024 Nevarez Score Blood Edema Fundus Height Fundus Units Glucose Ketones Leukocytes Nitrite Labor Signs Protein Cervic Dilation Cervic Effacement Cervic Station Type Weight in lbs Pre/Post Dialysis Refused 278.307689982135 BP Diastolic BP Location Tested BP Systolic BP Type 94 L wrist 146 sitting 102 R wrist 157 sitting Fetus Heart Rate Present Fetus Movement A No Comments last us at [facility] wnl, has f/u next week +FM precautions and education f/u 4 weeks. discussed bp with dr. stephenson start labetalol 200mg bid Flowsheet Date 11/19/2024 Nevarez Score Blood Edema Fundus Height Fundus Units Glucose Ketones Leukocytes Nitrite Labor Signs Protein Cervic Dilation Cervic Effacement Cervic Station Type Weight in lbs Pre/Post Dialysis Refused Weight 279.228927198099 BP Diastolic BP Location Tested BP Systolic BP Type 79 L arm 128 sitting Fetus Heart Rate Present A 154 Fetus Movement A Yes Comments +FM doing well, bp's normote nsive on labetalol, cont to monitor, denies any sxs. precautions and education f/u [facility] as scheduled Flowsheet Date 12/17/2024 Nevarez Score Blood Edema Fundus Height Fundus Units Glucose Ketones Leukocytes Nitrite Labor Signs Protein Cervic Dilation Cervic Effacement Cervic Station Type Weight in lbs Pre/Post Dialysis Refused Weight 280.542316284089 BP Diastolic BP Location Tested BP Systolic [...] Weight in lbs Pre/Post Dialysis Refused Weight 282.502589254902 BP Diastolic BP Location Tested BP Systolic BP Type 83 L arm 126 sitting 66 L wrist 128 sitting Fetus Heart Rate Present Fetus Movement A Yes Comments per pt mfm said anatomyok, e cho unremarkable, plans to deliver at [facility], gct today, discuss vaccines at next visit, small odor after intercourse, will plan flagyl. education and precautions f/u 2 weeks Flowsheet Date 01/28/2025 Nevarez Score Blood Edema Fundus Height Fundus Units Glucose Ketones Leukocytes Nitrite Labor Signs Protein Cervic Dilation Cervic Effacement Cervic Station Type Weight in lbs Pre/Post Dialysis Refused Weight 283.18099894959 BP Diastolic BP Location Tested BP Systolic [...] Type Weight in lbs Pre/Post Dialysis Refused 284.940975865312 BP Diastolic BP Location Tested BP Systolic [...] Type Weight in lbs Pre/Post Dialysis Refused 285.459515172422 BP Diastolic BP Location Tested BP Systolic BP Type 84 L arm 129 sitting Fetus Heart Rate Present Fetus Movement A Yes Comments Flowsheet Date 02/20/2025 Nevarez Score Blood Edema Fundus Height Fundus Units Glucose Ketones Leukocytes Nitrite Labor Signs Protein Cervic Dilation Cervic Effacement Cervic Station Type Weight in lbs Pre/Post Dialysis Refused 285.969497583516 BP Diastolic BP Location Tested BP Systolic [...] Weight in lbs Pre/Post Dialysis Refused Weight 289.709010080485 BP Diastolic BP Location Tested BP Systolic [...] Weight in lbs Pre/Post Dialysis Refused Weight 289.361369418353 BP Diastolic BP Location Tested BP Systolic [...] Type Weight in lbs Pre/Post Dialysis Refused 292.734911944141 BP Diastolic BP Location Tested BP Systolic BP Type 77 L arm 129 sitting Fetus Heart Rate Present Fetus Movement A Yes Comments Flowsheet Date 03/06/2025 Nevarez Score Blood Edema Fundus Height Fundus Units Glucose Ketones Leukocytes Nitrite Labor Signs Protein Cervic Dilation Cervic Effacement Cervic Station 3cm 50% -2 Type Weight in lbs Pre/Post Dialysis Refused Weight 292.822954855600 BP Diastolic BP Location Tested BP Systolic [...]
--- OUTSIDE RECORDS SUMMARY | 2025-03-08 23:25 | XMS_ITS | Continuity of Care Document ---
Author Organization [facility] Address [address] [place] [address] [place] [address] Care Team Providers Care Regional Property Manager Name Role Phone KARON CHACKO Primary Care Provider [phone] Assessment No assessment recorded. Plan of Treatment [...] + non-str ess test 2024 025 [email or web address] [place], [address], [place], [address], 02/25/2025 11:38:27 Medication Orders None recorde d. Patient TargetsNo [...] Resul ting Lab: [facility] [address] [facility] [address] Tel: CULTU RE ----- ----- ----- --- No growt h in 1 day (dete ction level of 10,00 0 colon ies / ml.) Not Available [facility] (Lab) [address] [facility], [place], [address], 09/20/2024 22:24:37 09/20/19 25 09/19/2024 drug scree n, urine Amphetamines : negati ve Not Available [place] [address], [place], [address], 09/19/2024 14:47:54 09/20/19 25 09/19/2024 drug scree n, urine Cannabinoids : negati ve Not Available [place] [address], [place], [address], 09/19/2024 14:47:54 09/20/19 25 09/19/2024 drug scree n, urine Cocaine: negati ve Not Available [place] [address], [place], [address], 09/19/2024 14:47:54 09/20/19 25 09/19/2024 drug scree n, urine Opiates: negati ve Not Available [place] [address], [place], [address], 09/19/2024 14:47:54 09/20/19 25 09/19/2024 drug scree n, urine Phenocyclidi ne: negati ve Not Available [place] [address], [place], [address], 09/19/2024 14:47:54 09/20/19 25 09/19/2024 drug scree n, urine Barbiturates : negati ve Not Available [place] [address], [place], [address], 09/19/2024 14:47:54 09/20/19 25 09/19/2024 drug scree n, urine Benzodiazepi heather: negati ve Not Available [place] [address], [place], [address], 09/19/2024 14:47:54 09/20/19 25 09/19/2024 drug scree n, urine Ethanol: negati ve Not Available [place] [address], [place], [address], 09/19/2024 14:47:54 09/20/19 25 09/19/2024 drug scree n, urine Hallucinogen s: negati ve Not Available [place] [address], [place], [address], 09/19/2024 14:47:54 09/20/19 25 09/19/2024 drug scree n, urine Inhalants: negati ve Not Available [place] [address], [place], [address], 09/19/2024 14:47:54 09/20/19 25 09/19/2024 drug scree n, urine Anabolic Steroids: negati ve Not Available [place] [address], [place], [address], 09/19/2024 14:47:54 09/20/19 25 09/19/2024 drug scree n, urine Other: negati ve Not Available [place] [address], [place], [address], 09/19/2024 14:47:54 11/13/1911/12/2024 URIC ACID uric acid 4.3 mg/dL 2.3-6. 6 Not Available [facility] (Lab) [address] [facility], [place], [address], 11/13/2024 05:32:43 11/13/19 25 11/12/2024 PROTE IN/CR EATIN INE RATIO , URINE creatinine, urine 35.1 mg/dL R-No refer ence range estab lishe d for this assay Not Available [facility] (Lab) [address] [facility], [place], [address], 11/13/2024 05:32:43 11/13/19 25 11/12/2024 PROTE IN/CR EATIN INE RATIO , URINE protein, urine <4 mg/dL R-No refer ence range estab lishe d for this assay Not Available [facility] (Lab) [address] [facility], [place], [address], 11/13/2024 05:32:43 11/13/19 25 11/12/2024 PROTE IN/CR [...] fican t prote inuri a. Not Available [facility] (Lab) [address] [facility], [place], [address], 11/13/2024 05:32:43 11/13/19 25 11/12/2024 CBC W/DIF F WBC 16.1 10'3/ uL 3.5-10 .5 high Not Available [facility] (Lab) [address], [place], [address], 11/13/2024 05:32:44 11/13/1911/12/2024 CBC W/DIF F RBC 4.47 10'6/ uL (based on docume nted legal sex) 3.80-5 .20 Not Available [facility] (Lab) [address], [place], [address], 11/13/2024 05:32:44 11/13/19 25 11/12/2024 CBC W/DIF F HGB 12.4 g/dL (based on docume nted legal sex) 11.6-1 5.4 Not Available [facility] (Lab) [address], [place], [address], 11/13/2024 05:32:44 11/13/19 25 11/12/2024 CBC W/DIF F HCT 38.6 % (based on docume nted legal sex) 34.0-4 5.0 Not Available [facility] (Lab) [address], [place], [address], 11/13/2024 05:32:44 11/13/1911/12/2024 CBC W/DIF F MCV 86.4 fL 80.0-9 9.0 Not Available [facility] (Lab) [address], [place], [address], 11/13/2024 05:32:44 11/13/1911/12/2024 CBC W/DIF F MCH 27.7 pg 27.0-3 4.0 Not Available [facility] (Lab) [address], [place], [address], 11/13/2024 05:32:44 11/13/1911/12/2024 CBC W/DIF F MCHC 32.1 g/dL 32.0-3 5.5 Not Available [facility] (Lab) [address] [place], [address], 11/13/2024 05:32:44 11/13/19 25 11/12/2024 CBC W/DIF F RDW 13.6 % 11.0-1 5.0 Not Available [facility] (Lab) [address] [facility], [place], [address], 11/13/2024 05:32:44 11/13/1911/12/2024 CBC W/DIF F plt 295 10'3/ uL 150-40 0 Not Available [facility] (Lab) [address] [facility], [place], [address], 11/13/2024 05:32:44 11/13/1911/12/2024 CBC W/DIF F MPV 10.8 fL 8.8-12 .1 Not Available [facility] (Lab) [address] [facility], [place], [address], 11/13/2024 05:32:44 11/13/19 25 11/12/2024 CBC W/DIF F NRBC's 0.0 % 0.0 Not Available [facility] (Lab) [address] [facility], [place], [address], 11/13/2024 05:32:44 11/13/19 25 11/12/2024 CBC W/DIF F absolute NRBCs 0.0 10'3/ uL no refere nce range establ ished Not Available [facility] (Lab) [address] [facility], [place], [address], 11/13/2024 05:32:44 11/13/19 25 11/12/2024 CBC W/DIF F neutrophils 74.9 % 34.0-7 3.0 high Not Available [facility] (Lab) [address] [facility], [place], [address], 11/13/2024 05:32:44 11/13/19 25 11/12/2024 CBC W/DIF F lymphocytes 18.4 % 15.0-5 0.0 Not Available [facility] (Lab) [address] [facility], [place], [address], 11/13/2024 05:32:44 11/13/19 25 11/12/2024 CBC W/DIF F monocytes 5.4 % 1.0-15 .0 Not Available [facility] (Lab) [address] [facility], [place], [address], 11/13/2024 05:32:44 11/13/19 25 11/12/2024 CBC W/DIF F eosinophils 0.7 % 0.0-8. 0 Not Available [facility] (Lab) [address] [facility], [place], [address], 11/13/2024 05:32:44 11/13/19 25 11/12/2024 CBC W/DIF F basophils 0.2 % 0.0-2. 0 Not Available [facility] (Lab) [address] [facility], [place], [address], 11/13/2024 05:32:44 11/13/19 25 11/12/2024 CBC W/DIF F immature granulocytes 0.4 % no define d refere nce range Immat ure Granu locyt es (IG) repre sents autom ated enume ratio n of Metam yeloc ytes, Myelo cytes and Promy elocy jorge luis when IG is < 5%. Blast s are not inclu ded in IG and repor terar separ ately if prese nt. Not Available [facility] (Lab) [address] [facility], [place], [address], 11/13/2024 05:32:44 11/13/19 25 11/12/2024 CBC W/DIF F absolute neutrophils 12.0 10'3/ uL 1.5-8. 0 high Not Available [facility] (Lab) [address] [facility], [place], [address], 11/13/2024 05:32:44 11/13/19 25 11/12/2024 CBC W/DIF F absolute lymphocytes 3.0 10'3/ uL 1.0-4. 0 Not Available [facility] (Lab) [address] [facility], [place], [address], 11/13/2024 05:32:44 11/13/19 25 11/12/2024 CBC W/DIF F absolute monocytes 0.9 10'3/ uL 0.2-1. 0 Not Available [facility] (Lab) [address] [facility], [place], [address], 11/13/2024 05:32:44 11/13/19 25 11/12/2024 CBC W/DIF F absolute eosinophils 0.1 10'3/ uL 0.0-0. 6 Not Available [facility] (Lab) [address] [facility], [place], [address], 11/13/2024 05:32:44 11/13/19 25 11/12/2024 CBC W/DIF F absolute basophils 0.0 10'3/ uL 0.0-0. 3 Not Available [facility] (Lab) [address] [facility], [place], [address], 11/13/2024 05:32:44 11/13/1911/12/2024 CBC W/DIF F absolute immature granulocytes 0.1 10'3/ uL 0.00-0 .10 Refer ence range s for nonbi nary/ inter sex or unspe cifie d gende r patie nts have not been estab lishe d. Pleas e [facility] for range s estab lishe d for cisge nder patie nts and evalu ate in the clini sofia clarice xt of the indiv idual patie nt: https ://la rosa book. nm.or g/gen derx Not Available [facility] (Lab) [address] [facility], [place], [address], 11/13/2024 05:32:44 11/13/19 25 11/12/2024 CMP(C OMPRE HENSI VE METAB OLIC PANEL ) sodium 137 mmol/ L 133-14 6 Not Available [facility] (Lab) [address] [facility], [place], [address], 11/13/2024 05:32:44 11/13/19 25 11/12/2024 CMP(C OMPRE HENSI VE METAB OLIC PANEL ) potassium 4.0 mmol/ L 3.5-5. 1 Not Available [facility] (Lab) [address] [facility], [place], [address], 11/13/2024 05:32:44 11/13/19 25 11/12/2024 CMP(C OMPRE HENSI VE METAB OLIC PANEL ) chloride 102 mmol/ L 98-107 Not Available [facility] (Lab) [address] [facility], [place], [address], 11/13/2024 05:32:44 11/13/19 25 11/12/2024 CMP(C OMPRE HENSI VE METAB OLIC PANEL ) carbon dioxide 27 mmol/ L 21-31 Not Available [facility] (Lab) [address] [facility], [place], [address], 11/13/2024 05:32:44 11/13/19 25 11/12/2024 CMP(C OMPRE HENSI VE METAB OLIC PANEL ) anion gap 8 mmol/ L 4-13 Not Available [facility] (Lab) [address] [facility], [place], [address], 11/13/2024 05:32:44 11/13/19 25 11/12/2024 CMP(C OMPRE HENSI VE METAB OLIC PANEL ) blood urea nitrogen 7 mg/dL 7-25 Not Available [facility] (Lab) [address] [facility], [place], [address], 11/13/2024 05:32:44 11/13/19 25 11/12/2024 CMP(C OMPRE HENSI VE METAB OLIC PANEL ) creatinine 0.48 mg/dL 0.60-1 .30 low Not Available [facility] (Lab) [address] [facility], [place], [address], 11/13/2024 05:32:44 11/13/19 25 11/12/2024 CMP(C OMPRE HENSI VE METAB OLIC PANEL ) egfrcr (CKD-epi 2020) >90 mL/mi n/1.7 3_m2 >=60 Not Available [facility] (Lab) [address] [facility], [place], [address], 11/13/2024 05:32:44 11/13/19 25 11/12/2024 CMP(C OMPRE HENSI VE METAB OLIC PANEL ) calcium 9.7 mg/dL 8.3-10 .5 Not Available [facility] (Lab) [address] [facility], [place], [address], 11/13/2024 05:32:44 11/13/19 25 11/12/2024 CMP(C OMPRE HENSI VE METAB OLIC PANEL ) glucose 86 mg/dL 70-100 Not Available [facility] (Lab) [address] [facility], [place], [address], 11/13/2024 05:32:44 11/13/19 25 11/12/2024 CMP(C OMPRE HENSI VE METAB OLIC PANEL ) protein, total 6.6 g/dL 6.4-8. 3 Not Available [facility] (Lab) [address] [facility], [place], [address], 11/13/2024 05:32:44 11/13/19 25 11/12/2024 CMP(C OMPRE HENSI VE METAB OLIC PANEL ) albumin 4.0 g/dL 3.5-5. 0 Not Available [facility] (Lab) [address] [place], [address], 11/13/2024 05:32:44 11/13/19 25 11/12/2024 CMP(C OMPRE HENSI VE METAB OLIC PANEL ) ALT 11 units /L 9-43 Not Available [facility] (Lab) [address] [place], [address], 11/13/2024 05:32:44 11/13/19 25 11/12/2024 CMP(C OMPRE HENSI VE METAB OLIC PANEL ) alkaline phosphatase 54 units /L 34-104 Not Available [facility] (Lab) [address] [place], [address], 11/13/2024 05:32:44 11/13/19 25 11/12/2024 CMP(C OMPRE HENSI VE METAB OLIC PANEL ) AST 10 units /L 13-39 low Not Available [facility] (Lab) [address] [facility], [place], [address], 11/13/2024 05:32:44 11/13/19 25 11/12/2024 CMP(C OMPRE HENSI VE METAB OLIC PANEL ) bilirubin, total 0.2 mg/dL 0.2-1. 2 Not Available [facility] (Lab) [address] [place], [address], 11/13/2024 05:32:44 01/15/20 25 01/14/2025 GTT - GESTA NICOLAS L SCREE N, ACOG OB glucose, 1 hour screen 141 mg/dL 70-135 high Not Available [facility] (Lab) [address] [place], [address], 01/15/2025 11:13:15 01/15/20 25 01/14/2025 HIV 1/2 ANTIG EN/AN TIBOD Y, REFLE X CONFI RMATI ON HIV antigen/anti body Nonrea ctive nonrea ctive HIV-1 antig en and HIV-1 /HIV- 2 antib odies were not detec terra. No labor atory evide nce of HIV infec tion. Not Available [facility] (Lab) [address] [place], [address], 01/15/2025 11:13:16 01/15/20 25 01/14/2025 HEMAT OCRIT (HCT) HCT 34.1 % (based on docume nted legal sex) 34.0-4 5.0 Not Available [facility] (Lab) [address] [facility] [place], [address], 01/15/2025 11:13:16 01/15/2001/14/2025 HEMOG LOBIN (HGB) HGB 10.6 g/dL (based on docume nted legal sex) 11.6-1 5.4 low Not Available [facility] (Lab) [address] [facility], [place], [address], 01/15/2025 11:13:17 01/15/2001/14/2025 RPR SCREE N, REFLE X TITER /CONF IRMAT ION RPR qualitative Nonrea ctive nonrea ctive Not Available [facility] (Lab) [address] [facility], [place], [address], 01/15/2025 11:13:17 01/24/20 25 01/23/2025 GTT - GESTA NICOLAS L, 3 HOUR, ACOG glucose, fasting acog 70 mg/dL 70-94 Not Available [facility] (Lab) [address] [place], [address], 01/24/2025 05:24:10 01/24/20 25 01/23/2025 GTT - GESTA NICOLAS L, 3 HOUR, ACOG glucose, 1 hour acog 150 mg/dL 70-179 Not Available [facility] (Lab) [address] [place], [address], 01/24/2025 05:24:10 01/24/20 25 01/23/2025 GTT - GESTA NICOLAS L, 3 HOUR, ACOG glucose, 2 hour acog 143 mg/dL 70-154 Not Available [facility] (Lab) [address] [place], [address], 01/24/2025 05:24:10 01/24/20 25 01/23/2025 GTT - GESTA NICOLAS L, 3 HOUR, ACOG glucose, 3 hour acog 46 mg/dL 70-139 critical low Resul ts verif ied by repea t rosanna sis. Not Available [facility] (Lab) [address], [place], [address], 01/24/2025 05:24:10 10/02/19 25 10/01/2024 US, obste tric, follo w-up No observ ation record ed. [address] [facility] [address], [address], 10/08/2024 09:41:15 11/18/19 25 11/17/2024 US, obste tric, follo w-up No observ ation record ed. [address] [facility] [address], [address], 11/18/2024 12:26:24 11/19/19 25 11/17/2024 US, obste tric, follo w-up No observ ation record ed. [address] [facility] [address], [address], 11/19/2024 11:57:24 11/26/19 25 11/25/2024 US, obste tric, follo w-up No observ ation record ed. [email or web address] [facility] [address], [address], 11/26/2024 17:27:21 11/26/19 25 11/25/2024 US, obste tric, follo w-up No observ ation record ed. [email or web address] [facility] [address] [place] [address], [address], 11/25/2024 17:38:04 12/16/19 25 12/15/2024 US, obste tric, follo w-up No observ ation record ed. [address] [facility] [address] [place] [address], [address], 12/16/2024 06:57:29 01/13/20 25 01/12/2025 US, obste tric No observ ation record ed. [facility] [address] [place] [address], [address], 01/13/2025 11:43:49 01/13/20 25 01/12/2025 US, obste tric, follo w-up No observ ation record ed. [email or web address] [facility] [address], [address], 01/13/2025 16:24:45 02/11/20 25 02/10/2025 non-s tress test No observ ation record ed. [facility] [address], [address], 02/11/2025 15:00:18 02/11/20 25 02/10/2025 US, obste tric, follo w-up No observ ation record ed. [email or web address] [facility] [address], [address], 02/11/2025 11:37:25 02/21/20 25 02/20/2025 US, obste tric, bioph ysica l profi le + non-s tress test No observ ation record ed. [facility] [address], [place], [address], 02/20/2025 16:56:43 02/21/20 25 02/20/2025 US, obste tric, bioph ysica l profi le + non-s tress test No observ ation record ed. juliano Valle [address], [place], [address], 02/23/2025 11:31:02 02/21/20 25 02/20/2025 non-s tress test No observ ation record ed. [address], [place], [address], 02/20/2025 13:47:54 02/21/20 non-s tress test No observ ation record ed. [email or web address] [place] [address], [place], [address], 02/20/2025 12:35:53 02/26/20 25 02/25/2025 US, obste tric, bioph ysica l profi le + non-s tress test No observ ation record ed. [email or web address] [place] [address], [place], [address], 02/25/2025 11:49:48 02/26/2002/25/2025 US, obste tric, bioph ysica l profi le + non-s tress test No observ ation record ed. [email or web address] Tori [address], [place], [address], 03/04/2025 11:50:53 02/26/20 25 02/25/2025 non-s tress test No observ ation record ed. [email or web address] [place] [address], [place], [address], 02/25/2025 17:57:33 02/26/20 non-s tress test No observ ation record ed. [email or web address] [place] [address], [place], [address], 02/25/2025 17:15:53 03/06/2003/06/2025 non-s tress test No observ ation record ed. [email or web address] [place] [address], [place], [address], 03/06/2025 13:52:03 03/06/20 non-s tress test No observ ation record ed. [email or web address] [place] [address], [place], [address], 03/06/2025 12:00:07 03/06/20 25 03/06/2025 US, obste tric, follo w-up No observ ation record ed. [email or web address] Tori [address], [place], [address], 03/07/2025 23:02:25 03/06/20 25 03/06/2025 US, obste tric, follo w-up No observ ation record ed. [facility] [address], [place], [address], 03/06/2025 13:52:39 03/06/2003/06/2025 US, obste tric, bioph ysica l profi le + non-s tress test No observ ation record ed. [facility] [address], [place], [address], 03/06/2025 13:52:50 Result Notes None recorded. 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 2 18:30:21 Finding of fertilit y Completed 201711/16/2021 Female infertil ity, unspecif ied;Tip rded Elsewher e: No Locat ion: [facility] S ource: EHR Shell Machine Operator yan: N Susie ce ID: [id number] Edmond lable Time: 10:00:00 AM Sandhya [facility] 2 18:30:21 Abnormal uterine bleeding [id number] 9100 Completed 201711/16/2021 Other specifie d abnormal uterine and vaginal bleeding ;Recorde d Elsewher e: No Locat ion: [facility] S ource: EHR Shell Machine Operator yan: N Practi ce ID: [id number] Edmond lable Time: 09:45:00 AM [facility] 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 2 18:30:21 Urinary tract infectio us disease [id number] Completed 201811/16/2021 Urinary tract infectio n, site not specifie d;Record ed Elsewher e: No Locat ion: [facility] S ource: EHR Shell Machine Operator yan: N Practi ce ID: [id number] Edmond lable Time: 04:15:00 PM Sandhya sneed [facility] 2 18:30:21 Pregnanc y detectio n examinat ion Completed 201811/16/2021 Encounte r for pregnanc y test, result positive ;Practic e ID: 0001 Sandhya sened [facility] 2 18:30:21 Uterine size for dates discrepa ncy Completed 201811/16/2021 Uterine size-johann e discrepa ncy, first trimeste r;Practi ce ID: 0001 Sandhya sneed, [facility] 2 18:30:21 Gestatio n period, 9 weeks [id number] Completed 201811/16/2021 9 weeks gestatio n of pregnanc y;Practi ce ID: 0001 Sandhya sneed, [facility] 2 18:30:21 Secondar y amenorrh ea [id number] Completed 201811/16/2021 Secondar y amenorrh ea;Recor ded Elsewher e: No Locat ion: [place] 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 2 18:30:21 Infectio n screenin g Completed 201811/16/2021 Encounte r for screenin g for oth infec/pa rastc diseases ;Recorde d Elsewher e: No 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 2 18:30:[address] Concept Completed 201811/16/2021 Encntr for title checker exam (general ) (routine ) w/o abn findings ;Recorde d Elsewher e: No 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 2 18:30:21 Syphilis test finding [id number] Completed 201811/16/2021 Encntr screen for infectio ns w sexl mode of transmis s;Record ed Elsewher e: No [facility] S ource: EHR Shell Machine Operator yan: N Practi ce ID: [id number] Edmond lable Time: 03:30:00 PM Sandhya [facility] 2 18:30:21 Body mass index 30+ - obesity [id number] Completed 201811/16/2021 Body mass index (BMI) 37.0-37. 9, adult;Re corded Elsewher e: No Locat ion: [place] S ource: EHR Shell Machine Operator yan: N Practi ce ID: [id number] Edmond lable Time: 03:30:00 PM Sandhya sneed, [facility] 2 18:30:21 Chlamydi al infectio n [id number] Completed 201811/16/2021 Chlamydi al infectio n, unspecif ied;Tip rded Elsewher e: No Locat ion: [facility] S ource: EHR Shell Machine Operator yan: N Practi ce ID: [id number] Edmond lable Time: 11:52:25 AM Sandhya sneed, [facility] 2 18:30:21 Normal pregnanc y in multigra lkae [id number] Completed 201811/16/2021 Encounte r for suprvsn of normal pregnanc y, first trimeste r;Practi ce ID: 0001 Sandhya sneed [facility] 2 18:30:21 Antenata l screenin g Completed 201811/16/2021 Encounte r for other specifie d antenata l screenin g;Practi ce ID: 0001 Sandhya sneed, [facility] 2 18:30:21 Medical examinat ion for suspecte d conditio n Completed 201811/16/2021 Encntr for oth suspecte d maternal and cond ruled out;Prac jaxson ID: [id number] Sandhya sneed, [facility] 2 18:30:[address] Concept Completed 201811/16/2021 Maternal care for oth abnormal ity and damage, unsp;Pra ctice ID: 0001 Sandhya sneed [facility] 2 18:30:21 Gestatio n period, 30 weeks [id number] Completed 201811/16/2021 30 weeks gestatio n of pregnanc y;Practi ce ID: 0001 Sandhya sneed, [facility] 2 18:30:21 Pregnanc y, childbir th and puerperi um finding Completed 201811/16/2021 Encntr for suprvsn of normal first preg, third trimeste r;Practi ce ID: 0001 Sandhya sneed, [facility] 2 18:30:21 malforma tion of central nervous system [id number] 107 Completed 201811/16/2021 Maternal care for (suspect ed) cnsl malform in fetus, unsp;Pra ctice ID: 0001 Sandhya sneed, [facility] 2 18:30:21 Gestatio n period, 34 weeks [id number] Completed 201811/16/2021 34 weeks gestatio n of pregnanc y;Practi ce ID: 0001 Sandhya Key [facility], [facility] 2 18:30:[address] Concept Completed 201811/16/2021 Matern care for abnlt fetl hrt rate or rhym, unsp tri, unsp;Pra ctice ID: 0001 Sandhya sneed, [facility] 2 18:30:21 Gestatio n period, 36 weeks [id number] Completed 201811/16/2021 36 weeks gestatio n of pregnanc y;Practi ce ID: 0001 Sandhya Key [facility], [facility] 2 18:30:21 Term pregnanc y delivere d 78223143 Completed 201811/16/2021 Encounte r for full-ter m uncompli cated delivery ;Practic e ID: 0001 Sandhya sneed, [facility] 2 18:30:21 Single live from singleto n pregnanc y 491613737 Completed 201811/16/2021 Single live ;Pr actice ID: 0001 Sandhya sneed, [facility] 2 18:30:21 Gestatio n period, 37 weeks [id number] Completed 201811/16/2021 37 weeks gestatio n of pregnanc y;Practi ce ID: 0001 Sandhya sneed, [facility] 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 2 18:30:21 Mixed anxiety and depressi ve disorder 723970044 Active 2024 Paz Keller [facility], [facility] 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 5 15:07:06 Pregnanc y 74879138 Active 2024 Paz Keller [facility], [facility] 5 15:07:38 chromoso mal abnormal ity affectin g obstetri sofia care 65081989 Active 2024 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, seeing MFM [facility] office Schedule d 10/20 us only & 11/17 us only normal echo 12/31- recommen ds postnata l eval of baby Katiana Roger null, [facility] 5 15:09:19 History of heart disorder 604261735 Active 2024 first baby couple hours after Britney Monzon CNM [address], [place], [address], [facility] 5 15:26:56 Past pregnanc y history of pre-ecla mpsia 2219924406 66718 Active 2024 plan bASA 162mg Britney Monzon CNM [address], [place], [address], [facility] 5 15:27:21 History of depressi on 963396145 Active 2024 no current treatmen t Britney Monzon CNM [address], [place], [address], [facility] 5 15:37:15 Hyperten sive disorder 60577563 Active 2024 100mg labetalo l bid Britney Monzon CNM [address], [place], [address], [facility] 5 11:41:34 Notes:previous son had hypoplastic left heart syndrome Some problems listed in Document: #[id number] could not be added to this patient's chart. Please review this document and add these problems to the patient's chart manually as needed. Problem Notes None recorded. Procedures Surgical History Date Name Laterality Status Provider Name and Address Organization Details Recorded Time 5 Date of Last Pap Smear completed Paz Keller [facility] 08/15/2024 17:09:24 4 SIS completed NUZHAT STEPHENSON MD [address], [place], [address], [facility] 09/13/2023 14:06:22 Imaging Results None [...] Prescrib ed Elsewher e: No Locat ion: [facility] odify By: bill Hurst ter DateTime [...] Prescrib ed Elsewher e: No Locat ion: [facility] odify By: [email or web address] Hurst ter DateTime : 02/06/20 19 08:45:00 AM Not Available Not Available Not Available Zofran 4 mg tablet take 1 tablet as needed for nausea 11/17 completed Prescrib ed Elsewher e: No Locat ion: [facility] odify By: [email or web address] Hurst ter DateTime : 09/17/19 19 04:11:09 PM Not Available Not Available Not Available Metrogel Vaginal 0.75 % (37.5 mg/5 gram) insert 1 applicat orful by vaginal route every day at bedtime for 5 nights 11/17 completed Prescrib ed Elsewher e: No [facility] By: rahel jonas DateTime : [...] Prescrib ed Elsewher e: No [facility] By: [email or web address] Hur[address] ter DateTime : [...] Prescrib ed Elsewher e: No [facility] By: dian jonas DateTime : [...] Updated DateTime 02/25/2025 167.64 cm 46.6 kg/m2 133259.19 g 124/80 mm[Hg] Alicia Danish [facility] 02/25/2025 17:13:19 Date Recorded Body height Body mass index (BMI) Body weight Systolic And Diastolic Provider Name and Address Organization Details Last Updated DateTime 02/25/2025 167.64 cm 46.6 kg/m2 613914.19 g 124/80 mm[Hg] DANA JESUS [facility] 02/25/2025 10:55:42 Social History Question Answer Notes LastModified by Organizat ion Details LastModified Time Tobacco Smoking Status Never Smoker Sandhya Key naren [facility] 11/17/2021 10:26:20 Do You Have An Advance Directive? No Information n ot available 11/17/2021 If You Are , What Was Your Level Of Alcohol Consumption Prior To ? Occasional [email or web address] Information not available 08/15/2024 How Many Years Have You Consumed Alcohol? 8 Information not available 11/17/2021 Are You Blind Or Do You Have Difficulty Seeing? No Information n ot available 11/17/2021 What Is Your Level Of Caffeine Consumption? Moderate [email or web address] Information not available 08/15/2024 How Much Tobacco [...] Or The Highest Degree You Have Received? [id number] Information not available 11/17/2021 Are There Any Guns Present In Your Home? No Information not available 11/17/2021 Do You Use Protection During Sex? No Information not available 11/17/2021 Do You Use Your Seat Belt Or Car Seat Routinely? Yes Information not available 11/17/2021 Are You Sexually Active? Yes [email or web address] Information not available 11/12/2024 Do You Have [...] is your level of alcohol consumption? None [email or web address] Information not available 08/15/2024 Are you able [...] anxious, or unable to sleep at night)? [id number] [email or web address] Information not available 08/15/2024 Family History Relationship Description Onset Age of this Age Resolved Age Notes LastModified by Organization Details LastModified Time Son Hypoplastic left heart syndrome Not available 06/15 18:39:24 Medical History Condition Response Allergies (Food, seasonal, environmental ) N Other Y Blood Transfusion N Breast Cancer N Drug/Latex Allergies/Reactions N Dermatologic Disorders N Lung Disease N [...] ICD10 Code Diagnosis IMO Codes Diagnosis Note [id number] [facility] [address],[facility] [place] [address] 01/28/2025 10:12:44 01/28/2025 11:11:44 Gestation period, 30 weeks 58090148 Z3A.30 7612806 [id number] R[facility] [address] [address] 02/11/2025 11:02:03 02/11/2025 12:28:12 Gestation period, 32 weeks 2804479 Z3A.32 3946219 [id number] Dakotah Celeste MD [place] [address],[place] [address] 02/20/2025 10:19:25 02/20/2025 11:15:32 Chronic hypertension complicating AND/OR reason for care during 61173579 O10.913 O99.210 O28.0 Z3A.34 61129506 [id number] Britney Monzon [facility] [address],[place] [address] 02/20/2025 10:20:12 02/20/2025 12:37:20 Abnormal chromosomal and genetic finding on screening of mother O28.5 53057181 [id number] Britney Monzon [place] [address],[place] [address] 02/20/2025 10:20:45 02/20/2025 12:28:20 Gestation period, 34 weeks 66369252 Z3A.34 5806145 [id number] Britney Monzon [place] [address],[place] [address] 02/25/2025 09:50:49 02/25/2025 17:36:49 Abnormal chromosomal and genetic finding on screening of mother 119960450 O28.5 87825957 [id number] Dakotah Celeste MD [place] [address],[place] [address] 02/25/2025 09:51:39 02/25/2025 10:55:41 Obesity 308571195 O99.213 O28.5 O10.013 Z3A.34 63033071 [id number] Britney Monzon [facility] [address],[place] [address] 02/25/2025 09:51:54 02/25/2025 11:24:09 Gestation period, 34 weeks 91419049 Z3A.34 7849096 Health Concerns Section Related Observation LastModified by Organization Detai ls LastModified Time None Recorded Concern Status LastModified by Organization Details LastModified Time None Recorded Payers Encounter Date Sequence Insurance Name Policy Number Policy Mckenna Covered Member ID Mckenna Member ID Guarantor Name 02/25/2025 1 [facility] [id number] Alex Louie [id number] Rizwana Louie Notes Date Note Type Note Provider Name and Address Organization Details Recorded Time 02/25/2025 text/html Generic HPI TemplateReported by Patient Britney EVeronica Monzon, CLAUDINE [address], [place], [address], [facility] 02/25/2025 11:18:23 OBGyn Episode Ob Episode Information Episode Created Date Number of Fetuses Patient Bloodtype Patient rh Status Prepregnancy Weight lbs Domestic Partner Domestic Partner Phone Father Name Utilization Review Rn Status 09/20/19 25 1 O Positive [phone] Alex Louie OPEN Fetus Data First Name Last Name Admitted to NICU Weight (g) Sex Living Outcome Pediatric Complications Fetus ID Race Codes Race Delivery Type [id number] Problems Problem Notes Problem Name Start Date End Date Resolution Snomed Code Not e History of depression 09/19/2024 124451130 no current treatment Past history of pre-eclampsia 09/19/2024 [id number] plan bASA 1 62mg History of heart disorder 09/19/2024 184600418 first baby pass ed away couple hours after Hypertensive disorder 12/17/2024 83356043 100mg labetalol bid 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 office Scheduled 10/20 us only & 11/17 us onlynormal echo 12/31- recommends eval of baby Les Calculation Initial Les Date Initial Exam Date Initial Exam Provider Initial Ultrasound Date Last Menstrual Period Date Ultra Sound Weeks Gestation 04/02/2025 08/26/2024 [email or web address] 08/14/2024 06/26/2024 6 Eighteen To Twenty Week Les Update Ultra Sound Date Fundal Height At Umbil Quickening Date Ultra Sound Latest Weeks Gestation Final Les Confirmed By Final Les Confirmed Date Final Les Date Ultra Sound Latest Days Gestation 0 [email or web address] 09/19/2024 04/02/19 26 0 Pre- Flowsheet Flowsheet Date 09/19/2024 Nevarez Score Blood Edema Fundus Height Fundus Units Glucose Ketones Leukocytes Nitrite Labor Signs Protein Cervic Dilation Cervic Effacement Cervic Station neg none none trace Type Weight in lbs Pre/Post Dialysis Refused Weight 274.121747621633 BP Diastolic BP Location Tested BP Systolic BP Type 81 140 Fetus Heart Rate Present Fetus Movement A Yes Comments reviewed [facility] notes with pt, undecided about amnio, is scheduled, will continue to follow as well, start bASA 162mg, hx 2 previous vaginal deliveries, begin care Flowsheet Date 2024 Nevarez Score Blood Edema Fundus Height Fundus Units Glucose Ketones Leukocytes Nitrite Labor Signs Protein Cervic Dilation Cervic Effacement Cervic Station Type Weight in lbs Pre/Post Dialysis Refused 278.588158180633 BP Diastolic BP Location Tested BP Systolic BP Type 85 L arm 141 sitting Fetus Heart Rate Present Fetus Movement A No Comments declined amnio first us good at [facility], has anatomy scheduled. mood good. _-FM yet precautions and educations f/u 4 weeks Flowsheet Date 11/12/2024 Nevarez Score Blood Edema Fundus Height Fundus Units Glucose Ketones Leukocytes Nitrite Labor Signs Protein Cervic Dilation Cervic Effacement Cervic Station Type Weight in lbs Pre/Post Dialysis Refused 278.112240059829 BP Diastolic BP Location Tested BP Systolic BP Type 94 L wrist 146 sitting 102 R wrist 157 sitting Fetus Heart Rate Present Fetus Movement A No Comments last us at [facility] wnl, has f/u next week +FM precautions and education f/u 4 weeks[address] discussed bp with dr. stephenson start labetalol 200mg bid Flowsheet Date 11/19/2024 Nevarez Score Blood Edema Fundus Height Fundus Units Glucose Ketones Leukocytes Nitrite Labor Signs Protein Cervic Dilation Cervic Effacement Cervic Station Type Weight in lbs Pre/Post Dialysis Refused Weight 279.540061177114 BP Diastolic BP Location Tested BP Systolic BP Type 79 L arm 128 sitting Fetus Heart Rate Present A 154 Fetus Movement A Yes Comments +FM doing well, bp's normote nsive on labetalol, cont to monitor, denies any sxs. precautions and education f/u [facility] as scheduled Flowsheet Date 12/17/2024 Nevarez Score Blood Edema Fundus Height Fundus Units Glucose Ketones Leukocytes Nitrite Labor Signs Protein Cervic Dilation Cervic Effacement Cervic Station Type Weight in lbs Pre/Post Dialysis Refused Weight 280.627546940212 BP Diastolic BP Location Tested BP Systolic [...] Weight in lbs Pre/Post Dialysis Refused Weight 282.676102071269 BP Diastolic BP Location Tested BP Systolic BP Type 83 L arm 126 sitting 66 L wrist 128 sitting Fetus Heart Rate Present Fetus Movement A Yes Comments per pt mfm said anatomyok, e cho unremarkable, plans to deliver at [facility], gct today, discuss vaccines at next visit, small odor after intercourse, will plan flagyl. education and precautions f/u 2 weeks Flowsheet Date 01/28/2025 Nevarez Score Blood Edema Fundus Height Fundus Units Glucose Ketones Leukocytes Nitrite Labor Signs Protein Cervic Dilation Cervic Effacement Cervic Station Type Weight in lbs Pre/Post Dialysis Refused Weight 283.82666967332 BP Diastolic BP Location Tested BP Systolic [...] Type Weight in lbs Pre/Post Dialysis Refused 284.755982227931 BP Diastolic BP Location Tested BP Systolic [...] Type Weight in lbs Pre/Post Dialysis Refused 285.433621932367 BP Diastolic BP Location Tested BP Systolic BP Type 84 L arm 129 sitting Fetus Heart Rate Present Fetus Movement A Yes Comments Flowsheet Date 02/20/2025 Nevarez Score Blood Edema Fundus Height Fundus Units Glucose Ketones Leukocytes Nitrite Labor Signs Protein Cervic Dilation Cervic Effacement Cervic Station Type Weight in lbs Pre/Post Dialysis Refused 285.157779781133 BP Diastolic BP Location Tested BP Systolic [...] Weight in lbs Pre/Post Dialysis Refused Weight 289.969358297599 BP Diastolic BP Location Tested BP Systolic [...] Weight in lbs Pre/Post Dialysis Refused Weight 289.087110736790 BP Diastolic BP Location Tested BP Systolic [...] Type Weight in lbs Pre/Post Dialysis Refused 292.841646404696 BP Diastolic BP Location Tested BP Systolic BP Type 77 L arm 129 sitting Fetus Heart Rate Present Fetus Movement A Yes Comments Flowsheet Date 03/06/2025 Nevarez Score Blood Edema Fundus Height Fundus Units Glucose Ketones Leukocytes Nitrite Labor Signs Protein Cervic Dilation Cervic Effacement Cervic Station 3cm 50% -2 Type Weight in lbs Pre/Post Dialysis Refused Weight 292.187384722172 BP Diastolic BP Location Tested BP Systolic [...]
--- OUTSIDE RECORDS SUMMARY | 2025-03-08 23:25 | XMS_ITS | Continuity of Care Document ---
Author Organization [facility] Address [address] [place] [address] [place] [address] Care Team Providers Care Family Preservation Officer Name Role Phone KARON CHACKO Primary Care [...] available OB ROUTINE 2024 10:15A M Britney Monozn CNM Not available Not available Not available Lab None recorde d. Referral None recorde d. Procedures None recorde d. Surgeries None recorde d. Imaging US, obstetr ic, follow- up 2024 025 CINDY [place], [address], [place], [address], 03/06/2025 18:12:43 US, obstetr ic, biophys ical profile + non-str ess test 2024 025 [email or web address] [place], [address], [address], [place], [address], 03/06/2025 14:22:06 Medication Orders None recorde d. Patient TargetsNo [...] men Date: 2024 1616 Resul t Date: 2024 Resul t Statu s: Final resul t Abnor mal: No Resul ting Lab: [facility] [address] [facility] [address] Tel: CULTU RE ----- ----- ----- --- No growt h in 1 day (dete ction level of 10,00 0 colon ies / ml.) Not Available [facility] (Lab) [address], [place], [address], 09/20/2024 22:24:37 09/20/19 25 09/19/2024 drug scree n, urine Amphetamines : negati ve Not Available [facility] [address], [place], [address], 09/19/2024 14:47:54 09/20/19 25 09/19/2024 drug scree n, urine Cannabinoids : negati ve Not Available [facility] [address], [place], [address], 09/19/2024 14:47:54 09/20/19 25 09/19/2024 drug scree n, urine Cocaine: negati ve Not Available [facility] [address], [place], [address], 09/19/2024 14:47:54 09/20/19 25 09/19/2024 drug scree n, urine Opiates: negati ve Not Available [facility] [address], [place], [address], 09/19/2024 14:47:54 09/20/19 25 09/19/2024 drug scree n, urine Phenocyclidi ne: negati ve Not Available [facility] [address], [place], [address], 09/19/2024 14:47:54 09/20/19 25 09/19/2024 drug scree n, urine Barbiturates : negati ve Not Available [facility] [address], [place], [address], 09/19/2024 14:47:54 09/20/19 25 09/19/2024 drug scree n, urine Benzodiazepi heather: negati ve Not Available [facility] [address], [place], [address], 09/19/2024 14:47:54 09/20/19 25 09/19/2024 drug scree n, urine Ethanol: negati ve Not Available [facility] [address], [place], [address], 09/19/2024 14:47:54 09/20/19 25 09/19/2024 drug scree n, urine Hallucinogen s: negati ve Not Available [facility] [address], [place], [address], 09/19/2024 14:47:54 09/20/19 25 09/19/2024 drug scree n, urine Inhalants: negati ve Not Available [facility] [address], [place], [address], 09/19/2024 14:47:54 09/20/19 25 09/19/2024 drug scree n, urine Anabolic Steroids: negati ve Not Available [facility] [address], [place], [address], 09/19/2024 14:47:54 09/20/19 25 09/19/2024 drug scree n, urine Other: negati ve Not Available [facility] [address], [place], [address], 09/19/2024 14:47:54 11/13/19 25 11/12/2024 URIC ACID uric acid 4.3 mg/dL 2.3-6. 6 Not Available [facility] (Lab) [address], [place], [address], 11/13/2024 05:32:43 11/13/19 25 11/12/2024 PROTE IN/CR EATIN INE RATIO , URINE creatinine, urine 35.1 mg/dL R-No refer ence range estab lishe d for this assay Not Available [facility] (Lab) [address], [place], [address], 11/13/2024 05:32:43 11/13/19 25 11/12/2024 PROTE IN/CR EATIN INE RATIO , URINE protein, urine <4 mg/dL R-No refer ence range estab lishe d for this assay Not Available [facility] (Lab) [address] [place], [address], 11/13/2024 05:32:43 11/13/19 25 11/12/2024 PROTE IN/CR [...] fican t prote inuri a. Not Available [facility] (Lab) [address], [place], [address], 11/13/2024 05:32:43 11/13/1911/12/2024 CBC W/DIF F WBC 16.1 10'3/ uL 3.5-10 .5 high Not Available [facility] (Lab) [address], [place], [address], 11/13/2024 05:32:44 11/13/1911/12/2024 CBC W/DIF F RBC 4.47 10'6/ uL (based on docume nted legal sex) 3.80-5 .20 Not Available [facility] (Lab) [address], [place], [address], 11/13/2024 05:32:44 11/13/1911/12/2024 CBC W/DIF F HGB 12.4 g/dL (based on docume nted legal sex) 11.6-1 5.4 Not Available [facility] (Lab) [address], [place], [address], 11/13/2024 05:32:44 11/13/1911/12/2024 CBC W/DIF F HCT 38.6 % (based on docume nted legal sex) 34.0-4 5.0 Not Available [facility] (Lab) [address], [place], [address], 11/13/2024 05:32:44 11/13/1911/12/2024 CBC W/DIF F MCV 86.4 fL 80.0-9 9.0 Not Available [facility] (Lab) [address], [place], [address], 11/13/2024 05:32:44 11/13/1911/12/2024 CBC W/DIF F MCH 27.7 pg 27.0-3 4.0 Not Available [facility] (Lab) [address], [place], [address], 11/13/2024 05:32:44 11/13/19 25 11/12/2024 CBC W/DIF F MCHC 32.1 g/dL 32.0-3 5.5 Not Available [facility] (Lab) [address], [place], [address], 11/13/2024 05:32:44 11/13/19 25 11/12/2024 CBC W/DIF F RDW 13.6 % 11.0-1 5.0 Not Available [facility] (Lab) [address], [place], [address], 11/13/2024 05:32:44 11/13/19 25 11/12/2024 CBC W/DIF F plt 295 10'3/ uL 150-40 0 Not Available [facility] (Lab) [address], [place], [address], 11/13/2024 05:32:44 11/13/19 25 11/12/2024 CBC W/DIF F MPV 10.8 fL 8.8-12 .1 Not Available [facility] (Lab) [address], [place], [address], 11/13/2024 05:32:44 11/13/19 25 11/12/2024 CBC W/DIF F NRBC's 0.0 % 0.0 Not Available [facility] (Lab) [address], [place], [address], 11/13/2024 05:32:44 11/13/19 25 11/12/2024 CBC W/DIF F absolute NRBCs 0.0 10'3/ uL no refere nce range establ ished Not Available [facility] (Lab) [address], [place], [address], 11/13/2024 05:32:44 11/13/19 25 11/12/2024 CBC W/DIF F neutrophils 74.9 % 34.0-7 3.0 high Not Available [facility] (Lab) [address], [place], [address], 11/13/2024 05:32:44 11/13/19 25 11/12/2024 CBC W/DIF F lymphocytes 18.4 % 15.0-5 0.0 Not Available [facility] (Lab) [address], [place], [address], 11/13/2024 05:32:44 11/13/19 25 11/12/2024 CBC W/DIF F monocytes 5.4 % 1.0-15 .0 Not Available [facility] (Lab) [address], [place], [address], 11/13/2024 05:32:44 11/13/19 25 11/12/2024 CBC W/DIF F eosinophils 0.7 % 0.0-8. 0 Not Available [facility] (Lab) [address], [place], [address], 11/13/2024 05:32:44 11/13/19 25 11/12/2024 CBC W/DIF F basophils 0.2 % 0.0-2. 0 Not Available [facility] (Lab) [address], [place], [address], 11/13/2024 05:32:44 11/13/19 25 11/12/2024 CBC W/DIF [...] separ ately if prese nt. Not Available [facility] (Lab) [address], [place], [address], 11/13/2024 05:32:44 11/13/19 25 11/12/2024 CBC W/DIF F absolute neutrophils 12.0 10'3/ uL 1.5-8. 0 high Not Available [facility] (Lab) [address], [place], [address], 11/13/2024 05:32:44 11/13/1911/12/2024 CBC W/DIF F absolute lymphocytes 3.0 10'3/ uL 1.0-4. 0 Not Available [facility] (Lab) [address], [place], [address], 11/13/2024 05:32:44 11/13/1911/12/2024 CBC W/DIF F absolute monocytes 0.9 10'3/ uL 0.2-1. 0 Not Available [facility] (Lab) [address], [place], [address], 11/13/2024 05:32:44 11/13/19 25 11/12/2024 CBC W/DIF F absolute eosinophils 0.1 10'3/ uL 0.0-0. 6 Not Available [facility] (Lab) [address], [place], [address], 11/13/2024 05:32:44 11/13/1911/12/2024 CBC W/DIF F absolute basophils 0.0 10'3/ uL 0.0-0. 3 Not Available [facility] (Lab) [address], [place], [address], 11/13/2024 05:32:44 11/13/1911/12/2024 CBC W/DIF F absolute immature granulocytes 0.1 10'3/ uL 0.00-0 .10 Refer ence range s for nonbi nary/ inter sex or unspe cifie d gende r patie nts have not been estab lishe d. Plegermain e refer to the ayado wing table for range s estab lishe d for cisge nder patie nts and evalu ate in the clini sofia clarice xt of the indiv idual patie nt: https ://heather lee book. nm.or g/gen derx Not Available [facility] (Lab) [address], [place], [address], 11/13/2024 05:32:44 11/13/19 25 11/12/2024 CMP(C OMPRE HENSI VE METAB OLIC PANEL ) sodium 137 mmol/ L 133-14 6 Not Available [facility] (Lab) [address], [place], [address], 11/13/2024 05:32:44 11/13/19 25 11/12/2024 CMP(C OMPRE HENSI VE METAB OLIC PANEL ) potassium 4.0 mmol/ L 3.5-5. 1 Not Available [facility] (Lab) [address], [place], [address], 11/13/2024 05:32:44 11/13/19 25 11/12/2024 CMP(C OMPRE HENSI VE METAB OLIC PANEL ) chloride 102 mmol/ L 98-107 Not Available [facility] (Lab) [address], [place], [address], 11/13/2024 05:32:44 11/13/19 25 11/12/2024 CMP(C OMPRE HENSI VE METAB OLIC PANEL ) carbon dioxide 27 mmol/ L 21-31 Not Available [facility] (Lab) [address], [place], [address], 11/13/2024 05:32:44 11/13/19 25 11/12/2024 CMP(C OMPRE HENSI VE METAB OLIC PANEL ) anion gap 8 mmol/ L 4-13 Not Available [facility] (Lab) [address], [place], [address], 11/13/2024 05:32:44 11/13/19 25 11/12/2024 CMP(C OMPRE HENSI VE METAB OLIC PANEL ) blood urea nitrogen 7 mg/dL 7-[address] [facility] (Lab) [address] [place], [address], 11/13/2024 05:32:44 11/13/19 25 11/12/2024 CMP(C OMPRE HENSI VE METAB OLIC PANEL ) creatinine 0.48 mg/dL 0.60-1 .30 low Not Available [facility] (Lab) [address], [place], [address], 11/13/2024 05:32:44 11/13/19 25 11/12/2024 CMP(C OMPRE HENSI VE METAB OLIC PANEL ) egfrcr (CKD-epi 2020) >90 mL/mi n/1.7 3_m2 >=60 Not Available [facility] (Lab) [address], [place], [address], 11/13/2024 05:32:44 11/13/1911/12/2024 CMP(C OMPRE HENSI VE METAB OLIC PANEL ) calcium 9.7 mg/dL 8.3-10 .5 Not Available [facility] (Lab) [address], [place], [address], 11/13/2024 05:32:44 11/13/19 25 11/12/2024 CMP(C OMPRE HENSI VE METAB OLIC PANEL ) glucose 86 mg/dL 70-100 Not Available [facility] (Lab) [address], [place], [address], 11/13/2024 05:32:44 11/13/19 25 11/12/2024 CMP(C OMPRE HENSI VE METAB OLIC PANEL ) protein, total 6.6 g/dL 6.4-8. 3 Not Available [facility] (Lab) [address], [place], [address], 11/13/2024 05:32:44 11/13/1911/12/2024 CMP(C OMPRE HENSI VE METAB OLIC PANEL ) albumin 4.0 g/dL 3.5-5. 0 Not Available [facility] (Lab) [address], [place], [address], 11/13/2024 05:32:44 11/13/19 25 11/12/2024 CMP(C OMPRE HENSI VE METAB OLIC PANEL ) ALT 11 units /L 9-43 Not Available [facility] (Lab) [address], [place], [address], 11/13/2024 05:32:44 11/13/19 25 11/12/2024 CMP(C OMPRE HENSI VE METAB OLIC PANEL ) alkaline phosphatase 54 units /L 34-104 Not Available [facility] (Lab) [address], [place], [address], 11/13/2024 05:32:44 11/13/19 25 11/12/2024 CMP(C OMPRE HENSI VE METAB OLIC PANEL ) AST 10 units /L 13-39 low Not Available [facility] (Lab) [address], [place], [address], 11/13/2024 05:32:44 11/13/1911/12/2024 CMP(C OMPRE HENSI VE METAB OLIC PANEL ) bilirubin, total 0.2 mg/dL 0.2-1. 2 Not Available [facility] (Lab) [address], [place], [address], 11/13/2024 05:32:44 01/15/20 25 01/14/2025 GTT - GESTA NICOLAS L SCREE N, ACOG OB glucose, 1 hour screen 141 mg/dL 70-[address] [facility] (Lab) [address] [place], [address], 01/15/2025 11:13:15 01/15/2001/14/2025 HIV 1/2 ANTIG EN/AN TIBOD Y, REFLE X CONFI RMATI ON HIV antigen/anti body Nonrea ctive nonrea ctive HIV-1 antig en and HIV-1 /HIV- 2 antib odies were not detec terra. No labor atory evide nce of HIV infec tion. Not Available [facility] (Lab) [address], [place], [address], 01/15/2025 11:13:16 01/15/20 25 01/14/2025 HEMAT OCRIT (HCT) HCT 34.1 % (based on docume nted legal sex) 34.0-4 5.0 Not Available [facility] (Lab) [address], [place], [address], 01/15/2025 11:13:16 01/15/20 25 01/14/2025 HEMOG LOBIN (HGB) HGB 10.6 g/dL (based on docume nted legal sex) 11.6-1 5.4 low Not Available [facility] (Lab) [address], [place], [address], 01/15/2025 11:13:17 01/15/2001/14/2025 RPR SCREE N, REFLE X TITER /CONF IRMAT ION RPR qualitative Nonrea ctive nonrea ctive Not Available [facility] (Lab) [address], [place], [address], 01/15/2025 11:13:17 01/24/2001/23/2025 GTT - GESTA NICOLAS L, 3 HOUR, ACOG glucose, fasting acog 70 mg/dL 70-94 Not Available [facility] (Lab) [address] [place], [address], 01/24/2025 05:24:10 01/24/20 25 01/23/2025 GTT - GESTA NICOLAS L, 3 HOUR, ACOG glucose, 1 hour acog 150 mg/dL 70-[address] [facility] (Lab) [address] [place], [address], 01/24/2025 05:24:10 01/24/20 25 01/23/2025 GTT - GESTA NICOLAS L, 3 HOUR, ACOG glucose, 2 hour acog 143 mg/dL 70-[address] [facility] (Lab) [address] [place], [address], 01/24/2025 05:24:10 01/24/20 25 01/23/2025 GTT - GESTA NICOLAS L, 3 HOUR, ACOG glucose, 3 hour acog 46 mg/dL 70-139 critical low Resul ts verif ied by repea t rosanna sis. Not Available [facility] (Lab) [address], [place], [address], 01/24/2025 05:24:10 10/02/19 25 10/01/2024 US, obste tric, follo w-up No observ ation record ed. [address] [facility] [address] [place] [address], [address], 10/08/2024 09:41:15 11/18/19 25 11/17/2024 US, obste tric, follo w-up No observ ation record ed. [email or web address] [facility] [address], [address], 11/18/2024 12:26:24 11/19/19 25 11/17/2024 US, obste tric, follo w-up No observ ation record ed. [email or web address] [facility] [address] [place] [address], [address], 11/19/2024 11:57:24 11/26/19 25 11/25/2024 US, obste tric, follo w-up No observ ation record ed. [facility] [address] [place] [address], [address], 11/26/2024 17:27:21 11/26/19 25 11/25/2024 US, obste tric, follo w-up No observ ation record ed. [email or web address] [facility] [address] [place] [address], [address], 11/25/2024 17:38:04 12/16/19 25 12/15/2024 US, obste tric, follo w-up No observ ation record ed. [facility] [address] [place] [address], [address], 12/16/2024 06:57:29 01/13/2001/12/2025 US, obste tric No observ ation record ed. [email or web address] [facility] [address], [address], 01/13/2025 11:43:49 01/13/2001/12/2025 US, obste tric, follo w-up No observ ation record ed. [email or web address] [facility] [address], [address], 01/13/2025 16:24:45 02/11/20 25 02/10/2025 non-s tress test No observ ation record ed. [facility] [address], [address], 02/11/2025 15:00:18 02/11/2002/10/2025 US, obste tric, follo w-up No observ ation record ed. [email or web address] [facility] [address], [address], 02/11/2025 11:37:25 02/21/20 25 02/20/2025 US, obste tric, bioph ysica l profi le + non-s tress test No observ ation record ed. [email or web address] [facility] [address], [place], [address], 02/20/2025 16:56:43 02/21/20 25 02/20/2025 US, obste tric, bioph ysica l profi le + non-s tress test No observ ation record ed. juliano Valle [address], [place], [address], 02/23/2025 11:31:02 02/21/20 25 02/20/2025 non-s tress test No observ ation record ed. [email or web address] [facility] [address], [place], [address], 02/20/2025 13:47:54 02/21/20 non-s tress test No observ ation record ed. [email or web address] [facility] [address], [place], [address], 02/20/2025 12:35:53 02/26/2002/25/2025 US, obste tric, bioph ysica l profi le + non-s tress test No observ ation record ed. [email or web address] [facility] [address], [place], [address], 02/25/2025 11:49:48 02/26/20 25 02/25/2025 US, obste tric, bioph ysica l profi le + non-s tress test No observ ation record ed. [email or web address] Tori [address], [place], [address], 03/04/2025 11:50:53 02/26/20 25 02/25/2025 non-s tress test No observ ation record ed. [email or web address] [facility] [address], [place], [address], 02/25/2025 17:57:33 02/26/20 non-s tress test No observ ation record ed. [email or web address] [facility] [address], [place], [address], 02/25/2025 17:15:53 03/06/20 25 03/06/2025 non-s tress test No observ ation record ed. [email or web address] [facility] [address], [place], [address], 03/06/2025 13:52:03 03/06/20 non-s tress test No observ ation record ed. [email or web address] [facility] [address], [place], [address], 03/06/2025 12:00:07 03/06/20 25 03/06/2025 US, obste tric, follo w-up No observ ation record ed. [email or web address] Tori [address], [place], [address], 03/07/2025 23:02:25 03/06/20 25 03/06/2025 US, obste tric, follo w-up No observ ation record ed. [facility] [address], [place], [address], 03/06/2025 13:52:39 03/06/20 25 03/06/2025 US, obste tric, bioph ysica l profi le + non-s tress test No observ ation record ed. [facility] [address], [place], [address], 03/06/2025 13:52:50 Result Notes None recorded. Problems Name Problem SNOMED Code Status Onset Date Resolution Date Notes Provider Name and Address Organization Details Recorded Time Polycyst ic ovary syndrome 267911632 Completed 201711/16/2021 Polycyst ic ovarian syndrome ;Recorde d Elsewher e: No Locat ion: [facility] S ource: EHR Sizer Hand yan: N Practi ce ID: [id number] Edmond lable Time: 02:45:00 PM Sandhya Key [place], [place] - [facility] 18:30:21 Finding of fertilit y Completed 201711/16/2021 Female infertil ity, unspecif ied;Tip rded Elsewher e: No Locat ion: [facility] S ource: EHR Sizer Hand yan: N Practi ce ID: [id number] Edmond lable Time: 10:00:00 AM Sandhya Key [facility] 2 18:30:21 Abnormal uterine bleeding [id number] Completed 201711/16/2021 Other specifie d abnormal uterine and vaginal bleeding ;Recorde d Elsewher e: No Locat ion: [facility] S ource: EHR Sizer Hand yan: N Practi ce ID: [id number] Edmond lable Time: 09:45:00 AM Sandhya Key [facility] 2 18:30:21 Bleeding Completed 201711/16/2021 Abnormal uterine and vaginal bleeding , unspecif ied;Tip rded Elsewher e: No Locat ion[facility] Practi ce ID: [id number] Edmond lable Time: 10:00:00 AM Sandhya Key [facility] 2 18:30:21 Urinary tract infectio us disease [id number] Completed 201811/16/2021 Urinary tract infectio n, site not specifie d;Record ed Elsewher e: No Locat ion: [facility] Practi ce ID: 0001 Edmond lable Time: 04:15:00 PM Sandhya [place] [facility] 2 18:30:21 Pregnanc y detectio n examinat ion Completed 201811/16/2021 Encounte r for pregnanc y test, result positive ;Practic e ID: 0001 Sandhya Key [facility] 2 18:30:21 Uterine size for dates discrepa ncy Completed 201811/16/2021 Uterine size-johann e discrepa ncy, first trimeste r;Practi ce ID: 0001 Sandhya Key [facility], [facility] 2 18:30:21 Gestatio n period, 9 weeks [id number] Completed 201811/16/2021 9 weeks gestatio n of pregnanc y;Carolynnti ce ID: 0001 Sandhya Key [facility] 2 18:30:21 Secondar y amenorrh ea [id number] Completed 201811/16/2021 Secondar y amenorrh ea;Recor ded Elsewher e: No Locat ion: [facility] S ource: EHR Sizer Hand yan: N Practi ce ID: [id number] Edmond lable Time: 03:30:00 PM Sandhya Key [facility] 2 18:30:21 Infectio n screenin g Completed 201811/16/2021 Encounte r for screenin g for oth infec/pa rastc diseases ;Recorde d Elsewher e: No [facility] Hand yan: N Practi ce ID: 0001 Edmond lable Time: 03:30:00 PM Sandhya Key [facility] 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 2 18:30:21 Syphilis test finding [id number] Completed 201811/16/2021 Encntr screen for infectio ns w sexl mode of transmis s;Record ed Elsewher e: No Locat ion: [facility] S ource: EHR Sizer Hand yan: N Practi ce ID: [id number] Edmond lable Time: 03:30:00 PM Sandhya [place] [facility] 2 18:30:21 Body mass index 30+ - obesity [id number] Completed 201811/16/2021 Body mass index (BMI) 37.0-37. 9, adult;Re corded Elsewher e: No Locat ion: [facility] S ource: EHR Sizer Hand yan: N Practi ce ID: [id number] Edmond lable Time: 03:30:00 PM [facility] 18:30:21 Chlamydi al infectio n [id number] Completed 201811/16/2021 Chlamydi al infectio n, unspecif ied;Tip rded Elsewher e: No Locat ion: [facility] S ource: EHR Sizer Hand yan: N Practi ce ID: [id number] Edmond lable Time: 11:52:25 AM [facility] 2 18:30:21 [place] [id number] Completed 201811/16/2021 Encounte r for suprvsn of normal pregnanc y, first trimeste r;Practi ce ID: 0001 [facility]a [facility]ed[facility] 2 18:30:21 Antenata l screenin g Completed 201811/16/2021 Encounte r for other specifie d antenata l screenin g;Practi ce ID: 0001 [facility]a [facility] 2 18:30:21 Medical examinat ion for suspecte d conditio n Completed 201811/16/2021 Encntr for oth suspecte d maternal and cond ruled out;Prac jaxson ID: 0001 [facility]a [facility]ed[facility] 2 18:30:[address] Concept Completed 201811/16/2021 Maternal care for oth abnormal ity and damage, unsp;Pra ctice ID: 0001 Sandhya [place] null, [facility] 2 18:30:21 Gestatio n period, 30 weeks [id number] Completed 201811/16/2021 30 weeks gestatio n of pregnanc y;Practi ce ID: 0001 Sandhya sneed, [facility] 2 18:30:21 Pregnanc y, childbir th and puerperi um finding Completed 201811/16/2021 Encntr for suprvsn of normal first preg, third trimeste r;Practi ce ID: 0001 Sandhya [place] [facility], [facility] 2 18:30:21 malforma tion of central nervous system [id number] 107 Completed 201811/16/2021 Maternal care for (suspect ed) cnsl malform in fetus, unsp;Pra ctice ID: 0001 Sandhya Key [facility] 2 18:30:21 Gestatio n period, 34 weeks [id number] Completed 201811/16/2021 34 weeks gestatio n of pregnanc y;Practi ce ID: 0001 Sandhya sneed, [facility] 2 18:30:[address] Concept Completed 201811/16/2021 Matern care for abnlt fetl hrt rate or rhym, unsp tri, unsp;Pra ctice ID: 0001 Sandhya sneed, [facility] 2 18:30:21 Gestatio n period, 36 weeks 54991659 Completed 201811/16/2021 36 weeks gestatio n of pregnanc y;Practi ce ID: 0001 Sandhya sneed, [facility] 2 18:30:21 Term pregnanc y delivere d [id number] Completed 201811/16/2021 Encounte r for full-ter m uncompli cated delivery ;Practic e ID: 0001 Sandhya sneed, [facility] 2 18:30:21 Single live from singleto n pregnanc y 775026073 Completed 201811/16/2021 Single live ;Pr actice ID: 0001 Sandhya sneed, [facility] 2 18:30:21 Gestatio n period, 37 weeks 44658732 Completed 201811/16/2021 37 weeks gestatio n of pregnanc y;Practi ce ID: 0001 Sandhya sneed, [facility] 2 18:30:21 Lochia finding Completed 201911/16/2021 Encounte r for routine postpart um follow-u p;Record ed Elsewher e: No [facility]: EHR Sizer Hand yan: N Practi ce ID: 0001 Edmond lable Time: 08:45:00 AM Sandhya sneed, [facility] 2 18:30:21 Acute vaginiti s 02158298 Completed 201911/16/2021 Vaginiti s;Record ed Elsewher e: No Locat ion: [facility] S ource: EHR Sizer Hand yan: N Practi ce ID: 0001 Edmond lable Time: 01:00:00 PM Sandhya sneed, [facility] 2 18:30:21 Mixed anxiety and depressi ve disorder 798326608 Active 2024 Paz Keller null, [facility] 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 5 15:07:06 Pregnanc y 68080489 Active 2024 Paz Keller null, [facility] 5 15:07:38 chromoso mal abnormal ity affectin g obstetri sofia care 05579538 Active 2024 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, seeing [facility] Schedule d 10/20 us only & 11/17 us only normal echo 12/31- recommen ds postnata l eval of baby Katiana Roger null, [facility] 5 15:09:19 History of heart disorder 523535434 Active 2024 first baby couple hours after Britney Monzon CNM [address], [place], [address], [facility] 5 15:26:56 Past pregnanc y history of pre-ecla mpsia 4385381713 61937 Active 2024 plan bASA 162mg Britney Monzon CNM [address], [place], [address], [facility] 5 15:27:21 History of depressi on 901295190 Active 2024 no current treatmen t Britney Monzon CNM [address], [place], [address], [facility] 5 15:37:15 Hyperten sive disorder 98345958 Active 2024 100mg labetalo l bid Britney Monzon CNM [address], [place], [address], [facility] 5 11:41:34 Notes:previous son had hypoplastic left heart syndrome Some problems listed in Document: #[id number] could not be added to this patient's chart. Please review this document and add these problems to the patient's chart manually as needed. Problem Notes None recorded. Procedures Surgical History Date Name Laterality Status Provider Name and Address Organization Details Recorded Time 5 Date of Last Pap Smear completed Paz Keller [facility] 08/15/2024 17:09:24 4 SIS completed NUZHAT STEPHENSON MD [address], [place], [address], [facility] 09/13/2023 14:06:22 Imaging Results None [...] Prescrib ed Elsewher e: No Locat ion: [facility] odify By: [email or web address] z Aris ter DateTime : 03/28/20 10:00:00 [...] Prescrib ed Elsewher e: No Locat ion: [facility] odify By: [email or web address] perfecto Hurst ter DateTime : 02/06/20 08:45:00 AM Not Available Not Available Not Available Zofran 4 mg tablet take 1 tablet as needed for nausea 11/17 completed Prescrib ed Elsewher e: No Locat ion: [facility] odify By: dian jonas DateTime : 09/17/19 04:11:09 PM Not Available Not Available Not Available Metrogel Vaginal 0.75 % (37.5 mg/5 gram) insert 1 applicat orful by vaginal route every day at bedtime for 5 nights 11/17 completed Prescrib ed Elsewher e: No Locat ion: [facility] odify By: rahel jonas DateTime [...] ed Elsewher e: No [facility] odify By: bill jonas DateTime : 03/28/20 [...] Prescrib ed Elsewher e: No [facility] By: dian jonas DateTime : [...] Address Organization Details Last Updated DateTime 5 058682. 60373 g 47.1 kg/m2 167.64 cm 167.64 cm 47.1 kg/m2 812325. 97 g 129/77 mm[Hg] 129/77 mm[Hg] Alicia Peng [facility] 12:30:37 Social History Question Answer Notes LastModified by Organizat ion Details LastModified Time Tobacco Smoking Status Never Smoker [facility] 11/17/2021 10:26:20 Do You Have An Advance Directive? No Information n ot available 11/17/2021 If You Are , What Was Your Level Of Alcohol Consumption Prior To ? Occasional [email or web address] Information not available 08/15/2024 How Many Years Have You Consumed Alcohol? 8 Information not available 11/17/2021 Are You Blind Or Do You Have Difficulty Seeing? No Information n ot available 11/17/2021 What Is Your Level Of Caffeine Consumption? Moderate [email or web address] Information not available 08/15/2024 How Much Tobacco [...] Or The Highest Degree You Have Received? [id number] Information not available 11/17/2021 Are There Any [...] is your level of alcohol consumption? None [email or web address] Information not available 08/15/2024 Are you able [...] anxious, or unable to sleep at night)? [id number] [email or web address] Information not available 08/15/2024 Family History Relationship Description Onset Age of this Age Resolved Age Notes LastModified by Organization Details LastModified Time Son Hypoplastic left heart syndrome [email or web address] Not available 06/15 18:39:24 Medical History Condition [...] ICD10 Code Diagnosis IMO Codes Diagnosis Note [id number] Britney Monzon CNM [facility] [address] [address] 02/11/2025 11:02:03 02/11/2025 12:28:12 Gestation period, 32 weeks 7205350 Z3A.32 0395674 [id number] Dakotah Celeste MD [facility] [address] [address] 02/20/2025 10:19:25 02/20/2025 11:15:32 Chronic hypertension complicating AND/OR reason for care during 27047089 O10.913 O99.210 O28.0 Z3A.34 25445451 [id number] Britney Monzon [place] [address],[place] [address] 02/20/2025 10:20:12 02/20/2025 12:37:20 Abnormal chromosomal and genetic finding on screening of mother O28.5 86147660 [id number] Britney Monzon [facility] [address] [place] [address] 02/20/2025 10:20:45 02/20/2025 12:28:20 Gestation period, 34 weeks 76430438 Z3A.34 4955270 [id number] Britney Monzon [place] [address] [place] [address] 02/25/2025 09:50:49 02/25/2025 17:36:49 Abnormal chromosomal and genetic finding on screening of mother 757998993 O28.5 45226778 [id number] Dakotah Celeste MD [facility] [address] [place] [address] 02/25/2025 09:51:39 02/25/2025 10:55:41 Obesity 782930111 O99.213 O28.5 O10.013 Z3A.34 86907231 [id number] Britney Monzon [facility] [address] [place] [address] 02/25/2025 09:51:54 02/25/2025 11:24:09 Gestation period, 34 weeks 09359244 Z3A.34 3616718 [id number] Dakotah Celeste MD [facility] [address] [place] [address] 03/06/2025 10:53:07 03/06/2025 13:36:58 Maternal hypertension 416538571 O16.3 O99.210 Z3A.36 7011246 [id number] Britney Monzon CNM [place] [address] [address] 03/06/2025 10:54:53 03/06/2025 13:35:11 Abnormal finding on screening of mother 979955216 O28.5 023303 [id number] Britney Monzon CNM [facility] [address] [address] 03/06/2025 10:55:21 03/06/2025 13:33:29 Gestation period, 36 weeks 92814191 Z3A.36 [id number] Health Concerns Section Related Observation LastModified by Organization Detai ls LastModified Time None Recorded Concern Status LastModified by Organization Details LastModified Time None Recorded Payers Encounter Date Sequence Insurance Name Policy Number Policy Mckenna Covered Member ID Mckenna Member ID Guarantor Name 03/06/2025 1 [facility] [id number] Alex Louie [id number] Rizwana Louie Notes Date Note Type Note Provider Name and Address Organization Details Recorded Time 03/06/2025 text/html Generic HPI TemplateReported by Patient Britney Monzon CNM [address], [place], [address], [facility] 03/06/2025 12:48:38 OBGyn Episode Ob Episode Information Episode Created Date Number of Fetuses Patient Bloodtype Patient rh Status Prepregnancy Weight lbs Domestic Partner Domestic Partner Phone Father Name Roving Sizer Status 09/20/19 25 1 O Positive 273 Alex Louie OPEN Fetus Data First Name Last Name Admitted to NICU Weight (g) Sex Living Outcome Pediatric Complications Fetus ID Race Codes Race Delivery Type [id number] Problems Problem Notes Problem Name Start Date End Date Resolution Snomed Code Not e History of depression 09/19/2024 961177264 no current treatment Past history of pre-eclampsia 09/19/2024 235919083753107 plan bASA 1 62mg History of heart disorder 09/19/2024 953524188 first baby pass ed away couple hours after Hypertensive disorder 12/17/2024 56906915 100mg labetalol bid 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 34388189 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 us only & 11/17 us onlynormal echo 12/31- recommends eval of baby Les Calculation Initial Les Date Initial Exam Date Initial Exam Provider Initial Ultrasound Date Last Menstrual Period Date Ultra Sound Weeks Gestation 04/02/2025 08/26/2024 [email or web address] 08/14/2024 06/26/2024 6 Eighteen To Twenty Week Les Update Ultra Sound Date Fundal Height At Umbil Quickening Date Ultra Sound Latest Weeks Gestation Final Les Confirmed By Final Les Confirmed Date Final Les Date Ultra Sound Latest Days Gestation 0 [email or web address] 09/19/2024 04/02/19 26 0 Pre-cherelle Flowsheet Flowsheet Date 09/19/2024 Nevarez Score Blood Edema Fundus Height Fundus Units Glucose Ketones Leukocytes Nitrite Labor Signs Protein Cervic Dilation Cervic Effacement Cervic Station neg none none trace Type Weight in lbs Pre/Post Dialysis Refused Weight 274.146752947158 BP Diastolic BP Location Tested BP Systolic BP Type 81 140 Fetus Heart Rate Present Fetus Movement A Yes Comments reviewed [facility] notes with pt, undecided about amnio, is scheduled, will continue to follow as well, start bASA 162mg, hx 2 previous vaginal deliveries, begin care Flowsheet Date 2024 Nevarez Score Blood Edema Fundus Height Fundus Units Glucose Ketones Leukocytes Nitrite Labor Signs Protein Cervic Dilation Cervic Effacement Cervic Station Type Weight in lbs Pre/Post Dialysis Refused 278.892686953684 BP Diastolic BP Location Tested BP Systolic BP Type 85 L arm 141 sitting Fetus Heart Rate Present Fetus Movement A No Comments declined amnio first us good at [facility], has anatomy scheduled. mood good. _-FM yet precautions and educations f/u 4 weeks Flowsheet Date 11/12/2024 Nevarez Score Blood Edema Fundus Height Fundus Units Glucose Ketones Leukocytes Nitrite Labor Signs Protein Cervic Dilation Cervic Effacement Cervic Station Type Weight in lbs Pre/Post Dialysis Refused 278.809632911551 BP Diastolic BP Location Tested BP Systolic BP Type 94 L wrist 146 sitting 102 R wrist 157 sitting Fetus Heart Rate Present Fetus Movement A No Comments last us at [facility] wnl, has f/u next week +FM precautions and education f/u [address] discussed bp with dr. stephenson start labetalol 200mg bid Flowsheet Date 11/19/2024 Nevarez Score Blood Edema Fundus Height Fundus Units Glucose Ketones Leukocytes Nitrite Labor Signs Protein Cervic Dilation Cervic Effacement Cervic Station Type Weight in lbs Pre/Post Dialysis Refused Weight 279.312980427485 BP Diastolic BP Location Tested BP Systolic BP Type 79 L arm 128 sitting Fetus Heart Rate Present A 154 Fetus Movement A Yes Comments +FM doing well, bp's normote nsive on labetalol, cont to monitor, denies any sxs. precautions and education f/u mfm as scheduled Flowsheet Date 12/17/2024 Neavrez Score Blood Edema Fundus Height Fundus Units Glucose Ketones Leukocytes Nitrite Labor Signs Protein Cervic Dilation Cervic Effacement Cervic Station Type Weight in lbs Pre/Post Dialysis Refused Weight 280.081023575368 BP Diastolic BP Location Tested BP Systolic [...] Weight in lbs Pre/Post Dialysis Refused Weight 282.396906745925 BP Diastolic BP Location Tested BP Systolic BP Type 83 L arm 126 sitting 66 L wrist 128 sitting Fetus Heart Rate Present Fetus Movement A Yes Comments per pt mfm said anatomyok, e cho unremarkable, plans to deliver at [facility] today, discuss vaccines at next visit, small odor after intercourse, will plan flagyl. education and precautions f/u 2 weeks Flowsheet Date 01/28/2025 Nevarez Score Blood Edema Fundus Height Fundus Units Glucose Ketones Leukocytes Nitrite Labor Signs Protein Cervic Dilation Cervic Effacement Cervic Station Type Weight in lbs Pre/Post Dialysis Refused Weight 283.81193697408 BP Diastolic BP Location Tested BP Systolic [...] Type Weight in lbs Pre/Post Dialysis Refused 284.388622727554 BP Diastolic BP Location Tested BP Systolic [...] Type Weight in lbs Pre/Post Dialysis Refused 285.330560486570 BP Diastolic BP Location Tested BP Systolic BP Type 84 L arm 129 sitting Fetus Heart Rate Present Fetus Movement A Yes Comments Flowsheet Date 02/20/2025 Nevarez Score Blood Edema Fundus Height Fundus Units Glucose Ketones Leukocytes Nitrite Labor Signs Protein Cervic Dilation Cervic Effacement Cervic Station Type Weight in lbs Pre/Post Dialysis Refused 285.219301943873 BP Diastolic BP Location Tested BP Systolic [...] Weight in lbs Pre/Post Dialysis Refused Weight 289.950215182938 BP Diastolic BP Location Tested BP Systolic [...] Weight in lbs Pre/Post Dialysis Refused Weight 289.045448863636 BP Diastolic BP Location Tested BP Systolic [...] Type Weight in lbs Pre/Post Dialysis Refused 292.612565538940 BP Diastolic BP Location Tested BP Systolic BP Type 77 L arm 129 sitting Fetus Heart Rate Present Fetus Movement A Yes Comments Flowsheet Date 03/06/2025 Nevarez Score Blood Edema Fundus Height Fundus Units Glucose Ketones Leukocytes Nitrite Labor Signs Protein Cervic Dilation Cervic Effacement Cervic Station 3cm 50% -2 Type Weight in lbs Pre/Post Dialysis Refused Weight 292.637727973184 BP Diastolic BP Location Tested BP Systolic [...]
[2025-03-08 23:38] VITALS: BP 132/51; PULSE 83; RESP 18; TEMP 36.8
[2025-03-08 23:46] VITALS: BP 120/60; PULSE 87
[2025-03-08] MEDS: ONDANSETRON HCL ODT 4 MG TABLET PO (23:59)
[2025-03-09] VITALS (8 sets, daily range): BP systolic 80–131; BP diastolic 45–63; PULSE 81–86; O2SAT 98–100
[2025-03-09 00:39] LABS: Add Urine Microscopic? YES; Appearance Urine Clear (Clear); Glucose Urine UA Negative (Negative); Leukocyte Esterase Ur Trace LEU/UL (Negative); Nitrate Urine Negative (Negative); Specific Grav Ur 1.021 (1.001-1.035)
[2025-03-09] MEDS: LACTATED RINGERS 1,000 ML 999 ML IV CONT ×2 (00:45→01:35)
--- NOTE | 2025-03-09 03:02 | PC.NURSE ---
Pt presented to triage with complaints of n/v/d/. Pt reported the diarrhea started a few days ago and the nausea start today with one episode of emesis. She also reports feeling very tired after being on her feet all day at her son's birthday alliance party, and that her son also had episodes of diarrhea the past few days. VSS, Afebrile Pt reported feeling mild tightening in her belly that started shortly after she arrived to triage. Pt given ODT zofran which relieved her nausea. UA showed 3+ ketones. IV placed and 2 LR boluses given. Pt reported ctx pattern and intensity unchanged after fluids. Cervical exam done and is still the same from her sve in the office on Sunday. Pt agreeable for discharge and return precautions given. Kenton Monzon CNM notified
== END 2025-03-09 03:00 | disposition home or self-care (01) ==
LOC: ANHOBOP 23:22 → ANHLDR 23:24
PROVIDERS: PCP Nurse Practitioner Family; Visit Provider Advanced Practice Midwife
DX: O21.9 Vomiting of pregnancy, unspecified (principal); Z3A.00 Weeks of gestation of pregnancy not specified
CPT/HCPCS: 81001; 96360; A9270; J7120

== ENCOUNTER 2025-03-10 11:36 | Emergency (ER) | payer BC, SELFPAY ==
--- NOTE | 2025-03-10 11:41 | ECG_ITS ---
Test Date: 2025-03-10 11:45:08 Measurements Intervals [place] Rate: 83 P: 14 MI: 136 QRS: 9 QRSD: 99 T: 5 QT: 360 QTc: 424 Interpretive Statements SINUS RHYTHM BASELINE ARTIFACT- I, II, III, AVR, AVL, AVF, V1 NORMAL ECG No previous ECG available for comparison Electronically Signed On 03-10-2025 11:49:58 DIRECTOR TITLE by Vinay Combs D.O.
[2025-03-10 11:43] VITALS: BP 129/98; PULSE 83; RESP 20; TEMP 36.4; O2SAT 100
[2025-03-10 12:03] LABS: Hematocrit 36.5 % (37.0-47.0); Hemoglobin 12.0 g/dL (12.0-15.0); Immature Granulocyte Percent A 0.3 % (0-0.5); Lymphocytes Absolute Auto 1.43 K/mm3 (0.9-3.2); Mean Corpuscular HGB Conc 32.9 g/dl (32-36); Mean Corpuscular Hemoglobin 27.8 pg (26-34); Mean Corpuscular Volume 84.7 fl (80-100); Nucleated Red Blood Cells Absolute Auto 0.000 K/mm3 (0.0-0.012); Nucleated Red Blood Cells Perc 0.0 % (0.0-0.2); Platelet Count Result 235 k/mm3 (150-375); Red Blood Count 4.31 M/mm3 (4.2-5.4); White Blood Count 10.7 K/mm3 (4.5-10.0)
[2025-03-10 12:15] LABS: INR 1.0; Prothrombin Time 13.2 Seconds (11.1-14.7)
[2025-03-10 12:16] LABS: Partial Thromboplastin Time 29.6 Seconds (22.3-36.8)
[2025-03-10 12:18] LABS: Alanine Aminotransferase 16 U/L (6-35); Albumin Level 3.8 g/dL (3.5-5.1); Alkaline Phosphatase 100 U/L (38-126); Anion Gap 5 mmol/L (4-12); Aspartate Amino Transferase 19 U/L (14-36); Bilirubin,Total 0.4 mg/dL (0.2-1.3); Blood Urea Nitrogen 6 mg/dL (7-17); Calcium 9.2 mg/dL (8.4-10.2); Carbon Dioxide 20 mmol/L (22-30); Chloride 105 mmol/L (98-107); Estimated CRCL calculation 191 ml/min; Estimated Glomerular Filt Rate > 60; Glucose 95 mg/dL (65-110); Lipase 32 U/L (23-300); Potassium 3.8 mmol/L (3.4-5.0); Sodium 130 mmol/L (137-145); Total Protein 7.2 g/dL (6.3-8.2)
[2025-03-10 12:29] LABS: Troponin I 0.023 ng/mL (0.000-0.034)
--- NOTE | 2025-03-10 13:34 | ED.CHESTPAIN ---
HPI - Chest Pain General Chief Complaint: Chest Pain <Malika Andre PA-C - Last Filed: 03/10/25 13:57> Stated Complaint: cough, congestion, N/V/D-36 weeks <Malika Andre PA-C - Last Filed: 03/10/25 13:57> Time Seen by Provider: 03/10/25 13:34 <Malika Andre PA-C - Last Filed: 03/10/25 13:57> Focused HPI: Patient is a 29-year-old female who presents the ED with report of chest pain. Patient reports she woke up around 3:00 a.m. this morning with burning in her midsternal chest. Also report having a feeling of discomfort or a sensation of a pinched nerve in her left arm and radiating into her left-sided neck/upper back. She tried taking an out this morning, but symptoms were persistent upon waking up. Patient is currently 36 weeks gestation. OB Britney Monzon with [facility]. She notified her OBGYN about the symptoms and was referred to the ED for further evaluation. Patient is scheduled to be induced on Sunday. She is currently or any 3 cm dilated. She is denying any abdominal pain / cramping, leakage of fluid, bleeding. Does feel the burning sensation still at her midsternal chest, worse with deep breathing. Has been feeling mildly short of breath, but states this has been ongoing throughout . Denies previous heart issues. Has been dealing with acid reflux throughout her , but states this feels differently. Does report over the weekend she had viral symptoms with n/v/d, mild cough, but these sx's have since improved. Is on labetalol for gestational hypertension. GENERAL: Well-appearing, morbidly obese with BMI of 44.2, and in no acute distress. HEAD: Normocephalic, atraumatic. CHEST: Clear to auscultation. ?No respiratory distress. No significant focal lung sounds. HEART: Regular rate and rhythm.? NEURO: ?Alert and oriented x3. Patient screened in triage and initial orders placed.? ?Additional care and disposition to be based upon?diagnostic testing and treatment. <Malika Andre PA-C - Last Filed: 03/10/25 13:57> Source: patient <Malika Andre PA-C - Last Filed: 03/10/25 13:57> Mode of arrival: ambulatory <Malika Andre PA-C - Last Filed: 03/10/25 13:57> Limitations: no limitations <Malika Andre PA-C - Last Filed: 03/10/25 13:57> Related Data Home Medications: Home Medications ?Medication ?Instructions ?Recorded ?Confirmed ?Last Taken ?Type ferrous sulfate 325 mg (65 mg 325 mg PO DAILY 03/04/25 03/04/25 03/04/25 History iron) tablet (Feosol) labetalol 100 mg tablet 100 mg PO Q12H 03/04/25 03/04/25 03/04/25 History vit no.95-ferrous 1 tablet PO DAILY 03/04/25 03/04/25 03/04/25 History fumarate 28 mg-folic acid 800 mcg tablet () <Malika Andre PA-C - Last Filed: 03/10/25 13:57> Allergies/Adverse Reactions: Allergies Allergy/AdvReac Type Severity Reaction Status Date / Time No Known Allergies Allergy Verified 03/10/25 11:48 <Malika Andre PA-C - Last Filed: 03/10/25 13:57> Review of Systems Review of Systems: All systems reviewed & are unremarkable except as noted in HPI and below <Frank Mayorga MD - Last Filed: 03/10/25 15:24> [facility] Past Medical History Medical History: Medical History Depression with anxiety <Malika Andre PA-C - Last Filed: 03/10/25 13:57> Family History Family History: Family History Mother Hypertension Other Diabetes mellitus <Malika Andre PA-C - Last Filed: 03/10/25 13:57> Social History Social History: Social History Smoking status: Never smoker Alcohol intake: current Alcohol use details: OCCASIONALLY Substance use: never Spiritual care concerns: No <Malika Andre PA-C - Last Filed: 03/10/25 13:57> Exam Narrative: EXAMINATION OF ORGAN SYSTEMS/BODY AREAS: Constitutional: Vital signs per nursing GENERAL:[No acute distress, non-toxic appearing.] HEAD: Normal with no signs of head trauma. EYES: EOMI, conjunctiva normal ENT: Hearing grossly intact LUNGS: Nonlabored breathing. Clear to auscultation bilateral HEART: [Regular rate and rhythm] no rub murmur gallop 2+ radial pulses ABD: [Soft], [nontender to palpation], gravid uterus but nontender. EXT: Normal range of motion SKIN: [No rashes or lesions.] NEURO: [Alert. No gross focal sensory or strength deficits.] PSYCH: Normal affect <Frank Mayorga MD - Last Filed: 03/10/25 15:24> Course Vital Signs Vital signs: Vital Signs Temperature 36.4 C 03/10/25 11:43 Pulse Rate 83 03/10/25 11:43 Respiratory Rate 20 03/10/25 11:43 Blood Pressure 129/98 H 03/10/25 11:43 Pulse Oximetry 100 03/10/25 11:43 Oxygen Delivery Room Air 03/10/25 11:43 Temperature 36.4 C 03/10/25 11:43 Pulse Rate 85 03/10/25 14:58 Respiratory Rate 20 03/10/25 14:58 Blood Pressure 130/72 03/10/25 14:58 Pulse Oximetry 99 03/10/25 14:58 Oxygen Delivery Room Air 03/10/25 14:02 <Malika Andre PA-C - Last Filed: 03/10/25 13:57> Vital Signs Temperature 36.4 C 03/10/25 11:43 Pulse Rate 83 03/10/25 11:43 Respiratory Rate 20 03/10/25 11:43 Blood Pressure 129/98 H 03/10/25 11:43 Pulse Oximetry 100 03/10/25 11:43 Oxygen Delivery Room Air 03/10/25 11:43 Temperature 36.4 C 03/10/25 11:43 Pulse Rate 85 03/10/25 14:58 Respiratory Rate 20 03/10/25 14:58 Blood Pressure 130/72 03/10/25 14:58 Pulse Oximetry 99 03/10/25 14:58 Oxygen Delivery Room Air 03/10/25 14:02 <Frank Mayogra MD - Last Filed: 03/10/25 15:24> [facility] Narrative Medical decision making narrative: MSE by YURY in triage. Patient declined CXR. <Malika Andre PA-C - Last Filed: 03/10/25 13:57> Differential Diagnosis Differential Diagnosis: 29-year-old female who is 36 weeks presents emergency department with some pleuritic chest pain started about 3:00 a.m. it is left-sided. She has clear lungs normal cover it is an appropriate on room air. And a bouncy caution did want to rule out atypical presentation of ACS, troponins are undetectable EKG negative. I have a very low suspicion for pneumonia given she is not hypoxic febrile. She has normal work of breathing. She does have symptoms of cough congestion sick contacts with similar symptoms that she feels like she recovered last couple days from. From my differential is pleurisy is a significant etiology. She has a reassuring abdominal exam, she is without any vaginal bleeding abdominal pain she still has good sensation of movement. This juncture sure decision made to forego any chest x-ray imaging attempting some reasonable given her clinical exam. She has an OB appointment tomorrow, she is normotensive otherwise all questions answered discharged in stable condition <Frank Mayorga MD - Last Filed: 03/10/25 15:24> Lab Data [facility] Lab Attestation statement: I personally reviewed the patient's lab results. <Frank Mayorga MD - Last Filed: 03/10/25 15:24> Result diagrams: 03/10/25 11:49 03/10/25 11:49 <Malika Andre PA-C - Last Filed: 03/10/25 13:57> Labs: Lab Results 03/10/25 03/10/25 Range/Units 11:49 14:09 WBC 10.7 H (4.5-10.0) K/mm3 RBC 4.31 (4.2-5.4) M/mm3 Hgb 12.0 (12.0-15.0) g/dL Hct 36.5 L (37.0-47.0) % MCV 84.7 (80-100) fl MCH 27.8 (26-34) pg MCHC 32.9 (32-36) g/dl RDW 14.1 (11.5-14.5) % Plt Count 235 (150-375) k/mm3 MPV 9.9 (7.4-10.4) fl Immature Gran % (Auto) 0.3 (0-0.5) % Neut % (Auto) 77.0 H (45.5-73.1) % Lymph % (Auto) 13.4 L (18.3-44.2) % [place] % (Auto) 8.6 H (2.6-8.5) % Eos % (Auto) 0.6 (0-4.4) % Baso % (Auto) 0.1 L (0.2-1.2) % Lymph # (Auto) 1.43 (0.9-3.2) K/mm3 [place] # (Auto) 0.9 H (0.1-0.6) K/mm3 Eos # (Auto) 0.1 (0-0.3) K/mm3 Baso # (Auto) 0.0 (0.0-0.1) K/mm3 Abs Immat Gran (auto) 0.03 (0.00-0.031) K/mm3 Absolute Neuts (auto) 8.2 H (1.3-6.7) K/mm3 Absolute Nucleated RBC 0.000 (0.0-0.012) K/mm3 Nucleated RBC % 0.0 (0.0-0.2) % PT 13.2 (11.1-14.7) Seconds INR 1.0 APTT 29.6 (22.3-36.8) Seconds Sodium 130 L (137-145) mmol/L Potassium 3.8 (3.4-5.0) mmol/L Chloride 105 (98-107) mmol/L Carbon Dioxide 20 L (22-30) mmol/L Anion Gap 5 (4-12) mmol/L BUN 6 L D (7-17) mg/dL Creatinine 0.51 L (0.7-1.0) mg/dL Estim Creat Clear Calc 191 ml/min Estimated GFR > 60 (59 - ) Glucose 95 (65-110) mg/dL Calcium 9.2 (8.4-10.2) mg/dL Total Bilirubin 0.4 (0.2-1.3) mg/dL AST 19 (14-36) U/L ALT 16 (6-35) U/L Alkaline Phosphatase 100 (38-126) U/L Troponin I 0.023 (0.000-0.034) ng/mL NT-Pro-B Natriuret Pep 52 (19.9-100) pg/mL Total Protein 7.2 (6.3-8.2) g/dL Albumin 3.8 (3.5-5.1) g/dL Lipase 32 (23-300) U/L Urine Color Yellow (Yellow) Urine Appearance Clear (Clear) Urine pH 7.0 (5.0-9.0) Ur Specific [place] 1.007 (1.001-1.035) Urine Protein Negative (Negative) mg/dL Urine Glucose (UA) Negative (Negative) mg/dL Urine Ketones Negative (Negative) mg/dL Ur Blood (Man) Negative (Negative) Urine Nitrate Negative (Negative) Urine Bilirubin Negative (Negative) Urine Urobilinogen 1.0 (<2.0) mg/dL Add Ur Microanalysis Reviewed Leukocyte Esterase Rfl 1+ H (Negative) XENIA/UL Urine RBC 11-20 H (0-2) /hpf Urine WBC 6-10 H (0-3) /hpf Ur Squamous Epith Cells Moderate (Few) /hpf Urine Bacteria 1+ H /hpf Urine Casts 0-2 <Malika Andre PA-C - Last Filed: 03/10/25 13:57> Lab Results 03/10/25 03/10/25 Range/Units 11:49 14:09 WBC 10.7 H (4.5-10.0) K/mm3 RBC 4.31 (4.2-5.4) M/mm3 Hgb 12.0 (12.0-15.0) g/dL Hct 36.5 L (37.0-47.0) % MCV 84.7 (80-100) fl MCH 27.8 (26-34) pg MCHC 32.9 (32-36) g/dl RDW 14.1 (11.5-14.5) % Plt Count 235 (150-375) k/mm3 MPV 9.9 (7.4-10.4) fl Immature Gran % (Auto) 0.3 (0-0.5) % Neut % (Auto) 77.0 H (45.5-73.1) % Lymph % (Auto) 13.4 L (18.3-44.2) % [place] % (Auto) 8.6 H (2.6-8.5) % Eos % (Auto) 0.6 (0-4.4) % Baso % (Auto) 0.1 L (0.2-1.2) % Lymph # (Auto) 1.43 (0.9-3.2) K/mm3 [place] # (Auto) 0.9 H (0.1-0.6) K/mm3 Eos # (Auto) 0.1 (0-0.3) K/mm3 Baso # (Auto) 0.0 (0.0-0.1) K/mm3 Abs Immat Gran (auto) 0.03 (0.00-0.031) K/mm3 Absolute Neuts (auto) 8.2 H (1.3-6.7) K/mm3 Absolute Nucleated RBC 0.000 (0.0-0.012) K/mm3 Nucleated RBC % 0.0 (0.0-0.2) % PT 13.2 (11.1-14.7) Seconds INR 1.0 APTT 29.6 (22.3-36.8) Seconds Sodium 130 L (137-145) mmol/L Potassium 3.8 (3.4-5.0) mmol/L Chloride 105 (98-107) mmol/L Carbon Dioxide 20 L (22-30) mmol/L Anion Gap 5 (4-12) mmol/L BUN 6 L D (7-17) mg/dL Creatinine 0.51 L (0.7-1.0) mg/dL Estim Creat Clear Calc 191 ml/min Estimated GFR > 60 (59 - ) Glucose 95 (65-110) mg/dL Calcium 9.2 (8.4-10.2) mg/dL Total Bilirubin 0.4 (0.2-1.3) mg/dL AST 19 (14-36) U/L ALT 16 (6-35) U/L Alkaline Phosphatase 100 (38-126) U/L Troponin I 0.023 (0.000-0.034) ng/mL NT-Pro-B Natriuret Pep 52 (19.9-100) pg/mL Total Protein 7.2 (6.3-8.2) g/dL Albumin 3.8 (3.5-5.1) g/dL Lipase 32 (23-300) U/L Urine Color Yellow (Yellow) Urine Appearance Clear (Clear) Urine pH 7.0 (5.0-9.0) Ur Specific [place] 1.007 (1.001-1.035) Urine Protein Negative (Negative) mg/dL Urine Glucose (UA) Negative (Negative) mg/dL Urine Ketones Negative (Negative) mg/dL Ur Blood (Man) Negative (Negative) Urine Nitrate Negative (Negative) Urine Bilirubin Negative (Negative) Urine Urobilinogen 1.0 (<2.0) mg/dL Add Ur Microanalysis Reviewed Leukocyte Esterase Rfl 1+ H (Negative) XENIA/UL Urine RBC 11-20 H (0-2) /hpf Urine WBC 6-10 H (0-3) /hpf Ur Squamous Epith Cells Moderate (Few) /hpf Urine Bacteria 1+ H /hpf Urine Casts 0-2 <Frank Mayorga MD - Last Filed: 03/10/25 15:24> ECG Data EKG #1: Interpretation: Twelve lead EKG shows normal sinus rhythm at 83 beats per minute. No evidence of ST-T segment elevation or depression. Normal intervals. Overall impression normal EKG per <Frank Mayorga MD - Last Filed: 03/10/25 15:24> Discharge Plan Discharge Clinical Impression: Chest pain during <Malika Andre PA-C - Last Filed: 03/10/25 13:57> Patient Disposition: Home <Malika Andre PA-C - Last Filed: 03/10/25 13:57> Condition: Stable <KARTHIK Snowden Last Filed: 03/10/25 13:57> Instructions: Antibiotic Form, Chest Pain (ED), Chest Wall Pain (ED) <KARTHIK Snowden Last Filed: 03/10/25 13:57> Patient Language: Monegasque <KARTHIK Snowden Last Filed: 03/10/25 13:57> Prescriptions: No Action PNV no.95-ferrous fumarate-FA [] 28 mg iron- 800 mcg tablet 1 tablet PO DAILY labetalol 100 mg tablet 100 mg PO Q12H ferrous sulfate [Feosol] 325 mg (65 mg iron) tablet 325 mg PO DAILY <Malika Andre PA-C - Last Filed: 03/10/25 13:57> Follow-up/Referrals: Jennifer Lawson APRN [Primary Care Provider, Family Practice] <Malika Andre PA-C - Last Filed: 03/10/25 13:57> Time of Disposition: 15:13 <Malika Andre PA-C - Last Filed: 03/10/25 13:57> 15:13 <Frank Mayorga MD - Last Filed: 03/10/25 15:24>
--- NOTE | 2025-03-10 13:45 | PC.NURSE ---
lab called at this time to add on BNP to labwork already sent down on the patient.
[2025-03-10] MEDS: FAMOTIDINE 20 MG/2 ML VIAL IV PUSH (14:16)
[2025-03-10] MEDS: SODIUM CHLORIDE 0.9% IV 1,000 ML 999 ML IV CONT (14:16)
[2025-03-10 14:38] LABS: NT Pro B Type Natriuretic Pept 52 pg/mL (19.9-100)
[2025-03-10 14:58] VITALS: BP 130/72; PULSE 85; RESP 20; O2SAT 99
[2025-03-10 15:00] LABS: Add Urine Microscopic? YES; Appearance Urine Clear (Clear); Glucose Urine UA Negative (Negative); Leukocyte Esterase Ur 1+ LEU/UL (Negative); Need Manual Microscopic Reviewed; Nitrate Urine Negative (Negative); Non Pathogenic Casts 0-2; Specific Grav Ur 1.007 (1.001-1.035)
--- OUTSIDE RECORDS SUMMARY | 2025-03-10 17:46 | XMS_ITS | Clinical Summary ---
Author Organization [facility] [employer] Address [address] [place] [address] Care Team Providers Care Compliance Advisor Name Role Phone Ibis Diana PA-C Primary Care Provider [phone] Source Comments [facility],non-owned Affiliates and Associated Physician Practices is amultiple site organization consisting of ambulatory clinics and hospital sitesin [place], [place], [place] and [place]. This disclosure is being madepursuant to the Care Everywhere program and may not contain all information available regarding this patient. Last updated 17.[facility] Allergies No known active allergies Medications * Be aware that medications may not be up to date on this document. Alwaysverify current medications with the patient. Vit-Fe Fumarate-FA ( VITAMIN) 28-0.8 MG tablet Take 1 (one) tablet by mouth once daily Active calcium carbonate (TUMS) 500 MG chew tablet Take 1 tablet by mouth daily with food Active ibuprofen (MOTRIN) 600 MG tablet Take 1 tablet by mouth every 6 hours as needed for Pain 60 tablet 1 8 Active Additional Information Patient not taking.Reported on 11/13/2018 docusate sodium (COLACE) 100 MG capsule Take 1 capsule by mouth 2 times daily 30 capsule 3 8 Active Additional Information Patient not taking.Reported on 11/13/2018 ferrous sulfate 325 (65 FE) MG tablet Take 1 tablet by mouth daily with breakfast 30 tablet 2 8 Active Additional Information Patient not taking.Reported on 11/13/2018 polyethylene glycol 3350 (MIRALAX) packet Take 17 g by mouth once daily 30 packet 1 8 Active Additional Information Patient not taking.Reported on 11/13/2018 riboflavin 100 MG tabletIndication s:Prevention of Headaches Take 4 tablets by mouth once daily Reasons: Headache Prophylaxis 120 tablet 11 9 Active Additional Information Patient not taking.Reason: Patient adjusted, Informant: Patient, Reported on 09/17/2024 aspirin (ASPIRIN) 81 MG chew tabletIndication s:Preeclampsia prevention Take 2 tablets by mouth once daily Reasons: Preeclampsia prevention 100 tablet 11 9 Active Additional Information Patient not taking.Reason: Provider adjusted, Informant: Patient, Reported on 09/17/2024 amoxicillin-clav ulanate (Augmentin) 875-125 MG tabletIndication s:Pneumonia Take 1 (one) tablet by mouth 2 times daily with morning and evening meal Reasons: Pneumonia Active azithromycin (Zithromax) 250 MG tablet Take 1 (one) tablet by mouth once daily Active labetalol (Normodyne; Trandate) 100 MG tabletIndication s:Gestational Hypertension Take 1 (one) tablet by mouth every 12 hours Reasons: -Induce d Hypertension Active Active Problems Patient Care Coordination No te Formatting of this note migh t be different from the original. HEART PATIENT See Plan of Care in Problem List Problem Noted Date Diagnosed Date Encounter for screening for congenital cardiac abnormalities in fetus 12/31/2024 Overview (01/02/2025): Images from the original note were not included. HEART PATIENT -- SEE CARDIOLOGY CONSULT Care Provider: Embroidery Finisher Involved: Dr. Gilbert Diagnosis: Indications for echocardiogram include a history of previous child with congenital heart disease and abnormal cell-free DNA for Trisomy 18; No evidence of congenital heart disease on echocardiogram Date of last echocardiogram: 12/31/2024 Planned Delivery Location: follow up: echocardiogram images were challenging due to positioning and maternal body habitus, so recommended a evaluation on the baby Care plan based on evaluation and is subject to change based on assessment. See Cardiac under Chart Review for ECHO report(s) Abnormal chromosomal and gen etic finding on screening mother: [place] NIPT tri 18 risk 5/10 on 09/05/24 11/25/2024 BMI 40.0-44.9, adult 11/25/2024 Previous child with cardiac abnormality, antepar jennifer 11/08/2018 Overview (11/25/2024): G1-hypoplastic left heart- 2 hours post-delivery Assessment & Plan (11/13/2018 11:00 AM CDT): Maternal- Medicine recommendations: Referral to Pediatric Cardiology for a echocardiogram Obesity affecting , antepartum 11/09/19 19 Assessment & Plan (11/13/2018 11:00 AM CDT): Maternal- Medicine recommendations: Serial growth every four weeks Would benefit from and weight loss Depression Assessment & Plan (11/13/2018 11:01 AM CDT): Maternal- Medicine recommendations: Recommend serial reassessment for the development of major depression Anxiety Estimated Date of Delivery Comme nts Yes 04/03/2025 Based on Ultraso und Resolved Problems Problem Noted Date Diagnosed Date Resolved Date demise, greater than 2 2 weeks, exam 09/25/2017 11/08/2018 Group beta Strep positive 08/20/2017 Depression screen - initial 07/12/17 07/12/2017 11/08/2018 Overview (07/12/2017): 07/12/2017 Laurie Virgen was screened for depression using the [place] Depression Scale (EPDS) at her [facility] initial evaluation on 07/12/2017. Her initial score at baseline was 10. Based off of her score of 10, Laurie does not warrant follow up. Patient will continue to be screened throughout , at intervals no closer than two weeks, for continued surveillance and early identification of depression until delivery. Patient denies mental health history. Supervision of high risk pre gnancy, antepartum, third trimester 07/12/2017 11/08/2018 Obesity without serious comorbidity 07/12/2017 11/08/2018 abnormality in previous - [facility] 06/29/19 18 11/08/2018 Overview (08/22/2017): Images from the original note were not included. [facility] PATIENT--PLEASE CALL [phone] (ex 2) IF TRIAGED OR ADMITTED Care Provider: Dr. Vladimir Her GALEN to [facility] [place] consultants involved: RN-Deepak/Nadja; [facility]- Vasiliy; Cardiology-Vladimir; CT Surgery- Jaciel; Neonatology-Rodrigo; Footprints-Sr. Rivera Diagnosis: [facility] follow up: per 07.12 Neonatology consult Danny will need Prostaglandin following delivery to support systemic circulation. We anticipate early transfer to [facility] following line placement for extended care. Billboard Mechanic: Planned surveillance: Repeat echo on 08.21.17, weekly NST/BPP at [facility] Delivery location, mode, and GA: [facility], TBD-G1; 39w; IOL 6.10 at 2100 Autopsy indicated: Genetics note: Oncologist Concerns: Care plan based on evaluation and is subject to change based on assessment. See Images or Cardiac under Chart Review for US/ ECHO/ MRI reports. Encounters Date Type Department Care Team Description 02/10/2025 9:37 AM LAUNDRY WORKER - 02/10/2025 11:59 PM LAUNDRY WORKER Hospital Encounter formerly [facility] Maternal & Care [address] [place] [address] Montana Lee MD Discharge Disposition: Home or Self Care 01/12/2025 10:27 AM CDT - 01/12/2025 11:59 PM CDT Hospital Encounter formerly [facility] Maternal & Care [address] [place] [id number] Brissa Hackett MD CAREER CENTER ADVISOR Discharge Disposition: Home or Self Care 12/31/2024 10:28 AM CDT - 12/31/2024 11:59 PM CDT Hospital Encounter [facility] Pediatrics - Cardiology [address] [place] [address] Michelle Gilbert MD Discharge Disposition: Home or Self Care 12/31/2024 10:28 AM CDT Hospital Encounter [facility] Pediatrics - Cardiology [address] [place] [id number] Marino Ram DO Discharge Disposition: Home or Self Care 12/15/2024 10:30 AM CDT - 12/15/2024 11:59 PM CDT Hospital Encounter [facility] Maternal & Care [address] [place] [address] Head, Shaista Drew MD Discharge Disposition: Home or Self Care from Last 3 Months Family History Medical History Relation Name Comments Hypertension Mother Diabetes - Type 2 Other Great Aunt Hypertension Paternal Grandmother Thyroid Disease Paternal Grandmother Relation Name Status Comments Mother Other Great Aunt Paternal Grandmother Social History Tobacco Use Types Packs/Day Years Used Date Smoking Tobacco: Never Smokeless Tobacco: Never Alcohol Use Standard Drinks/Week Comments No 0 (1 standard drink = 0.6 oz pur e alcohol) Estimated Date of Delivery Comme nts Yes 04/03/2025 Based on Ultraso und Sex and Gender Information Value Date Recorded Sex Assigned at Not on file Legal Sex Female 3:44 PM LAUNDRY WORKER Gender Identity Not on file Sexual Orientation Not on file Last Filed Vital Signs Vital Sign Reading Time Taken Comments Blood Pressure 120/68 02/10/2025 11:10 AM LAUNDRY WORKER Pulse 85 02/10/2025 11:10 AM LAUNDRY WORKER Temperature 36.3 C (97.4 F) 09/12/2017 1:10 PM CDT Respiratory Rate 18 09/12/2017 1:10 PM CDT Oxygen Saturation 100% 09/12/2017 1:10 PM CDT Inhaled Oxygen Concentration - - Weight 123.8 kg (273 lb) 09/17/2024 1:47 PM CDT Height 167.6 cm (5' 6) 09/17/2024 1:47 PM CDT Body Mass Index 44.06 09/17/2024 1:47 PM CDT Plan of Treatment Health Maintenance Due Date Last Done Comments HEPATITIS C SCREENING 10/11/2014 DTAP/TDAP/TD VACCINES (1 - Tdap) 10/16/2015 HEPATITIS B VACCINE (1 of 3 - 19+ 3-dose series) 10/16/2015 HPV VACCINE (1 - 3-dose SCDM series) 10/16/2023 DEPRESSION SCREENING 04/02/2024 COVID-19 VACCINE (1 - 2024-2 6 season) 2024 INFLUENZA VACCINE (#1) 2024 OB-ONE HOUR GLUCOSE 12/26/2024 OB-TDAP CURRENT 01/02/2025 Respiratory Syncytial Virus (RSV) Vaccine Pt: or over 60 yrs (1 - Risk 1-dose series) 02/06/2025 OB-GROUP B STREP SCREEN 02/27/2025 08/16/2017 PAP SMEAR 08/19/2027 08/18/2024 ZOSTER VACCINE (1 of 2) 2046 HIV SCREENING Completed 01/14/2025, 09/05/2024, 08/01/2017 HIB VACCINE Aged Out No longer eligi ble based on patient's age to complete this topic MENINGOCOCCAL (Group B) VACCINE SHARED DECISION-MAKING Aged Out No longer eligible based on patient's age to complete this topic MENINGOCOCCAL GROUPS A/C/Y/W VACCINE Aged Out No longer eligible b ased on patient's age to complete this topic PNEUMOCOCCAL VACCINE Aged Out No long er eligible based on patient's age to complete this topic Procedures Procedure Name Priority Date/Time Associated Diagnosis Comments BIOPHYSICAL PROFILE W NST Routine 02/10/2025 9:56 AM LAUNDRY WORKER Abnormal chromosomal and genetic finding on screening mother: [place] NIPT tri 18 risk 08/09 on 09/05/24 BMI 40.0-44.9, adult ([facility]) Encounter for screening for congenital cardiac abnormalities in fetus ([facility]) History of pre-eclampsia in prior , currently ([facility]) Current griffiths with history of congenital heart disease in prior child, antepartum ([facility]) 32 weeks gestation of ([facility]) Encounter for other screening follow-up ([facility]) Previous child with cardiac abnormality, antepartum ([facility]) SONOGRAM - COMPLETE Routine 01/12/2025 1 0:39 AM CDT Current griffiths with history of congenital heart disease in prior child, antepartum ([facility]) Other obesity due to excess calories affecting , antepartum ([facility]) 21 weeks gestation of ([facility]) Encounter for anatomic survey ([facility]) ECHO COMPLETE CG Routine 12/31/2024 11:18 AM CDT Previous child with cardiac abnormality, antepartum ([facility]) SONOGRAM - COMPLETE Routine 12/15/2024 1 0:34 AM CDT Current griffiths with history of congenital heart disease in prior child, antepartum ([facility]) Other obesity due to excess calories affecting , antepartum ([facility]) 21 weeks gestation of ([facility]) Encounter for anatomic survey ([facility]) CULTURE STREP B Routine 08/16/2017 12:02 PM CDT Supervision of high risk , antepartum, third trimester HIV-1 HIV-2 ANTIBODY + HIV P24 AG PANEL Routine 08/01/2017 3:50 PM CDT Supervision of high risk , antepartum, third trimester from Last 3 Months or Most Recently Relevant to Health Maintenance Results * Biophysical Profile w NST (02/10/2025 9:56 AM LAUNDRY WORKER) Linked Results Indication ======== Incomplete anatomy Abnormal chromosomal and genetic finding on cf-DNA high-risk (risk = 08/09) for Trisomy 18, Declined karyotype screening of mother Obesity complicating , Class 3 - BMI of 40.0 or greater Family history of congenital heart defect echocardiogram WNL 12/31/2024 arrhythmia History ====== OB History 3. Para 2 [id number] 1. (0 - 7 days) 2017. Details: Vaginal delivery, [facility] 2. live 2018. Gest. age 37 w + 3 d. Details: Vaginal delivery, Preeclampsia Lab Tests Test Date Result NIPT Positive for Trisomy 18: risk 08/09 Maternal Assessment Physical Exam Height 168 cm, 5 ft 6 in. Initial weight 124 kg, 273 lb. Initial BMI 44.06 kg/m Method ====== Transabdominal ultrasound. View: Sufficient ========= Griffiths . Number of fetuses: 1 Dating ====== Date Details Gest. age NIRAJ LMP 06/26/2024 32 w + 5 d 04/02/2025 Stated NIRAJ 32 w + 4 d 04/03/2025 Previous U/S 08/14/2024 GA, GA 6 w + 6 d 32 w + 4 d 04/03/2025 Assigned dating based on the LMP, selected on 09/17/2024 32 w + 5 d 04/02/2025 General Evaluation Cardiac activity present. FHR 130 bpm. Presentation: cephalic Placenta: Placental site: posterior Umbilical cord: Cord vessels: 3 vessel cord - previously documented. Insertion site: normal insertion - previously documented Amniotic Fluid Assessment == Amount of AF: normal MVP 5.0 cm. XAVIER 12.5 cm. Q1 2.6 cm, Q2 2.7 cm, Q3 2.1 cm, Q4 5.0 cm Biophysical Profile 2: breathing movements 2: Gross body movements 2: tone 2: Amniotic fluid volume NST: reactive 01/09 Biophysical profile score Non Stress Test NST interpretation: reactive. Baseline FHR 125 bpm. Baseline variability: moderate. Accelerations: present Biometry BPD 80.7 mm 32w 3d 34% Hadlock HC 298.0 mm 33w 0d 20% Hadlock AC 294.4 mm 33w 3d 71% Hadlock Femur 65.8 mm 33w 6d 70% Hadlock Humerus 56.0 mm 32w 4d 55% Anatoliy HC / AC 1.01 Weight Calculation: EFW 2,191 g 62% Hadlock EFW (lb,oz) 4 lb 13 oz EFW by Hadlock (KEI-DZ-IE-FL) appropriate Growth Overview Exam date GA BPD (mm) HC (mm) AC (mm) FL (mm) HL (mm) EFW (g) 10/21/2024 16w 5d 32.7 23% 131.6 40% 119.3 80% 20.8 26% 23 71% 174 55% 11/17/2024 20w 4d 45.7 20% 175.8 21% 159.9 62% 35.6 66% 32.9 69% 393 68% 12/15/2024 24w 4d 52.8 <1% 210.3 2% 199 40% 44.2 36% 40.4 38% 679 28% 01/12/2025 28w 4d 63.9 <1% 246.8 <1% 248 57% 56 61% 49.6 57% 1271 42% 02/10/2025 32w 5d 80.7 34% 298 20% 294.4 71% 65.8 70% 56 55% 2191 62% Anatomy The following structures appear normal: Head / Neck Cranium. Abdomen Stomach. Kidneys. Bladder. Spine Sacral spine. The following structures could not be adequately visualized: Heart / Thorax LVOT view. Extremities / Skeleton Left hand. The following structures were documented previously: Head / Neck Lateral ventricles. Choroid plexus. Midline falx. Cavum septi pellucidi. Cerebellum. Cisterna magna. Thalami. Face Lips. Profile. Nose. Nasal bone. Orbits. Heart / Thorax 4-chamber view. RVOT view. 3-vessel view. 6-peemse-djlvqyi view. Situs. Aortic arch view. Bicaval view. Ductal arch view. Interventricular septum. Great vessels. Right lung. Left lung. Diaphragm. Abdomen Cord insertion. Genitals. Spine Cervical spine. Thoracic spine. Lumbar spine. Extremities / Skeleton Arms. Right hand. Legs. Feet. sex: female. Impression ========= Single, live, intrauterine at 32w 5d The growth is appropriate. The amniotic fluid volume is normal. The biophysical profile is 10. Follow-up ======== Continue weekly NST+BPP U/S for growth in 4 weeks Coding ====== Diagnoses O35.2XX0: Maternal care for (suspected) hereditary disease in fetus, not applicable or unspecified O99.213, E66.813: Obesity complicating , Class 3 - BMI of 40.0 or greater O28.5: Abnormal chromosomal and genetic finding on screening of mother O36.8330: Maternal care for abnormalities of the heart rate or rhythm Z36.2: Encounter for other screening follow-up Procedures 51957: [place] [address]: Biophysical Profile W NST Dajie PACS Anatomical Region Laterality Modality Other 02/10/2025 9:56 AM LAUNDRY WORKER R Jero Celeste MD [facility] ORDERABLES Edited Result - Final * Sonogram - Complete (01/12/2025 10:39 AM CDT) Only the most recent of2 resultswithin the time period is included. Linked Results Indication ======== Incomplete anatomy Echo WNL 12/31/24 Abnormal chromosomal and genetic finding on screening of mother Obesity complicating , Class 3 - BMI of 40.0 or greater Family history of congenital heart defect arrhythmia History ====== OB History 3. Para 2 [id number] 1. (0 - 7 days) 2017. Details: Vaginal delivery, [facility] 2. live 2018. Gest. age 37 w + 3 d. Details: Vaginal delivery, Preeclampsia Lab Tests Test Date Result NIPT Positive for Trisomy 18: risk 08/09 Maternal Assessment Physical Exam Height 168 cm, 5 ft 6 in. Weight 126 kg, 278 lb. Initial weight 124 kg, 273 lb. BMI 44.87 kg/m . Initial BMI 44.06 kg/m . Weight gain 2 kg, 5 lb Method ====== Transabdominal ultrasound. View: Suboptimal view: limited by position, maternal body habitus, and late gestational age. ========= Griffiths . Number of fetuses: 1 Dating ====== Date Details Gest. age NIRAJ LMP 06/26/2024 28 w + 4 d 04/02/2025 Stated NIRAJ 28 w + 3 d 04/03/2025 Previous U/S 08/14/2024 GA, GA 6 w + 6 d 28 w + 3 d 04/03/2025 U/S 01/12/2025 based upon AC, BPD, Femur, HC 27 w + 6 d 04/07/2025 Assigned dating based on the LMP, selected on 09/17/2024 28 w + 4 d 04/02/2025 General Evaluation Cardiac activity present. FHR 134 bpm. Presentation: breech Placenta: Placental site: posterior Umbilical cord: Cord vessels: 3 vessel cord. Insertion site: normal insertion Amniotic fluid: Amount of AF: normal. MVP 3.0 cm. XAVIER 7.8 cm. Q1 3.0 cm, Q2 2.5 cm, Q3 1.4 cm, Q4 1.0 cm Biometry BPD 63.9 mm 25w 6d <1% Hadlock HC 246.8 mm 26w 6d <1% Hadlock AC 248.0 mm 29w 0d 57% Hadlock Femur 56.0 mm 29w 3d 61% Hadlock Humerus 49.6 mm 29w 1d 57% Anatoliy HC / AC 1.00 Weight Calculation: EFW 1,271 g 42% Hadlock EFW (lb,oz) 2 lb 13 oz EFW by Hadlock (ALE-FE-PD-FL) appropriate Growth Overview Exam date GA BPD (mm) HC (mm) AC (mm) FL (mm) HL (mm) EFW (g) 10/21/2024 16w 5d 32.7 23% 131.6 40% 119.3 80% 20.8 26% 23 71% 174 55% 11/17/2024 20w 4d 45.7 20% 175.8 21% 159.9 62% 35.6 66% 32.9 69% 393 68% 12/15/2024 24w 4d 52.8 <1% 210.3 2% 199 40% 44.2 36% 40.4 38% 679 28% 01/12/2025 28w 4d 63.9 <1% 246.8 <1% 248 57% 56 61% 49.6 57% 1271 42% Anatomy The following structures appear normal: Heart / Thorax [id number] view. Abdomen Stomach. Kidneys. Bladder. Spine Cervical spine. Thoracic spine. Lumbar spine. Extremities / Skeleton Left arm. The following structures could not be adequately visualized: Heart / Thorax LVOT view. Spine Sacral spine. Extremities / Skeleton Left hand. The following structures were documented previously: Head / Neck Cranium. Lateral ventricles. Choroid plexus. Midline falx. Cavum septi pellucidi. Cerebellum. Cisterna magna. Thalami. Nuchal fold. Face Lips. Profile. Nose. Nasal bone. Orbits. Heart / Thorax 4-chamber view. RVOT view. 3-vessel view. Situs. Aortic arch view. Bicaval view. Ductal arch view. Great vessels. Right lung. Left lung. Diaphragm. Abdomen Cord insertion. Bowel. Genitals. Extremities / Skeleton Right arm. Right hand. Legs. Feet. sex: female. Impression ========= Single, live, intrauterine at 28w 4d. The size is appropriate. The amniotic fluid volume is normal. No major malformations were seen within the limitations of ultrasound but anatomic survey remains incomplete. Comment ======== ultrasound alone cannot detect all structural, genetic, or functional , placental, or maternal abnormalities. Follow-up ======== Follow up ultrasound in 4 weeks for growth and to complete anatomic survey. Coding ====== Diagnoses O35.2XX0: Maternal care for (suspected) hereditary disease in fetus, not applicable or unspecified O99.213, E66.813: Obesity complicating , Class 3 - BMI of 40.0 or greater O28.5: Abnormal chromosomal and genetic finding on screening of mother O36.8330: Maternal care for abnormalities of the heart rate or rhythm Z36.2: Encounter for other screening follow-up Procedures 03254: US Preg Uterus Follow Up [employer] PACS Anatomical Region Laterality Modality Other 01/12/2025 10:3 9 AM CDT [facility] Jero Celeste MD [facility] ORDERABLES Edited Result - Final * ECHO COMPLETE CG (12/31/2024 11:18 AM CDT) MV E pk bradly 22.44 cm/s [facility] CV F UJI PACS MV A pk bradly 25.787 cm/s [facility] CV F UJI PACS Anatomical Region Laterality Modality Ultrasound 12/31/2024 10:3 2 AM CDT Narrative 01/01/2025 9:01 AM CDT Name: Laurie Louie Patient Exam Info Gender: Female Patient Status: O/P : 1995 Admit Date: 12/31/2024 Exam Date/Time: 12/31/2024 10:32 AM Site: [facility] Current Location: [facility] EStudy Quality: Diagnostic quality Staff Ordering Provider: Montana Lee Interpreting Physician: Michelle Gilbert MD Fire Prevention Inspector: Sheridan Kaur RICCARDO Study Info Procedure: ECHO COMPLETE CG Indications: O09.299 - Previous child with cardiac abnormality, antepartum (HCC) Maternal Gestational Status GA by EDC: 26 wks , 6 days EDC: 04/02/2025 Type: Griffiths Age: 28 yrs Summary * The echocardiogram was within normal limits given limitations of the study. * Small atrial and ventricular septal defects and persistent ductus arteriosus cannot be excluded as findings. Anatomic Relationships Left sided cardiac apex (levocardia). There is normal visceral-cardiac situs, and normal segmental cardiac anatomical relationship. Systemic Veins There is normal systemic venous return. Pulmonary Veins The visualized pulmonary veins drain normally to the left atrium. Right Atrium The right atrial size is normal. Left Atrium The left atrial size is normal. Atrial Septum Patent foramen ovale with open foramen flap. Color flow is right to left. Right Ventricle The right ventricular cavity size is normal. The right ventricular wall thickness is normal. The right ventricular systolic function is normal. RV Outflow Tract The right ventricular outflow tract is normal. Left Ventricle The left ventricular cavity size is normal. The left ventricular wall thickness is normal. The left ventricular systolic function is normal. Ventricular Septum There is no ventricular septal defect with no shunting. LV Outflow Tract The left ventricular outflow tract is normal. Tricuspid Valve The tricuspid valve is structurally normal. The tricuspid inflow pattern is normal. Tricuspid velocity is within the normal range. There is no tricuspid regurgitation. Mitral Valve The mitral valve is structurally normal. The mitral inflow pattern is normal. Mitral velocity is within the normal range. There is no mitral regurgitation. Aorta aortic arch visualized and is without obstruction by 2D, color flow and Doppler. Pulmonary Arteries The main pulmonary artery is normal, with confluent branch pulmonary arteries. Ductus Arteriosus The antegrade flow velocity and pattern in the ductal arch is normal. A normal ductus arteriosus is appreciated. Doppler Flow in the ductus venosus is normal. The umbilical vein flow pattern is normal. The umbilical artery flow pattern is normal. Hydrops Assessment No pericardial effusion. No ascites present. No pleural effusion(s). Rhythm The rhythm is normal. There is 1:1 AV conduction. Pulmonary Valve The pulmonic valve is normal-sized. The transpulmonic velocity is within normal range. There is no pulmonic regurgitation. Aortic Valve The aortic valve is normal-sized. The transaortic velocity is within normal range. There is no aortic regurgitation. Doppler Measurements (Fetus A) Atrioventricular Valves Name Value Normal Z-Score Percentile Atrioventricular Valves Doppler TV E Peak Velocity 0.2 m/s TV A Peak Velocity 0.3 m/s MV E Peak Velocity 0.2 m/s MV A Peak Velocity 0.3 m/s (Fetus A) Semilunar Valves Name Value Normal Z-Score Percentile Semilunar Valves Doppler PV Peak Velocity. 0.5 m/s AV Peak Velocity () 1.6 m/s (Fetus A) Heart Rate Name Value Normal Z-Score Percentile Heart Rate Heart Rate (Doppler) 134 bpm Report Signatures Finalized by Michelle Gilbert MD on 01/01/2025 09:01 AM Procedure Note Michelle Gilbert MD - 01/01/2025 Name: Laurie Louie Patient Exam Info Gender: Female Patient Status: O/P : 1995 Admit Date: 12/31/2024 Exam Date/Time: 12/31/2024 10:32 AM Site: [facility] Current Location: [facility] EStudy Quality: Diagnostic quality Staff Ordering Provider: Montana Lee Interpreting Physician: Michelle Gilbert MD Fire Prevention Inspector: Sheridan Kaur [facility] Study Info Procedure: ECHO COMPLETE CG Indications: O09.299 - Previous child with cardiac abnormality, antepartum (HCC) Maternal Gestational Status GA by EDC: 26 wks , 6 days EDC: 04/02/2025 Type: Griffiths Age: 29 yrs Summary * The echocardiogram was within normal limits given limitations ofthe study. * Small atrial and ventricular septal defects and persistent ductus arteriosus cannot be excluded as findings. Anatomic Relationships Left sided cardiac apex (levocardia). There is normal visceral-cardiac situs, and normal segmental cardiac anatomical relationship. Systemic Veins There is normal systemic venous return. Pulmonary Veins The visualized pulmonary veins drain normally to the left atrium. Right Atrium The right atrial size is normal. Left Atrium The left atrial size is normal. Atrial Septum Patent foramen ovale with open foramen flap. Color flow is right toleft. Right Ventricle The right ventricular cavity size is normal. The right ventricularwall thickness is normal. The right ventricular systolic function is normal. RV Outflow Tract The right ventricular outflow tract is normal. Left Ventricle The left ventricular cavity size is normal. The left ventricular wall thickness is normal. The left ventricular systolic function is normal. Ventricular Septum There is no ventricular septal defect with no shunting. LV Outflow Tract The left ventricular outflow tract is normal. Tricuspid Valve The tricuspid valve is structurally normal. The tricuspid inflow patternis normal. Tricuspid velocity is within the normal range. There is notricuspid regurgitation. Mitral Valve The mitral valve is structurally normal. The mitral inflow pattern is normal. Mitral velocity is within the normal range. There is no mitral regurgitation. Aorta aortic arch visualized and is without obstruction by 2D, colorflow and Doppler. Pulmonary Arteries The main pulmonary artery is normal, with confluent branch pulmonary arteries. Ductus Arteriosus The antegrade flow velocity and pattern in the ductal arch is normal.A normal ductus arteriosus is appreciated. Doppler Flow in the ductus venosus is normal. The umbilical vein flow patternis normal. The umbilical artery flow pattern is normal. Hydrops Assessment No pericardial effusion. No ascites present. No pleural effusion(s). Rhythm The rhythm is normal. There is 1:1 AV conduction. Pulmonary Valve The pulmonic valve is normal-sized. The transpulmonic velocity iswithin normal range. There is no pulmonic regurgitation. Aortic Valve The aortic valve is normal-sized. The transaortic velocity is withinnormal range. There is no aortic regurgitation. Doppler Measurements (Fetus A) Atrioventricular Valves Name Value Normal Z-ScorePercentile Atrioventricular Valves Doppler TV E Peak Velocity 0.2 m/s TV A Peak Velocity 0.3 m/s MV E Peak Velocity 0.2 m/s MV A Peak Velocity 0.3 m/s (Fetus A) Semilunar Valves Name Value Normal Z-ScorePercentile Semilunar Valves Doppler PV Peak Velocity. 0.5 m/s AV Peak Velocity () 1.6 m/s (Fetus A) Heart Rate Name Value Normal Z-ScorePercentile Heart Rate Heart Rate (Doppler) 134 bpm Report Signatures Finalized by Michelle Gilbert MD on 01/01/2025 09:01 AM Montana Lee MD ECHO CUPAZ Final Result * (ABNORMAL) CULTURE STREP B (08/16/2017 12:02 PM CDT) Culture Strep B Growth of Streptococcus agalactiae (Group B)(AA) APOORVA 08/20/2017 3:14 PM CDT [facility] Microbiology MISCELLANEOUS SAMPLES / Unknown Collection / Unknown 08/16/2017 12:02 PM CDT 08/16/2017 12:06 PM CDT Narrative [facility] - 08/20/2017 3:14 PM CDT Susceptibility testing of penicillin, other beta-lactam antibiotics, and vancomycin is not necessary for beta-hemolytic streptococci groups A,B,C and G because resistant strains have not been recognized. Mary Slater MD LAB - MICROBIOLOGY ORDERABLES Final Result [facility] [address] [place] [address], [facility] [phone] * HIV-1 HIV-2 ANTIBODY + HIV P24 AG PANEL (08/01/2017 3:50 PM CDT) [facility] HIV1/2 Ab + P24 Ag Non Reactive Non Reactive 08/01/2017 10:23 PM CDT [facility] Blood BLOOD SPECIMEN / Unknown Venipuncture / Unknown 08/01/2017 3:50 PM CDT 08/01/2017 3:58 PM CDT Narrative [facility] - 08/01/2017 10:23 PM CDT No Laboratory evidence of HIV infection. Roberta Flowers MD LAB - CHEMISTRY ORDERABLES Final Result Performing Organization Address City/[facility]/ZIP Co de Phone Number [facility] [place] [address] from Last 3 Months or Most Recently Relevant to Health Maintenance Insurance ANTH ANTH MEDICAID - OUT OF STATE Advance Directives * Full Code (Latest Code Status on File) Date Activated Date Inactivated Comments 09/09/2017 9:26 PM 09/12/2017 4:25 PM Care Teams Compliance Advisor Relationship Specialty Start Date End Date Ibis Diana PA-C PCP - General Physician Pillowcase Folder 06/11/17
--- OUTSIDE RECORDS SUMMARY | 2025-03-10 17:47 | XMS_ITS | Continuity of Care Document ---
Author Organization [facility] Address [address] [place] [address] [place] [address] Care Team Providers Care Cold Reduction Roller Name Role Phone KARON CHACKO Primary Care Provider Assessment No assessment recorded. Plan of Treatment Reminders Order Date Submit Date Provider Last Modified By Organization Details Last Modified Time Details Appointments U/S OB BPP 2024 11:00A M ULTRASOUND Not available Not available Not available NST 2024 11:30A M NST SCHEDULE Not available Not available Not available OB ROUTINE 2024 01:15P M NUZHAT STEPHENSON MD Not available Not available Not available [...] d. Imaging non-str ess test 2024 025 [email or web address] [facility], [address], [place], [address], 02/25/2025 17:36:49 Medication Orders None recorde d. [...] Resul ting Lab: [facility] [address] [facility] [address] Tel: CULTU RE ----- ----- ----- --- No growt h in 1 day (dete ction level of 10,00 0 colon ies / ml.) Not Available [facility] (Lab) [address], [place], [address], 09/20/2024 22:24:37 09/20/19 25 09/19/2024 drug scree n, urine Amphetamines : negati ve Not Available [facility] [address], [place], [address], 09/19/2024 14:47:54 09/20/19 25 09/19/2024 drug scree n, urine Cannabinoids : negati ve Not Available [facility] [address], [place], [address], 09/19/2024 14:47:54 09/20/19 25 09/19/2024 drug scree n, urine Cocaine: negati ve Not Available [facility] [address], [place], [address], 09/19/2024 14:47:54 09/20/19 25 09/19/2024 drug scree n, urine Opiates: negati ve Not Available [facility] [address], [place], [address], 09/19/2024 14:47:54 09/20/19 25 09/19/2024 drug scree n, urine Phenocyclidi ne: negati ve Not Available [facility] [address], [place], [address], 09/19/2024 14:47:54 09/20/19 25 09/19/2024 drug scree n, urine Barbiturates : negati ve Not Available [facility] [address], [place], [address], 09/19/2024 14:47:54 09/20/19 25 09/19/2024 drug scree n, urine Benzodiazepi heather: negati ve Not Available [facility] [address], [place], [address], 09/19/2024 14:47:54 09/20/19 25 09/19/2024 drug scree n, urine Ethanol: negati ve Not Available [facility] [address], [place], [address], 09/19/2024 14:47:54 09/20/19 25 09/19/2024 drug scree n, urine Hallucinogen s: negati ve Not Available [facility] [address], [place], [address], 09/19/2024 14:47:54 09/20/19 25 09/19/2024 drug scree n, urine Inhalants: negati ve Not Available [facility] [address], [place], [address], 09/19/2024 14:47:54 09/20/19 25 09/19/2024 drug scree n, urine Anabolic Steroids: negati ve Not Available [facility] [address], [place], [address], 09/19/2024 14:47:54 09/20/19 25 09/19/2024 drug scree n, urine Other: negati ve Not Available [address], [place], [address], 09/19/2024 14:47:54 11/13/1911/12/2024 URIC ACID uric acid 4.3 mg/dL 2.3-6. 6 Not Available [facility] (Lab) [address], [place], [address], 11/13/2024 05:32:43 11/13/19 25 11/12/2024 PROTE IN/CR EATIN INE RATIO , URINE creatinine, urine 35.1 mg/dL R-No refer ence range estab lishe d for this assay Not Available [facility] (Lab) [address], [place], [address], 11/13/2024 05:32:43 11/13/19 25 11/12/2024 PROTE IN/CR EATIN INE RATIO , URINE protein, urine <4 mg/dL R-No refer ence range estab lishe d for this assay Not Available [facility] (Lab) [address], [place], [address], 11/13/2024 05:32:43 11/13/19 25 11/12/2024 PROTE IN/CR [...] fican t prote inuri a. Not Available [facility] (Lab) [address], [place], [address], 11/13/2024 05:32:43 11/13/19 25 11/12/2024 CBC W/DIF F WBC 16.1 10'3/ uL 3.5-10 .5 high Not Available [facility] (Lab) [address] , [place], [address], 11/13/2024 05:32:44 11/13/1911/12/2024 CBC W/DIF F RBC 4.47 10'6/ uL (based on docume nted legal sex) 3.80-5 .20 Not Available [facility] (Lab) [address], [place], [address], 11/13/2024 05:32:44 11/13/19 25 11/12/2024 CBC W/DIF F HGB 12.4 g/dL (based on docume nted legal sex) 11.6-1 5.4 Not Available [facility] (Lab) [address], [place], [address], 11/13/2024 05:32:44 11/13/19 25 11/12/2024 CBC W/DIF F HCT 38.6 % (based on docume nted legal sex) 34.0-4 5.0 Not Available [facility] (Lab) [address], [place], [address], 11/13/2024 05:32:44 11/13/1911/12/2024 CBC W/DIF F MCV 86.4 fL 80.0-9 9.0 Not Available [facility] (Lab) [address], [place], [address], 11/13/2024 05:32:44 11/13/1911/12/2024 CBC W/DIF F MCH 27.7 pg 27.0-3 4.0 Not Available [facility] (Lab) [address], [place], [address], 11/13/2024 05:32:44 11/13/19 25 11/12/2024 CBC W/DIF F MCHC 32.1 g/dL 32.0-3 5.5 Not Available [facility] (Lab) [address], [place], [address], 11/13/2024 05:32:44 11/13/19 25 11/12/2024 CBC W/DIF F RDW 13.6 % 11.0-1 5.0 Not Available [facility] (Lab) [address], [place], [address], 11/13/2024 05:32:44 11/13/19 25 11/12/2024 CBC W/DIF F plt 295 10'3/ uL 150-40 0 Not Available [facility] (Lab) [address], [place], [address], 11/13/2024 05:32:44 11/13/19 25 11/12/2024 CBC W/DIF F MPV 10.8 fL 8.8-12 .1 Not Available [facility] (Lab) [address], [place], [address], 11/13/2024 05:32:44 11/13/19 25 11/12/2024 CBC W/DIF F NRBC's 0.0 % 0.0 Not Available [facility] (Lab) [address], [place], [address], 11/13/2024 05:32:44 11/13/19 25 11/12/2024 CBC W/DIF F absolute NRBCs 0.0 10'3/ uL no refere nce range establ ished Not Available [facility] (Lab) [address], [place], [address], 11/13/2024 05:32:44 11/13/19 25 11/12/2024 CBC W/DIF F neutrophils 74.9 % 34.0-7 3.0 high Not Available [facility] (Lab) [address], [place], [address], 11/13/2024 05:32:44 11/13/19 25 11/12/2024 CBC W/DIF F lymphocytes 18.4 % 15.0-5 0.0 Not Available [facility] (Lab) [address], [place], [address], 11/13/2024 05:32:44 11/13/19 25 11/12/2024 CBC W/DIF F monocytes 5.4 % 1.0-15 .0 Not Available [facility] (Lab) [address], [place], [address], 11/13/2024 05:32:44 11/13/19 25 11/12/2024 CBC W/DIF F eosinophils 0.7 % 0.0-8. 0 Not Available [facility] (Lab) [address], [place], [address], 11/13/2024 05:32:44 11/13/19 25 11/12/2024 CBC W/DIF F basophils 0.2 % 0.0-2. 0 Not Available [facility] (Lab) [address], [place], [address], 11/13/2024 05:32:44 11/13/19 25 11/12/2024 CBC W/DIF [...] separ ately if prese nt. Not Available [facility] (Lab) [address], [place], [address], 11/13/2024 05:32:44 11/13/19 25 11/12/2024 CBC W/DIF F absolute neutrophils 12.0 10'3/ uL 1.5-8. 0 high Not Available [facility] (Lab) [address], [place], [address], 11/13/2024 05:32:44 11/13/19 25 11/12/2024 CBC W/DIF F absolute lymphocytes 3.0 10'3/ uL 1.0-4. 0 Not Available [facility] (Lab) [address], [place], [address], 11/13/2024 05:32:44 11/13/1911/12/2024 CBC W/DIF F absolute monocytes 0.9 10'3/ uL 0.2-1. 0 Not Available [facility] (Lab) [address], [place], [address], 11/13/2024 05:32:44 11/13/19 25 11/12/2024 CBC W/DIF F absolute eosinophils 0.1 10'3/ uL 0.0-0. 6 Not Available [facility] (Lab) [address], [place], [address], 11/13/2024 05:32:44 11/13/19 25 11/12/2024 CBC W/DIF F absolute basophils 0.0 10'3/ uL 0.0-0. 3 Not Available [facility] (Lab) [address], [place], [address], 11/13/2024 05:32:44 11/13/1911/12/2024 CBC W/DIF F absolute [...] lee book. nm.or g/gen derx Not Available [facility] (Lab) [address], [place], [address], 11/13/2024 05:32:44 11/13/1911/12/2024 CMP(C OMPRE HENSI VE METAB OLIC PANEL ) sodium 137 mmol/ L 133-14 6 Not Available [facility] (Lab) [address], [place], [address], 11/13/2024 05:32:44 11/13/19 25 11/12/2024 CMP(C OMPRE HENSI VE METAB OLIC PANEL ) potassium 4.0 mmol/ L 3.5-5. 1 Not Available [facility] (Lab) [address], [place], [address], 11/13/2024 05:32:44 11/13/19 25 11/12/2024 CMP(C OMPRE HENSI VE METAB OLIC PANEL ) chloride 102 mmol/ L 98-107 Not Available [facility] (Lab) [address], [place], [address], 11/13/2024 05:32:44 11/13/19 25 11/12/2024 CMP(C OMPRE HENSI VE METAB OLIC PANEL ) carbon dioxide 27 mmol/ L 21-31 Not Available [facility] (Lab) [address], [place], [address], 11/13/2024 05:32:44 11/13/19 25 11/12/2024 CMP(C OMPRE HENSI VE METAB OLIC PANEL ) anion gap 8 mmol/ L 4-13 Not Available [facility] (Lab) [address], [place], [address], 11/13/2024 05:32:44 11/13/19 25 11/12/2024 CMP(C OMPRE HENSI VE METAB OLIC PANEL ) blood urea nitrogen 7 mg/dL 7-25 Not Available [facility] (Lab) [address], [place], [address], 11/13/2024 05:32:44 11/13/19 25 11/12/2024 CMP(C OMPRE HENSI VE METAB OLIC PANEL ) creatinine 0.48 mg/dL 0.60-1 .30 low Not Available [facility] (Lab) [address], [place], [address], 11/13/2024 05:32:44 11/13/19 25 11/12/2024 CMP(C OMPRE HENSI VE METAB OLIC PANEL ) egfrcr (CKD-epi 2020) >90 mL/mi n/1.7 3_m2 >=60 Not Available [facility] (Lab) [address], [place], [address], 11/13/2024 05:32:44 11/13/19 25 11/12/2024 CMP(C OMPRE HENSI VE METAB OLIC PANEL ) calcium 9.7 mg/dL 8.3-10 .5 Not Available [facility] (Lab) [address], [place], [address], 11/13/2024 05:32:44 11/13/19 25 11/12/2024 CMP(C OMPRE HENSI VE METAB OLIC PANEL ) glucose 86 mg/dL 70-100 Not Available [facility] (Lab) [address], [place], [address], 11/13/2024 05:32:44 11/13/19 25 11/12/2024 CMP(C OMPRE HENSI VE METAB OLIC PANEL ) protein, total 6.6 g/dL 6.4-8. 3 Not Available [facility] (Lab) [address], [place], [address], 11/13/2024 05:32:44 11/13/19 25 11/12/2024 CMP(C OMPRE HENSI VE METAB OLIC PANEL ) albumin 4.0 g/dL 3.5-5. 0 Not Available [facility] (Lab) [address], [place], [address], 11/13/2024 05:32:44 11/13/19 25 11/12/2024 CMP(C OMPRE HENSI VE METAB OLIC PANEL ) ALT 11 units /L 9-43 Not Available [facility] (Lab) [address], [place], [address], 11/13/2024 05:32:44 11/13/19 25 11/12/2024 CMP(C OMPRE HENSI VE METAB OLIC PANEL ) alkaline phosphatase 54 units /L 34-104 Not Available [facility] (Lab) [address], [place], [address], 11/13/2024 05:32:44 11/13/19 25 11/12/2024 CMP(C OMPRE HENSI VE METAB OLIC PANEL ) AST 10 units /L 13-39 low Not Available [facility] (Lab) [address], [place], [address], 11/13/2024 05:32:44 11/13/19 25 11/12/2024 CMP(C OMPRE HENSI VE METAB OLIC PANEL ) bilirubin, total 0.2 mg/dL 0.2-1. 2 Not Available [facility] (Lab) [address], [place], [address], 11/13/2024 05:32:44 01/15/20 25 01/14/2025 GTT - GESTA NICOLAS L LESLY N, ACOG OB glucose, 1 hour screen 141 mg/dL 70-135 high Not Available [facility] (Lab) [address], [place], [address], 01/15/2025 11:13:15 01/15/2001/14/2025 HIV 1/2 ANTIG EN/AN TIBOD Y, REFLE X CONFI RMATI ON HIV antigen/anti body Nonrea ctive nonrea ctive HIV-1 antig en and HIV-1 /HIV- 2 antib odies were not detec terra. No labor atory evide nce of HIV infec tion. Not Available [facility] (Lab) [address], [place], [address], 01/15/2025 11:13:16 01/15/20 25 01/14/2025 HEMAT OCRIT (HCT) HCT 34.1 % (based on docume nted legal sex) 34.0-4 5.0 Not Available [facility] (Lab) [address], [place], [address], 01/15/2025 11:13:16 01/15/20 25 01/14/2025 HEMOG LOBIN (HGB) HGB 10.6 g/dL (based on docume nted legal sex) 11.6-1 5.4 low Not Available [facility] (Lab) [address], [place], [address], 01/15/2025 11:13:17 01/15/2001/14/2025 RPR SCREE N, REFLE X TITER /CONF IRMAT ION RPR qualitative Nonrea ctive nonrea ctive Not Available [facility] (Lab) [address], [place], [address], 01/15/2025 11:13:17 01/24/20 25 01/23/2025 GTT - GESTA NICOLAS L, 3 HOUR, ACOG glucose, fasting acog 70 mg/dL 70-94 Not Available [facility] (Lab) [address], [place], [address], 01/24/2025 05:24:10 01/24/20 25 01/23/2025 GTT - GESTA NICOLAS L, 3 HOUR, ACOG glucose, 1 hour acog 150 mg/dL 70-179 Not Available [facility] (Lab) [address], [place], [address], 01/24/2025 05:24:10 01/24/20 25 01/23/2025 GTT - GESTA NICOLAS L, 3 HOUR, ACOG glucose, 2 hour acog 143 mg/dL 70-154 Not Available [facility] (Lab) [address] [place], [address], 01/24/2025 05:24:10 01/24/20 25 01/23/2025 GTT - GESTA NICOLAS L, 3 HOUR, ACOG glucose, 3 hour acog 46 mg/dL 70-139 critical low Resul ts verif ied by repea t rosanna sis. Not Available [facility] (Lab) [address], [place], [address], 01/24/2025 05:24:10 10/02/19 25 10/01/2024 US, obste tric, follo w-up No observ ation record ed. [address] [facility] [address], [address], 10/08/2024 09:41:15 11/18/19 25 11/17/2024 US, obste tric, follo w-up No observ ation record ed. [address] [facility] [address], [address], 11/18/2024 12:26:24 11/19/19 25 11/17/2024 US, obste tric, follo w-up No observ ation record ed. [address] [facility] [address], [address], 11/19/2024 11:57:24 11/26/19 25 11/25/2024 US, obste tric, follo w-up No observ ation record ed. [address] [facility] [address], [address], 11/26/2024 17:27:21 11/26/19 25 11/25/2024 US, obste tric, follo w-up No observ ation record ed. [email or web address] [facility] [address] [place] [address], [address], 11/25/2024 17:38:04 12/16/19 25 12/15/2024 US, obste tric, follo w-up No observ ation record ed. [address] [facility] [address], [address], 12/16/2024 06:57:29 01/13/20 25 01/12/2025 US, obste tric No observ ation record ed. [email or web address] [facility] [place], [address], 01/13/2025 11:43:49 01/13/20 25 01/12/2025 US, obste tric, follo w-up No observ ation record ed. [email or web address] [facility] [address] [place] [address], [address], 01/13/2025 16:24:45 02/11/20 25 02/10/2025 non-s tress test No observ ation record ed. [email or web address] [facility] [address], [address], 02/11/2025 15:00:18 02/11/20 25 02/10/2025 US, obste tric, follo w-up No observ ation record ed. juliano [facility] [address], [address], 02/11/2025 11:37:25 02/21/20 25 02/20/2025 US, obste tric, bioph ysica l profi le + non-s tress test No observ ation record ed. [facility] [address], [place], [address], 02/20/2025 16:56:43 02/21/20 25 02/20/2025 US, obste tric, bioph ysica l profi le + non-s tress test No observ ation record ed. juliano [address], [place], [address], 02/23/2025 11:31:02 02/21/20 25 02/20/2025 non-s tress test No observ ation record ed. [address], [place], [address], 02/20/2025 13:47:54 02/21/20 non-s tress test No observ ation record ed. [email or web address] [facility] [address], [place], [address], 02/20/2025 12:35:53 02/26/20 25 02/25/2025 US, obste tric, bioph ysica l profi le + non-s tress test No observ ation record ed. [email or web address] [facility] [address], [place], [address], 02/25/2025 11:49:48 02/26/20 25 02/25/2025 US, obste tric, bioph ysica l profi le + non-s tress test No observ ation record ed. [email or web address] Tori [address], [place], [address], 03/04/2025 11:50:53 02/26/20 25 02/25/2025 non-s tress test No observ ation record ed. [email or web address] [facility] [address], [place], [address], 02/25/2025 17:57:33 02/26/20 non-s tress test No observ ation record ed. [email or web address] [facility] [address], [place], [address], 02/25/2025 17:15:53 03/06/2003/06/2025 non-s tress test No observ ation record ed. [email or web address] [facility] [address], [place], [address], 03/06/2025 13:52:03 03/06/20 non-s tress test No observ ation record ed. [facility] [address], [place], [address], 03/06/2025 12:00:07 03/06/20 25 03/06/2025 US, obste tric, follo w-up No observ ation record ed. juliano [address]le [address], [place], [address], 03/09/2025 12:33:26 03/06/20 25 03/06/2025 US, obste tric, follo w-up No observ ation record ed. [facility] [address], [place], [address], 03/06/2025 13:52:39 03/06/20 25 03/06/2025 US, obste tric, bioph ysica l profi le + non-s tress test No observ ation record ed. [facility] [address], [place], [address], 03/06/2025 13:52:50 03/09/20 25 03/09/2025 imagi ng/di agnos tic resul t No observ ation record ed. [facility] [address], [place], [address], 03/09/2025 11:47:46 Result Notes None recorded. Problems Name Problem SNOMED Code Status Onset Date Resolution Date Notes Provider Name and Address Organization Details Recorded Time Polycyst ic ovary syndrome 231170355 Completed 201711/16/2021 Polycyst ic ovarian syndrome ;Recorde d Elsewher e: No Locat ion: [facility] S ource: [facility] Cook yan: N Practi ce ID: [id number] Edmond lable Time: 02:45:00 PM Sandhya Key [place], [place] - [facility] 2 18:30:21 Finding of fertilit y Completed 201711/16/2021 Female infertil ity, unspecif ied;Tip rded Elsewher e: No Locat ion: [facility] S ource: [facility] Cook yan: N Practi ce ID: [id number] Edmond lable Time: 10:00:00 AM Sandhya Key [facility] 2 18:30:21 Abnormal uterine bleeding [id number] Completed 201711/16/2021 Other specifie d abnormal uterine and vaginal bleeding ;Recorde d Elsewher e: No Locat ion: [facility] S ource: [facility] Cook yan: N Practi ce ID: [id number] Edmond lable Time: 09:45:00 AM Sandhya Key [facility] 2 18:30:21 Bleeding Completed 201711/16/2021 Abnormal uterine and vaginal bleeding , unspecif ied;Tip rded Elsewher e: No Locat ion: [facility] S ource: [facility] Cook yan: N Practi ce ID: [id number] Edmond lable Time: 10:00:00 AM Sandhya Key [facility] 2 18:30:21 Urinary tract infectio us disease [id number] Completed 201811/16/2021 Urinary tract infectio n, site not specifie d;Record ed Elsewher e: No Locat ion: [facility] ID: [id number] Edmond lable Time: 04:15:00 PM Sandhya Key [facility] 2 18:30:21 Pregnanc y detectio n examinat ion Completed 201811/16/2021 Encounte r for pregnanc y test, result positive ;Practic e ID: [id number] Sandhya Key [facility] 2 18:30:21 Uterine size for dates discrepa ncy Completed 201811/16/2021 Uterine size-johann e discrepa ncy, first trimeste r;Practi ce ID: [id number] Sandhya Key [facility] 2 18:30:21 Gestatio n period, 9 weeks [id number] Completed 201811/16/2021 9 weeks gestatio n of pregnanc y;Carolynnti ce ID: 0001 Sandhya Key [facility] 2 18:30:21 Secondar y amenorrh ea [id number] Completed 201811/16/2021 Secondar y amenorrh ea;Recor ded Elsewher e: No Locat ion: [facility] S ource: [facility] Cook yan: N Carolynnti ce ID: [id number] Edmond lable Time: 03:30:00 PM Sandhya Key [facility] 2 18:30:21 Infectio n screenin g Completed 201811/16/2021 Encounte r for screenin g for oth infec/pa rastc diseases ;Recorde d Elsewher e: No [facility]at ion[facility] Cook yan: N Carolynnti ce ID: [id number] Edmond lable Time: 03:30:00 PM Sandhya Key [facility] 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 2 18:30:21 Syphilis test finding [id number] Completed 201811/16/2021 Encntr screen for infectio ns w sexl mode of transmis s;Record ed Elsewher e: No Locat ion: [facility] S ource: [facility] Cook yan: N Carolynnti ce ID: [id number] Edmond lable Time: 03:30:00 PM Sandhya Key [facility] 2 18:30:21 Body mass index 30+ - obesity [id number] Completed 201811/16/2021 Body mass index (BMI) 37.0-37. 9, adult;Re corded Elsewher e: No Locat ion: [facility] S ource: [facility] Cook yan: N Practi ce ID: [id number] Edmond lable Time: 03:30:00 PM [facility] 2 18:30:21 Chlamydi al infectio n [id number] Completed 201811/16/2021 Chlamydi al infectio n, unspecif ied;Tip rded Elsewher e: No Locat ion: [facility] S ource: E[facility] Nutritional Services Cook yan: N Practi ce ID: [id number] Edmond lable Time: 11:52:25 AM [facility] 2 18:30:21 [id number] Completed 201811/16/2021 Encounte r for suprvsn of normal pregnanc y, first trimeste r;Practi ce ID: 0001 [facility] 2 18:30:21 Antenata l screenin g Completed 201811/16/2021 Encounte r for other specifie d antenata l screenin g;Practi ce ID: 0001 Sandhya sneed [facility] 2 18:30:21 Medical examinat ion for suspecte d conditio n Completed 201811/16/2021 Encntr for oth suspecte d maternal and cond ruled out;Prac jaxson ID: 0001 Sandhya Key [facility] 2 18:30:[address] Concept Completed 201811/16/2021 Maternal care for oth abnormal ity and damage, unsp;Pra ctice ID: 0001 [facility] 2 18:30:21 Gestatio n period, 30 weeks [id number] Completed 201811/16/2021 30 weeks gestatio n of pregnanc y;Practi ce ID: 0001 Sandhya Key [facility], [facility] 2 18:30:21 Pregnanc y, childbir th and puerperi um finding Completed 201811/16/2021 Encntr for suprvsn of normal first preg, third trimeste r;Practi ce ID: 0001 Sandhya Key [facility], [facility] 2 18:30:21 malforma tion of central nervous system [id number] Completed 201811/16/2021 Maternal care for (suspect ed) cnsl malform in fetus, unsp;Pra ctice ID: 0001 Sandhya Key [facility] 2 18:30:21 Gestatio n period, 34 weeks [id number] Completed 201811/16/2021 34 weeks gestatio n of pregnanc y;Practi ce ID: 0001 [place]hy[place] [facility] [facility] 2 18:30:[address] Concept Completed 201811/16/2021 Matern care for abnlt fetl hrt rate or rhym, unsp tri, unsp;Pra ctice ID: 0001 Sandhya Key [facility] 2 18:30:21 Gestatio n period, 36 weeks [id number] Completed 201811/16/2021 36 weeks gestatio n of pregnanc y;Practi ce ID: 0001 Sandhya Key [facility] 2 18:30:21 Term pregnanc y delivere d [id number] Completed 201811/16/2021 Encounte r for full-ter m uncompli cated delivery ;Practic e ID: 0001 Sandhya Kye [facility], [facility] 2 18:30:21 Single live from singleto n pregnanc y 351754510 Completed 201811/16/2021 Single live ;Pr actice ID: 0001 Sandhya sneed, [facility] 2 18:30:21 Gestatio n period, 37 weeks [id number] Completed 201811/16/2021 37 weeks gestatio n of pregnanc y;Practi ce ID: 0001 Sandhya sneed, [facility] 2 18:30:21 Lochia finding Completed 201911/16/2021 Encounte r for routine postpart um follow-u p;Record ed Elsewher e: No Locat ion: [place] [facility] S ource: [facility] Cook yan: N Practi ce ID: 0001 Edmond lable Time: 08:45:00 AM Sandhya Key [facility], [facility] 2 18:30:21 Acute vaginiti s [id number] Completed 201911/16/2021 Vaginiti s;Record ed Elsewher e: No Locat ion: [facility] S ource: EHR Nutritional Services Cook yan: N Practi ce ID: 0001 Edmond lable Time: 01:00:00 PM Sandhya Key [facility], [facility] 2 18:30:21 Mixed anxiety and depressi ve disorder 490421819 Active 2024 Paz Keller [facility], [facility] 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 5 15:07:06 Pregnanc y 34744423 Active 2024 Paz Keller [facility], [facility] 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 5 15:09:19 History of heart disorder 332002077 Active 2024 first baby couple hours after Britney Monzon CNM [address], [place], [address], [facility] 5 15:26:56 Past pregnanc y history of pre-ecla mpsia 3753706721 58440 Active 2024 plan bASA 162mg Britney Monzon CNM [address], [place], [address], [facility] 5 15:27:21 History of depressi on 396453049 Active 2024 no current treatmen t Britney Monzon CNM [address], [place], [address], [facility] 5 15:37:15 Hyperten sive disorder 80074622 Active 2024 100mg labetalo l bid Britney Monzon CNM [address], [place], [address], [facility] 5 11:41:34 Notes:previous son had hypoplastic left heart syndrome Some problems listed in Document: #[id number] could not be added to this patient's chart. Please review this document and add these problems to the patient's chart manually as needed. Problem Notes None recorded. Procedures Surgical History Date Name Laterality Status Provider Name and Address Organization Details Recorded Time 5 Date of Last Pap Smear completed Paz Keller [facility] 08/15/2024 17:09:24 4 SIS completed NUZHAT STEPHENSON MD [address], [place], [address], [facility] 09/13/2023 14:06:22 Imaging Results None recorded. [...] 1 TABLET BY MOUTH TWICE A DAY 2024 active Not Available Not Available Not Avai lable azithromy ivan 250 mg tablet TAKE 2 [...] Prescrib ed Elsewher e: No Locat ion: [facility] odify By: bill z Aris ter DateTime : 03/28/20 10:00:00 [...] Prescrib ed Elsewher e: No Locat ion: [facility] odify By: maged Hurst ter DateTime : 02/06/20 08:45:00 AM Not Available Not Available Not Available Zofran 4 mg tablet take 1 tablet as needed for nausea 11/17 completed Prescrib ed Elsewher e: No Locat ion: [place] [facility] odify By: dian jonas DateTime : 09/17/19 04:11:09 PM Not Available Not Available Not Available Metrogel Vaginal 0.75 % (37.5 mg/5 gram) insert 1 applicat orful by vaginal route every day at bedtime for 5 nights 11/17 completed Prescrib ed Elsewher e: No Locat ion: [place] [facility] odify By: rahel jonas DateTime : [...] Prescrib ed Elsewher e: No [facility]at ion[facility] By: bill jonas DateTime : 03/28/20 10:00:00 AM Not Available Not Available Not Available letrozole 2.5 mg tablet TAKE 2 TABLETS BY MOUTH EVERY DAY FOR 5 DAYS 08/15 completed Not Available Not Available Not Available ondansetr on 4 mg disintegr ating tablet Place 1 tablet every 4-6 hours by translin gual route. 2024 active Not Available Not Available Not Avai lable amoxicill in 875 mg-potass ium clavulana te 125 mg tablet TAKE 1 TABLET BY MOUTH TWICE A DAY FOR 10 DAYS 11/12 completed Not Available Not Available Not Available Zithromax 500 mg tablet take 2 tablet by oral route once 11/17 completed Prescrib ed Elsewher e: No Locat ion: [facility] odify By: dian jonas DateTime : [...] Updated DateTime 02/25/2025 167.64 cm 46.6 kg/m2 134021.19 g 124/80 mm[Hg] Alicia Peng [facility] 02/25/2025 17:13:19 Date Recorded Body height Body mass index (BMI) Body weight Systolic And Diastolic Provider Name and Address Organization Details Last Updated DateTime 02/25/2025 167.64 cm 46.6 kg/m2 438639.19 g 124/80 mm[Hg] DANA JESUS [facility] 02/25/2025 10:55:42 Social History Question Answer Notes LastModified by Organizat ion Details LastModified Time Tobacco Smoking Status Never Smoker Sandhya Key [facility] 11/17/2021 10:26:20 Do You Have An Advance Directive? No Information n ot available 11/17/2021 If You Are , What Was Your Level Of Alcohol Consumption Prior To ? Occasional [email or web address] Information not available 08/15/2024 How Many Years Have You Consumed Alcohol? 8 Information not available 11/17/2021 Are You Blind Or Do You Have Difficulty Seeing? No Information n ot available 11/17/2021 What Is Your Level Of Caffeine Consumption? Moderate [email or web address] Information not available 08/15/2024 How Much Tobacco [...] Or The Highest Degree You Have Received? [id number] Information not available 11/17/2021 Are There Any Guns Present In Your Home? No Information not available 11/17/2021 Do You Use Protection During Sex? No Information not available 11/17/2021 Do You Use Your Seat Belt Or Car Seat Routinely? Yes Information not available 11/17/2021 Are You Sexually Active? Yes [email or web address] Information not available 11/12/2024 Do You Have [...] is your level of alcohol consumption? None [email or web address] Information not available 08/15/2024 Are you able [...] anxious, or unable to sleep at night)? [id number] [email or web address] Information not available 08/15/2024 Family History Relationship Description Onset Age of this Age Resolved Age Notes LastModified by Organization Details LastModified Time Son Hypoplastic left heart syndrome [email or web address] Not available 06/15 18:39:24 Medical History Condition [...] ICD10 Code Diagnosis IMO Codes Diagnosis Note [id number] Britney Monzon, CLAUDINE Dexter [address] [address] 01/28/2025 10:12:44 01/28/2025 11:11:44 Gestation period, 30 weeks 69491602 Z3A.30 1170046 [id number] Britney Monzon [facility] [address],[place] [address] 02/11/2025 11:02:03 02/11/2025 12:28:12 Gestation period, 32 weeks 4672213 Z3A.32 [id number] [id number] Dakotah Celeste MD [facility] [address],[place] [address] 02/20/2025 10:19:25 02/20/2025 11:15:32 Chronic hypertension complicating AND/OR reason for care during 25897978 O10.913 O99.210 O28.0 Z3A.34 89062796 [id number] Britney Monzon [facility] [address],[place] [address] 02/20/2025 10:20:12 02/20/2025 12:37:20 Abnormal chromosomal and genetic finding on screening of mother O28.5 69838758 [id number] Britney Moznon [facility] [address],[place] [address] 02/20/2025 10:20:45 02/20/2025 12:28:20 Gestation period, 34 weeks 71598587 Z3A.34 4507366 [id number] Britney Monzon [facility] [address],[place] [address] 02/25/2025 09:50:49 02/25/2025 17:36:49 Abnormal chromosomal and genetic finding on screening of mother 556460711 O28.5 20116825 [id number] Dakotah Celeste MD [facility] [address],[place] [address] 02/25/2025 09:51:39 02/25/2025 10:55:41 Obesity 248171635 O99.213 O28.5 O10.013 Z3A.34 69837841 [id number] Britney Monzon CNM [facility] [address] [address] 02/25/2025 09:51:54 02/25/2025 11:24:09 Gestation period, 34 weeks 95585713 Z3A.34 [id number] Health Concerns Section Related Observation LastModified by Organization Detai ls LastModified Time None Recorded Concern Status LastModified by Organization Details LastModified Time None Recorded Payers Encounter Date Sequence Insurance Name Policy Number Policy Mckenna Covered Member ID Mckenna Member ID Guarantor Name 02/25/2025 1 [facility] [id number] Alex Louie [id number] Rizwana Louie Notes Date Note Type Note Provider Name and Address Organization Details Recorded Time 02/25/2025 text/html Generic HPI TemplateReported by Patient Britney Monzon CNM [address], [place], [address], [facility] 02/25/2025 11:18:23 OBGyn Episode Ob Episode Information Episode Created Date Number of Fetuses Patient Bloodtype Patient rh Status Prepregnancy Weight lbs Domestic Partner Domestic Partner Phone Father Name Retort Forker Status 09/20/19 25 1 O Positive 273 Alex Liban OPEN Fetus Data First Name Last Name Admitted to NICU Weight (g) Sex Living Outcome Pediatric Complications Fetus ID Race Codes Race Delivery Type [id number] Problems Problem Notes Problem Name Start Date End Date Resolution Snomed Code Not e History of depression 09/19/2024 [id number] no current treatment Past history of pre-eclampsia 09/19/2024 [id number] plan bASA 1 62mg History of heart disorder 09/19/2024 797107165 first baby pass ed away couple hours after Hypertensive disorder 12/17/2024 17295024 100mg labetalol bid 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 85710873 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, seeing MFM [facility] office Scheduled 10/20 us only & 11/17 us onlynormal echo 12/31- recommends eval of baby Les Calculation Initial Les Date Initial Exam Date Initial Exam Provider Initial Ultrasound Date Last Menstrual Period Date Ultra Sound Weeks Gestation 04/02/2025 08/26/[email or web address] 08/14/2024 06/26/2024 6 Eighteen To Twenty Week Les Update Ultra Sound Date Fundal Height At Umbil Quickening Date Ultra Sound Latest Weeks Gestation Final Les Confirmed By Final Les Confirmed Date Final Les Date Ultra Sound Latest Days Gestation 0 [email or web address] 09/19/2024 04/02/19 26 0 Pre-cherelle Flowsheet Flowsheet Date 09/19/2024 Nevarez Score Blood Edema Fundus Height Fundus Units Glucose Ketones Leukocytes Nitrite Labor Signs Protein Cervic Dilation Cervic Effacement Cervic Station neg none none trace Type Weight in lbs Pre/Post Dialysis Refused Weight 274.382683615717 BP Diastolic BP Location Tested BP Systolic BP Type 81 140 Fetus Heart Rate Present Fetus Movement A Yes Comments reviewed [facility] notes with pt, undecided about amnio, is scheduled, will continue to follow as well, start bASA 162mg, hx 2 previous vaginal deliveries, begin care Flowsheet Date 2024 Nevarez Score Blood Edema Fundus Height Fundus Units Glucose Ketones Leukocytes Nitrite Labor Signs Protein Cervic Dilation Cervic Effacement Cervic Station Type Weight in lbs Pre/Post Dialysis Refused 278.224902252594 BP Diastolic BP Location Tested BP Systolic BP Type 85 L arm 141 sitting Fetus Heart Rate Present Fetus Movement A No Comments declined amnio first us good at [facility], has anatomy scheduled. mood good. _-FM yet precautions and educations f/u 4 weeks Flowsheet Date 11/12/2024 Nevarez Score Blood Edema Fundus Height Fundus Units Glucose Ketones Leukocytes Nitrite Labor Signs Protein Cervic Dilation Cervic Effacement Cervic Station Type Weight in lbs Pre/Post Dialysis Refused 278.530521632890 BP Diastolic BP Location Tested BP Systolic BP Type 94 L wrist 146 sitting 102 R wrist 157 sitting Fetus Heart Rate Present Fetus Movement A No Comments last us at [facility] wnl, has f/u next week +FM precautions and education f/u [address] discussed bp with dr. stephenson start labetalol 200mg bid Flowsheet Date 11/19/2024 Nevarez Score Blood Edema Fundus Height Fundus Units Glucose Ketones Leukocytes Nitrite Labor Signs Protein Cervic Dilation Cervic Effacement Cervic Station Type Weight in lbs Pre/Post Dialysis Refused Weight 279.873722826206 BP Diastolic BP Location Tested BP Systolic [...] Weight in lbs Pre/Post Dialysis Refused Weight 280.989058880015 BP Diastolic BP Location Tested BP Systolic [...] Weight in lbs Pre/Post Dialysis Refused Weight 282.663318742001 BP Diastolic BP Location Tested BP Systolic BP Type 83 L arm 126 sitting 66 L wrist 128 sitting Fetus Heart Rate Present Fetus Movement A Yes Comments per pt mfm said anatomyok, e cho unremarkable, plans to deliver at [place] today, discuss vaccines at next visit, small odor after intercourse, will plan flagyl. education and precautions f/u 2 weeks Flowsheet Date 01/28/2025 Nevarez Score Blood Edema Fundus Height Fundus Units Glucose Ketones Leukocytes Nitrite Labor Signs Protein Cervic Dilation Cervic Effacement Cervic Station Type Weight in lbs Pre/Post Dialysis Refused Weight 283.66384372263 BP Diastolic BP Location Tested BP Systolic [...] Type Weight in lbs Pre/Post Dialysis Refused 284.412182255029 BP Diastolic BP Location Tested BP Systolic [...] Type Weight in lbs Pre/Post Dialysis Refused 285.171168062095 BP Diastolic BP Location Tested BP Systolic BP Type 84 L arm 129 sitting Fetus Heart Rate Present Fetus Movement A Yes Comments Flowsheet Date 02/20/2025 Nevarez Score Blood Edema Fundus Height Fundus Units Glucose Ketones Leukocytes Nitrite Labor Signs Protein Cervic Dilation Cervic Effacement Cervic Station Type Weight in lbs Pre/Post Dialysis Refused 285.925668647918 BP Diastolic BP Location Tested BP Systolic [...] Weight in lbs Pre/Post Dialysis Refused Weight 289.808342656059 BP Diastolic BP Location Tested BP Systolic [...] Weight in lbs Pre/Post Dialysis Refused Weight 289.984644587013 BP Diastolic BP Location Tested BP Systolic [...] Type Weight in lbs Pre/Post Dialysis Refused 292.121997041198 BP Diastolic BP Location Tested BP Systolic BP Type 77 L arm 129 sitting Fetus Heart Rate Present Fetus Movement A Yes Comments Flowsheet Date 03/06/2025 Nevarez Score Blood Edema Fundus Height Fundus Units Glucose Ketones Leukocytes Nitrite Labor Signs Protein Cervic Dilation Cervic Effacement Cervic Station 3cm 50% -2 Type Weight in lbs Pre/Post Dialysis Refused Weight 292.995037125387 BP Diastolic BP Location Tested BP Systolic [...]
== END 2025-03-10 15:56 | disposition home or self-care (01) ==
LOC: ANHED 15:21
PROVIDERS: Physician Assistant; Emergency Provider Emergency Medicine; PCP Nurse Practitioner Family
DX: O26.893 Other specified pregnancy related conditions, third trimester (principal); R07.81 Pleurodynia; O13.3 Gestational [pregnancy-induced] hypertension without significant proteinuria, third trimester; O99.613 Diseases of the digestive system complicating pregnancy, third trimester; K21.9 Gastro-esophageal reflux disease without esophagitis; Z3A.36 36 weeks gestation of pregnancy
CPT/HCPCS: 36415; 80053; 81001; 83690; 83880; 84484; 85025; 85610; 85730; 93005; 96361; 96374; 99284; J7030